=== PATIENT | female | born 1935 | race Caucasian/White ===

== ENCOUNTER → 2016-12-10 | Outpatient (CLI) | payer BC ==
[~2016-12-10] MED LIST: ACET-1256 PO; AMLO-110 PO; ATEN100T8 PO; ESOM20CA PO; LEVO200T6 PO; LEVO25TA5 PO; LOSA50TA54 PO; OXYC-57 PO; SIMV80TA2 PO; TELM80TA PO
--- NOTE | 2016-12-10 11:01 | DIAGNOSTIC IMAGING REPORT ---
DOPPLER ULTRASOUND OF THE RENAL ARTERIES CLINICAL HISTORY: Hypertension. Hyperlipidemia. COMPARISON STUDY: No previous studies for comparison. TECHNIQUE: Grayscale and color and do proximal Doppler sonography of the abdominal aorta and renal arteries was performed. FINDINGS: The peak systolic velocity within the abdominal aorta was 92 cm/s. The peak systolic velocity within the right renal artery was 86 cm/s and the peak systolic velocity within the left renal artery was 54 cm/s. Both renal veins were patent. There was mild renal cortical thinning. Slight prominence of the right collecting system was present. Systolic upstrokes within the bilateral segmental vessels was delayed, right greater than left. There are suspected calcified granulomas within the spleen. IMPRESSION: 1. No elevated velocities identified within the renal arteries. However, segmental waveforms within each kidney were abnormal, right greater than left, with a tardus parvus morphology. While indeterminate, this raises the possibility of an occult stenosis. A CTA of the abdomen could be obtained to evaluate the renal arteries. 2. Mild renal cortical thinning and slight prominence of the right renal collecting system. Electronically signed by: Bob Rodriguez M.D. 12/10/2016 10:59 AM Dictated Date/Time: 12/10/2016 10:52 AM
[2016-12-10 12:25] LABS: URINE APPEARANCE CLEAR (CLEAR); URINE BILIRUBIN NEG (NEG); URINE COLOR YELLOW; URINE EPITHELIAL CELL AUTO 20-30 /lpf (0-5); URINE NITRITE NEG (NEG); URINE SPECIFIC GRAVITY 1.006 (1.000-1.030); UROBILINOGEN NEG (NEG)
[2016-12-10 12:48] LABS: MANUAL MICROSCOPIC REQUIRED? NO; REVIEW REQ? NO
== END | disposition home or self-care (01) ==
LOC: C.ULTR 09:56
PROVIDERS: ATTEND Internal Medicine Pulmonary Disease
DX: E03.9 Hypothyroidism, unspecified (principal); E78.5 Hyperlipidemia, unspecified; H35.60 Retinal hemorrhage, unspecified eye; I10 Essential (primary) hypertension

== ENCOUNTER → 2017-01-21 | Outpatient (CLI) | payer BC | END | disposition home or self-care (01) | LOC: C.LABBFT 09:21 | PROVIDERS: ATTEND Internal Medicine Nephrology | DX: I10 Essential (primary) hypertension (principal) ==

== ENCOUNTER → 2017-02-24 | Outpatient (CLI) | payer BC | END | disposition home or self-care (01) | LOC: C.RDSM 11:38 | PROVIDERS: ATTEND Physical Medicine & Rehabilitation Sports Medicine | DX: Z09 Encounter for follow-up examination after completed treatment for conditions other than malignant neoplasm (principal) ==

== ENCOUNTER → 2018-06-28 | Outpatient (CLI) | payer BC ==
[~2018-06-28] MED LIST changes: -AMLO-110 PO; +AMLO5TAB3 PO
--- NOTE | 2018-06-28 15:37 | DIAGNOSTIC IMAGING REPORT ---
R VENOUS DOPP LOWER EXT UNILAT CLINICAL HISTORY: RT LEG PAIN pain. Edema. TECHNIQUE: Venous Doppler COMPARISON STUDY: None FINDINGS: Normal study IMPRESSION: Normal study The above report was generated using voice recognition software. It may contain grammatical, syntax or spelling errors. Electronically signed by: Edgar Thao M.D. 06/28/2018 3:35 PM Dictated Date/Time: 06/28/2018 3:35 PM
== END | disposition home or self-care (01) ==
LOC: C.ULTR 14:44
PROVIDERS: ATTEND Physician Assistant Medical
DX: R60.0 Localized edema (principal); M79.604 Pain in right leg

== ENCOUNTER 2020-05-12 20:07 | Inpatient (IN) ==
--- NOTE | 2020-05-12 20:44 | Emergency Department Note ---
Impression & Plan Aphasia, Stroke ED Provider Note Provider: Riki Arias MD DATE OF SERVICE: 05/12/2020 CHIEF COMPLAINT: Speech issues HISTORY OF PRESENT ILLNESS: Patient is a 84-year-old female with a history of hypertension, hypothyroidism, hyperlipidemia presenting today noted by family to have memory issues and speech issues throughout 4 PM today. Patient denies any headache. She has difficulty speaking here. Does not know her birthday. Again denies pain. No trauma is reported. Was otherwise well before this around 1 PM earlier. No reported fevers or sick contacts. No history of similar. No reported history of stroke. There is some difficulty obtaining specific details from the patient as she is aphasic REVIEW OF SYSTEMS: A total of 10 review of systems was obtained and negative ex cept as stated above in the HPI. PAST MEDICAL HISTORY: As noted above MEDICATIONS: Reviewed medication list include aspirin, losartan, HCTZ, levothyroxine, amlodipine SOCIAL HISTORY: Lives at home with , additional family lives next-door PHYSICAL EXAM: GENERAL: alert and oriented in no acute distress on stretcher Head: normocephalic and atraumatic EYES: No injection, discharge or icterus. PERRL NECK: Trachea midline. Supple. ENT: Mucous membranes pink and moist. Tongue midline. LUNGS: Airway patent. No retractions. Breath sounds clear HEART: Regular rate and irregular rhythm. No chest wall tenderness ABDOMEN: Soft and non-tender, without guarding or rebound. SKIN: Acyanotic, warm, dry, without rashes EXTREMITIES: Without swelling, tenderness or deformity NEUROLOGICAL: No focal deficits. Moderate aphasia. No facial droop or slurred speech. Normal strength and tone in the extremities. Sensation to gross touch normal. EKG: Sinus rhythm 99 bpm with sinus arrhythmia. No PVCs noted. No acute ST segment elevation or depression noted. QTc 505. CONTINUOUS CARDIAC MONITORING: was ordered and showed a heart rate of 78 bpm in normal sinus rhythm with sinus arrhythmia Patient's hypertension was referred to the hospitalist HOSPITAL COURSE: 2031 Patient was first seen and H&P performed. 2104 Patient reassessed and updated. Patient was still having aphasia. Updated both her and the daughter findings. Recommend admission for further stroke evaluation. They were in agreement. Patient's laboratory studies and imaging reviewed. Differential includes Infection, dehydration, metabolic abnormality, hypo/hyperglycemia, electrolyte disturbance, anemia, hypoxia, cardiac sources, intracerebral event, toxicologic, neurologic, as well as other pathologies. IMPRESSION/MEDICAL DECISION MAKING: Patient presents with sudden onset of aphasia. Do not see gross motor abnormality. Aphasia is fairly remarkable. CT head completed. Kidney function precludes angiograms at this time and is slightly worse than prior baseline. Given some slight fluid hydration. Outside of the window of TPA based on onset time. More than 4 hours. Basic labs and metabolic work-up was completed. EKG shows a sinus arrhythmia but do not see evidence of A. fib. No significant bere kocytosis. Urinalysis still pending. CT the head was completed without evidence of acute intracranial bleed. Do have a high suspicion the patient suffered a likely small stroke causing this. Doubt this is a seizure. Patient with persistent systems on reevaluation. Recommended admission they were agreement. Considered administering oral aspirin however the patient failed dysphagia screening at this time. Will defer oral aspirin at this time. DIAGNOSIS: Aphasia, stroke DISPOSITION: Hospitalist will evaluate Patient was agreeable with this plan. Past Med/Surg History Social History Preferred Language: Dominican marital status: Current Living Situation: Spouse current occupational status: retired Feels Safe at Home: Yes Smoking Status: Never smoker Hx Alcohol Use: No Allergies Allergies Allergy/AdvReac Type Severity Reaction Status Date / Time No Known Drug Allergies Allergy Unknown ` Verified 05/12/20 21:37 Home Meds Home Medications Medication Instructions Recorded Confirmed losartan 100 1 tab PO DAILY #90 tab 08/23/19 05/12/20 mg-hydrochlorothiazide 25 mg tablet aspirin 81 mg PO DAILY 05/12/20 05/12/20 diphenhydramine-acetaminophen 1 tab PO HS PRN 05/12/20 05/12/20 [Tylenol PM Extra Strength] Previous Rx's Medication Instructions Recorded amlodipine 5 mg tablet 5 mg PO DAILY #90 tab 04/20/20 levothyroxine 150 mcg tablet 150 mcg PO DAILY #90 tab 04/20/20 potassium chloride 10 mEq 10 meq PO DAILY #90 tab 04/20/20 tablet,extended release Results & Data (ED) Vital Signs Vital Signs - 24 hr 05/12/20 20:14 05/12/20 20:36 05/12/20 21:01 Temperature 36.9 C Temperature Source Oral Pulse Rate 76 107 H Pulse Rate from SpO2 Sensor 107 H Respiratory Rate 18 16 19 Respiratory Effort / Characteristics Non-Labored Respiratory Depth Normal Blood Pressure 162/86 H 174/116 H Blood Pressure [Right Arm] 172/92 H Blood Pressure Mean 111 138 Blood Pressure Mean [Right Arm] 118 Blood Pressure Position [Right Arm] Lying Pulse Oximetry 98 95 98 Oxygen Delivery Method Room Air Sepsis Recent Fever Within 48 Hours No Sepsis New/Unexplained Change in Mental Status No Sepsis Action Taken by Nursing No Action Required 05/12/20 21:31 05/12/20 22:01 05/12/20 22:31 Temperature Temperature Source Pulse Rate 93 H 94 H 93 H Pulse Rate from SpO2 Sensor 100 H 91 H 96 H Respiratory Rate 18 20 21 Respiratory Effort / Characteristics Respiratory Depth Blood Pressure 174/93 H 157/96 H 168/115 H Blood Pressure [Right Arm] Blood Pressure Mean 112 112 137 Blood Pressure Mean [Right Arm] Blood Pressure Position [Right Arm] Pulse Oximetry 98 96 96 Oxygen Delivery Method Sepsis Recent Fever Within 48 Hours Sepsis New/Unexplained Change in Mental Status Sepsis Action Taken by Nursing 05/12/20 23:01 05/12/20 23:55 Temperature Temperature Source Pulse Rate 96 H 114 H Pulse Rate from SpO2 Sensor 95 H 112 H Respiratory Rate 15 24 Respiratory Effort / Characteristics Respiratory Depth Blood Pressure 161/102 H 162/97 H Blood Pressure [Right Arm] Blood Pressure Mean 130 131 Blood Pressure Mean [Right Arm] Blood Pressure Position [Right Arm] Pulse Oximetry 96 91 Oxygen Delivery Method Sepsis Recent Fever Within 48 Hours Sepsis New/Unexplained Change in Mental Status Sepsis Action Taken by Nursing Laboratory Data Result diagrams: 05/12/20 20:50 05/12/20 20:50 Lab Results 05/12/20 05/12/20 05/12/20 Range/Units 20:50 20:50 20:50 WBC 9.73 (4.8-10.8) K/uL RBC 4.66 (4.2-5.4) M/uL Hgb 14.3 (12.0-16.0) g/dL Hct 42.2 (37-47) % MCV 90.6 (80-100) fL MCH 30.7 (25-34) pg MCHC 33.9 (32-36) g/dL RDW Std Deviation 43.8 (36.4-46.3) fL RDW Coeff of Luis 13.3 (11.5-14.5) % Plt Count 191 (130-400) K/uL MPV 11.2 H (7.4-10.4) fL Immature Gran % (Auto) 0.2 % Neut % (Auto) 66.7 % Lymph % (Auto) 21.6 % [place] % (Auto) 9.4 % Eos % (Auto) 1.3 % Baso % (Auto) 0.8 % Immature Gran # (Auto) 0.02 (0.00-0.02) K/uL Neut # (Auto) 6.49 (1.4-6.5) K/uL Lymph # (Auto) 2.10 (1.2-3.4) K/uL [place] # (Auto) 0.91 H (0.11-0.59) K/uL Eos # (Auto) 0.13 (0-0.5) K/uL Baso # (Auto) 0.08 (0-0.2) K/uL PT 10.6 (9.0-12.0) Seconds INR 1.0 (0.9-1.1) APTT 24.2 (21.0-31.0) Seconds PTT Ratio 0.9 Sodium 137 (136-145) mmol/L Potassium 3.7 (3.5-5.1) mmol/L Chloride 104 (98-107) mmol/L Carbon Dioxide 27 (21-32) mmol/L Anion Gap 6.0 (3-11) BUN 26 H (7-18) mg/dl Creatinine 1.66 H (0.6-1.2) mg/dl Est Cr Clr Drug Dosing 23.5 ml/min Est GFR ( Amer) 32.2 Est GFR (Non-Af Amer) 27.8 BUN/Creatinine Ratio 15.5 (10-20) Glucose 120 H (70-99) mg/dl POC Glucose (70-99) mg/dl Calcium 9.1 (8.5-10.1) mg/dl Magnesium 1.9 (1.8-2.4) mg/dl Total Bilirubin 0.4 (0.2-1) mg/dl AST 20 (15-37) U/L ALT 18 (12-78) U/L Alkaline Phosphatase 67 (45-117) U/L Troponin I < 0.015 (0-0.045) ng/ml Total Protein 7.2 (6.4-8.2) gm/dl Albumin 3.6 (3.4-5.0) gm/dl Globulin 3.6 (2.5-4.0) gm/dl Albumin/Globulin Ratio 1.0 (0.9-2) /20/20 Range/Units 20:57 WBC (4.8-10.8) K/uL RBC (4.2-5.4) M/uL Hgb (12.0-16.0) g/dL Hct (37-47) % MCV (80-100) fL MCH (25-34) pg MCHC (32-36) g/dL RDW Std Deviation (36.4-46.3) fL RDW Coeff of Luis (11.5-14.5) % Plt Count (130-400) K/uL MPV (7.4-10.4) fL Immature Gran % (Auto) % Neut % (Auto) % Lymph % (Auto) % [place] % (Auto) % Eos % (Auto) % Baso % (Auto) % Immature Gran # (Auto) (0.00-0.02) K/uL Neut # (Auto) (1.4-6.5) K/uL Lymph # (Auto) (1.2-3.4) K/uL [place] # (Auto) (0.11-0.59) K/uL Eos # (Auto) (0-0.5) K/uL Baso # (Auto) (0-0.2) K/uL PT (9.0-12.0) Seconds INR (0.9-1.1) APTT (21.0-31.0) Seconds PTT Ratio Sodium (136-145) mmol/L Potassium (3.5-5.1) mmol/L Chloride (98-107) mmol/L Carbon Dioxide (21-32) mmol/L Anion Gap (3-11) BUN (7-18) mg/dl Creatinine (0.6-1.2) mg/dl Est Cr Clr Drug Dosing ml/min Est GFR ( Amer) Est GFR (Non-Af Amer) BUN/Creatinine Ratio (10-20) Glucose (70-99) mg/dl POC Glucose 116 H (70-99) mg/dl Calcium (8.5-10.1) mg/dl Magnesium (1.8-2.4) mg/dl Total Bilirubin (0.2-1) mg/dl AST (15-37) U/L ALT (12-78) U/L Alkaline Phosphatase (45-117) U/L Troponin I (0-0.045) ng/ml Total Protein (6.4-8.2) gm/dl Albumin (3.4-5.0) gm/dl Globulin (2.5-4.0) gm/dl Albumin/Globulin Ratio (0.9-2) Administered Medications Discontinued Medications Sodium Chloride (Nss) 500 mls @ 999 mls/hr IV .Q31M ONE Stop: 05/12/20 21:52 Last Infusion: 05/12/20 22:33 Dose: 0 mls/hr Documented by: [id number] Admin: 05/12/20 21:55 Dose: 999 mls/hr Documented by: [id number] Discharge Plan Visit Data Chief Complaint: Confusion Stated Complaint: CONFUSION, MEMORY LOSS ED Provider: Riki Arias Discharge Problem: Aphasia, Stroke Patient Disposition: Admitted As Inpatient Forms Stand Alone Forms: [facility] Prescriptions Prescriptions: No Action amlodipine 5 mg tablet 5 mg PO DAILY Qty: 90 RF: 3 levothyroxine 150 mcg tablet 150 mcg PO DAILY Qty: 90 RF: 3 potassium chloride 10 mEq tablet extended release 10 meq PO DAILY Qty: 90 RF: 3 losartan-hydrochlorothiazide 100-25 mg tablet 1 tab PO DAILY Qty: 90 RF: 0 aspirin 81 mg Tablet,Delayed Release (Dr/Ec) 81 mg PO DAILY RF: 0 diphenhydramine-acetaminophen [Tylenol PM Extra Strength] 25-500 mg Tablet 1 tab PO HS PRN (Reason: Pain) RF: 0 Referrals Referrals: Jesse Grigsby MD [Primary Care Provider] -
[2020-05-12 20:59] LABS: Basophils # (auto) 0.08 K/uL (0-0.2); Basophils % (auto) 0.8 %; Eosinophils # (auto) 0.13 K/uL (0-0.5); Eosinophils % (auto) 1.3 %; Hematocrit (blood only) 42.2 % (37-47); Hemoglobin 14.3 g/dL (12.0-16.0); Immature Granulocytes # (auto) 0.02 K/uL (0.00-0.02); Immature Granulocytes % (auto) 0.2 %; Lymphocytes % (auto) 21.6 %; Mean Corpuscular Hemoglobin 30.7 pg (25-34); Mean Corpuscular Hgb Conc 33.9 g/dL (32-36); Mean Corpuscular Volume 90.6 fL (80-100); Mean Platelet Volume 11.2 fL (7.4-10.4); Monocytes # (auto) 0.91 K/uL (0.11-0.59); Monocytes % (auto) 9.4 %; Neutrophils # (auto) 6.49 K/uL (1.4-6.5); Neutrophils % (auto) 66.7 %; Platelet Count 191 K/uL (130-400); RDW Coefficient of Variation 13.3 % (11.5-14.5); RDW Standard Deviation 43.8 fL (36.4-46.3); Red Blood Count 4.66 M/uL (4.2-5.4); White Blood Count 9.73 K/uL (4.8-10.8)
[2020-05-12 21:10] LABS: Partial Thromboplastin Ratio 0.9; Partial Thromboplastin Time 24.2 Seconds (21.0-31.0); Prothrombin Time 10.6 Seconds (9.0-12.0)
[2020-05-12 21:16] LABS: Alanine Aminotransferase 18 U/L (12-78); Albumin Level 3.6 gm/dl (3.4-5.0); Aspartate Aminotransferase 20 U/L (15-37); BUN Creatinine Ratio 15.5 (10-20); Blood Urea Nitrogen 26 mg/dl (7-18); Calcium 9.1 mg/dl (8.5-10.1); Carbon Dioxide 27 mmol/L (21-32); Chloride 104 mmol/L (98-107); Creatinine Clr Calc Pharmacy 23.5 ml/min; Est GFR (African American) 32.2; Est GFR (Non-African American) 27.8; Glucose 120 mg/dl (70-99); Magnesium 1.9 mg/dl (1.8-2.4); Potassium 3.7 mmol/L (3.5-5.1); Sodium 137 mmol/L (136-145)
[2020-05-12 21:21] LABS: Alkaline Phosphatase 67 U/L (45-117); Bilirubin,Total 0.4 mg/dl (0.2-1); Globulin 3.6 gm/dl (2.5-4.0); Total Protein 7.2 gm/dl (6.4-8.2); Troponin I < 0.015 ng/ml (0-0.045)
[2020-05-12] MEDS ORDERED: SODIUM CHLORIDE 0.9% 500 ML IV ONE (21:22)
--- NOTE | 2020-05-12 23:45 | History & Physical Report ---
Date of Service May 12, 2020 Assessment & Plan (1) Stroke: Stroke with main symptom of aphasia/hypertension- Patient with unintelligible speech. Admit to monitored bed N.p.o. Stroke without TPA order set, with time of arrival to ED will beyond time of intervention. Zofran 4 mg IV every 6 hours as needed Famotidine 20 mg IV every [address] of head without acute event. CTA of head and neck unable to be ordered due to acute kidney injury. We will hydrate patient overnight with IV fluids, and repeat creatinine in a.m., and attempt to perform CTA head neck at that time. MRI brain without contrast. Carotid Dopplers Permissive hypertension Present on Admission?: Yes (2) Aphasia: See above Present on Admission?: Yes (3) Hypertension: See above Present on Admission?: Yes (4) Esophageal dysmotility: Noted history of dysphagia secondary to esophageal dysmotility, but never had speech issues. Present on Admission?: Yes (5) Acute kidney injury superimposed on chronic kidney disease: Creatinine 1.66 upon admission, with 1.30-1.56. Placed on NSS at 80 mils per hour and repeat laboratories in a.m. Present on Admission?: Yes (6) Hypothyroidism: When passes swallow study, may take her levothyroxine 50 mcg daily Present on Admission?: Yes History of Present Illness Chief Complaint: The patient presents to the emergency department after family noticed her having memory issues and speech difficulty that began around 4 PM today. Primary Care Provider: Jesse Grigsby MD The patient is AN 84-year-old female with a past medical history including GERD, APCs, degenerative joint disease, esophageal dysmotility, hyperlipidemia, hypertension, hypothyroidism, primary osteoarthritis of right knee and retinal hemorrhage. Family reports that they noted her having difficulties with memory and speech at about 4 PM today. She has not had any recent travels or sick exposures. In the emergency department, her speech did not not make sense, and she did not have an awareness of that. She denies any weakness in arms or legs. She has not had these type of symptoms in the past. Allergies Allergy/AdvReac Type Severity Reaction Status Date / Time No Known Drug Allergies Allergy Unknown ` Verified 05/12/20 21:37 Home Medications Home Medications Medication Instructions Recorded Confirmed Type losartan 100 1 tab PO DAILY #90 tab 08/23/19 05/12/20 History mg-hydrochlorothiazide 25 mg tablet amlodipine 5 mg tablet 5 mg PO DAILY #90 tab 04/20/20 05/12/20 Rx levothyroxine 150 mcg tablet 150 mcg PO DAILY #90 tab 04/20/20 05/12/20 Rx potassium chloride 10 mEq 10 meq PO DAILY #90 tab 04/20/20 05/12/20 Rx tablet,extended release aspirin 81 mg PO DAILY 05/12/20 05/12/20 History diphenhydramine-acetaminophen 1 tab PO HS PRN 05/12/20 05/12/20 History [Tylenol PM Extra Strength] Past Med/Surg History Social History Preferred Language: Omani 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 Physical Exam Physical Exam: The patient is awake, with expressive aphasia, well developed and well nourished, normocephalic and atraumatic, lying in bed and in no acute distress. HEENT--PERRL, EOMI, mucous membranes and oropharynx normal. Neck--supple. No JVD. No bruits. Thyroid normal, trachea midline, no adenopathy. Heart--normal S1 and S2. No murmurs, rubs or gallops. Lungs--clear bilaterally, no respiratory distress, no accessory muscle use. Abdomen--normal bowel sounds and soft. Nontender. Nondistended. Extremities--no cyanosis or clubbing. No edema. Dermatologic--normal skin turgor, normal color, no abnormal lymph nodes, no rash. Neurologic--cranial nerves II through XII grossly intact. Rheumatologic--normal range of motion. Psychiatric--intermittently confused. Results & Data Results & Data ([facility]) Vital Signs (Past 12 Hours) Vital Signs Temp Pulse Resp BP BP Pulse Ox 05/12/20 20:36 16 172/92 H 95 05/12/20 20:14 98.4 F 76 18 162/86 H 98 Laboratory Results Laboratory Results WBC 9.73 K/uL (4.8-10.8) 05/12/20 20:50 RBC 4.66 M/uL (4.2-5.4) 05/12/20 20:50 Hgb 14.3 g/dL (12.0-16.0) 05/12/20 20:50 Hct 42.2 % (37-47) 05/12/20 20:50 MCV 90.6 fL (80-100) 05/12/20 20:50 MCH 30.7 pg (25-34) 05/12/20 20:50 MCHC 33.9 g/dL (32-36) 05/12/20 20:50 RDW Std Deviation 43.8 fL (36.4-46.3) 05/12/20 20:50 RDW Coeff of Luis 13.3 % (11.5-14.5) 05/12/20 20:50 Plt Count 191 K/uL (130-400) 05/12/20 20:50 MPV 11.2 fL (7.4-10.4) H 05/12/20 20:50 Immature Gran % (Auto) 0.2 % 05/12/20 20:50 Neut % (Auto) 66.7 % 05/12/20 20:50 Lymph % (Auto) 21.6 % 05/12/20 20:50 [place] % (Auto) 9.4 % 05/12/20 20:50 Eos % (Auto) 1.3 % 05/12/20 20:50 Baso % (Auto) 0.8 % 05/12/20 20:50 Immature Gran # (Auto) 0.02 K/uL (0.00-0.02) 05/12/20 20:50 Neut # (Auto) 6.49 K/uL (1.4-6.5) 05/12/20 20:50 Lymph # (Auto) 2.10 K/uL (1.2-3.4) 05/12/20 20:50 [place] # (Auto) 0.91 K/uL (0.11-0.59) H 05/12/20 20:50 Eos # (Auto) 0.13 K/uL (0-0.5) 05/12/20 20:50 Baso # (Auto) 0.08 K/uL (0-0.2) 05/12/20 20:50 PT 10.6 Seconds (9.0-12.0) 05/12/20 20:50 INR 1.0 (0.9-1.1) 05/12/20 20:50 APTT 24.2 Seconds (21.0-31.0) 05/12/20 20:50 PTT Ratio 0.9 05/12/20 20:50 Sodium 137 mmol/L (136-145) 05/12/20 20:50 Potassium 3.7 mmol/L (3.5-5.1) 05/12/20 20:50 Chloride 104 mmol/L (98-107) 05/12/20 20:50 Carbon Dioxide 27 mmol/L (21-32) 05/12/20 20:50 Anion Gap 6.0 (3-11) 05/12/20 20:50 BUN 26 mg/dl (7-18) H 05/12/20 20:50 Creatinine 1.66 mg/dl (0.6-1.2) H 05/12/20 20:50 Est Cr Clr Drug Dosing 23.5 ml/min 05/12/20 20:50 Est GFR ( Amer) 32.2 05/12/20 20:50 Est GFR (Non-Af Amer) 27.8 05/12/20 20:50 BUN/Creatinine Ratio 15.5 (10-20) 05/12/20 20:50 Glucose 120 mg/dl (70-99) H 05/12/20 20:50 POC Glucose 116 mg/dl (70-99) H 05/12/20 20:57 Calcium 9.1 mg/dl (8.5-10.1) 05/12/20 20:50 Magnesium 1.9 mg/dl (1.8-2.4) 05/12/20 20:50 Total Bilirubin 0.4 mg/dl (0.2-1) 05/12/20 20:50 AST 20 U/L (15-37) 05/12/20 20:50 ALT 18 U/L (12-78) 05/12/20 20:50 Alkaline Phosphatase 67 U/L (45-117) 05/12/20 20:50 Troponin I < 0.015 ng/ml (0-0.045) 05/12/20 20:50 Total Protein 7.2 gm/dl (6.4-8.2) 05/12/20 20:50 Albumin 3.6 gm/dl (3.4-5.0) 05/12/20 20:50 Globulin 3.6 gm/dl (2.5-4.0) 05/12/20 20:50 Albumin/Globulin Ratio 1.0 (0.9-2) 05/12/20 20:50 Diagnostic Findings [facility] Patient: CYNTHIA HART (Female) : 33 Status: ER Date: 05/12/20 21:41 Room #: History: CONFUSION Slices: 66 Priors: Tech: Skylar Burroughs @ [phone] Exams: CT HEAD Accession Numbers: [id number] Preliminary Findings Only See Final Report For Complete Findings CT HEAD: No intracranial hemorrhage, mass effect or CT evidence of acute infarct Ventricles are within limits and midline Chronic and involutional changes Paranasal sinuses, mastoids and orbits appear within limits Radiologist: Aren Keene M.D. Study ready at 21:44 and initial results transmitted at 21:56 *This report constitutes a preliminary interpretation only. Non-acute findings felt to be unrelated to the clinical presentation may not be discussed in this report. The study will be interpreted and a final report will be generated by the local Radiologist the following shift. To reach the hospital radiology department call [phone]. If a discrepancy is found between the preliminary and final interpretations of this study, please notify us via our Client Portal at [email or web address] [email or web address].You can also fax this report with a description of the discrepancy, or include the final report, to our daytime fax number [phone].If faxing, please indicate the severity of discrepancy using one of the following categories: [ ] 1 - Agree/Informational [ ] 2 - Unlikely to Affect Management [ ] 3 - Possible Eventual Change of Management [ ] 4 - Probable Immediate Change of Management For all other patient related information, please fax us at [phone]. [id number] Code Status & VTE Plan Code Status Full code VTE Prophylaxis Plan VTE Prophylaxis will be ordered: Yes PG Care Time/CCT Total # of Minutes Spent Total Time Spent with Patient: Total time spent is greater than 50% in coordination of care (as documented) at patient's floor/unit and/or counseling patient: Coding Level of Care Code 63418 Initial Inpt Care Lvl 3 Diagnoses Stroke I63.9 CVA mechanism: unspecified Aphasia R47.01 Hypertension I10 Esophageal dysmotility K22.4 Acute kidney injury superimposed on chronic kidney disease N17.9; N18.9 Hypothyroidism E03.9 (1) Stroke CVA mechanism: unspecified Qualified Code(s): I63.9 - Cerebral infarction, unspecified
[2020-05-13] MEDS ORDERED: PHARMACIST DISCHARGE MED REC CONSULT PRN (01:11)
[2020-05-13] MEDS ORDERED: SODIUM CHLORIDE 0.9% 1000ML 1,000 ML IV SCH (05:15)
[2020-05-13 06:39] LABS: Basophils # (auto) 0.07 K/uL (0-0.2); Basophils % (auto) 0.9 %; Eosinophils # (auto) 0.07 K/uL (0-0.5); Eosinophils % (auto) 0.9 %; Hematocrit (blood only) 42.8 % (37-47); Hemoglobin 14.2 g/dL (12.0-16.0); Immature Granulocytes # (auto) 0.01 K/uL (0.00-0.02); Immature Granulocytes % (auto) 0.1 %; Lymphocytes # (auto) 1.51 K/uL (1.2-3.4); Mean Corpuscular Hemoglobin 29.6 pg (25-34); Mean Corpuscular Hgb Conc 33.2 g/dL (32-36); Mean Corpuscular Volume 89.4 fL (80-100); Mean Platelet Volume 11.2 fL (7.4-10.4); Monocytes # (auto) 0.69 K/uL (0.11-0.59); Monocytes % (auto) 9.1 %; Neutrophils # (auto) 5.21 K/uL (1.4-6.5); Platelet Count 184 K/uL (130-400); RDW Coefficient of Variation 13.1 % (11.5-14.5); RDW Standard Deviation 43.2 fL (36.4-46.3); Red Blood Count 4.79 M/uL (4.2-5.4); White Blood Count 7.56 K/uL (4.8-10.8)
--- NOTE | 2020-05-13 06:57 | CT Scan Report ---
CT head/brain wo con CT DOSE: 614.27 mGy.cm HISTORY: Mental status change Stroke evaluation TECHNIQUE: Multiaxial CT images of the head were performed without the use of intravenous contrast. A dose lowering technique was utilized adhering to the principles of ALARA. Comparison: None. Findings: The paranasal sinuses and mastoid air cells are clear. The calvarium and skull base are int act. The ventricles and sulci are within normal limits. There is no mass, hematoma, midline shift, or acute infarct. Impression: No acute intracranial abnormality. Age-related atrophy and chronic small vessel change ACT 112: Negative or not required by law. The above report was generated using voice recognition software. It may contain grammatical, syntax or spelling errors. Electronically signed by: Edgar Thao M.D. 05/13/2020 6:56 AM
[2020-05-13 07:10] LABS: BUN Creatinine Ratio 15.8 (10-20); Calcium 9.2 mg/dl (8.5-10.1); Creatinine Clr Calc Pharmacy 32.2 ml/min; Est GFR (African American) 47.7; Est GFR (Non-African American) 41.2; Potassium 3.4 mmol/L (3.5-5.1)
[2020-05-13 07:13] LABS: Appearance Urine Clear (Clear); Bilirubin Urine Negative (Negative); Blood Urine Negative (Negative); Color Urine Yellow; Glucose Urine UA Negative (Negative); Ketones Urine Negative (Negative); Leukocyte Esterase Urine Negative (Negative); Nitrite Urine Negative (Negative); Protein Urine Negative (Negative); Specific Gravity Urine 1.015 (1.000-1.030); Urobilinogen Urine Negative (Negative)
--- NOTE | 2020-05-13 07:26 | Ultrasound Report ---
ULTRASOUND OF THE CAROTID ARTERIES CLINICAL HISTORY: Strokelike symptoms. COMPARISON STUDY: No priors. TECHNIQUE: Real-time, grayscale, and color Doppler sonography of the carotid arteries is performed. I mages are reviewed in the transverse and longitudinal planes. FINDINGS: Blood pressure in the right arm measures 164/96 and blood pressure in the left arm measures 162/97. The carotid arteries are patent bilaterally and demonstrate antegrade flow. There is mild atheroscler otic plaque seen bilaterally. Normal doppler arterial waveforms are seen throughout. Velocity measure ments are listed below. Common carotid peak systolic velocity (cm/sec): RIGHT: 74 LEFT: 81 ICA proximal peak systolic velocity (cm/sec): RIGHT: 66 LEFT: 79 ICA mid peak systolic velocity (cm/sec): RIGHT: 93 LEFT: 63 ICA distal peak systolic velocity (cm/sec): RIGHT: 67 LEFT: 73 ICA/CC peak systolic ratio: RIGHT: 1.3 LEFT: 1.0 Antegrade flow was shown in the vertebral arteries. The external carotid arteries are patent. IMPRESSION: 1. There is no sonographic evidence of hemodynamically significant stenosis in the right or left argueta tid arterial system. 2. Antegrade flow is shown in the vertebral arteries. ACT 112: Negative or not required by law. Electronically signed by: Augusto Bernal M.D. 05/13/2020 7:24 AM
[2020-05-13] MEDS ORDERED: ASPIRIN 300 MG SUPP PR SCH (09:20)
--- NOTE | 2020-05-13 09:22 | Neurology Consultation ---
Date of Consultation May 13, 2020 Assessment & Plan (1) Aphasia: (2) Memory loss: (3) Hypertension: (4) Hyperlipidemia: Patient had the acute onset of motor aphasia May 12. She does not seem to have a receptive aphasia but this is a little difficult with the memory problem she displays. She does have a history of mild memory loss over the last year and a half. However, she does not appear significantly demented to me on exam today. She follows commands well and seems to understand what I am asking her to do. This event occurred while she was on aspirin. Examination reveals no further focal neurologic affects, meningeal signs, or encephalopathy. I believe she has had an ischemic stroke in her leg [facility]. An MRI of the brain is pending. Risk factors for stroke include hypertension and dyslipidemia. She has no cardiac problems but an echocardiogram is pending. Recommendations: 1. MRI of the brain without contrast to evaluate extent and severity of stroke. 2. Add clopidogrel 75 milligrams to aspirin for now. 3. Initiate a statin, but in lieu of her advanced age I would not consider a high dose statin candidate. 4. Control blood pressure as you are doing, aiming for a mean arterial blood pressure of 95 to 100. 5. Hemoglobin A1c is pending and control glucose 6. Obtain TSH, B12, and folate. Overall, I spent a total of 60 minutes with this case including review of records, review of CT films, direct evaluation patient bedside, and discussion of the case with patient's RN at bedside, as well as Dr. Scanlon including differential diagnosis and treatment options. History of Present Illness Reason for Consultation: Patient is a an 84-year-old, who I was asked to see at the request of Dr. Burnette, for neurologic consultation regarding probable stroke Requesting Physician: Dr. Burnette Attending Physician: Pili Scanlon MD History of Present Illness The patient has a history of hypertension, hypothyroidism, dyslipidemia, and osteoarthritis. There is also a history of memory impairment/dementia with see ms to have come on gradually and has been a little bit progressive over the last year and half. She has been on a baby aspirin as well as losartan, amlodipine, and levothyroxine. Patient had the onset May 12 at approximately 1600 of speech problems and or worsening memory problems. She arrived to the emergency room May 12 at 2014 with a temperature 36.9, pulse 70s and regular, respiratory rate 18, and blood pressure 162/86 with an O2 saturation 98 percent. On examination she was not speaking well and was felt to have an a aphasia. There was concern about memory problems also. CBC and Chem profile were unremarkable except for a BUN of 26 and creatinine of 1.6. Glucose was 120. No CT angiography was done because of concerns regarding elevated BUN and creatinine. Carotid ultrasound revealed no significant stenoses bilaterally. CT scan of the head without contrast showed no acute change. She has had no new events overnight and has been stable according to nursing staff. Patient has no complaint of pain or headache, weakness or numbness, dizziness or other issues. She feels fine. Blood pressure this morning is 171/85. Repeat CBC and Chem profile was unremarkable except for a BUN of 19 and creatinine 1.2. Glucose was 116. Total cholesterol was 240 and triglycerides were 64. Hemoglobin A1c and echocardiogram are pending. Allergies Allergy/AdvReac Type Severity Reaction Status Date / Time No Known Drug Allergies Allergy Unknown ` Verified 05/12/20 21:37 Home Medications Home Medications Medication Instructions Recorded Confirmed Type losartan 100 1 tab PO DAILY #90 tab 08/23/19 05/12/20 History mg-hydrochlorothiazide 25 mg tablet amlodipine 5 mg tablet 5 mg PO DAILY #90 tab 04/20/20 05/12/20 Rx levothyroxine 150 mcg tablet 150 mcg PO DAILY #90 tab 04/20/20 05/12/20 Rx potassium chloride 10 mEq 10 meq PO DAILY #90 tab 04/20/20 05/12/20 Rx tablet,extended release aspirin 81 mg PO DAILY 05/12/20 05/12/20 History diphenhydramine-acetaminophen 1 tab PO HS PRN 05/12/20 05/12/20 History [Tylenol PM Extra Strength] Patient History Medical History Acid reflux (Acute) Hyperlipidemia Hypertension Hypothyroidism Memory loss Surgical History History of tonsillectomy and adenoidectomy Family History Other Coronary heart disease Hypertension Social History Preferred Language: Norwegian Communication Ability: Impaired Vascular Radiologist Required: No Beliefs That Will Affect Care: None marital status: Current Living Situation: Spouse current occupational status: retired Other Information That Helps Us Care for You: No Feels Safe at Home: Yes Safety Concerns: Feels Safe At This Time Smoking Status: Never smoker Hx Alcohol Use: No Hx Substance Use: No Review of Systems Review of Systems: Language difficulties impair a review of systems put she basically denies anything I ask her. Constitutional: no fever, no fatigue and no weakness Eyes: no diplopia, no eye pain and no worsening vision Ear, Nose, Mouth, Throat: + hearing loss; no ear pain, no tinnitus, no dizziness, no hoarseness and no dysphagia Respiratory: no cough and no dyspnea Cardiovascular: no chest pain, no palpitations and no lightheadedness Gastrointestinal: no abdominal pain, no nausea and no vomiting Genitourinary: + urinary incontinence; no dysuria and no urinary frequency Musculoskeletal: no back pain, no neck pain, no radicular pain, no joint pain and no myalgia Integumentary: no rash and no lesions Neurologic: + abnormal speech and + memory loss; no gait abnormality, no localized weakness, no generalized weakness, no tingling, no numbness, no tremor(s), no abnormal movements, no headache(s) and no confusion Psychiatric: no depression, no irritability, no anxiety, no difficulty concentrating, no confusion and no hallucinations Endocrine: no fatigue and no flushing Hematologic / Lymphatic: no easy bleeding and no easy bruising Allergy / Immunological: no urticaria and no problem reported Exam (Neuro) Physical Exam: The patient is right-handed. The patient is awake, alert, and attentive. Speech is remarkable for a motor aphasia. She cannot name objects but can converse some saying conversational and little words easily. She follows one-step commands well and does not appear confused when I asked her to do things. When I give her choices to pick from she seems to agree to the correct choice. For example, she states her 1st name but cannot state her last name. When I give her 3 choices she picks out her last name easily. She does get a little frustrated not being able to say the words she wants to say. Mood seems normal and affect seems appropriate. Appearance and grooming are unremarkable. It is difficult to assess long and short-term memory but does seem to be some impairment. The discs are sharp with positive venous pulsations bilaterally. There are no exudates, hemorrhages, or blood vessel changes seen. Pupils are 3 mm bilaterally and reactive to light. Extraocular eye muscles are intact without nystagmus. Visual acuity and visual pike seem normal grossly to confrontation. There are no deficits to sensation in the face in all 3 distributions of the fif th cranial nerve bilaterally. Corneal reflexes are positive bilaterally. Facial strength and symmetry was normal bilaterally. Hearing seems normal to whisper and finger rub bilaterally. Palate moves well without asymmetry. There is normal sternocleidomastoid and trapezius (shoulder shrug) strength bilaterally. Tongue is midline with good strength bilaterally. Neck has a full range of motion without discomfort. There are no cervical bruits bilaterally. There are no cranial or ocular bruits. Heart is without murmur. There is a regular rhythm and rate. Cervical, thoracic, and lumbar spine are nontender to palpation. Gait was not tested but stance sitting up in bed is quite normal. With outstretched arms there is no drift. There are no resting, postural, or action tremors. There is no ataxia with finger to nose testing. There is good facility in the hands. No other abnormal involuntary movements are noted. Motor strength is 5/5 diffusely in the arms bilaterally including deltoids, bi ceps, triceps, brachioradialis, wrist flexors and extensors, cyber systems administrator, and intrinsic hand muscles. Motor strength is 5/5 diffusely in the legs bilaterally including hip flexors, quadriceps, hamstrings, gastrocnemius, tibialis anterior, tibialis posterior, and Peroneii muscles. Toe extensors are normal and there is good bulk in the extensor digitorum brevis muscles bilaterally. The limbs have good tone without rigidity or spasticity. There is no atrophy noted in the muscles. Muscle bulk is normal, there is no tenderness to palpation, no myotonia to percussion, and no fasciculations seen. Sensory examination is intact to touch and pin throughout all 4 limbs diffusely. Reflexes are 1/4 in the biceps, triceps, brachioradialis, quadriceps, and Achilles tendons bilaterally. There is no clonus bilaterally. Toes are downgoing with plantar stimulation bilaterally. Peripheral pulses are present and of normal quality distally in all 4 limbs. There is no peripheral edema noted in the limbs. Results & Data ([facility]) Vital Signs (Past 12 Hours) Vital Signs Temp Pulse Pulse Pulse Resp BP BP 05/13/20 08:00 90 05/13/20 07:15 36.6 C 98 H 18 171/85 H 05/13/20 05:05 36.6 C 89 20 174/92 H 05/13/20 02:34 96 H 05/13/20 01:11 36.8 C 68 18 05/13/20 00:31 94 H 21 164/96 H 05/13/20 00:01 95 H 19 160/96 H 05/12/20 23:55 114 H 24 162/97 H 05/12/20 23:01 96 H 15 161/102 H 05/12/20 22:31 93 H 21 168/115 H 05/12/20 22:01 94 H 20 157/96 H 05/12/20 21:31 93 H 18 174/93 H BP Pulse Ox 05/13/20 08:00 05/13/20 07:15 96 05/13/20 05:05 94 05/13/20 02:34 05/13/20 01:11 185/84 H 95 05/13/20 00:31 92 05/13/20 00:01 92 05/12/20 23:55 91 05/12/20 23:01 96 05/12/20 22:31 96 05/12/20 22:01 96 05/12/20 21:31 98 PG Care Time/CCT Total # of Minutes Spent Total Time Spent with Patient: Total time spent is greater than 50% in coordination of care (as documented) at patient's floor/unit and/or counseling patient: Coding Level of Care Code 06042 Initial Inpt Care Lvl 3 Diagnoses Aphasia R47.01 Memory loss R41.3 Hypertension I10 Hyperlipidemia E78.5 Time Spent (min) 60
[2020-05-13] MEDS ORDERED: POTASSIUM CHLORIDE / WTR 10 MEQ/100 ML PLCT IV ONE (09:30)
[2020-05-13] MEDS ORDERED: CLOPIDOGREL BISULFATE 75 MG TAB PO SCH (09:45)
[2020-05-13] MEDS ORDERED: ATORVASTATIN 40 MG TAB PO SCH (10:00)
--- NOTE | 2020-05-13 10:39 | Hospitalist Progress Note ---
Date of Service May 13, 2020 Assessment & Plan (1) Stroke: Stroke with main symptom of motor aphasia and with right sided debbie- neglect Patient with unintelligible speech at times-persists CT head negative MRI brain today with acute-subacute CVA in left temporoparietal cortex With new onset atrial flutter here on tele--> could be embolic CVA, but with HTN, could be thrombotic CVA also CTA of head and neck unable to be ordered due to acute kidney injury. Carotid DOppler negative Passed Speech eval. Permissive hypertension but give IV hydralazine prn to keep MAP<100 -She was NOT taking ASA anymore at home prior to admission--started ASA 81mg daily for now, but question if she needs this in addition to anticoagulation?- Will discuss with neurology -started on heparin gtt for now and then will need to convert to po anticoagulant prior to discharge--> would be a good candidate for Eliquis or Xarelto -Lipid panel checked with total cholesterol elevated at 210, LDL not at goal at 130-start atorvastatin 40 mg once daily -Needs improved blood pressure control after period of permissive hypertension -PT/OT/speech therapy evaluations ordered -Appreciate neurology consultation -For cognitive impairment work-up, neurology suggested checking TSH, folate, and B12 -Continue telemetry monitoring -Continue neurochecks (2) Atrial flutter with rapid ventricular response: As noted above, went into rapid atrial flutter shortly after admission -Continue telemetry monitoring -Started on metoprolol 25 mg p.o. twice daily for rate control -Started on heparin drip as noted above -No history of bleeding as per the patient's daughter although retinal hemorrhages mentioned in the notes -Will need to werner out and decide on oral anticoagulant on Thursday (3) Aphasia: See above (4) Hypertension: Blood pressures elevated in response to acute CVA We will try to keep map around 100 -Starting metoprolol as above for rapid atrial flutter -IV hydralazine for SBP greater than 190 -Holding home losartan/HCTZ for WILMER as below -Holding home amlodipine for permissive hypertension (5) Esophageal dysmotility: Noted history of dysphagia secondary to esophageal dysmotility, but never had speech issues. (6) Acute kidney injury superimposed on chronic kidney disease: Creatinine 1.66 upon admission, with 1.30-1.56 as baseline. Placed on NSS at 80 mils per hour and creatinine improved down to 1.20 -Follow BMP -Continue holding home losartan/HCTZ (7) Hypothyroidism: TSH here is quite low at 0.007 -Will lower levothyroxine to 125 mcg daily -Needs follow-up TFTs in 4 to 6 weeks (8) Vitamin B12 deficiency: Vitamin B12 level low at 25 -Start vitamin B-12 1000 mcg IM once daily x3 doses (9) DVT prophylaxis: Heparin drip Disposition-remain on telemetry PT/OT consultations May need rehab Discussed her care with her daughter on the phone on 2 occasions today Admission and Anticipated Discharge Date Admission Date: May 12, 2020 Subjective Patient continues to have difficulty with her speech. She does recognize that she is having this problem and seems frustrated by it. She denies any headache or chest pain, no shortness of breath. No weakness anywhere. I discussed her case at length with neurology and cardiology. Telemetry with atrial flutter with rates into the 1 teens Review of Systems Review of Systems: All systems reviewed & are unremarkable except as noted in HPI & below Physical Exam Constitutional: WD/WN, vitals as above Eyes: PERRL, conjunctivae normal, anicteric sclerae ENMT: external ear and nose normal, oropharynx normal Neck: trachea midline, no thyromegaly Respiratory: normal respiratory effort, lungs clear to auscultation Cardiovascular: Rate/Rhythm: + tachycardic and + irregularly irregular Heart Sounds: no murmur Vessels: brachial pulses present; no JVD Extremities: no calf tenderness and no edema Chest (Breasts): Chest: normal inspection of chest Gastrointestinal (Abdomen): normal bowel sounds, soft, nontender, no hepatosplenomegaly Musculoskeletal: Extremities: extremities normal to inspection; no cyanosis and no clubbing Skin: no rashes, warm and dry Neurologic: CN's II-XI intact bilaterally, moves all extremities and awake; + abnormal deep tendon reflexes (1+ throughout), no focal motor deficits (Full strength throughout upper and lower extremities bilaterally) and not confused Speech / Cognition: + expressive aphasia (Speaks but replaces words with the wrong ones, is conversational); no receptive aphasia Motor/Sensory: no tremor, no pronator drift and no sensory deficit She has a significant right sided hemineglect Psychiatric: Orientation: alert, oriented to person and cooperative Eye Contact: good eye contact (If I am standing on her left side) Lymphatic: no lymphedema Results & Data Results & Data ([facility]) Vital Signs (Past 12 Hours) Vital Signs Temp Pulse Pulse Pulse Resp BP BP 05/13/20 08:00 90 05/13/20 07:15 36.6 C 98 H 18 171/85 H 05/13/20 05:05 36.6 C 89 20 174/92 H 05/13/20 02:34 96 H 05/13/20 01:11 36.8 C 68 18 05/13/20 00:31 94 H 21 164/96 H 05/13/20 00:01 95 H 19 160/96 H 05/12/20 23:55 114 H 24 162/97 H 05/12/20 23:01 96 H 15 161/102 H BP Pulse Ox 05/13/20 08:00 05/13/20 07:15 96 05/13/20 05:05 94 05/13/20 02:34 05/13/20 01:11 185/84 H 95 05/13/20 00:31 92 05/13/20 00:01 92 05/12/20 23:55 91 05/12/20 23:01 96 Laboratory Results 05/13/20 05/13/20 05/13/20 Range/Units 18:31 12:38 09:46 WBC (4.8-10.8) K/uL RBC (4.2-5.4) M/uL Hgb (12.0-16.0) g/dL Hct (37-47) % MCV (80-100) fL MCH (25-34) pg MCHC (32-36) g/dL RDW Std Deviation (36.4-46.3) fL RDW Coeff of Luis (11.5-14.5) % Plt Count (130-400) K/uL MPV (7.4-10.4) fL Immature Gran % (Auto) % Neut % (Auto) % Lymph % (Auto) % Denali % (Auto) % Eos % (Auto) % Baso % (Auto) % Immature Gran # (Auto) (0.00-0.02) K/uL Neut # (Auto) (1.4-6.5) K/uL Lymph # (Auto) (1.2-3.4) K/uL Denali # (Auto) (0.11-0.59) K/uL Eos # (Auto) (0-0.5) K/uL Baso # (Auto) (0-0.2) K/uL PT 10.9 (9.0-12.0) Seconds INR 1.0 (0.9-1.1) APTT 67.8 H* (21.0-31.0) Seconds PTT Ratio 2.4 Sodium (136-145) mmol/L Potassium (3.5-5.1) mmol/L Chloride (98-107) mmol/L Carbon Dioxide (21-32) mmol/L Anion Gap (3-11) BUN (7-18) mg/dl Creatinine (0.6-1.2) mg/dl Est Cr Clr Drug Dosing ml/min Est GFR ( Amer) Est GFR (Non-Af Amer) BUN/Creatinine Ratio (10-20) Glucose (70-99) mg/dl Estimat Average Glucose Hemoglobin A1c Calcium (8.5-10.1) mg/dl Magnesium (1.8-2.4) mg/dl Total Bilirubin (0.2-1) mg/dl AST (15-37) U/L ALT (12-78) U/L Alkaline Phosphatase (45-117) U/L Troponin I (0-0.045) ng/ml Total Protein (6.4-8.2) gm/dl Albumin (3.4-5.0) gm/dl Globulin (2.5-4.0) gm/dl Albumin/Globulin Ratio (0.9-2) Triglycerides (0-150) mg/dl Cholesterol (0-200) mg/dl LDL Cholesterol, Calc mg/dl VLDL Cholesterol, Calc mg/dl HDL Cholesterol mg/dl Cholesterol/HDL Ratio Vitamin B12 (211-911) pg/ml Folate (>5.38) ng/ml TSH 0.007 L (0.300-4.500) uIu/ml Urine Color Urine Appearance (Clear) Urine pH (4.5-7.5) Ur Specific Proctor (1.000-1.030) Urine Protein (Negative) Urine Glucose (UA) (Negative) Urine Ketones (Negative) Urine Blood (Negative) Urine Nitrite (Negative) Urine Bilirubin (Negative) Urine Urobilinogen (Negative) Ur Leukocyte Esterase (Negative) 05/13/20 05/13/20 05/13/20 Range/Units 09:46 06:22 06:22 WBC 7.56 (4.8-10.8) K/uL RBC 4.79 (4.2-5.4) M/uL Hgb 14.2 (12.0-16.0) g/dL Hct 42.8 (37-47) % MCV 89.4 (80-100) fL MCH 29.6 (25-34) pg MCHC 33.2 (32-36) g/dL RDW Std Deviation 43.2 (36.4-46.3) fL RDW Coeff of Luis 13.1 (11.5-14.5) % Plt Count 184 (130-400) K/uL MPV 11.2 H (7.4-10.4) fL Immature Gran % (Auto) 0.1 % Neut % (Auto) 69.0 % Lymph % (Auto) 20.0 % Denali % (Auto) 9.1 % Eos % (Auto) 0.9 % Baso % (Auto) 0.9 % Immature Gran # (Auto) 0.01 (0.00-0.02) K/uL Neut # (Auto) 5.21 (1.4-6.5) K/uL Lymph # (Auto) 1.51 (1.2-3.4) K/uL Denali # (Auto) 0.69 H (0.11-0.59) K/uL Eos # (Auto) 0.07 (0-0.5) K/uL Baso # (Auto) 0.07 (0-0.2) K/uL PT (9.0-12.0) Seconds INR (0.9-1.1) APTT (21.0-31.0) Seconds PTT Ratio Sodium 141 (136-145) mmol/L Potassium 3.4 L (3.5-5.1) mmol/L Chloride 106 (98-107) mmol/L Carbon Dioxide 28 (21-32) mmol/L Anion Gap 6.0 (3-11) BUN 19 H (7-18) mg/dl Creatinine 1.20 D (0.6-1.2) mg/dl Est Cr Clr Drug Dosing 32.2 ml/min Est GFR ( Amer) 47.7 Est GFR (Non-Af Amer) 41.2 BUN/Creatinine Ratio 15.8 (10-20) Glucose 116 H (70-99) mg/dl Estimat Average Glucose Hemoglobin A1c Calcium 9.2 (8.5-10.1) mg/dl Magnesium (1.8-2.4) mg/dl Total Bilirubin (0.2-1) mg/dl AST (15-37) U/L ALT (12-78) U/L Alkaline Phosphatase (45-117) U/L Troponin I (0-0.045) ng/ml Total Protein (6.4-8.2) gm/dl Albumin (3.4-5.0) gm/dl Globulin (2.5-4.0) gm/dl Albumin/Globulin Ratio (0.9-2) Triglycerides 64 (0-150) mg/dl Cholesterol 210 H (0-200) mg/dl LDL Cholesterol, Calc 130 mg/dl VLDL Cholesterol, Calc 13 mg/dl HDL Cholesterol 67 mg/dl Cholesterol/HDL Ratio 3 Vitamin B12 285 (211-911) pg/ml Folate 9.36 (>5.38) ng/ml TSH (0.300-4.500) uIu/ml Urine Color Urine Appearance (Clear) Urine pH (4.5-7.5) Ur Specific Proctor (1.000-1.030) Urine Protein (Negative) Urine Glucose (UA) (Negative) Urine Ketones (Negative) Urine Blood (Negative) Urine Nitrite (Negative) Urine Bilirubin (Negative) Urine Urobilinogen (Negative) Ur Leukocyte Esterase (Negative) 05/13/20 05/13/20 05/12/20 Range/Units 06:22 05:00 20:50 WBC (4.8-10.8) K/uL RBC (4.2-5.4) M/uL Hgb (12.0-16.0) g/dL Hct (37-47) % MCV (80-100) fL MCH (25-34) pg MCHC (32-36) g/dL RDW Std Deviation (36.4-46.3) fL RDW Coeff of Luis (11.5-14.5) % Plt Count (130-400) K/uL MPV (7.4-10.4) fL Immature Gran % (Auto) % Neut % (Auto) % Lymph % (Auto) % Denali % (Auto) % Eos % (Auto) % Baso % (Auto) % Immature Gran # (Auto) (0.00-0.02) K/uL Neut # (Auto) (1.4-6.5) K/uL Lymph # (Auto) (1.2-3.4) K/uL Denali # (Auto) (0.11-0.59) K/uL Eos # (Auto) (0-0.5) K/uL Baso # (Auto) (0-0.2) K/uL PT (9.0-12.0) Seconds INR (0.9-1.1) APTT (21.0-31.0) Seconds PTT Ratio Sodium 137 (136-145) mmol/L Potassium 3.7 (3.5-5.1) mmol/L Chloride 104 (98-107) mmol/L Carbon Dioxide 27 (21-32) mmol/L Anion Gap 6.0 (3-11) BUN 26 H (7-18) mg/dl Creatinine 1.66 H (0.6-1.2) mg/dl Est Cr Clr Drug Dosing 23.5 ml/min Est GFR ( Amer) 32.2 Est GFR (Non-Af Amer) 27.8 BUN/Creatinine Ratio 15.5 (10-20) Glucose 120 H (70-99) mg/dl Estimat Average Glucose Pending Hemoglobin A1c Pending Calcium 9.1 (8.5-10.1) mg/dl Magnesium 1.9 (1.8-2.4) mg/dl Total Bilirubin 0.4 (0.2-1) mg/dl AST 20 (15-37) U/L ALT 18 (12-78) U/L Alkaline Phosphatase 67 (45-117) U/L Troponin I < 0.015 (0-0.045) ng/ml Total Protein 7.2 (6.4-8.2) gm/dl Albumin 3.6 (3.4-5.0) gm/dl Globulin 3.6 (2.5-4.0) gm/dl Albumin/Globulin Ratio 1.0 (0.9-2) Triglycerides (0-150) mg/dl Cholesterol (0-200) mg/dl LDL Cholesterol, Calc mg/dl VLDL Cholesterol, Calc mg/dl HDL Cholesterol mg/dl Cholesterol/HDL Ratio Vitamin B12 (211-911) pg/ml Folate (>5.38) ng/ml TSH (0.300-4.500) uIu/ml Urine Color Yellow Urine Appearance Clear (Clear) Urine pH 7.0 (4.5-7.5) Ur Specific Proctor 1.015 (1.000-1.030) Urine Protein Negative (Negative) Urine Glucose (UA) Negative (Negative) Urine Ketones Negative (Negative) Urine Blood Negative (Negative) Urine Nitrite Negative (Negative) Urine Bilirubin Negative (Negative) Urine Urobilinogen Negative (Negative) Ur Leukocyte Esterase Negative (Negative) Diagnostic Findings MRI of the brain images personally reviewed by me and agree with the following report: IMPRESSION: 1. Restricted diffusion in the left temporoparietal cortex is consistent with acute to subacute ischemia. 2. No additional foci of acute ischemia are identified. 3. There is no hemorrhage or mass effect. Carotid Doppler: Normal Echocardiogram: LVEF 60-65%, no regional wall motion abnormalities noted, no valvular pathology ECG Additional Comments: ECG on 05/13/2020 at 10:19 AM with atrial flutter with variable AV block, rightward axis, rate 107, no ischemic changes PG Care Time/CCT Total # of Minutes Spent Total Time Spent with Patient: Total time spent is greater than 50% in coordination of care (as documented) at patient's floor/unit and/or counseling patient: Coding Level of Care Code 50549 Subseq Hosp Care Lvl 3 Diagnoses Stroke I63.9 CVA mechanism: unspecified Atrial flutter with rapid ventricular response I48.92 Aphasia R47.01 Hypertension I10 Esophageal dysmotility K22.4 Acute kidney injury superimposed on chronic kidney disease N17.9; N18.9 Hypothyroidism E03.9 Vitamin B12 deficiency E53.8 DVT prophylaxis Z29.9 (1) Stroke CVA mechanism: unspecified Qualified Code(s): I63.9 - Cerebral infarction, unspecified
[2020-05-13] MEDS ORDERED: METOPROLOL TARTRATE 25 MG TAB PO SCH (10:40)
[2020-05-13] MEDS ORDERED: Heparin IV Standard *NO* Bolus IV SCH (11:00)
[2020-05-13 11:17] LABS: Folate (Folic Acid) 9.36 ng/ml (>5.38)
--- NOTE | 2020-05-13 11:47 | XCELERA ---
[id number]
--- NOTE | 2020-05-13 12:14 | Magnetic Resonance Report ---
MRI OF THE BRAIN WITHOUT IV CONTRAST CLINICAL HISTORY: Strokelike symptoms. COMPARISON STUDY: CT of the brain dated 05/12/2020. TECHNIQUE: MRI of the brain was performed utilizing various T1 and T2-weighted sequences in the axial , sagittal, and coronal planes. IV contrast was not administered for this examination. FINDINGS: Brain parenchyma: There is age-related involutional change noting moderate to advanced confluent subc ortical and periventricular microangiopathic disease. There is restricted diffusion identified within the left temporoparietal cortex consistent with acute to subacute ischemia. No additional foci of re stricted diffusion are identified. There is no hemorrhage or mass effect. No extra-axial fluid colle ction is seen. The cerebellar tonsils are normal in configuration. Ventricles, sulci, and cisterns: Prominent secondary to involutional change. Pituitary and sella: Unremarkable. Intracranial vasculature: Normal flow voids are maintained at the skull base. Orbits: The bony orbits are grossly intact. Orbital contents are normal in appearance noting bilatera l ocular lens implants. Sinuses and mastoids: There is a small right mastoid effusion. The left mastoid air cells and the par anasal sinuses are clear. Calvarium: Unremarkable. Cervical cord: Partially visualized cervical spinal cord is normal in morphology and signal intensity . IMPRESSION: 1. Restricted diffusion in the left temporoparietal cortex is consistent with acute to subacute ische ilene. 2. No additional foci of acute ischemia are identified. 3. There is no hemorrhage or mass effect. ACT 112: Negative or not required by law. Electronically signed by: Augusto Bernal M.D. 05/13/2020 12:12 PM
[2020-05-13] MEDS: ATORVASTATIN 40 MG TAB PO SCH (12:35)
[2020-05-13] MEDS: HEPARIN SODIUM/DEXTROSE 25,000 UNITS/500 ML BAG IV SCH ×2 (12:35→19:42)
[2020-05-13] MEDS: POTASSIUM CHLORIDE / WTR 10 MEQ/100 ML PLCT IV SCH ×3 (12:38→14:18)
[2020-05-13 13:07] LABS: Prothrombin Time 10.9 Seconds (9.0-12.0)
--- NOTE | 2020-05-13 13:11 | Cardiology Consultation ---
Date of Consultation May 13, 2020 Assessment & Plan (1) Stroke: -suspect an embolic event from her atrial dysrhythmia. -management per primary care team and Dr. Nelson. (2) Atrial flutter with rapid ventricular response: -this is a new diagnosis for the patient. -agree with addition of metoprolol tartrate 12.5 mg b.i.d. -will likely need long-term anticoagulation. (3) Hypertension: -allowing permissive hypertension. History of Present Illness Attending Physician: Pili Scanlon MD History of Present Illness Mr. Hunter is an 84-year-old female admitted yesterday with an acute CVA and atrial flutter. This consultation was ordered to sister cardiac management. The history is obtained from the chart and discussion with Dr. Scanlon as the patient has an expressive aphasia. She was in her usual state of health until approximately 4 p.m. when her family noticed that her speech was very difficult to understand, and her memory issues seem to deteriorate. She was brought to the emergency room for further evaluation. It was felt that her acute CVA could not be treated with thrombolytics as she was outside of the time window. Currently, patient is resting comfortably in bed. She does seem to understand questions but is unable to answer. Past medical and surgical history 1. Hypertension 2. Hypercholesterolemia 3. Chronic renal failure 4. Hypothyroidism 5. Esophageal dysmotility 6. DJD 7. Dementia 8. Osteoporosis 9. History of retinal hemorrhage 10. Tonsillectomy Social history and lives with her No tobacco alcohol Family history Noncontributory Review of systems Unobtainable Allergies Allergy/AdvReac Type Severity Reaction Status Date / Time No Known Drug Allergies Allergy Unknown ` Verified 05/12/20 21:37 Home Medications Home Medications Medication Instructions Recorded Confirmed Type losartan 100 1 tab PO DAILY #90 tab 08/23/19 05/12/20 History mg-hydrochlorothiazide 25 mg tablet amlodipine 5 mg tablet 5 mg PO DAILY #90 tab 04/20/20 05/12/20 Rx levothyroxine 150 mcg tablet 150 mcg PO DAILY #90 tab 04/20/20 05/12/20 Rx potassium chloride 10 mEq 10 meq PO DAILY #90 tab 04/20/20 05/12/20 Rx tablet,extended release diphenhydramine-acetaminophen 1 tab PO HS PRN 05/12/20 05/12/20 History [Tylenol PM Extra Strength] Patient History Medical History (Updated 05/13/20 @ 10:39 by Pili Scanlon MD) Acid reflux (Acute) Atrial flutter with rapid ventricular response Hyperlipidemia Hypertension Hypothyroidism Memory loss Surgical History History of tonsillectomy and adenoidectomy Family History Other Coronary heart disease Hypertension Social History Preferred Language: Sammarinese Communication Ability: Impaired 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 HEENT exam is negative. Neck is supple with full carotid upstrokes. There are no carotid bruits. Jugular venous pressure is flat at 90. There is no thyromegaly. Cardiovascular exam reveals an irregular rhythm with distant heart sounds. No obvious murmurs. Lungs are clear without rales, rhonchi, or wheezes. Abdomen is soft and nontender without bruits. Extremities reveal intact radial artery and posterior tibial pulses bilaterally. There is no peripheral edema. Results & Data ([facility]) Vital Signs (Past 12 Hours) Vital Signs Temp Pulse Pulse Pulse Resp BP BP 05/13/20 08:00 90 05/13/20 07:15 36.6 C 98 H 18 171/85 H 05/13/20 05:05 36.6 C 89 20 174/92 H 05/13/20 02:34 96 H 05/13/20 01:11 36.8 C 68 18 185/84 H Pulse Ox 05/13/20 08:00 05/13/20 07:15 96 05/13/20 05:05 94 05/13/20 02:34 05/13/20 01:11 95 Laboratory Results CBC notes hemoglobin of 14.2, crit 42.8, white count 7.56, platelet count of 049669. Electrolytes note a sodium of 141, potassium 3.4, chloride 106, bicarb 20, BUN 19, creatinine 1.2, glucose of 116. Troponin I level on presentation was undetectable less than 0.015. Diagnostic Findings EKG and nuclear monitoring technician both note atrial flutter with a variable ventricular response. Echocardiogram notes normal left ventricular systolic function with an ejection fraction of 60-65% without wall motion abnormalities. There is mild LVH and no evidence of valvular heart disease. CT scan of the head was negative. Brain MRI is pending. PG Care Time/CCT Total # of Minutes Spent Total Time Spent with Patient: Total time spent is greater than 50% in coordination of care (as documented) at patient's floor/unit and/or counseling patient: Coding Level of Care Code 01066 Initial Inpt Care Lvl 3 Diagnoses Stroke I63.9 CVA mechanism: unspecified Atrial flutter with rapid ventricular response I48.92 Hypertension I10 (1) Stroke CVA mechanism: unspecified Qualified Code(s): I63.9 - Cerebral infarction, unspecified
--- NOTE | 2020-05-13 14:27 | Electrocardiogram Report ---
Test Reason : Blood Pressure : / mmHG Vent. Rate : 099 BPM Atrial Rate : 099 BPM P-R Int : 168 ms QRS Dur : 090 ms QT Int : 394 ms P-R-T Axes : 071 097 071 degrees QTc Int : 505 ms Sinus rhythm with frequent , and consecutive Premature atrial complexes Rightward axis Poor R wave progression, consider anterior GA vs. lead placement vs. LVH Abnormal ECG When compared with ECG of 10-MAR-2013 09:23, No significant change Confirmed by Baldemar Reyes ([id number]) on 05/13/2020 2:27:23 PM Referred By: REFERRED SELF Confirmed By:Baldemar Reyes
--- NOTE | 2020-05-13 14:39 | Electrocardiogram Report ---
Test Reason : Blood Pressure : / mmHG Vent. Rate : 107 BPM Atrial Rate : 321 BPM P-R Int : 000 ms QRS Dur : 090 ms QT Int : 366 ms P-R-T Axes : 000 107 076 degrees QTc Int : 488 ms Atrial flutter with variable A-V block Rightward axis Abnormal ECG When compared with ECG of 12-MAY-2020 20:26, (unconfirmed) Atrial flutter has replaced Sinus rhythm Confirmed by Baldemar Reyes ([id number]) on 05/13/2020 2:39:19 PM Referred By: REFERRED SELF Confirmed By:Baldemar Reyes
[2020-05-13] MEDS ORDERED: METOPROLOL TARTRATE 25 MG TAB PO ONE (14:59)
[2020-05-13 19:10] LABS: Partial Thromboplastin Ratio 2.4
[2020-05-13 19:15] LABS: Partial Thromboplastin Time 67.8 Seconds (21.0-31.0)
[2020-05-13] MEDS: METOPROLOL TARTRATE 25 MG TAB PO SCH (19:44)
[2020-05-13] MEDS ORDERED: HydrALAZINE HCL 20 MG/ML VIAL IV PRN (21:07)
[2020-05-14 02:48] LABS: Basophils # (auto) 0.07 K/uL (0-0.2); Basophils % (auto) 0.7 %; Eosinophils # (auto) 0.15 K/uL (0-0.5); Eosinophils % (auto) 1.6 %; Hematocrit (blood only) 41.1 % (37-47); Hemoglobin 13.6 g/dL (12.0-16.0); Immature Granulocytes # (auto) 0.02 K/uL (0.00-0.02); Immature Granulocytes % (auto) 0.2 %; Lymphocytes # (auto) 3.02 K/uL (1.2-3.4); Lymphocytes % (auto) 32.1 %; Mean Corpuscular Hgb Conc 33.1 g/dL (32-36); Mean Corpuscular Volume 90.7 fL (80-100); Mean Platelet Volume 10.7 fL (7.4-10.4); Monocytes # (auto) 0.87 K/uL (0.11-0.59); Monocytes % (auto) 9.2 %; Neutrophils # (auto) 5.28 K/uL (1.4-6.5); Neutrophils % (auto) 56.2 %; Platelet Count 188 K/uL (130-400); RDW Coefficient of Variation 13.1 % (11.5-14.5); RDW Standard Deviation 43.8 fL (36.4-46.3); Red Blood Count 4.53 M/uL (4.2-5.4); White Blood Count 9.41 K/uL (4.8-10.8)
[2020-05-14 03:08] LABS: Partial Thromboplastin Ratio 4.1
[2020-05-14 03:09] LABS: Partial Thromboplastin Time 114.7 Seconds (21.0-31.0)
[2020-05-14 03:11] LABS: BUN Creatinine Ratio 14.6 (10-20); Calcium 9.3 mg/dl (8.5-10.1); Creatinine Clr Calc Pharmacy 31.4 ml/min; Est GFR (African American) 46.3; Magnesium 1.9 mg/dl (1.8-2.4); Potassium 4.4 mmol/L (3.5-5.1)
[2020-05-14 06:04] LABS: Estimated Average Glucose 117 mg/dl; Hemoglobin A1C 5.7 % (4.5-5.6)
[2020-05-14] MEDS: LEVOTHYROXINE SODIUM 125 MCG TABLET PO SCH (06:19)
[2020-05-14 07:05] LABS: Partial Thromboplastin Ratio 2.1
[2020-05-14 07:08] LABS: Partial Thromboplastin Time 59.5 Seconds (21.0-31.0)
[2020-05-14] MEDS: ASPIRIN 81 MG ECTAB PO SCH (09:31)
[2020-05-14] MEDS: CYANOCOBALAMIN 1000 MCG/ML VIAL IM SCH (09:32)
[2020-05-14] MEDS: METOPROLOL TARTRATE 25 MG TAB PO SCH ×2 (09:32→20:14)
[2020-05-14] MEDS: ATORVASTATIN 40 MG TAB PO SCH (09:32)
--- NOTE | 2020-05-14 10:11 | Cardiology Progress Note ---
Date of Service May 14, 2020 Assessment & Plan (1) Stroke: -suspect an embolic event from her atrial flutter. -management per primary care team and Dr. Nelson. (2) Atrial flutter with rapid ventricular response: -new diagnosis for the patient. -tolerating metoprolol tartrate 12.5 mg b.i.d. -will likely need long-term anticoagulation with Eliquis or Xarelto. -she may benefit from antiarrhythmic therapy (amiodarone). (3) Hypertension: -consider increasing metoprolol tartrate. Admission and Anticipated Discharge Date Admission Date: May 12, 2020 Subjective The patient is resting comfortably in bed without complaints of chest pain or dyspnea. Physical Exam Physical Exam: In general this is a well-developed well-nourished elderly white female in no acute distress. HEENT exam is negative. Neck is supple with full carotid upstrokes. There are no carotid bruits. Jugular venous pressure is flat at 90. There is no thyromegaly. Cardiovascular exam reveals a regular rhythm with distant heart sounds. No obvious murmurs. Lungs are clear without rales, rhonchi, or wheezes. Abdomen is soft and nontender without bruits. Extremities reveal intact radial artery pulses bilaterally. There is no peripheral edema. Results & Data ([facility]) Vital Signs (Past 12 Hours) Vital Signs Temp Pulse Pulse Resp BP BP Pulse Ox 05/14/20 08:00 64 05/14/20 07:05 36.7 C 68 18 176/83 H 97 05/13/20 23:07 36.5 C 67 20 174/79 H [address] monitor notes sinus rhythm with occasional PACs. The patient converted from atrial flutter yesterday afternoon. PG Care Time/CCT Total # of Minutes Spent Total Time Spent with Patient: Total time spent is greater than 50% in coordination of care (as documented) at patient's floor/unit and/or counseling patient: Coding Level of Care Code 62808 Subseq Hosp Care Lvl 3 Diagnoses Stroke I63.9 CVA mechanism: unspecified Atrial flutter with rapid ventricular response I48.92 Hypertension I10 (1) Stroke CVA mechanism: unspecified Qualified Code(s): I63.9 - Cerebral infarction, unspecified
[2020-05-14 11:09] LABS: Partial Thromboplastin Ratio 2.3
[2020-05-14 11:13] LABS: Partial Thromboplastin Time 65.1 Seconds (21.0-31.0)
[2020-05-14] MEDS: HEPARIN SODIUM/DEXTROSE 25,000 UNITS/500 ML BAG IV SCH (13:46)
--- NOTE | 2020-05-14 14:08 | Hospitalist Progress Note ---
Date of Service May 14, 2020 Assessment & Plan (1) Stroke: Raquel Hunter is an 84 yo woman w/ PMH of hypertension, hyperlipidemia, hypothyroidism, B12 deficiency, GERD, arthritis, esophageal dysmotility, baseline dysphasia, and history of memory loss who presented to [facility] with worsening language and memory problems. Stroke: - Patient with unintelligible speech - CT head: No hemorrhage or hypodensity, severe generalized atrophy with ex vacuo dilation, moderate to severe SVID -Carotid Dopplers: No significant stenosis - MRI brain: Acute/subacute left temporoparietal infarct, severe generalized atrophy, moderate to severe SVID - TTE: EF 60 to 65%, mild LVH, no valvular pathology - Passed Speech eval; referral placed to [facility] - Neurology consulted: permissive hypertension with IV hydralazine prn; maintaining SBP<180; BP should continue to improve over 3-4 days - continue to monitor BP, will restart home anti-hypertensive medications following permissive hypertensive period A. flutter w/ RVR: - telemetry demonstrated she had rapid atrial flutter shortly after admission - continue telemetry monitoring - continue on metoprolol 12.5 mg p.o. BID - start Eliquis 5mg BID WILMER: - Creatinine 1.66 upon admission, with 1.30-1.56 as baseline. - creatinine improved down to 1.23 - Follow BMP - Continue holding home losartan/HCTZ Hypothyroidism: - TSH here is quite low at 0.007 - Will lower levothyroxine to 125 mcg daily - repeat TSH in AM Vitamin B12 deficiency: - Vitamin B12 level low at 25 - continue vitamin B-12 1000 mcg IM once daily x3 doses Diet: heart healthy DVT ppx: started on Eliquis BID Code status: DNR/DNI (2) Atrial flutter with rapid ventricular response: (3) Hypertension: (4) Esophageal dysmotility: (5) Acute kidney injury superimposed on chronic kidney disease: (6) Hypothyroidism: (7) Vitamin B12 deficiency: Admission and Anticipated Discharge Date Admission Date: May 12, 2020 Supervising Physician Co-Signing Physician Notes I personally examined the patient and verified all price points of history and exam, discussed case, and agree with decision making with Dr Johnson. no real meaningful HPI or ROS obtainable. neurology input appreciated. vitals noted nad heent nc at mmm breathing unlabored no accessory muscles good effort skin no rashes no pallor or icterus neuro shows unintelligable and times, nonsense at others as far as speech. CVA - cardioembolic - starting apixaban. PT/OT eval and treat - for rehab/SNF. otherwise as above. Subjective Patient overnight seemed impulsive to nursing and was monitored with a one-to-one sitter; she remains incoherent in her responses throughout the morning, and is able to minimally follow commands, frequently turning her head and seeming to attempt to talk with the wall. Review of Systems Review of Systems: Unobtainable due to cognitive status (patients responses are non-sensical) Physical Exam Constitutional: WD/WN, vitals as above ENMT: external ear and nose normal, oropharynx normal Neck: normal visual inspection Respiratory: normal respiratory effort, lungs clear to auscultation Cardiovascular: Rate/Rhythm: regular rate and regular rhythm Heart Sounds: normal S1 and normal S2; no gallop, no murmur and no cardiac rub Vessels: normal peripheral pulses; no JVD Gastrointestinal (Abdomen): normal bowel sounds, soft, nontender, no hepatosplenomegaly Musculoskeletal: no cyanosis or clubbing, extremities motor strength 5/5 Neurologic: deep tendon reflexes 2+ bilaterally (biceps, and patellar); no focal motor deficits Psychiatric: Orientation: alert; + not oriented x 3 Eye Contact: + fair eye contact Motor Behavior: no abnormal motor movements Thought Process: + incoherent thought process Results & Data Results & Data ([facility]) Vital Signs (Past 12 Hours) Vital Signs Temp Pulse Pulse Resp BP Pulse Ox 05/14/20 11:28 36.9 C 60 18 172/66 H 96 05/14/20 08:00 64 05/14/20 07:05 36.7 C 68 18 176/83 H 97 Laboratory Results 05/14/20 05/14/20 05/14/20 Range/Units 10:21 06:00 02:34 WBC (4.8-10.8) K/uL RBC (4.2-5.4) M/uL Hgb (12.0-16.0) g/dL Hct (37-47) % MCV (80-100) fL MCH (25-34) pg MCHC (32-36) g/dL RDW Std Deviation (36.4-46.3) fL RDW Coeff of Luis (11.5-14.5) % Plt Count (130-400) K/uL MPV (7.4-10.4) fL Immature Gran % (Auto) % Neut % (Auto) % Lymph % (Auto) % [place] % (Auto) % Eos % (Auto) % Baso % (Auto) % Immature Gran # (Auto) (0.00-0.02) K/uL Neut # (Auto) (1.4-6.5) K/uL Lymph # (Auto) (1.2-3.4) K/uL [place] # (Auto) (0.11-0.59) K/uL Eos # (Auto) (0-0.5) K/uL Baso # (Auto) (0-0.2) K/uL APTT 65.1 H* 59.5 H* 114.7 H* (21.0-31.0) Seconds PTT Ratio 2.3 2.1 4.1 Sodium (136-145) mmol/L Potassium (3.5-5.1) mmol/L Chloride (98-107) mmol/L Carbon Dioxide (21-32) mmol/L Anion Gap (3-11) BUN (7-18) mg/dl Creatinine (0.6-1.2) mg/dl Est Cr Clr Drug Dosing ml/min Est GFR ( Amer) Est GFR (Non-Af Amer) BUN/Creatinine Ratio (10-20) Glucose (70-99) mg/dl Estimat Average Glucose mg/dl Hemoglobin A1c (4.5-5.6) % Calcium (8.5-10.1) mg/dl Magnesium (1.8-2.4) mg/dl 05/14/20 05/14/20 05/13/20 Range/Units 02:34 02:34 18:31 WBC 9.41 (4.8-10.8) K/uL RBC 4.53 (4.2-5.4) M/uL Hgb 13.6 (12.0-16.0) g/dL Hct 41.1 (37-47) % MCV 90.7 (80-100) fL MCH 30.0 (25-34) pg MCHC 33.1 (32-36) g/dL RDW Std Deviation 43.8 (36.4-46.3) fL RDW Coeff of Luis 13.1 (11.5-14.5) % Plt Count 188 (130-400) K/uL MPV 10.7 H (7.4-10.4) fL Immature Gran % (Auto) 0.2 % Neut % (Auto) 56.2 % Lymph % (Auto) 32.1 % [place] % (Auto) 9.2 % Eos % (Auto) 1.6 % Baso % (Auto) 0.7 % Immature Gran # (Auto) 0.02 (0.00-0.02) K/uL Neut # (Auto) 5.28 (1.4-6.5) K/uL Lymph # (Auto) 3.02 (1.2-3.4) K/uL [place] # (Auto) 0.87 H (0.11-0.59) K/uL Eos # (Auto) 0.15 (0-0.5) K/uL Baso # (Auto) 0.07 (0-0.2) K/uL APTT 67.8 H* (21.0-31.0) Seconds PTT Ratio 2.4 Sodium 143 (136-145) mmol/L Potassium 4.4 D (3.5-5.1) mmol/L Chloride 108 H (98-107) mmol/L Carbon Dioxide 31 (21-32) mmol/L Anion Gap 4.0 (3-11) BUN 18 (7-18) mg/dl Creatinine 1.23 H (0.6-1.2) mg/dl Est Cr Clr Drug Dosing 31.4 ml/min Est GFR ( Amer) 46.3 Est GFR (Non-Af Amer) 40.0 BUN/Creatinine Ratio 14.6 (10-20) Glucose 111 H (70-99) mg/dl Estimat Average Glucose mg/dl Hemoglobin A1c (4.5-5.6) % Calcium 9.3 (8.5-10.1) mg/dl Magnesium 1.9 (1.8-2.4) mg/dl 05/13/20 Range/Units 06:22 WBC (4.8-10.8) K/uL RBC (4.2-5.4) M/uL Hgb (12.0-16.0) g/dL Hct (37-47) % MCV (80-100) fL MCH (25-34) pg MCHC (32-36) g/dL RDW Std Deviation (36.4-46.3) fL RDW Coeff of Luis (11.5-14.5) % Plt Count (130-400) K/uL MPV (7.4-10.4) fL Immature Gran % (Auto) % Neut % (Auto) % Lymph % (Auto) % [place] % (Auto) % Eos % (Auto) % Baso % (Auto) % Immature Gran # (Auto) (0.00-0.02) K/uL Neut # (Auto) (1.4-6.5) K/uL Lymph # (Auto) (1.2-3.4) K/uL [place] # (Auto) (0.11-0.59) K/uL Eos # (Auto) (0-0.5) K/uL Baso # (Auto) (0-0.2) K/uL APTT (21.0-31.0) Seconds PTT Ratio Sodium (136-145) mmol/L Potassium (3.5-5.1) mmol/L Chloride (98-107) mmol/L Carbon Dioxide (21-32) mmol/L Anion Gap (3-11) BUN (7-18) mg/dl Creatinine (0.6-1.2) mg/dl Est Cr Clr Drug Dosing ml/min Est GFR ( Amer) Est GFR (Non-Af Amer) BUN/Creatinine Ratio (10-20) Glucose (70-99) mg/dl Estimat Average Glucose 117 mg/dl Hemoglobin A1c 5.7 H (4.5-5.6) % Calcium (8.5-10.1) mg/dl Magnesium (1.8-2.4) mg/dl Medications Administered Current Inpatient Medications Apixaban (Eliquis) 5 mg PO BID [facility] Stop: 06/13/20 20:59 Aspirin ([facility]rin Ectab) [facility] [place] Stop: 06/13/20 08:59 Last Admin: 05/14/20 09:31 Dose: 81 mg Documented by: Atorvastatin Calcium (Lipitor) [facility] [place] Stop: 06/13/20 08:59 Last Admin: 05/14/20 09:32 Dose: 40 mg Documented by: Cyanocobalamin (Vitamin B-12) 1,000 mcg IM DAILY [facility] Stop: 05/16/20 09:01 Last Admin: 05/14/20 09:32 Dose: 1,000 mcg Documented by: Hydralazine HCl (Hydralazine Hcl) 5 mg IV Q4 PRN PRN Reason: SBP>190 Stop: 06/12/20 21:06 Levothyroxine Sodium (Synthroid) 125 mcg PO DAILYBB [facility] Stop: 06/13/20 06:29 Last Admin: 05/14/20 06:19 Dose: 125 mcg Documented by: Metoprolol Tartrate (Lopressor) 25 mg PO BID [facility] Stop: 06/12/20 20:59 Last Admin: 05/14/20 09:32 Dose: 25 mg Documented by: Miscellaneous Information (Pharmacist Discharge Med Rec Consult) 1 ea N/A UD PRN PRN Reason: Consult Stop: 06/12/20 01:10 Resident Activity Tracking Resident Involvement: Resident Care Provided Care Provided: Adult Hospital Medicine (1) Stroke CVA mechanism: unspecified Qualified Code(s): I63.9 - Cerebral infarction, unspecified
--- NOTE | 2020-05-14 15:56 | Neurology Progress Note ---
Date of Service May 14, 2020 Assessment & Plan (1) Aphasia: (2) Memory loss: (3) Hypertension: (4) Hyperlipidemia: Raquel Hunter is an 84 yo woman w/ PMH of hypertension, hyperlipidemia, hypothyroidism, B12 deficiency, GERD, arthritis, esophageal dysmotility, baseline dysphasia, and history of memory loss who presented to [facility] with worsening language and memory problems. Symptom localization: left MCA territory Stroke mechanism: cardioembolic Stroke WorkUp: - CT head: No hemorrhage or hypodensity, severe generalized atrophy with ex vacuo dilation, moderate to severe SVID -Carotid Dopplers: No significant stenosis - MRI brain: Acute left temporoparietal infarct, severe generalized atrophy, moderate to severe SVID - TTE: EF 60 to 65%, mild LVH, no valvular pathology - Telemetry: Atrial flutter with RVR - A1c: 5.7 - FLP: 130 - Troponin, TSH: Negative, 0.007 for TSH -B12 low at 285 Stroke Management: - Acute treatment: ASA - Vitals, Neurochecks, NIHSS per unit routine - BP parameters: SBP CAP 180, restart home anti-hypertensives - Consult speech, PT, OT for supportive management - Will supervisor counseling and guidance concerning stroke education, smoking cessation, healthy diet, physical activity, weight loss - Follow up with PCP for assistance with outpatient goals (BP <135/85, LDL <70, A1c <7) - Follow up in neurology clinic in 6-8 weeks for stroke and memory issues Secondary Stroke Prevention: - Antiplatelet: n/a - Anticoagulation: Agree with apixaban - Statin: Start atorvastatin 40mg daily HTN: - BP parameters, as above - Restart home medications with goal of lowering BP to normotension over next 3- 4 days FEN/GI: - Diet: Cardiac HH diet and PO meds given absence of bulbar signs or symptoms - Monitor lytes and replete PRN Glucose Control: - Sliding scale insulin and accuchecks per primary team to avoid hyperglycemia Thank you for this interesting consult. Plan of care was discussed with primary team. Please call with any questions. Admission and Anticipated Discharge Date Admission Date: May 12, 2020 Subjective Raquel denied any complaints when examined. She would turn her head frequently to the left and appear that she was talking to someone who is not there and nursing staff had noted that she did become anxious for a few minutes prior to examination. Review of Systems Review of Systems: Unobtainable due to cognitive status Results & Data ([facility]) Vital Signs (Past 12 Hours) Vital Signs Temp Pulse Pulse Resp BP Pulse Ox 05/14/20 14:55 37 C 66 19 141/79 H 95 05/14/20 11:28 36.9 C 60 18 172/66 H 96 05/14/20 08:00 64 05/14/20 07:05 36.7 C 68 18 176/83 H 97 Exam (Neuro) Physical Exam: General Exam: GEN: NAD, lying down in examination bed. HEENT: No conjunctival injection, no rhinorrhea CV: RRR on monitor, no significant edema. PULM: Nonlabored respirations on room air. Neuro Exam: MS: Awake and Alert. Oriented to person, unable to answer orientation questions further. Speech fluent and inappropriate without dysarthria, frequently repeating the same phrase or had word salad. Unable to name, comprehension or repeat. Due to language difficulty, unable to assess cognition and memory fully. Appeared attentive. No clear neglect. CN: Visual pike full, + blink to threat bilaterally. Unable to visualize fundi on fundoscopic exam as patient could not follow commands. PERRLA OU. EOMI without clear nystagmus. Facial sensation intact to LT. Facial muscles full and symmetric. Hearing intact to conversation. Shoulder shrug normal. Tongue midline. MOTOR: Normal bulk and tone. No pronator drift. BUE strength 5/5 at deltoids, biceps, triceps, wrist flexors and extensors, and finger flexors bilaterally. BLE strength 5/5 at iliopsoas, hamstrings, quadriceps, tibialis anterior, and gastrocnemius bilaterally. REFLEXES: 1+ at biceps, triceps, brachioradialis, patella, and Achilles bilaterally. Flexor plantar responses bilaterally. SENSORY: Intact to LT throughout, no extinction to double simultaneous stimuli. COORDINATION: No dysmetria or ataxia on observed movements. Unable to follow commands and to test Savage. GAIT: Deferred due to physical status. NIH STROKE SCALE 1A. Level of Consciousness (0-3) = 0 1B. LOC Questions (0-2) = 1 1C. LOC Commands (0-2) = 2 2. Best Horizontal Gaze (0-2) = 0 3. Visual Pike (0-3) = 0 4. Facial Palsy (0-3) = 0 5. Motor Arm Right (0-4) = 0 Left (0-4) = 0 6. Motor Leg Right (0-4) = 0 Left (0-4) = 0 7. Limb Ataxia (0-2) = 0 8. Sensory (0-2) = 0 9. Best Language (0-3) = 2 10. Dysarthria (0-2) = 0 11. Extinction and Inattention (0-2) = 0 NIHSS TOTAL = 5 PG Care Time/CCT Total # of Minutes Spent Total Time Spent with Patient: Total time spent is greater than 50% in coordination of care (as documented) at patient's floor/unit and/or counseling patient: Coding Level of Care Code 16710 Subseq Hosp Care Lvl 3 Diagnoses Aphasia R47.01 Memory loss R41.3 Hypertension I10 Hyperlipidemia E78.5
[2020-05-14] MEDS ORDERED: HydrALAZINE HCL 20 MG/ML VIAL IV PRN (17:15)
--- NOTE | 2020-05-14 18:08 | Billing Data ---
Date of Service May 14, 2020 Coding Level of Care Code 69675 Subseq Hosp Care Lvl 2
[2020-05-14] MEDS: APIXABAN 5 MG TABLET PO SCH (20:14)
[2020-05-15] MEDS: LEVOTHYROXINE SODIUM 125 MCG TABLET PO SCH (05:57)
[2020-05-15 06:17] LABS: Basophils # (auto) 0.06 K/uL (0-0.2); Basophils % (auto) 0.8 %; Eosinophils # (auto) 0.14 K/uL (0-0.5); Eosinophils % (auto) 1.9 %; Hematocrit (blood only) 37.5 % (37-47); Hemoglobin 12.8 g/dL (12.0-16.0); Immature Granulocytes # (auto) 0.01 K/uL (0.00-0.02); Immature Granulocytes % (auto) 0.1 %; Lymphocytes # (auto) 1.51 K/uL (1.2-3.4); Mean Corpuscular Hgb Conc 34.1 g/dL (32-36); Mean Corpuscular Volume 87.8 fL (80-100); Mean Platelet Volume 10.9 fL (7.4-10.4); Monocytes # (auto) 1.08 K/uL (0.11-0.59); Monocytes % (auto) 14.3 %; Neutrophils # (auto) 4.75 K/uL (1.4-6.5); Neutrophils % (auto) 62.9 %; Platelet Count 170 K/uL (130-400); RDW Coefficient of Variation 13.2 % (11.5-14.5); RDW Standard Deviation 42.1 fL (36.4-46.3); Red Blood Count 4.27 M/uL (4.2-5.4); White Blood Count 7.55 K/uL (4.8-10.8)
[2020-05-15 06:27] LABS: Partial Thromboplastin Time 28.1 Seconds (21.0-31.0)
[2020-05-15 07:00] LABS: BUN Creatinine Ratio 17.7 (10-20); Calcium 8.9 mg/dl (8.5-10.1); Est GFR (African American) 45.9; Est GFR (Non-African American) 39.6
[2020-05-15 07:06] LABS: Thyroid Stimulating Hormone 0.007 uIu/ml (0.300-4.500)
[2020-05-15] MEDS: ASPIRIN 81 MG ECTAB PO SCH (08:34)
[2020-05-15] MEDS: APIXABAN 5 MG TABLET PO SCH ×2 (08:35→20:55)
[2020-05-15] MEDS: ATORVASTATIN 40 MG TAB PO SCH (08:35)
[2020-05-15] MEDS: CYANOCOBALAMIN 1000 MCG/ML VIAL IM SCH (08:35)
[2020-05-15] MEDS: METOPROLOL TARTRATE 25 MG TAB PO SCH ×2 (08:35→20:55)
[2020-05-15] MEDS ORDERED: POTASSIUM CHLORIDE 20 MEQ TABCR PO STA (08:48)
--- NOTE | 2020-05-15 12:56 | Cardiology Progress Note ---
Date of Service May 15, 2020 Assessment & Plan (1) Stroke: -suspect an embolic event from her atrial flutter. -management per primary care team and Dr. Arias. (2) Atrial flutter with rapid ventricular response: -new diagnosis. -tolerating metoprolol tartrate 12.5 mg b.i.d. -started on Eliquis 5 mg b.i.d. (? lower dose parameters almost met). -she may benefit from antiarrhythmic therapy (? amiodarone, but she is on thyroid replacement). (3) Hypertension: -starting Norvasc and Hyzaar tomorrow. Admission and Anticipated Discharge Date Admission Date: May 12, 2020 Subjective The patient denies chest pain, dyspnea, and palpitations. Physical Exam Physical Exam: In general this is a well-developed well-nourished elderly white female in no acute distress. HEENT exam is negative. Neck is supple with full carotid upstrokes. There are no carotid bruits. Jugular venous pressure is flat at 90. There is no thyromegaly. Cardiovascular exam reveals a regular rhythm with distant heart sounds. No obvious murmurs. Lungs are clear without rales, rhonchi, or wheezes. Abdomen is soft and nontender without bruits. Extremities reveal intact radial artery pulses bilaterally. There is no peripheral edema. Results & Data ([facility]) Vital Signs (Past 12 Hours) Vital Signs Temp Pulse Pulse Resp BP Pulse Ox 05/15/20 11:27 36.8 C 63 20 173/80 H 97 05/15/20 08:50 67 05/15/20 06:56 36.4 C L 64 18 167/78 H 94 05/15/20 02:15 65 Diagnostic Findings Normal sinus rhythm with PACs. No atrial flutter. PG Care Time/CCT Total # of Minutes Spent Total Time Spent with Patient: Total time spent is greater than 50% in coordination of care (as documented) at patient's floor/unit and/or counseling patient: Coding Level of Care Code 42171 Subseq Hosp Care Lvl 3 Diagnoses Stroke I63.9 CVA mechanism: unspecified Atrial flutter with rapid ventricular response I48.92 Hypertension I10 (1) Stroke CVA mechanism: unspecified Qualified Code(s): I63.9 - Cerebral infarction, unspecified
--- NOTE | 2020-05-15 13:27 | Hospitalist Progress Note ---
Date of Service May 15, 2020 Assessment & Plan (1) Stroke: Raquel Hunter is an 84 yo woman w/ PMH of hypertension, hyperlipidemia, hypothyroidism, B12 deficiency, GERD, arthritis, esophageal dysmotility, baseline dysphasia, and history of memory loss who presented to [facility] with worsening language and memory problems. Stroke: - Patient with maintained unintelligible speech - CT head: No hemorrhage or hypodensity, severe generalized atrophy with ex vacuo dilation, moderate to severe SVID -Carotid Dopplers: No significant stenosis - MRI brain: Acute/subacute left temporoparietal infarct, severe generalized atrophy, moderate to severe SVID - TTE: EF 60 to 65%, mild LVH, no valvular pathology - Passed Speech eval; referral placed to [facility] - Neurology consulted: permissive hypertension with IV hydralazine prn; maintaining SBP<180; BP should continue to improve over 3-4 days - restart home Amlodipine 5mg daily, and Losartan/HCTZ 100mg/25mg - continue to monitor BP - patient needs prior authorization before being able to be discharged to [facility] A. flutter w/ RVR: - telemetry demonstrated she had rapid atrial flutter shortly after admission - continue telemetry monitoring - continue on metoprolol 12.5 mg p.o. BID - start Eliquis 5mg BID WILMER: - Creatinine 1.66 upon admission, with 1.30-1.56 as baseline. - creatinine improved down to 1.23 - Follow BMP - Continue holding home losartan/HCTZ Hypothyroidism: - TSH 0.007; T4 1.70 - continue levothyroxine 125 mcg daily - recheck TSH in 4-6 weeks Vitamin B12 deficiency: - Vitamin B12 level low at 25 - continue vitamin B-12 1000 mcg IM once daily x3 doses Diet: heart healthy DVT ppx: continue Eliquis BID Code status: DNR/DNI Admission and Anticipated Discharge Date Admission Date: May 12, 2020 Supervising Physician Co-Signing Physician Notes I personally examined the patient and verified all price points of history and exam, discussed case, and agree with decision making with Dr Johnson. resting comfortably. waiting on SNF vs rehab. vitals noted nad heent nc at mmm breathing unlabored no accessory muscles good effort skin no rashes no pallor or icterus CVA - cardioembolic - continue apixaban. PT/OT eval and treat - for rehab/SNF once bed available. otherwise as above. Subjective Patient overnight seemed impulsive to nursing and was monitored with a one-to-one sitter; had a better night, and was less impulsive throughout the morning. Review of Systems Review of Systems: Unobtainable due to cognitive status Physical Exam Constitutional: WD/WN, vitals as above ENMT: external ear and nose normal, oropharynx normal Neck: normal visual inspection Respiratory: normal respiratory effort, lungs clear to auscultation Cardiovascular: Rate/Rhythm: regular rate and regular rhythm Heart Sounds: normal S1 and normal S2; no gallop, no murmur and no cardiac rub Vessels: normal peripheral pulses; no JVD Gastrointestinal (Abdomen): normal bowel sounds, soft, nontender, no hepatosplenomegaly Musculoskeletal: no cyanosis or clubbing, extremities motor strength 5/5 Neurologic: deep tendon reflexes 2+ bilaterally (biceps, and patellar); no focal motor deficits Psychiatric: Orientation: alert; + not oriented x 3 Eye Contact: + fair eye contact Motor Behavior: no abnormal motor movements Thought Process: + incoherent thought process Results & Data Results & Data ([facility]) Vital Signs (Past 12 Hours) Vital Signs Temp Pulse Pulse Resp BP Pulse Ox 05/15/20 11:27 36.8 C 63 20 173/80 H 97 05/15/20 08:50 67 05/15/20 06:56 36.4 C L 64 18 167/78 H 94 05/15/20 02:15 65 Laboratory Results 05/15/20 05/15/20 05/15/20 Range/Units 05:42 05:42 05:42 WBC (4.8-10.8) K/uL RBC (4.2-5.4) M/uL Hgb (12.0-16.0) g/dL Hct (37-47) % MCV (80-100) fL MCH (25-34) pg MCHC (32-36) g/dL RDW Std Deviation (36.4-46.3) fL RDW Coeff of Luis (11.5-14.5) % Plt Count (130-400) K/uL MPV (7.4-10.4) fL Immature Gran % (Auto) % Neut % (Auto) % Lymph % (Auto) % [place] % (Auto) % Eos % (Auto) % Baso % (Auto) % Neut # (Auto) (1.4-6.5) K/uL Lymph # (Auto) (1.2-3.4) K/uL [place] # (Auto) (0.11-0.59) K/uL Eos # (Auto) (0-0.5) K/uL Baso # (Auto) (0-0.2) K/uL Immature Gran # (Auto) (0.00-0.02) K/uL APTT 28.1 (21.0-31.0) Seconds PTT Ratio 1.0 Sodium (136-145) mmol/L Potassium (3.5-5.1) mmol/L Chloride (98-107) mmol/L Carbon Dioxide (21-32) mmol/L Anion Gap (3-11) BUN (7-18) mg/dl Creatinine (0.6-1.2) mg/dl Est Cr Clr Drug Dosing ml/min Est GFR ( Amer) Est GFR (Non-Af Amer) BUN/Creatinine Ratio (10-20) Glucose (70-99) mg/dl Calcium (8.5-10.1) mg/dl Magnesium 1.8 (1.8-2.4) mg/dl TSH (0.300-4.500) uIu/ml Free T4 1.70 H (0.8-1.6) ng/dl 05/15/20 05/15/20 Range/Units 05:42 05:42 WBC 7.55 (4.8-10.8) K/uL RBC 4.27 (4.2-5.4) M/uL Hgb 12.8 (12.0-16.0) g/dL Hct 37.5 (37-47) % MCV 87.8 (80-100) fL MCH 30.0 (25-34) pg MCHC 34.1 (32-36) g/dL RDW Std Deviation 42.1 (36.4-46.3) fL RDW Coeff of Luis 13.2 (11.5-14.5) % Plt Count 170 (130-400) K/uL MPV 10.9 H (7.4-10.4) fL Immature Gran % (Auto) 0.1 % Neut % (Auto) 62.9 % Lymph % (Auto) 20.0 % [place] % (Auto) 14.3 % Eos % (Auto) 1.9 % Baso % (Auto) 0.8 % Neut # (Auto) 4.75 (1.4-6.5) K/uL Lymph # (Auto) 1.51 (1.2-3.4) K/uL [place] # (Auto) 1.08 H (0.11-0.59) K/uL Eos # (Auto) 0.14 (0-0.5) K/uL Baso # (Auto) 0.06 (0-0.2) K/uL Immature Gran # (Auto) 0.01 (0.00-0.02) K/uL APTT (21.0-31.0) Seconds PTT Ratio Sodium 139 (136-145) mmol/L Potassium 3.0 L D (3.5-5.1) mmol/L Chloride 106 (98-107) mmol/L Carbon Dioxide 26 (21-32) mmol/L Anion Gap 7.0 (3-11) BUN 22 H (7-18) mg/dl Creatinine 1.24 H (0.6-1.2) mg/dl Est Cr Clr Drug Dosing 31.0 ml/min Est GFR ( Amer) 45.9 Est GFR (Non-Af Amer) 39.6 BUN/Creatinine Ratio 17.7 (10-20) Glucose 83 (70-99) mg/dl Calcium 8.9 (8.5-10.1) mg/dl Magnesium (1.8-2.4) mg/dl TSH 0.007 L (0.300-4.500) uIu/ml Free T4 (0.8-1.6) ng/dl Medications Administered Current Inpatient Medications A[facility] Stop: 06/15/20 08:59 Apixaban (Eliquis) 5 mg PO BID [facility] Stop: 06/13/20 20:59 Last Admin: 05/15/20 08:35 Dose: 5 mg Documented by: Aspirin (Ecotrin Ectab) [facility] Stop: 06/13/20 08:59 Last Admin: 05/15/20 08:34 Dose: 81 mg Documented by: Atorvastatin Calcium (Lipitor) 40 [facility] Stop: 06/13/20 08:59 Last Admin: 05/15/20 08:35 Dose: 40 mg Documented by: Cyanocobalamin (Vitamin B-12) 1,000 mcg IM DAILY [facility] Stop: 05/16/20 09:01 Last Admin: 05/15/20 08:35 Dose: 1,000 mcg Documented by: HCTZ/Losartan Potassium (Hyzaar 50/12.5mg) 2 tab PO QAM [facility] Stop: 06/15/20 08:59 Hydralazine HCl (Hydralazine Hcl) 5 mg IV Q4 PRN PRN Reason: SBP>180 Stop: 06/12/20 21:06 Levothyroxine Sodium (Synthroid) 125 mcg PO DAILYBB [facility] Stop: 06/13/20 06:29 Last Admin: 05/15/20 05:57 Dose: 125 mcg Documented by: Metoprolol Tartrate (Lopressor) 25 mg PO BID [facility] Stop: 06/12/20 20:59 Last Admin: 05/15/20 08:35 Dose: 25 mg Documented by: Miscellaneous Information (Pharmacist Discharge Med Rec Consult) 1 ea N/A UD PRN PRN Reason: Consult Stop: 06/12/20 01:10 Resident Activity Tracking Resident Involvement: Resident Care Provided Care Provided: Adult Hospital Medicine (1) Stroke CVA mechanism: unspecified Qualified Code(s): I63.9 - Cerebral infarction, unspecified
--- NOTE | 2020-05-15 17:11 | Billing Data ---
Date of Service May 15, 2020 Coding Level of Care Code 46016 Subseq Hosp Care Lvl 2
[2020-05-16] MEDS: LEVOTHYROXINE SODIUM 125 MCG TABLET PO SCH (06:21)
[2020-05-16] MEDS: LOSARTAN/HCTZ 50/12.5MG TAB PO SCH (09:01)
[2020-05-16] MEDS: ASPIRIN 81 MG ECTAB PO SCH (09:01)
[2020-05-16] MEDS: METOPROLOL TARTRATE 25 MG TAB PO SCH ×2 (09:01→20:08)
[2020-05-16] MEDS: APIXABAN 5 MG TABLET PO SCH ×2 (09:01→20:08)
[2020-05-16] MEDS: ATORVASTATIN 40 MG TAB PO SCH (09:01)
[2020-05-16] MEDS: AMLODIPINE BESYLATE 5 MG TAB PO SCH (09:01)
[2020-05-16] MEDS: CYANOCOBALAMIN 1000 MCG/ML VIAL IM SCH (09:02)
[2020-05-16 10:10] LABS: Basophils # (auto) 0.05 K/uL (0-0.2); Basophils % (auto) 0.6 %; Eosinophils # (auto) 0.07 K/uL (0-0.5); Eosinophils % (auto) 0.8 %; Hematocrit (blood only) 40.4 % (37-47); Immature Granulocytes # (auto) 0.02 K/uL (0.00-0.02); Immature Granulocytes % (auto) 0.2 %; Lymphocytes # (auto) 1.08 K/uL (1.2-3.4); Lymphocytes % (auto) 12.5 %; Mean Corpuscular Hemoglobin 30.3 pg (25-34); Mean Corpuscular Hgb Conc 34.7 g/dL (32-36); Mean Corpuscular Volume 87.4 fL (80-100); Mean Platelet Volume 10.3 fL (7.4-10.4); Monocytes # (auto) 0.65 K/uL (0.11-0.59); Monocytes % (auto) 7.5 %; Neutrophils # (auto) 6.79 K/uL (1.4-6.5); Neutrophils % (auto) 78.4 %; Platelet Count 167 K/uL (130-400); RDW Coefficient of Variation 13.1 % (11.5-14.5); Red Blood Count 4.62 M/uL (4.2-5.4); White Blood Count 8.66 K/uL (4.8-10.8)
[2020-05-16 10:33] LABS: Partial Thromboplastin Ratio 1.1; Partial Thromboplastin Time 30.1 Seconds (21.0-31.0)
--- NOTE | 2020-05-16 14:56 | Hospitalist Progress Note ---
Date of Service May 16, 2020 Assessment & Plan (1) Stroke: Raquel Hunter is an 84 yo woman w/ PMH of hypertension, hyperlipidemia, hypothyroidism, B12 deficiency, GERD, arthritis, esophageal dysmotility, baseline dysphasia, and history of memory loss who presented to [facility] with worsening language and memory problems. 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 - restart home Amlodipine 5mg daily, and Losartan/HCTZ 100mg/25mg; hydralazine PRN for SBP>170 - continue to monitor BP - Peer to Peer completed with Dr. Blackman from [facility], who expressed concern over continued elevation of her blood pressure, and additionally questioned the need for her to have inpatient physical rehabilitation; willing to revisit her case following consistent control of her BP A. flutter w/ RVR: - telemetry demonstrated she had rapid atrial flutter shortly after admission - continue telemetry monitoring - continue on metoprolol 12.5 mg p.o. BID - continue Eliquis 5mg BID WILMER: - Creatinine 1.66 upon admission, with 1.30-1.56 as baseline. - creatinine improved down to 1.23 - Follow BMP - Continue holding home losartan/HCTZ Hypothyroidism: - TSH 0.007; T4 1.70 - continue levothyroxine 125 mcg daily - recheck TSH in 4-6 weeks Vitamin B12 deficiency: - Vitamin B12 level low at 25 - continue vitamin B-12 1000 mcg IM once daily x3 doses Diet: heart healthy DVT ppx: continue Eliquis BID Code status: DNR/DNI Admission and Anticipated Discharge Date Admission Date: May 12, 2020 Supervising Physician Co-Signing Physician Notes I personally examined the patient and verified all price points of history and exam, discussed case, and agree with decision making with Dr Johnson. working with speech when i saw her - doing better and speaking more intelligibly than before. pre peer to peer denied as insurance doc decided that our concern on active management of BP constituted ongoing need for acute care rather than the intended meaning of need for ongoing physician oversight at rehab. vitals noted nad heent nc at mmm breathing unlabored no accessory muscles good effort skin no rashes no pallor or icterus CVA - cardioembolic - continue apixaban. PT/OT eval and treat - titrate BP control. is stable for rehab - Dr Johnson's discussions of BP w insurance doc were then miscontrued into medical instability when the intention was to impart that ongoing management of post stroke BP and autoregulation were a point of need for frequent physician oversight.otherwise as above. otherwise as above Subjective Considerably more interactive this morning, with more understandable speech initially but this will devolve the longer the conversation goes one. No longer requiring a sitter for supervision. Review of Systems Review of Systems: Unobtainable due to cognitive status Physical Exam Constitutional: WD/WN, vitals as above ENMT: external ear and nose normal, oropharynx normal Neck: normal visual inspection Respiratory: normal respiratory effort, lungs clear to auscultation Cardiovascular: Rate/Rhythm: regular rate and regular rhythm Heart Sounds: normal S1 and normal S2; no gallop, no murmur and no cardiac rub Vessels: normal peripheral pulses; no JVD Gastrointestinal (Abdomen): normal bowel sounds, soft, nontender, no hepatosplenomegaly Musculoskeletal: no cyanosis or clubbing, extremities motor strength 5/5 Neurologic: deep tendon reflexes 2+ bilaterally (biceps, and patellar); no focal motor deficits Psychiatric: Orientation: alert; + not oriented x 3 Eye Contact: + fair eye contact Motor Behavior: no abnormal motor movements Speech: normal rate/rhythm/volume of speech (disorganized and incoherent sentences after maintained speech) Thought Process: + incoherent thought process Results & Data Results & Data ([facility]) Vital Signs (Past 12 Hours) Vital Signs Temp Pulse Pulse Resp BP Pulse Ox 05/16/20 11:09 36.6 C 58 L 18 171/81 H 96 05/16/20 10:27 59 L 05/16/20 09:16 85 175/70 H 05/16/20 08:00 59 L 05/16/20 07:42 36.8 C 70 18 193/92 H 96 05/16/20 03:50 36.6 C 62 18 191/82 H 98 Laboratory Results 05/16/20 05/16/20 Range/Units 09:56 09:56 WBC 8.66 (4.8-10.8) K/uL RBC 4.62 (4.2-5.4) M/uL Hgb 14.0 (12.0-16.0) g/dL Hct 40.4 (37-47) % MCV 87.4 (80-100) fL MCH 30.3 (25-34) pg MCHC 34.7 (32-36) g/dL RDW Std Deviation 42.0 (36.4-46.3) fL RDW Coeff of Luis 13.1 (11.5-14.5) % Plt Count 167 (130-400) K/uL MPV 10.3 (7.4-10.4) fL Immature Gran % (Auto) 0.2 % Neut % (Auto) 78.4 % Lymph % (Auto) 12.5 % [place] % (Auto) 7.5 % Eos % (Auto) 0.8 % Baso % (Auto) 0.6 % Neut # (Auto) 6.79 H (1.4-6.5) K/uL Lymph # (Auto) 1.08 L (1.2-3.4) K/uL [place] # (Auto) 0.65 H (0.11-0.59) K/uL Eos # (Auto) 0.07 (0-0.5) K/uL Baso # (Auto) 0.05 (0-0.2) K/uL Immature Gran # (Auto) 0.02 (0.00-0.02) K/uL APTT 30.1 (21.0-31.0) Seconds PTT Ratio 1.1 Medications Administered Current Inpatient Medications Amlodipine Besylate (Norvasc) 5 mg PO QAM [facility] Stop: 06/15/20 08:59 Last Admin: 05/16/20 09:01 Dose: 5 mg Documented by: Apixaban (Eliquis) 5 mg PO BID [facility] Stop: 06/13/20 20:59 Last Admin: 05/16/20 09:01 Dose: 5 mg Documented by: Aspirin (Ecotrin Ectab) 81 mg PO QAM [facility] Stop: 06/13/20 08:59 Last Admin: 05/16/20 09:01 Dose: 81 mg Documented by: Atorvastatin Calcium (Lipitor) 40 mg PO QAM [facility] Stop: 06/13/20 08:59 Last Admin: 05/16/20 09:01 Dose: 40 mg Documented by: HCTZ/Losartan Potassium (Hyzaar 50/12.5mg) 2 [facility] [place] Stop: 06/15/20 08:59 Last Admin: 05/16/20 09:01 Dose: 2 tab Documented by: Hydralazine HCl (Hydralazine Hcl) 5 mg IV Q4 PRN PRN Reason: SBP>180 Stop: 06/12/20 21:06 Last Admin: 05/15/20 23:13 Dose: 5 mg Documented by: Levothyroxine Sodium (Synthroid) 125 mcg PO DAILYBB [facility] Stop: 06/13/20 06:29 Last Admin: 05/16/20 06:21 Dose: 125 mcg Documented by: Metoprolol Tartrate (Lopressor) 25 mg PO BID [facility] Stop: 06/12/20 20:59 Last Admin: 05/16/20 09:01 Dose: 25 mg Documented by: Miscellaneous Information (Pharmacist Discharge Med Rec Consult) 1 ea N/A UD PRN PRN Reason: Consult Stop: 06/12/20 01:10 Resident Activity Tracking Resident Involvement: Resident Care Provided Care Provided: Adult Hospital Medicine (1) Stroke CVA mechanism: unspecified Qualified Code(s): I63.9 - Cerebral infarction, unspecified
--- NOTE | 2020-05-16 16:39 | Billing Data ---
Date of Service May 16, 2020 Coding Level of Care Code 49649 Subseq Hosp Care Lvl 3
[2020-05-16] MEDS: HydrALAZINE HCL 20 MG/ML VIAL IV PRN (17:28)
[2020-05-17] MEDS: HydrALAZINE HCL 20 MG/ML VIAL IV PRN (04:40)
[2020-05-17] MEDS: LEVOTHYROXINE SODIUM 125 MCG TABLET PO SCH (04:46)
[2020-05-17 05:55] LABS: Partial Thromboplastin Time 29.1 Seconds (21.0-31.0)
[2020-05-17] MEDS: APIXABAN 5 MG TABLET PO SCH ×2 (08:06→20:27)
[2020-05-17] MEDS: AMLODIPINE BESYLATE 5 MG TAB PO SCH (08:07)
[2020-05-17] MEDS: ASPIRIN 81 MG ECTAB PO SCH (08:07)
[2020-05-17] MEDS: LOSARTAN/HCTZ 50/12.5MG TAB PO SCH (08:07)
[2020-05-17] MEDS: ATORVASTATIN 40 MG TAB PO SCH (08:07)
[2020-05-17] MEDS: METOPROLOL TARTRATE 25 MG TAB PO SCH ×2 (08:07→20:27)
--- NOTE | 2020-05-17 12:15 | Hospitalist Progress Note ---
Date of Service May 17, 2020 Assessment & Plan (1) Stroke: Raquel Hunter is an 84 yo woman w/ PMH of hypertension, hyperlipidemia, hypothyroidism, B12 deficiency, GERD, arthritis, esophageal dysmotility, baseline dysphasia, and history of memory loss who presented to [facility] with worsening language and memory problems. 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 - continue home Amlodipine 5mg daily, and Losartan/HCTZ 100mg/25mg; hydralazine PRN for SBP>170 - continue to monitor BP - Peer to Peer completed with Dr. Blackman from [facility], who expressed concern over continued elevation of her blood pressure, and additionally questioned the need for her to have inpatient physical rehabilitation; willing to revisit her case following consistent control of her BP A. flutter w/ RVR: - telemetry demonstrated she had rapid atrial flutter shortly after admission - continue telemetry monitoring - continue on metoprolol 12.5 mg p.o. BID - continue Eliquis 5mg BID WILMER: - Creatinine 1.66 upon admission, with 1.30-1.56 as baseline. - creatinine improved down to 1.23 Hypothyroidism: - TSH 0.007; T4 1.70 - continue levothyroxine 125 mcg daily - recheck TSH in 4-6 weeks Vitamin B12 deficiency: - Vitamin B12 level low at 25 - continue vitamin B-12 1000 mcg IM once daily x3 doses Diet: heart healthy DVT ppx: continue Eliquis BID Code status: DNR/DNI Admission and Anticipated Discharge Date Admission Date: May 12, 2020 Supervising Physician Co-Signing Physician Notes I personally examined the patient and verified all price points of history and exam, discussed case, and agree with decision making with Dr Johnson. very tired after PT. d/w [employer]PPL[employer]ANNER and case management extensively. vitals noted nad heent nc at mmm breathing unlabored no accessory muscles good effort skin no rashes no pallor or icterus CVA - cardioembolic - continue apixaban. PT/OT eval and treat ongoing- titrating BP control. is stable for rehab ideally; not safe for home in current condition so if rehab denied, would be less ideal but SNF for subacute rehab would be reasonable alternative. otherwise as above Subjective Doing well overnight, received two doses of Hydralazine overnight in order to bring BP down. Worked with PT with becoming quickly fatigued. Review of Systems Review of Systems: All systems reviewed & are unremarkable except as noted in Subjective Physical Exam Constitutional: WD/WN, vitals as above ENMT: external ear and nose normal, oropharynx normal Neck: normal visual inspection Respiratory: normal respiratory effort, lungs clear to auscultation Cardiovascular: Rate/Rhythm: regular rate and regular rhythm Heart Sounds: normal S1 and normal S2; no gallop, no murmur and no cardiac rub Vessels: normal peripheral pulses; no JVD Gastrointestinal (Abdomen): normal bowel sounds, soft, nontender, no hepatosplenomegaly Musculoskeletal: no cyanosis or clubbing, extremities motor strength 5/5 Neurologic: deep tendon reflexes 2+ bilaterally (biceps, and patellar); no fo cooper motor deficits Psychiatric: Orientation: alert; + not oriented x 3 Eye Contact: + fair eye contact Motor Behavior: no abnormal motor movements Speech: normal rate/rhythm/volume of speech (disorganized and incoherent sentences after maintained speech) Results & Data Results & Data ([facility]) Vital Signs (Past 12 Hours) Vital Signs Temp Pulse Pulse Resp BP BP Pulse Ox 05/17/20 10:53 36.7 C 59 L 20 156/79 H 94 05/17/20 09:52 58 L 05/17/20 07:10 36.7 C 64 20 138/76 95 05/17/20 05:10 149/75 H 05/17/20 04:10 36.5 C 61 18 174/86 H 97 Laboratory Results 05/17/20 Range/Units 05:34 APTT 29.1 (21.0-31.0) Seconds PTT Ratio 1.0 Medications Administered Current Inpatient Medications Amlodipine Besylate (Norvasc) 5 mg PO QAM [facility] Stop: 06/15/20 08:59 Last Admin: 05/17/20 08:07 Dose: 5 mg Documented by: Apixaban (Eliquis) 5 mg PO BID [facility] Stop: 06/13/20 20:59 Last Admin: 05/17/20 08:06 Dose: 5 mg Documented by: Aspirin (Ecotrin Ectab) 81 mg PO [facility] Stop: 06/13/20 08:59 Last Admin: 05/17/20 08:07 Dose: 81 mg Documented by: Atorvastatin Calcium (Lipitor) 40 mg PO [facility] Stop: 06/13/20 08:59 Last Admin: 05/17/20 08:07 Dose: 40 mg Documented by: HCTZ/Losartan Potassium (Hyzaar 50/12.5mg) 2 tab PO [facility] Stop: 06/15/20 08:59 Last Admin: 05/17/20 08:07 Dose: 2 tab Documented by: Hydralazine HCl (Hydralazine Hcl) 5 mg IV Q4 PRN PRN Reason: SBP>170 Stop: 06/12/20 21:06 Last Admin: 05/17/20 04:40 Dose: 5 mg Documented by: Levothyroxine [facility] ([facility]roid) [facility] Stop: 06/13/20 06:29 Last Admin: 05/17/20 04:46 Dose: 125 mcg Documented by: Metoprolol Tartrate (Lopressor) 25 mg PO BID [facility] Stop: 06/12/20 20:59 Last Admin: 05/17/20 08:07 Dose: 25 mg Documented by: Miscellaneous Information (Pharmacist Discharge Med Rec Consult) 1 ea N/A UD PRN PRN Reason: Consult Stop: 06/12/20 01:10 Resident Activity Tracking Resident Involvement: Resident Care Provided Care Provided: Adult Hospital Medicine (1) Stroke CVA mechanism: unspecified Qualified Code(s): I63.9 - Cerebral infarction, unspecified
--- NOTE | 2020-05-17 17:43 | Billing Data ---
Date of Service May 17, 2020 Coding Level of Care Code 03524 Subseq Hosp Care Lvl 2
[2020-05-18] MEDS: LEVOTHYROXINE SODIUM 125 MCG TABLET PO SCH (06:35)
[2020-05-18] MEDS: METOPROLOL TARTRATE 25 MG TAB PO SCH ×2 (08:35→21:51)
[2020-05-18] MEDS: LOSARTAN/HCTZ 50/12.5MG TAB PO SCH (08:35)
[2020-05-18] MEDS: APIXABAN 5 MG TABLET PO SCH ×2 (08:35→21:51)
[2020-05-18] MEDS: AMLODIPINE BESYLATE 5 MG TAB PO SCH (08:35)
[2020-05-18] MEDS: ASPIRIN 81 MG ECTAB PO SCH (08:35)
[2020-05-18] MEDS: ATORVASTATIN 40 MG TAB PO SCH (08:35)
[2020-05-18 09:32] LABS: Basophils # (auto) 0.04 K/uL (0-0.2); Basophils % (auto) 0.5 %; Eosinophils # (auto) 0.15 K/uL (0-0.5); Hematocrit (blood only) 40.6 % (37-47); Hemoglobin 14.2 g/dL (12.0-16.0); Immature Granulocytes # (auto) 0.02 K/uL (0.00-0.02); Immature Granulocytes % (auto) 0.3 %; Lymphocytes # (auto) 1.25 K/uL (1.2-3.4); Lymphocytes % (auto) 16.6 %; Mean Corpuscular Hemoglobin 30.6 pg (25-34); Mean Corpuscular Volume 87.5 fL (80-100); Mean Platelet Volume 10.6 fL (7.4-10.4); Monocytes # (auto) 0.84 K/uL (0.11-0.59); Monocytes % (auto) 11.2 %; Neutrophils # (auto) 5.22 K/uL (1.4-6.5); Neutrophils % (auto) 69.4 %; Platelet Count 183 K/uL (130-400); RDW Coefficient of Variation 13.3 % (11.5-14.5); RDW Standard Deviation 42.3 fL (36.4-46.3); Red Blood Count 4.64 M/uL (4.2-5.4); White Blood Count 7.52 K/uL (4.8-10.8)
[2020-05-18 10:02] LABS: Partial Thromboplastin Time 28.2 Seconds (21.0-31.0)
[2020-05-18] MEDS ORDERED: SODIUM CHLORIDE 0.9% 500 ML IV ONE (12:15)
--- NOTE | 2020-05-18 12:17 | Hospitalist Progress Note ---
Date of Service May 18, 2020 Assessment & Plan (1) Stroke: Raquel Hunter is an 84 yo woman w/ PMH of hypertension, hyperlipidemia, hypothyroidism, B12 deficiency, GERD, arthritis, esophageal dysmotility, baseline dysphasia, and history of memory loss who presented to [facility] with worsening language and memory problems. 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 - continue home Amlodipine 5mg daily, changed Losartan/HCTZ 50mg/12.5mg in the setting of relative hypotension during the day - Peer to Peer completed with Dr. Perry from [facility], denied from inpatient rehabilitation see HPI for details. A. flutter w/ RVR: - telemetry demonstrated she had rapid atrial flutter shortly after admission - continue telemetry monitoring - continue on metoprolol 12.5 mg p.o. BID - continue Eliquis 5mg BID WILMER: - Creatinine 1.66 upon admission, with 1.30-1.56 as baseline. - creatinine improved down to 1.23 Hypothyroidism: - TSH 0.007; T4 1.70 - continue levothyroxine 125 mcg daily - recheck TSH in 4-6 weeks Vitamin B12 deficiency: - Vitamin B12 level low at 25 - continue vitamin B-12 1000 mcg IM once daily x3 doses Diet: heart healthy DVT ppx: continue Eliquis BID Code status: DNR/DNI Admission and Anticipated Discharge Date Admission Date: May 12, 2020 Supervising Physician Co-Signing Physician Notes I personally examined the patient and verified all price points of history and exam, discussed case, and agree with decision making with Dr Johnson. still no meaningful HPI or ROS. a little more weak today. improved after fluids. vitals noted nad heent nc at mmm breathing unlabored no accessory muscles good effort skin no rashes no pallor or icterus CVA - cardioembolic - continue apixaban. PT/OT eval and treat ongoing- titrating BP control (suspect today's appearing a little more weak was from running a little lower than desired for this phase of stroke recovery - fluids remedied current situation, will reduce BP meds, continue to follow). is stable for rehab ideally; not safe for home in current condition so if rehab denied, would be less ideal but SNF for subacute rehab would be reasonable alternative. (late addendum is that unfortunately rehab was denied) otherwise as above Subjective Patient continues to have difficulty with expressive aphasia, is able to follow simple commands but only verbalizes OK in response to most questions. Was called back to re-examine patient following evaluation by Speech Language Pathology with concerns of global aphasia. On repeat exam she did not have acute changes, but it was noted that her BP has continued to creep to low 100s systolic. Given 500cc bolus. Spoke at length with [facility] medical claims representative Dr. Nilda Perry, they do not feel that the patient would benefit from inpatient physical therapy based off concerns about her expressive aphasia and do not believe that the amount of therapy that she would receive at an inpatient rehab facility would be appropriate despite her quick fatiguing from a previous baseline that was highly functional and her being the primary caregiver for her previously. Review of Systems Review of Systems: Unobtainable due to cognitive status Physical Exam Constitutional: WD/WN, vitals as above ENMT: external ear and nose normal, oropharynx normal Neck: normal visual inspection Respiratory: normal respiratory effort, lungs clear to auscultation Cardiovascular: Rate/Rhythm: regular rate and regular rhythm Heart Sounds: normal S1 and normal S2; no gallop, no murmur and no cardiac rub Vessels: normal peripheral pulses; no JVD Gastrointestinal (Abdomen): normal bowel sounds, soft, nontender, no hepatos plenomegaly Musculoskeletal: no cyanosis or clubbing, extremities motor strength 5/5 Neurologic: deep tendon reflexes 2+ bilaterally (biceps, and patellar); no focal motor deficits Psychiatric: Orientation: alert; + not oriented x 3 Eye Contact: + fair eye contact Motor Behavior: no abnormal motor movements Speech: normal rate/rhythm/volume of speech (disorganized and incoherent sentences after maintained speech) Thought Process: + incoherent thought process Results & Data Results & Data ([facility]) Vital Signs (Past 12 Hours) Vital Signs Temp Pulse Pulse Resp BP BP Pulse Ox 05/18/20 11:23 36.8 C 59 L 17 119/64 93 05/18/20 09:00 56 L 05/18/20 07:00 36.5 C 56 L 19 163/68 H 95 05/18/20 04:00 36.4 C L 51 L 18 122/67 95 Laboratory Results 05/18/20 05/18/20 Range/Units 09:18 09:18 WBC 7.52 (4.8-10.8) K/uL RBC 4.64 (4.2-5.4) M/uL Hgb 14.2 (12.0-16.0) g/dL Hct 40.6 (37-47) % MCV 87.5 (80-100) fL MCH 30.6 (25-34) pg MCHC 35.0 (32-36) g/dL RDW Std Deviation 42.3 (36.4-46.3) fL RDW Coeff of Luis 13.3 (11.5-14.5) % Plt Count 183 (130-400) K/uL MPV 10.6 H (7.4-10.4) fL Immature Gran % (Auto) 0.3 % Neut % (Auto) 69.4 % Lymph % (Auto) 16.6 % [place] % (Auto) 11.2 % Eos % (Auto) 2.0 % Baso % (Auto) 0.5 % Neut # (Auto) 5.22 (1.4-6.5) K/uL Lymph # (Auto) 1.25 (1.2-3.4) K/uL Oxford # (Auto) 0.84 H (0.11-0.59) K/uL Eos # (Auto) 0.15 (0-0.5) K/uL Baso # (Auto) 0.04 (0-0.2) K/uL Immature Gran # (Auto) 0.02 (0.00-0.02) K/uL APTT 28.2 (21.0-31.0) Seconds PTT Ratio 1.0 Medications Administered Current Inpatient Medications [facility] Stop: 06/15/20 08:59 Last Admin: 05/18/20 08:35 Dose: 5 mg Documented by: Apixaban (Eliquis) 5 mg PO BID [facility] Stop: 06/13/20 20:59 Last Admin: 05/18/20 08:35 Dose: 5 mg Documented by: Aspirin (Ecotrin Ectab) 81 mg PO QAM [facility] Stop: 06/13/20 08:59 Last Admin: 05/18/20 08:35 Dose: 81 mg Documented by: Atorvastatin Calcium (Lipitor) 40 mg PO QAM [facility] Stop: 06/13/20 08:59 Last Admin: 05/18/20 08:35 Dose: 40 mg Documented by: HCTZ/Losartan Potassium (Hyzaar 50/12.5mg) 1 tab PO [facility] Stop: 06/18/20 08:59 Hydralazine HCl (Hydralazine Hcl) 5 mg IV Q4 PRN PRN Reason: SBP>170 Stop: 06/12/20 21:06 Last Admin: 05/17/20 04:40 Dose: 5 mg Documented by: Sodium Chloride (Nss) 500 mls @ 999 mls/hr IV .Q31M ONE Stop: 05/18/20 12:45 Levothyroxine S[facility] ([facility]throid) [facility] Stop: 06/13/20 06:29 Last Admin: 05/18/20 06:35 Dose: 125 mcg Documented by: Metoprolol Tartrate (Lopressor) 25 mg PO BID [facility] Stop: 06/12/20 20:59 Last Admin: 05/18/20 08:35 Dose: 25 mg Documented by: Miscellaneous Information (Pharmacist Discharge Med Rec Consult) 1 ea N/A UD PRN PRN Reason: Consult Stop: 06/12/20 01:10 Resident Activity Tracking Resident Involvement: Resident Care Provided Care Provided: Adult Hospital Medicine (1) Stroke CVA mechanism: unspecified Qualified Code(s): I63.9 - Cerebral infarction, unspecified
--- NOTE | 2020-05-18 19:07 | Billing Data ---
Date of Service May 18, 2020 Coding Level of Care Code 16958 Subseq Hosp Care Lvl 3
[2020-05-19] MEDS: LEVOTHYROXINE SODIUM 125 MCG TABLET PO SCH (06:34)
[2020-05-19 08:33] LABS: Partial Thromboplastin Time 28.4 Seconds (21.0-31.0)
[2020-05-19 08:42] LABS: BUN Creatinine Ratio 18.1 (10-20); Calcium 9.1 mg/dl (8.5-10.1); Creatinine Clr Calc Pharmacy 23.8 ml/min; Est GFR (African American) 36.7; Est GFR (Non-African American) 31.7; Potassium 3.1 mmol/L (3.5-5.1)
[2020-05-19] MEDS: APIXABAN 5 MG TABLET PO SCH ×2 (09:00→20:08)
[2020-05-19] MEDS: AMLODIPINE BESYLATE 5 MG TAB PO SCH (09:00)
[2020-05-19] MEDS: LOSARTAN/HCTZ 50/12.5MG TAB PO SCH (09:00)
[2020-05-19] MEDS: ASPIRIN 81 MG ECTAB PO SCH (09:00)
[2020-05-19] MEDS: ATORVASTATIN 40 MG TAB PO SCH (09:00)
[2020-05-19] MEDS: METOPROLOL TARTRATE 25 MG TAB PO SCH ×2 (09:18→20:08)
--- NOTE | 2020-05-19 13:13 | Hospitalist Progress Note ---
Date of Service May 19, 2020 Assessment & Plan (1) Stroke: 84-year-old female with a past medical history of atrial flutter, hypertension, hyperlipidemia, CKD is admitted for CVA. CVA: - CT head: No hemorrhage or hypodensity, severe generalized atrophy with ex vacuo dilation, moderate to severe SVID. - Carotid Dopplers: No significant stenosis. - MRI brain: Acute/subacute left temporoparietal infarct, severe generalized atrophy, moderate to severe SVID. - TTE: EF 60 to 65%, mild LVH, no valvular pathology. - Lipids this admission: total cholesterol 210 LDL 130 HDL 67. - Hgb A1c: 5.7%. - Yesterday losartan/HCTZ dosing decreased due to brittle hypotension. BP today 170/70-80s. Due to hypotension yesterday will hold off on increasing dosage at this time. 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 - Continue home Amlodipine 5mg daily, changed Losartan/HCTZ 50mg/12.5mg in the setting of relative hypotension yesterday. - Peer to Peer completed with Dr. Perry from [facility] by Dr. Johnson, denied from inpatient rehabilitation at that time however approved at this time for [facility]. COVID 19 testing pending given acute care placement guidelines (NON PUI). Atrial flutter w/ RVR: - Telemetry demonstrated rapid A. flutter shortly after admission, resolved at this time. - Continue telemetry monitoring. - Continue metoprolol 12.5 mg PO BID, Eliquis 5mg BID. WILMER: - Creatinine 1.66 upon admission, with 1.30-1.56 as baseline. - Creatinine today 1.49, still approximate to baseline. Hypothyroidism: - TSH 0.007; T4 1.70 on admission. - Continue levothyroxine 125 mcg daily. - Recheck TSH in 4-6 weeks. Vitamin B12 deficiency: - Vitamin B12 level low at 25. - Received vitamin B-12 1000 mcg IM once daily x3 doses. Hypokalemia: - K 3.1 today; repleted with 40mg KCl PO x1. Diet: heart healthy DVT ppx: continue Eliquis BID Code status: DNR/DNI Dispo: for SNF following negative COVID 19 testing (2) Aphasia: (3) Hyperlipidemia: (4) Hypertension: (5) Hypothyroidism: (6) Atrial flutter with rapid ventricular response: (7) Low serum potassium: (8) Vitamin B12 deficiency: Admission and Anticipated Discharge Date Admission Date: May 12, 2020 Supervising Physician Co-Signing Physician Notes I personally examined the patient and verified all price points of history and exam, discussed case, and agree with decision making with Baldemar. very talkative at at times tearful today. due to expressive aphasia, can't entirely make out what her concerns are, but some seems to center on rehab and recovery? tried to offer explanation of her current situation and plans as best as possible. vitals noted nad heent nc at mmm breathing unlabored no accessory muscles good effort skin no rashes no pallor or icterus, talkative and tearful but still w significant difficulty in getting intelligible sentences out. CVA - cardioembolic - continue apixaban. PT/OT eval and treat ongoing- titrating BP control. is stable for rehab ideally; not safe for home in current condition, rehab denied. for SNF/rehab emphasis once possible. elevated creatinine - sl higher than baseline (which is probably stage 3 CKD) - ?baseline "wobble" vs related to yesterday's lower-end BPs. either way - reduced BP med, follow BMP. otherwise as above Subjective S Patient without acute events overnight. This morning upon my entry into the room I asked the patient how she was feeling, and she said "I am doing well, how are you?". Patient with intermittent appropriate conversation, however also with intermittent aphasia, so history this morning was difficult to gather. Able to answer yes/no questions, denies pain, nausea or vomiting, chest pain or trouble breathing, constipation or diarrhea. No difficulty swallowing. When asking the patient to name objects for me, some objects she is able to name, and others she will just respond with "yes". Intermittently will bring up caring for her , and "if she can get out of here today". Review of Systems Review of Systems: All systems reviewed & are unremarkable except as noted in HPI & below Constitutional: no fever, no chills and no malaise Respiratory: no cough and no dyspnea Cardiovascular: no chest pain, no palpitations and no edema Gastrointestinal: no abdominal pain, no constipation and no diarrhea/loose stools Genitourinary: no dysuria and no hematuria Physical Exam Constitutional: WD/WN, vitals as above Eyes: PERRL, conjunctivae normal, anicteric sclerae ENMT: external ear and nose normal, oropharynx normal Neck: normal visual inspection Respiratory: normal respiratory effort, lungs clear to auscultation Cardiovascular: RRR, no murmur, no edema Gastrointestinal (Abdomen): normal bowel sounds, soft, nontender, no hepatosplenomegaly Musculoskeletal: Extremities: no cyanosis and no clubbing Moves all limbs appropriately and symmetrically Skin: no rashes, warm and dry Neurologic: Alert, unable to determine orientation secondary to aphasia. Intermittent word salad and loose word associations (for example confuses the words daughter and dog). Sensation intact bilaterally, no focal motor deficits. Follows commands, however often responses do not make sense in the context of the question. Psychiatric: A+Ox3, euthymic affect Results & Data Results & Data ([facility]) Vital Signs (Past 12 Hours) Vital Signs Temp Pulse Pulse Resp BP BP Pulse Ox 05/19/20 11:54 36.5 C 58 L 18 170/79 H 95 05/19/20 09:20 65 168/82 H 05/19/20 08:45 48 L 05/19/20 07:53 36.5 C 51 L 18 179/76 H 95 05/19/20 04:35 36.3 C L 53 L 18 95 Resident Activity Tracking Resident Involvement: Resident Care Provided Care Provided: Adult Hospital Medicine (1) Stroke CVA mechanism: unspecified Qualified Code(s): I63.9 - Cerebral infarction, unspecified
[2020-05-19] MEDS ORDERED: POTASSIUM CHLORIDE 20 MEQ TABCR PO ONE (14:30)
--- NOTE | 2020-05-19 17:28 | Billing Data ---
Date of Service May 19, 2020 Coding Level of Care Code 87789 Subseq Hosp Care Lvl 3
[2020-05-20] MEDS: HydrALAZINE HCL 20 MG/ML VIAL IV PRN (00:12)
[2020-05-20] MEDS: LEVOTHYROXINE SODIUM 125 MCG TABLET PO SCH (06:14)
--- NOTE | 2020-05-20 07:09 | Hospitalist Progress Note ---
Date of Service May 20, 2020 Assessment & Plan (1) Stroke: 84-year-old female with a past medical history of atrial flutter, hypertension, hyperlipidemia, CKD is admitted for CVA. CVA: - CT head: No hemorrhage or hypodensity, severe generalized atrophy with ex vacuo dilation, moderate to severe SVID. - Carotid Dopplers: No significant stenosis. - MRI brain: Acute/subacute left temporoparietal infarct, severe generalized atrophy, moderate to severe SVID. - TTE: EF 60 to 65%, mild LVH, no valvular pathology. - Lipids this admission: total cholesterol 210 LDL 130 HDL 67. - Hgb A1c: 5.7%. 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 - This admission changed Losartan/HCTZ to 50mg/12.5mg in the setting of relative hypotension 05/18. Was hypertensive into the evening yesterday, have increased Norvasc to 5mg BID. - Peer to Peer completed with Dr. Perry from [facility] by Dr. Johnson, denied from inpatient rehabilitation at that time however approved at this time for [facility]. COVID 19 testing pending given acute care placement guidelines (NON PUI). HTN: - Medications as above. Atrial flutter w/ RVR: - Telemetry demonstrated rapid A. flutter shortly after admission, resolved at this time. - Continue telemetry monitoring. - Continue metoprolol 12.5 mg PO BID, Eliquis 5mg BID. WILMER: - Creatinine 1.66 upon admission, with 1.30-1.56 as baseline. - Creatinine today 1.22, better than baseline. Hypothyroidism: - TSH 0.007; T4 1.70 on admission. - Continue levothyroxine 125 mcg daily. - Recheck TSH in 4-6 weeks. Vitamin B12 deficiency: - Vitamin B12 level low at 25. - Received vitamin B-12 1000 mcg IM once daily x3 doses. Hypokalemia: - K 3.1-> 3.6 following repletion with 40mg KCl PO x1. Diet: heart healthy DVT ppx: continue Eliquis BID Code status: DNR/DNI Dispo: med/surg with telemetry, for SNF following negative COVID 19 testing (2) Aphasia: (3) Hyperlipidemia: (4) Hypertension: (5) Hypothyroidism: (6) Atrial flutter with rapid ventricular response: (7) Low serum potassium: (8) Vitamin B12 deficiency: Admission and Anticipated Discharge Date Admission Date: May 12, 2020 Supervising Physician Co-Signing Physician Notes I personally examined the patient and verified all price points of history and exam, discussed case, and agree with decision making with Baldemar. sitting up eating lunch feeding herself well. still very difficult to glean much of any meaningful HPI or ROS - but seems in better spirits today. vitals noted nad heent nc at mmm breathing unlabored no accessory muscles good effort skin no rashes no pallor or icterus, talkative. eating without difficulty. no new focal neuro deficits. CVA - cardioembolic - continue apixaban. PT/OT eval and treat ongoing- titrating BP control (see below). is stable for rehab ideally; not safe for home in current condition, rehab denied. for SNF/rehab emphasis once possible. elevated creatinine - sl higher than baseline (which is probably stage 3 CKD) - now ipmroved again hypertension - continue to gently titrate management. higher dosing of thiazide appears to have dropped pressure lower than desired and also caused transient increase in creatinine (now better), but is now running too high late in the day again -- will add 5mg norvasc HS to the 5mg daily and follow. continue to titrate as possible otherwise as above, dispo to SNF / rehab emphasis once able. Subjective Patient without acute events overnight. This morning is less responsive, though will intermittently respond to commands and answer yes/no questions. Had just woken up from sleep when I arrived to the room. I observed her use her arms and legs without issue, and she did not have any active complaints or signs of discomfort. Review of Systems Review of Systems: Unobtainable due to cognitive status Physical Exam Constitutional: WD/WN, vitals as above Eyes: PERRL, conjunctivae normal, anicteric sclerae ENMT: external ear and nose normal, oropharynx normal Neck: normal visual inspection Respiratory: normal respiratory effort, lungs clear to auscultation Cardiovascular: RRR, no murmur, no edema Gastrointestinal (Abdomen): normal bowel sounds, soft, nontender, no hepat osplenomegaly Musculoskeletal: Extremities: no cyanosis and no clubbing Moves all limbs appropriately and symmetrically Skin: no rashes, warm and dry Neurologic: Alert. Intermittent word salad and loose word associations (for example confuses the wo rds daughter and dog). Sensation intact bilaterally, no focal motor deficits. Follows most commands, and answers some yes/no questions. Psychiatric: Orientation: alert Results & Data Results & Data ([facility]) Vital Signs (Past 12 Hours) Vital Signs Temp Pulse Resp BP Pulse Ox 05/20/20 01:19 118/65 05/19/20 23:09 36.4 C L 61 18 194/82 H 93 05/19/20 23:06 36.7 C 65 20 193/92 H 93 05/19/20 20:11 36.7 C 82 18 162/84 H 97 Resident Activity Tracking Resident Involvement: Resident Care Provided Care Provided: Adult Hospital Medicine (1) Stroke CVA mechanism: unspecified Qualified Code(s): I63.9 - Cerebral infarction, unspecified
[2020-05-20] MEDS: AMLODIPINE BESYLATE 5 MG TAB PO SCH ×2 (08:18→20:20)
[2020-05-20] MEDS: ATORVASTATIN 40 MG TAB PO SCH (08:18)
[2020-05-20] MEDS: ASPIRIN 81 MG ECTAB PO SCH (08:18)
[2020-05-20] MEDS: METOPROLOL TARTRATE 25 MG TAB PO SCH ×2 (08:19→20:20)
[2020-05-20] MEDS: APIXABAN 5 MG TABLET PO SCH ×2 (08:19→20:20)
[2020-05-20] MEDS: LOSARTAN/HCTZ 50/12.5MG TAB PO SCH (08:19)
[2020-05-20 11:14] LABS: BUN Creatinine Ratio 19.7 (10-20); Calcium 9.2 mg/dl (8.5-10.1); Creatinine Clr Calc Pharmacy 29.1 ml/min; Est GFR (African American) 46.8; Est GFR (Non-African American) 40.4; Potassium 3.6 mmol/L (3.5-5.1)
--- NOTE | 2020-05-20 16:34 | Billing Data ---
Date of Service May 20, 2020 Coding Level of Care Code 24411 Subseq Hosp Care Lvl 3
[2020-05-21] MEDS: LEVOTHYROXINE SODIUM 125 MCG TABLET PO SCH (05:42)
[2020-05-21] MEDS: ASPIRIN 81 MG ECTAB PO SCH (08:57)
[2020-05-21] MEDS: LOSARTAN/HCTZ 50/12.5MG TAB PO SCH (08:57)
[2020-05-21] MEDS: ATORVASTATIN 40 MG TAB PO SCH (08:57)
[2020-05-21] MEDS: AMLODIPINE BESYLATE 5 MG TAB PO SCH (08:57)
[2020-05-21] MEDS: METOPROLOL TARTRATE 25 MG TAB PO SCH (08:58)
[2020-05-21] MEDS: APIXABAN 5 MG TABLET PO SCH (08:58)
[2020-05-21] MEDS ORDERED: STROKE PATIENT DISCHARGE STA (10:37)
--- NOTE | 2020-05-21 10:45 | Discharge Summary ---
Date of Service May 21, 2020 Admission HPI Per Admitting Provider The patient is AN 84-year-old female with a past medical history including GERD, APCs, degenerative joint disease, esophageal dysmotility, hyperlipidemia, hypertension, hypothyroidism, primary osteoarthritis of right knee and retinal hemorrhage. Family reports that they noted her having difficulties with memory and speech at about 4 PM today. She has not had any recent travels or sick exposures. In the emergency department, her speech did not not make sense, and she did not have an awareness of that. She denies any weakness in arms or legs. She has not had these type of symptoms in the past. Principal Diagnosis CVA Discharge Exam Constitutional WD/WN, vitals as above ENMT external ear and nose normal, oropharynx normal Neck normal visual inspection Respiratory normal respiratory effort, lungs clear to auscultation Cardiovascular Rate/Rhythm: regular rate and regular rhythm Heart Sounds: normal S1 and normal S2; no gallop, no murmur and no cardiac rub Vessels: normal peripheral pulses; no JVD Gastrointestinal (Abdomen) normal bowel sounds, soft, nontender, no hepatosplenomegaly Musculoskeletal no cyanosis or clubbing, extremities motor strength 5/5 Neurologic deep tendon reflexes 2+ bilaterally (biceps, and patellar); no focal motor deficits Psychiatric Orientation: alert, oriented to person and cooperative; + not oriented to place and + not oriented to time Eye Contact: + fair eye contact Motor Behavior: no abnormal motor movements Speech: normal rate/rhythm/volume of speech (disorganized and incoherent sentences after maintained speech) Thought Process: + incoherent thought process Discharge Data Allergies Allergy/AdvReac Type Severity Reaction Status Date / Time No Known Drug Allergies Allergy Unknown ` Verified 05/12/20 21:37 Consultations 05/12/20 22:11 ED Decision to Admit Stat 05/13/20 01:11 Consult Case Management - Discharge Planning Routine Consult Neurology Routine 05/13/20 10:28 Consult Cardiology Routine Ordered Studies 05/12/20 20:31 CT head/brain wo con Urgent 05/13/20 01:11 MR brain wo con Routine US carotid doppler BI Routine Hospital Course (1) Stroke: 84-year-old female with a past medical history of atrial flutter, hypertension, hyperlipidemia, CKD is admitted for CVA. CVA: - Patient with aphasia that waxes and wanes in severity, most notably when tired can become less responsive to commands and less conversational. Can follow and answer some commands, especially yes/no questions, but not always. No notable focal motor deficits. Performs lying to sitting with supervision, sitting to standing and ambulating with minimal assistance. - CT head: No hemorrhage or hypodensity, severe generalized atrophy with ex vacuo dilation, moderate to severe SVID. - Carotid Dopplers: No significant stenosis. - MRI brain: Acute/subacute left temporoparietal infarct, severe generalized atrophy, moderate to severe SVID. - TTE: EF 60 to 65%, mild LVH, no valvular pathology. - Lipids this admission: total cholesterol 210 LDL 130 HDL 67. - Hgb A1c: 5.7%. - continue Losartan/HCTZ to 50mg/12.5mg - continue Norvasc to 2.5mg BID. - Passed Speech eval; PT recommending assisted or inpatient rehab given maintained instability when walking and requirements of assistance that is not currently available at home with her being the primary care-manager wind for her . HTN: - continue Losartan/HCTZ 50mg/12.5mg - continue Norvasc to 2.5mg BID Atrial flutter w/ RVR: - AFlutter without RVR for rest of admission following initial episode of RVR. - Continue metoprolol 25mg PO BID, Eliquis 5mg BID. Hypothyroidism: - TSH 0.007; T4 1.70 on admission. - Continue levothyroxine 125 mcg daily. - Recheck TSH in 4-6 weeks. Dispo - [facility] for rehab placement Total Time Total Time Spent Total Time Spent (In Minutes): 30 Discharge Plan Discharge Items Patient Disposition: Transfer [facility] Fac Reason For Visit: CVA Discharge Diagnosis: CVA Activity: Per Instructions section Non-emergency contact: Primary Care Provider Call non-emergency contact if: your symptoms worsen Follow-up/Referrals: Jesse Grigsby MD [Primary Care Provider] - Diet: Heart Healthy Addtl Attending Provider Instructions: 84-year-old female with a past medical history of atrial flutter, hypertension, hyperlipidemia, CKD is admitted for CVA. CVA: - CT head: No hemorrhage or hypodensity, severe generalized atrophy with ex vacuo dilation, moderate to severe SVID. - Carotid Dopplers: No significant stenosis. - MRI brain: Acute/subacute left temporoparietal infarct, severe generalized atrophy, moderate to severe SVID. - TTE: EF 60 to 65%, mild LVH, no valvular pathology. - Lipids this admission: total cholesterol 210 LDL 130 HDL 67. - Hgb A1c: 5.7%. - Passed Speech eval; PT recommending assisted or inpatient rehab given maintained instability when walking and requirements of assistance that is not currently available at home with her being the primary care-manager wind for her . - continue Losartan/HCTZ to 50mg/12.5mg in the setting of relative hypotension 05/18. - continue Norvasc to 2.55mg BID. - COVID 19 pending - Patient with aphasia that waxes and wanes in severity, most notably when tired can become less responsive to commands and less conversational. Can follow and answer some commands, especially yes/no questions, but not always. No notable focal motor deficits. Performs lying to sitting with supervision, sitting to standing and ambulating with minimal assistance. HTN: - Medications as above. Atrial flutter w/ RVR: - Telemetry demonstrated rapid A. flutter shortly after admission, resolved at this time. - AFlutter without RVR for rest of admission following initial episode of RVR. - Continue metoprolol 25mg PO BID, Eliquis 5mg BID. ? WILMER: - Creatinine 1.66 upon admission, with 1.30-1.56 as baseline. - Creatinine on discharge 1.22, better than baseline. Hypothyroidism: - TSH 0.007; T4 1.70 on admission. - Continue levothyroxine 125 mcg daily. - Recheck TSH in 4-6 weeks. Pending Studies at Discharge: Yes (COVID-19) Stand-Alone Forms: My [facility] Skilled Items Patient informed of condition?: Yes DNR: Yes Discharge Level of Care: Skilled Communicable Disease: No Discharge Prognosis: Stable Lines: None Urinary Catheter: No Medications and DC Order Prescriptions: New atorvastatin 40 mg Tablet 40 mg PO QAM 30 Days Qty: 30 RF: 0 amlodipine [Norvasc] 5 mg Tablet 2.5 mg PO BID 30 Days Qty: 30 RF: 0 aspirin 81 mg Tablet,Delayed Release (Dr/Ec) 81 mg PO QAM 30 Days Qty: 30 RF: 0 levothyroxine [Synthroid] 125 mcg Tablet 125 mcg PO DAILYBB 30 Days Qty: 30 RF: 0 losartan-hydrochlorothiazide 50-12.5 mg Tablet 1 tab PO QAM 30 Days Qty: 30 RF: 0 metoprolol tartrate 25 mg Tablet 25 mg PO BID 30 Days Qty: 60 RF: 0 Eliquis 5 mg Tablet 5 mg PO BID 30 Days Qty: 60 RF: 0 Discontinued amlodipine 5 mg tablet 5 mg PO DAILY Qty: 90 RF: 3 levothyroxine 150 mcg tablet 150 mcg PO DAILY Qty: 90 RF: 3 potassium chloride 10 mEq tablet extended release 10 meq PO DAILY Qty: 90 RF: 3 losartan-hydrochlorothiazide 100-25 mg tablet 1 tab PO DAILY Qty: 90 RF: 0 diphenhydramine-acetaminophen [Tylenol PM Extra Strength] 25-500 mg Tablet 1 tab PO HS PRN (Reason: Pain) RF: 0 Discharge Orders: Discharge Order (Routine); Ordered 05/21/20 Ordered By: Job Johnson Admission Data Admit Date/Time: 05/12/20 23:45 Attending Provider: Gina York Admit Provider: Major Burnette Primary Care Provider: Jesse Grigsby Other Providers: Major Burnette ; Arnaldo Nelson ; Baldemar Reyes ; Pili Scanlon ; [facility] ; Cobb,Barney ; Troy Del Cid Other Interventions: Discharge Summary Assessment (RN) Last Done: 05/21/20 14:30 DC Date/Time DO NOT enter until pt leaves facility: 05/21/20 14:51 Supervising Physician Co-Signing Physician Notes Resident Physician Supervision Note: I independently interviewed and examined the patient and verified the price history and physical, reviewed labs and image studies, discussed the case with the resident Dr. Johnson and agree with the findings and care plan. Resident Activity Tracking Resident Involvement: Resident Care Provided Care Provided: Adult Hospital Medicine
[2020-05-21] MEDS ORDERED: AMLODIPINE BESYLATE 5 MG TAB PO SCH (21:00)
== END 2020-05-21 14:51 | DRG 65 ==
LOC: ED 20:07 → SUATTDRO 23:45 → 2W 23:45

== ENCOUNTER 2021-10-07 10:09 | Inpatient (IN) ==
[2021-10-07] MEDS ORDERED: ACETAMINOPHEN 500 MG TAB PO STA (11:07)
--- NOTE | 2021-10-07 11:08 | Emergency Department Note ---
Impression & Plan Fall from standing, Generalized weakness, Hematoma of left lower leg, Acute UTI (urinary tract infection) ED Provider Note Name: CYNTHIA HART Age: 86 Sex: F Arrives Via: Ambulance Informant: Patient, Daughter ED Provider: Madi Garcia MD Chief Complaint: fall Impression: As Per Impressions Above Medical Decision Makin yr old female on Eliquis with history of stroke amongst others arrives for evaluation following being found on the ground in her house. No prolonged laying on floor per daughter. Unknown if trip/fall or syncope. Large hematoma left calf without evidence compartment syndrome though will be kept elevated and monitored. Labs without acute findings other than her UA concerning for UTI. CT head, cxr, pelvis xray, tib fib without acute findings. She is note febrile, tachy nor is wbc elevated, no clear evidence sepsis at this time. Given unknown etiology of fall, plus inability to ambulate with left calf hematoma, hospit alist consulted for further management. Prior Medical Record and Triage/Nursing Notes reviewed by Me Additional history obtained from chart Differentials:Infection, dehydration, metabolic abnormality, hypo/hyperglycemia, electrolyte disturbance, anemia, hypoxia, cardiac sources, intracerebral event, toxicologic, neurologic, as well as other pathologies. Vital Signs: reviewed and remarkable for no significant abnormalities Labs:Reviewed and remarkable for no significant abnormalities Imaging:See Below EKG:Per My Interpretation: Indication Weakness: NSR 65 bpm, qtc 465. No Ectopy. No Ischemia. Compared to EKG 05/13/20, no significant changes. Consults:Dr Kobe GALO Hospitalist Plan: Disposition: Hospitalization Condition: Good History of Present Illness:86 yr old female arrives for evaluation of weakness. Patient found laying on the ground this morning in her apartment next to son's house. [place] that she was not laying on the ground for very long. Unknown if LOC or syncope, or whether this was a mechanical fall. Daughter notes patient unable to bear weight on left leg due to bruising. She does not fall regularly. no fevers, chills, vomiting, appetite changes, reports of chest pain, sob, headache, abdominal pain nor other symptoms. No medications prior to arrival. Walking makes worse, rest makes better. ROS: See above HPI for pertinent positives & negatives. A total of 10 systems reviewed and were otherwise negative. Past Medical History:See Below Past Surgical History:See Below Family History:See Below Social History:See Below Home Medications:See Below Allergies:See Below Vitals:Blood Pressure: 130/79, Pulse 65, RR 16, T 36.7C, O2 100% on RA Physical Exam: GENERAL: Patient is elderly/frail appearing and in minimal distress. EYES: No scleral icterus, unremarkable pupils. ENT: Mucous membranes moist, no nasal congestion. NECK: No masses appreciated, nomeningismus, trachea is midline. RESPIRATORY: No dyspnea. Clear to auscultation and equal bilaterally. No wheeze, no rhonchi. CARDIOVASCULAR: Regular rate and rhythm.No murmurs, rubs, gallops appreciated. GASTROINTESTINAL: Abdomen soft, non-tender, no peritonitis.Bowel sounds positive.No masses appreciated. BACK: No midline tenderness, no CVA tenderness EXTREMITIES: Large tender hematoma left calf without evidence compartment syndrome, distal pulses and movement intact. Otherwise normal motion all extre mities, no cyanosis, no edema. NEUROLOGIC: Awake, looking around room, aphasic due to previous stroke, no acute motor or sensory deficits, no focal weakness, cranial nerves grossly intact. SKIN: No rash, no jaundice, no diaphoresis. GCS: 15 ED Course: Times/Reassessments: stable, laying in bed in no distress Madi Garcia MD Past Med/Surg History Medical History (Updated 10/07/21 @ 15:17 by Madi Garcia MD) Atrial flutter with rapid ventricular response Hyperlipidemia Hypertension Hypothyroidism Memory loss Vitamin B12 deficiency Surgical History History of tonsillectomy and adenoidectomy Family History Other Coronary heart disease Hypertension Social History Smoking Status: Unknown if ever smoked Hx Alcohol Use: No Hx Substance Use: No Preferred Language: Prydein[place] Communication Ability: Impaired Business Support Liaison Required: No Beliefs That Will Affect Care: None marital status: Current Living Situation: Spouse current occupational status: retired Feels Safe at Home: Yes Assistive Devices: Glasses Allergies Allergies Allergy/AdvReac Type Severity Reaction Status Date / Time No Known Drug Allergies Allergy Unknown ` Verified 10/07/21 11:38 Home Meds Home Medications Medication Instructions Recorded Confirmed aspirin 81 mg tablet,delayed 81 mg PO QAM 10/07/21 10/07/21 release atorvastatin 40 mg tablet 40 mg PO QPM 10/07/21 10/07/21 potassium chloride 10 mEq 10 meq PO QPM 10/07/21 10/07/21 tablet,extended release (Klor-Con) Previous Rx's Medication Instructions Recorded levothyroxine 75 mcg tablet 75 mcg PO DAILY #90 tab 12/18/20 menthol 0.44 %-zinc oxide 20.6 % 1 applic TOPICAL BID PRN #113 g 12/31/20 topical ointment (Calmoseptine) nystatin 100,000 unit/gram topical 1 applic TOPICAL BID #60 g 12/31/20 powder apixaban 5 mg tablet (Eliquis) 5 mg PO BID 30 Days #180 tab 06/18/21 losartan 50 mg-hydrochlorothiazide 1 tab PO QAM 30 Days #90 tab 06/18/21 12.5 mg tablet metoprolol tartrate 25 mg tablet 25 mg PO BID 30 Days #180 tab 06/18/21 amlodipine 2.5 mg tablet 2.5 mg PO BID #180 tab 08/12/21 Results & Data (ED) Vital Signs Vital Signs - 24 hr 10/07/21 10:29 10/07/21 12:15 10/07/21 13:33 Temperature 36.7 C Temperature Source Oral Pulse Rate 71 Pulse Rate [Finger] 70 71 Respiratory Rate 16 18 18 Respiratory Effort / Characteristics Non-Labored Respiratory Depth Normal Blood Pressure 151/78 H Blood Pressure [Left Arm] 123/75 155/79 H Blood Pressure Mean 102 Blood Pressure Mean [Left Arm] 91 104 Pulse Oximetry 97 99 98 Oxygen Delivery Method Room Air Room Air Room Air Sepsis Recent Fever Within 48 Hours No Sepsis New/Unexplained Change in Mental Status No Sepsis Action Taken by Nursing No Action Required 10/07/21 14:15 Temperature Temperature Source Pulse Rate Pulse Rate [Finger] 65 Respiratory Rate 16 Respiratory Effort / Characteristics Respiratory Depth Blood Pressure Blood Pressure [Left Arm] 130/79 Blood Pressure Mean Blood Pressure Mean [Left Arm] 96 Pulse Oximetry 100 Oxygen Delivery Method Room Air Sepsis Recent Fever Within 48 Hours Sepsis New/Unexplained Change in Mental Status Sepsis Action Taken by Nursing Laboratory Data Result diagrams: 10/07/21 10:55 10/07/21 10:55 Lab Results 10/07/21 10/07/21 10/07/21 Range/Units 10:55 10:55 13:30 WBC 13.67 H (4.8-10.8) K/uL RBC 3.91 L (4.2-5.4) M/uL Hgb 11.9 L (12.0-16.0) g/dL Hct 36.3 L (37-47) % MCV 92.8 (80-100) fL MCH 30.4 (25-34) pg MCHC 32.8 (32-36) g/dL RDW Std Deviation 48.1 H (36.4-46.3) fL RDW Coeff of Luis 14.2 (11.5-14.5) % Plt Count 190 (130-400) K/uL MPV 10.8 H (7.4-10.4) fL Immature Gran % (Auto) 0.1 % Neut % (Auto) 84.1 % Lymph % (Auto) 6.8 % Porter % (Auto) 8.9 % Eos % (Auto) 0.0 % Baso % (Auto) 0.1 % Neut # (Auto) 11.49 H (1.4-6.5) K/uL Lymph # (Auto) 0.93 L (1.2-3.4) K/uL Porter # (Auto) 1.21 H (0.11-0.59) K/uL Eos # (Auto) 0.00 (0-0.5) K/uL Baso # (Auto) 0.02 (0-0.2) K/uL Immature Gran # (Auto) 0.02 (0.00-0.02) K/uL Sodium 136 (136-145) mmol/L Potassium 3.9 (3.5-5.1) mmol/L Chloride 101 (98-107) mmol/L Carbon Dioxide 27 (21-32) mmol/L Anion Gap 8.0 (3-11) BUN 19 H (7-18) mg/dl Creatinine 1.68 H (0.6-1.2) mg/dl Est Cr Clr Drug Dosing 21.2 ml/min Est GFR ( Amer) 31.3 ml/min Est GFR (Non-Af Amer) 27.0 ml/min BUN/Creatinine Ratio 11.4 (10-20) Glucose 142 H (70-99) mg/dl Calcium 9.0 (8.5-10.1) mg/dl Magnesium 2.3 (1.8-2.4) mg/dl Total Bilirubin 0.9 (0.2-1) mg/dl Direct Bilirubin 0.3 H (0-0.2) mg/dl AST 38 H (15-37) U/L ALT 26 (12-78) U/L Alkaline Phosphatase 70 (45-117) U/L Troponin I < 0.015 (0-0.045) ng/ml Total Protein 6.4 (6.4-8.2) gm/dl Albumin 3.1 L (3.4-5.0) gm/dl Urine Color Dark Yellow Urine Appearance Cloudy A (Clear) Urine pH 6.0 (4.5-7.5) Ur Specific [place] 1.019 (1.000-1.030) Urine Protein Trace H (Negative) Urine Glucose (UA) Negative (Negative) Urine Ketones Trace H (Negative) Urine Blood 3+ H (Negative) Urine Nitrite Positive A (Negative) Urine Bilirubin 1+ H (Negative) Urine Urobilinogen Negative (Negative) Ur Leukocyte Esterase 2+ H (Negative) Urine WBC (Auto) >30 H (0-5) /hpf Urine RBC (Auto) 10-30 H (0-4) /hpf U Hyaline Cast (Auto) 10-30 H (0-5) /lpf U Epithel Cells (Auto) 20-30 H (0-5) /lpf Urine Bacteria (Auto) 4+ H (Negative) COVID-19 Eval Order 10/07/ Range/Units 14:30 WBC (4.8-10.8) K/uL RBC (4.2-5.4) M/uL Hgb (12.0-16.0) g/dL Hct (37-47) % MCV (80-100) fL MCH (25-34) pg MCHC (32-36) g/dL RDW Std Deviation (36.4-46.3) fL RDW Coeff of Luis (11.5-14.5) % Plt Count (130-400) K/uL MPV (7.4-10.4) fL Immature Gran % (Auto) % Neut % (Auto) % Lymph % (Auto) % Porter % (Auto) % Eos % (Auto) % Baso % (Auto) % Neut # (Auto) (1.4-6.5) K/uL Lymph # (Auto) (1.2-3.4) K/uL Porter # (Auto) (0.11-0.59) K/uL Eos # (Auto) (0-0.5) K/uL Baso # (Auto) (0-0.2) K/uL Immature Gran # (Auto) (0.00-0.02) K/uL Sodium (136-145) mmol/L Potassium (3.5-5.1) mmol/L Chloride (98-107) mmol/L Carbon Dioxide (21-32) mmol/L Anion Gap (3-11) BUN (7-18) mg/dl Creatinine (0.6-1.2) mg/dl Est Cr Clr Drug Dosing ml/min Est GFR ( Amer) ml/min Est GFR (Non-Af Amer) ml/min BUN/Creatinine Ratio (10-20) Glucose (70-99) mg/dl Calcium (8.5-10.1) mg/dl Magnesium (1.8-2.4) mg/dl Total Bilirubin (0.2-1) mg/dl Direct Bilirubin (0-0.2) mg/dl AST (15-37) U/L ALT (12-78) U/L Alkaline Phosphatase (45-117) U/L Troponin I (0-0.045) ng/ml Total Protein (6.4-8.2) gm/dl Albumin (3.4-5.0) gm/dl Urine Color Urine Appearance (Clear) Urine pH (4.5-7.5) Ur Specific [place] (1.000-1.030) Urine Protein (Negative) Urine Glucose (UA) (Negative) Urine Ketones (Negative) Urine Blood (Negative) Urine Nitrite (Negative) Urine Bilirubin (Negative) Urine Urobilinogen (Negative) Ur Leukocyte Esterase (Negative) Urine WBC (Auto) (0-5) /hpf Urine RBC (Auto) (0-4) /hpf U Hyaline Cast (Auto) (0-5) /lpf U Epithel Cells (Auto) (0-5) /lpf Urine Bacteria (Auto) (Negative) COVID-19 Eval Order Covid19 at [facility] Administered Medications Ceftriaxone Sodium 1,000 mg/ (Dextrose) 50 mls @ 100 mls/hr IV Q24H [facility]; Protocol Stop: 10/12/21 13:44 Last Admin: 10/07/21 14:13 Dose: Not Given Documented by: [id number] Discontinued Medications Acetaminophen (Acetaminophen 500 Mg Tab) 1,000 mg PO NOW STA Stop: 10/07/21 11:08 Last Admin: 10/07/21 12:13 Dose: 1,000 mg Documented by: [id number] Ceftriaxone Sodium (Ceftriaxone Sodium 1000mg/50ml D5w) Confirm Administered Dose 1,000 mg IV .Proximiant-Orthocon ONE Stop: 10/07/21 14:12 Last Admin: 10/07/21 14:13 Dose: 1,000 mg Documented by: [id number] Imaging Data Radiologist's Impression: Chest X-Ray 10/07/21 11:07 XR chest 1V portable HISTORY: fall, possible syncope COMPARISON: Chest 12/19/2015. FINDINGS: Mild chronic interstitial thickening remains unchanged. No new focal lung consolidations. No evidence for pulmonary edema. The heart remains mildly enlarged. No focal effusions. No pneumothorax. The bones are osteopenic. IMPRESSION: No significant change compared to the prior study. No acute process. ACT 112: Negative or not required by law. Electronically signed by: Miko Isaac M.D. 10/07/2021 12:[address] 10/07/21 11:[address] DOSE: 638.56 mGycm HISTORY: fall, on blood thinner TECHNIQUE: Multiaxial CT images of the head were performed without the use of intravenous contrast. Automated exposure control was utilized for this study. A dose lowering technique was utilized adhering to the principles of ALARA. Comparison: Head CT 05/12/2020. Brain MRI 05/13/2020. Findings: The paranasal sinuses and mastoid air cells are clear. The calvarium and skull base are intact. There is no mass, hematoma, midline shift, acute infarct. White matter hypodensity is nonspecific but suggestive of microvascular ischemic change. The ventricles and sulci demonstrate mild age-related involutional changes. Focal hypodensity within the left posterior temporoparietal lobe corresponds to the site of the prior infarct. Therefore, this is likely chronic. Impression: 1. No acute intracranial abnormality. 2. Hypodensity within the left posterior temporoparietal lobe corresponds to the site of the prior infarct. ACT 112: Negative or not required by law. Electronically signed by: Miko Isaac M.D. 10/07/2021 11:56 AM Pelvis X-Ray 10/07/21 11:07 XR pelvis 1-2V routine CLINICAL HISTORY: fall TECHNIQUE: A single frontal view of the pelvis was obtained. Comparison: None available at the time of this dictation. FINDINGS: There is no evidence of acute fracture or dislocation. The bones are anato mically aligned. The joint spaces are well-maintained. No significant soft tissue abnormality is seen. IMPRESSION: No evidence of acute bony injury. ACT 112: Negative or not required by law. Electronically signed by: Aries Davis M.D. 10/07/2021 12:24 PM Tibia/Fibula X-Ray 10/07/21 11:07 XR tibia fibula LT 2V CLINICAL HISTORY: fall, left calf bruising Comparison: None available at the time of this dictation. TECHNIQUE: 2 radiographic views of the left leg were obtained. FINDINGS: There is no evidence of an acute fracture. The alignment is anatomic. Dege nerative changes are seen in the ankle and knee joints. No soft tissue abnormality is seen. IMPRESSION: Degenerative changes without evidence of acute fracture. ACT 112: Negative or not required by law. Electronically signed by: Aries Davis M.D. 10/07/2021 12:18 PM Discharge Plan Visit Data Chief Complaint: Fall ED Provider: Madi Garcia Discharge Problem: Fall from standing, Generalized weakness, Hematoma of left lower leg, Acute UTI (urinary tract infection) Forms Stand Alone Forms: [facility] Prescriptions Prescriptions: No Action levothyroxine 75 mcg tablet 75 mcg PO DAILY Qty: 90 RF: 3 nystatin 100,000 unit/gram powder 1 applic topical BID Qty: 60 RF: 11 Calmoseptine 0.44-20.6 % ointment 1 applic topical BID PRN (Reason: skin irritation) Qty: 113 RF: 11 metoprolol tartrate 25 mg tablet 25 mg PO BID 30 Days Qty: 180 RF: 3 losartan-hydrochlorothiazide 50-12.5 mg tablet 1 tab PO QAM 30 Days Qty: 90 RF: 3 Eliquis 5 mg tablet 5 mg PO BID 30 Days Qty: 180 RF: 3 amlodipine 2.5 mg tablet 2.5 mg PO BID Qty: 180 RF: 3 aspirin 81 mg Tablet,Delayed Release (Dr/Ec) 81 mg PO QAM RF: 0 atorvastatin 40 mg tablet 40 mg PO QPM RF: 0 potassium chloride [Klor-Con 10] 10 mEq tablet extended release 10 meq PO QPM RF: 0 Referrals Referrals: Jesse Grigsby MD [Primary Care Provider] - Discharge Problem: Fall from standing Qualifiers: Encounter type: initial encounter Qualified Code(s): W19.XXXA - Unspecified fa ll, initial encounter
[2021-10-07 11:13] LABS: Basophils # (auto) 0.02 K/uL (0-0.2); Basophils % (auto) 0.1 %; Hematocrit (blood only) 36.3 % (37-47); Hemoglobin 11.9 g/dL (12.0-16.0); Immature Granulocytes # (auto) 0.02 K/uL (0.00-0.02); Immature Granulocytes % (auto) 0.1 %; Lymphocytes # (auto) 0.93 K/uL (1.2-3.4); Lymphocytes % (auto) 6.8 %; Mean Corpuscular Hemoglobin 30.4 pg (25-34); Mean Corpuscular Hgb Conc 32.8 g/dL (32-36); Mean Corpuscular Volume 92.8 fL (80-100); Mean Platelet Volume 10.8 fL (7.4-10.4); Monocytes # (auto) 1.21 K/uL (0.11-0.59); Monocytes % (auto) 8.9 %; Neutrophils # (auto) 11.49 K/uL (1.4-6.5); Neutrophils % (auto) 84.1 %; Platelet Count 190 K/uL (130-400); RDW Coefficient of Variation 14.2 % (11.5-14.5); RDW Standard Deviation 48.1 fL (36.4-46.3); Red Blood Count 3.91 M/uL (4.2-5.4); White Blood Count 13.67 K/uL (4.8-10.8)
[2021-10-07 11:32] LABS: Alanine Aminotransferase 26 U/L (12-78); Albumin Level 3.1 gm/dl (3.4-5.0); Aspartate Aminotransferase 38 U/L (15-37); BUN Creatinine Ratio 11.4 (10-20); Bilirubin Direct 0.3 mg/dl (0-0.2); Blood Urea Nitrogen 19 mg/dl (7-18); Carbon Dioxide 27 mmol/L (21-32); Chloride 101 mmol/L (98-107); Creatinine Clr Calc Pharmacy 21.2 ml/min; Est GFR (African American) 31.3 ml/min; Glucose 142 mg/dl (70-99); Magnesium 2.3 mg/dl (1.8-2.4); Potassium 3.9 mmol/L (3.5-5.1); Sodium 136 mmol/L (136-145)
[2021-10-07 11:36] LABS: Alkaline Phosphatase 70 U/L (45-117); Bilirubin,Total 0.9 mg/dl (0.2-1); Total Protein 6.4 gm/dl (6.4-8.2); Troponin I < 0.015 ng/ml (0-0.045)
--- NOTE | 2021-10-07 11:57 | CT Scan Report ---
HEAD CT NONCONTRAST CT DOSE: 638.56 mGycm HISTORY: fall, on blood thinner TECHNIQUE: Multiaxial CT images of the head were performed without the use of intravenous contrast. A utomated exposure control was utilized for this study. A dose lowering technique was utilized adheri ng to the principles of ALARA. Comparison: Head CT 05/12/2020. Brain MRI 05/13/2020. Findings: The paranasal sinuses and mastoid air cells are clear. The calvarium and skull base are int act. There is no mass, hematoma, midline shift, acute infarct. White matter hypodensity is nonspecifi c but suggestive of microvascular ischemic change. The ventricles and sulci demonstrate mild age-rela robi involutional changes. Focal hypodensity within the left posterior temporoparietal lobe correspond s to the site of the prior infarct. Therefore, this is likely chronic. Impression: 1. No acute intracranial abnormality. 2. Hypodensity within the left posterior temporoparietal lobe corresponds to the site of the prior in farct. ACT 112: Negative or not required by law. Electronically signed by: Miko Isaac M.D. 10/07/2021 11:56 AM
--- NOTE | 2021-10-07 12:19 | XRay Report ---
XR tibia fibula LT 2V CLINICAL HISTORY: fall, left calf bruising Comparison: None available at the time of this dictation. TECHNIQUE: 2 radiographic views of the left leg were obtained. FINDINGS: There is no evidence of an acute fracture. The alignment is anatomic. Degenerative changes are seen i n the ankle and knee joints. No soft tissue abnormality is seen. IMPRESSION: Degenerative changes without evidence of acute fracture. ACT 112: Negative or not required by law. Electronically signed by: Aries Davis M.D. 10/07/2021 12:18 PM
--- NOTE | 2021-10-07 12:26 | XRay Report ---
XR pelvis 1-2V routine CLINICAL HISTORY: fall TECHNIQUE: A single frontal view of the pelvis was obtained. Comparison: None available at the time of this dictation. FINDINGS: There is no evidence of acute fracture or dislocation. The bones are anatomically aligned. The joint spaces are well-maintained. No significant soft tissue abnormality is seen. IMPRESSION: No evidence of acute bony injury. ACT 112: Negative or not required by law. Electronically signed by: Aries Davis M.D. 10/07/2021 12:24 PM
--- NOTE | 2021-10-07 12:33 | XRay Report ---
XR chest 1V portable HISTORY: fall, possible syncope COMPARISON: Chest 12/19/2015. FINDINGS: Mild chronic interstitial thickening remains unchanged. No new focal lung consolidations. N o evidence for pulmonary edema. The heart remains mildly enlarged. No focal effusions. No pneumothora x. The bones are osteopenic. IMPRESSION: No significant change compared to the prior study. No acute process. ACT 112: Negative or not required by law. Electronically signed by: Miko Isaac M.D. 10/07/2021 12:32 PM
--- NOTE | 2021-10-07 13:29 | History & Physical Report ---
Date of Service October 07, 2021 Assessment & Plan (1) Urinary tract infection: Plan: Patient has an markedly abnormal urinalysis on presentation likely could be having metabolic encephalopathy from urinary tract infection present on admission. Urine cultures and blood cultures are sent patient started on Rocephin 1 g IV every 24. (2) Hematoma and contusion: Plan: ThePatient has a large hematoma to her left calf with contusion previously being on anticoagulation with Eliquis therapy for atrial flutter, peripheral pulses are intact. It is however fairly taunt. Eliquis is held in orthopedic consultation be undertaken likely expecting conservative management but will ask expertise if hematoma evacuation may return the patient ambulation on a more sooner timeline (3) Atrial flutter: Plan: Patient previous with atrial flutter remains in anticoagulation in sinus rhythm. Patient will be continued on her metoprolol as mentioned above Eliquis is held Is a patient was found down on the ground arrhythmia cannot be ruled out as a cause. She'll be on medical telemetry for evaluation of tachyarrhythmias or bradycardia arrhythmias. (4) Chronic kidney disease, stage III (moderate): Plan: Patient with a slight acute kidney injury with chronic kidney disease stage III 1 L of normal saline be given overnight. Patient will be maintained on her losartan holding her hydrochlorothiazide (5) Hypothyroidism: Plan: Appears appropriately treated with Synthroid this will be continued (6) Hypertension: Plan: Typically maintained with metoprolol losartan hydrochlorothiazide and amlodipine (7) Dysphagia: Plan: Patient seen by speech therapy in 2019 at that time discharge instructions were regular diet, aspiration precautions. Elevation of head of bed greater than 30 degrees. Alternating liquids and solids. Slippery diet. Upright after meals for 30 minutes. Single bite small sips slow rate (8) DVT prophylaxis: Plan: Patient's Eliquis is on hold on presentation to orthopedic evaluation. Patient cannot have SCDs due to the tenderness of her leg. Once orthopedic decides the direction may go into may consider restarting this once in a stable condition. Patient's DNR status is reconfirmed by her daughter at bedside. History of Present Illness Primary Care Provider: Jesse Grigsby MD Patient reportedly brought in by her son. She has a history of a stroke but does live alone she has expressive aphasia. Reportedly he found her on the ground. She is an injury to her left lower leg. There is no signs of bony injury of the pelvis or tib-fib x-rays. CT scan of her head shows no new stroke and initial laboratories are fairly unrevealing. Reportedly the pain from her injury prevents her from ambulating effectively Daughter at the bedside says in addition to her expressive aphasia, she is demented and does typically wander at night, he is also at home, age 89, and only allows family to come into the house, the pt has been happy with [facility] in the past for rehab Allergies Allergy/AdvReac Type Severity Reaction Status Date / Time No Known Drug Allergies Allergy Unknown ` Verified 10/07/21 11:38 Home Medications Medication Instructions Recorded Confirmed Type levothyroxine 75 mcg tablet 75 mcg PO DAILY #90 tab 12/18/20 10/07/21 Rx menthol 0.44 %-zinc oxide 20.6 % 1 applic TOPICAL BID PRN #113 g 12/31/20 Rx topical ointment (Calmoseptine) nystatin 100,000 unit/gram topical 1 applic TOPICAL BID #60 g 12/31/20 10/07/21 Rx powder apixaban 5 mg tablet (Eliquis) 5 mg PO BID 30 Days #180 tab 06/18/21 10/07/21 Rx losartan 50 mg-hydrochlorothiazide 1 tab PO QAM 30 Days #90 tab 06/18/21 10/07/21 Rx 12.5 mg tablet metoprolol tartrate 25 mg tablet 25 mg PO BID 30 Days #180 tab 06/18/21 10/07/21 Rx amlodipine 2.5 mg tablet 2.5 mg PO BID #180 tab 08/12/21 10/07/21 Rx aspirin 81 mg tablet,delayed 81 mg PO QAM 10/07/21 10/07/21 History release atorvastatin 40 mg tablet 40 mg PO QPM 10/07/21 10/07/21 History potassium chloride 10 mEq 10 meq PO QPM 10/07/21 10/07/21 History tablet,extended release (Klor-Con) Past Med/Surg History Medical History (Updated 10/07/21 @ 14:11 by Del Bullock MD) Atrial flutter with rapid ventricular response Hyperlipidemia Hypertension Hypothyroidism Memory loss Vitamin B12 deficiency Surgical History History of tonsillectomy and adenoidectomy Family History Other Coronary heart disease Hypertension Social History Smoking Status: Unknown if ever smoked Hx Alcohol Use: No Hx Substance Use: No Preferred Language: Kazakh Communication Ability: Impaired Psychiatry Physician Required: No Beliefs That Will Affect Care: None marital status: Current Living Situation: Spouse current occupational status: retired Feels Safe at Home: Yes Assistive Devices: Glasses Review of Systems Review of Systems: Review of systems is difficult due to expressive aphasia and dementia. Most of this is gotten from historical reports from her daughter. Mild distress and fatigue complains of leg pain when attempting to walk Pre-existing speech and swallowing issues where patient has regular diet is postop swallowing precautions no chest pain, pressure or palpitations no shortness of breath, cough or wheezes no abdominal pain, nausea or vomiting, diarrhea or constipation no dysuria, hematuria or frequency noted to have markedly abnormal urine collection in the emergency department Left lower extremity pain with swelling and tenderness to touch no back pain, CVA tenderness or radicular pain Oozing on left lower calf no focal signs of weakness patient is alert does not typically respond reliably to commands Daughter states patient has advanced dementia. Physical Exam Physical Exam: The patient appeared well nourished and normally developed. Vital signs as documented. Head exam is normocephalic atraumatic Neck is without JVD, thyromegaly, or carotid bruits. Lungs are clear to auscultation, no focal loss of breath sounds Cardiac exam, Rhythm is regular. Although history of atrial fibrillation is in sinus rhythm now No murmurs, rubs or gallops. Abdominal exam reveals normal bowel sounds, soft non tender, no masses Left lower extremity has significant bruising and swelling to the calf. Neurologic exam is alert and she responds somewhat to exam but not reliably when asked questions such as squeeze my hands etc. Skin is with oozing the calf seems to be slightly older than 1 day as was described by family Psychologically is with difficult memory loss Results & Data Results & Data ([facility]) Vital Signs (Past 12 Hours) Vital Signs Temp Pulse Pulse Resp BP BP Pulse Ox 10/07/21 12:15 70 18 123/75 99 10/07/21 10:29 98.1 F 71 16 151/78 H 97 Diagnostic Findings Patient had multiple radiological studies. This includes a chest x-ray with old fibrotic changes not progressing. A pelvis x-ray which was unremarkable for fracture tibia-fibula x-ray also unremarkable for fracture. A CT head which only showed's her old CVA in the left posterior temporoparietal area ECG Additional Comments: EKG shows controlled rate sinus rhythm replacing previous A. Flutter PG Care Time/CCT Total # of Minutes Spent Total Time Spent with Patient: Total time spent is greater than 50% in coordination of care (as documented) at patient's floor/unit and/or counseling patient: Coding Level of Care Code 71533 Initial Inpt Care Lvl 3 Diagnoses Atrial flutter I48.92 Chronic kidney disease, stage III (moderate) N18.30 Hypothyroidism E03.9 Hypertension I10 Dysphagia R13.10 Urinary tract infection N39.0 Hematoma and contusion T14.8XXA DVT prophylaxis Z29.9
[2021-10-07 13:56] LABS: Appearance Urine Cloudy (Clear); Bacteria Urine Automated 4+ (Negative); Blood Urine 3+ (Negative); Color Urine Dark Yellow; Epithelial Cell Urine Auto 20-30 /lpf (0-5); Glucose Urine UA Negative (Negative); Ketones Urine Trace (Negative); Leukocyte Esterase Urine 2+ (Negative); Nitrite Urine Positive (Negative); Protein Urine Trace (Negative); Specific Gravity Urine 1.019 (1.000-1.030); Urobilinogen Urine Negative (Negative); WBC Urine Automated >30 /hpf (0-5)
[2021-10-07 14:11] LABS: Bilirubin Urine 1+ (Negative)
[2021-10-07] MEDS ORDERED: cefTRIAXone SODIUM 1000MG/50ML D5W IV ONE (14:11)
[2021-10-07] MEDS: cefTRIAXone SODIUM 1,000 MG in DEXTROSE 5% 50 ML IV SCH (14:13)
--- NOTE | 2021-10-07 16:37 | Electrocardiogram Report ---
Test Reason : Blood Pressure : / mmHG Vent. Rate : 065 BPM Atrial Rate : 065 BPM P-R Int : 160 ms QRS Dur : 088 ms QT Int : 448 ms P-R-T Axes : 055 086 069 degrees QTc Int : 465 ms Poor data quality, interpretation may be adversely affected Normal sinus rhythm Normal ECG When compared with ECG of 13-MAY-2020 10:19, Sinus rhythm has replaced Atrial flutter Vent. rate has decreased BY 42 BPM Confirmed by Mani Lerma ([id number]) on 10/07/2021 4:37:24 PM Referred By: REFERRED SELF Confirmed By:Mani Lerma
[2021-10-07] MEDS ORDERED: SODIUM CHLORIDE 0.9% 1000ML 1,000 ML IV SCH (18:19)
[2021-10-07] MEDS ORDERED: LORazepam 0.5 MG TAB PO PRN (18:19)
[2021-10-07] MEDS ORDERED: ONDANSETRON INJ 2 MG/ML 2 ML VIAL IV PRN (18:19)
[2021-10-07] MEDS: LORazepam 0.5 MG/1 ML VIAL IV PRN (19:33)
[2021-10-07] MEDS: METOPROLOL TARTRATE 25 MG TAB PO SCH (21:35)
[2021-10-07] MEDS: ATORVASTATIN 40 MG TAB PO SCH (21:35)
[2021-10-07] MEDS: amLODIPine BESYLATE 5 MG TAB PO SCH (21:35)
[2021-10-07] MEDS: POTASSIUM CHLORIDE 10 MEQ TABCR PO SCH (21:36)
[2021-10-08] MEDS: LORazepam 0.5 MG/1 ML VIAL IV PRN (04:14)
[2021-10-08] MEDS: LEVOTHYROXINE SODIUM 75 MCG TABLET PO SCH (06:03)
[2021-10-08 06:14] LABS: Hematocrit (blood only) 29.2 % (37-47); Hemoglobin 9.8 g/dL (12.0-16.0); Mean Corpuscular Hemoglobin 31.1 pg (25-34); Mean Corpuscular Hgb Conc 33.6 g/dL (32-36); Mean Corpuscular Volume 92.7 fL (80-100); Mean Platelet Volume 10.6 fL (7.4-10.4); Platelet Count 168 K/uL (130-400); RDW Coefficient of Variation 14.2 % (11.5-14.5); RDW Standard Deviation 48.3 fL (36.4-46.3); Red Blood Count 3.15 M/uL (4.2-5.4); White Blood Count 9.33 K/uL (4.8-10.8)
[2021-10-08 07:20] LABS: BUN Creatinine Ratio 16.6 (10-20); Calcium 8.5 mg/dl (8.5-10.1); Creatinine Clr Calc Pharmacy 32.7 ml/min; Est GFR (African American) 52.9 ml/min; Est GFR (Non-African American) 45.6 ml/min; Potassium 3.1 mmol/L (3.5-5.1)
[2021-10-08] MEDS ORDERED: LOSARTAN/HCTZ 50/12.5MG TAB PO SCH (09:00)
[2021-10-08] MEDS: amLODIPine BESYLATE 5 MG TAB PO SCH ×2 (10:08→22:03)
[2021-10-08] MEDS: ASPIRIN 81 MG ECTAB PO SCH (10:09)
[2021-10-08] MEDS: LOSARTAN POTASSIUM 50 MG TAB PO SCH (10:09)
[2021-10-08] MEDS: LOSARTAN/HCTZ 50/12.5MG TAB PO SCH (10:10)
[2021-10-08] MEDS: METOPROLOL TARTRATE 25 MG TAB PO SCH ×2 (10:10→19:23)
--- NOTE | 2021-10-08 12:09 | Orthopedic Consultation ---
Date of Service October 08, 2021 Assessment & Plan (1) Hematoma of left lower leg: -Due to early evidence of skin breakdown, we recommended attempt at aspiration of hematoma. We discussed this with her daughter over the phone. Risks of procedure include mostly bleeding and infection. Benefits would be improvement of pain and less risk of skin breakdown. Daughter gave verbal consent over the phone. Procedure: Pt was identified, procedure confirmed: left calf hematoma aspiration. Site was marked and prepped with alcohol. Aspiration was attempted using 16 gauge needle and 60 cc syringe. After several passes with the needle in multiple trajectories no blood was able to be aspirated. Insertion site was dressed with gauze, ABD, and LLE was then bandaged with an MIKAELA bandage. -No further orthopedic intervention. -Recommend continuous compression with thigh high DIVYA stocking vs MIKAELA bandage, ice and elevation prn. -Rest of care per primary team. -Will follow peripherally, call with questions. Pt seen and discussed w/ Dr. Lee. History of Present Illness Reason for Consultation: Left calf hematoma . Requesting Physician: Del Bullock . Attending Physician: Surjit Grijalva Pt is an 86 y/o/f with PMHx of previous stroke w/ residual expressive aphasia, dementia, A-fib (on Eliquis), HTN, Hypothyroidism, DLD, CKD who was admitted on 10/07 after a possible unwitnessed fall at home. She was brought to [facility] ED by her son after she was found down at her home, where she resides with her 95 year old . While in ED she was noted to have a left calf hematoma which was tender to palpation and limiting her ability to ambulate. XRs were obtained of L tib/fib and pelvis which were negative for acute fracture or other bony injury. CT head and CXR obtained as part of trauma work up in ED, which were both negative for injury or other acute findings. Admitted to Medicine for further evaluation and treatment given unclear etiology (mechanical fall vs syncope) and LLE hematoma. Orthopedics consulted for management of LLE hematoma. Seen at bedside, no family present. Allergies Allergy/AdvReac Type Severity Reaction Status Date / Time No Known Drug Allergies Allergy Unknown ` Verified 10/07/21 11:38 Home Medications Medication Instructions Recorded Confirmed Type levothyroxine 75 mcg tablet 75 mcg PO DAILY #90 tab 12/18/20 10/07/21 Rx menthol 0.44 %-zinc oxide 20.6 % 1 applic TOPICAL BID PRN #113 g 12/31/20 10/07/21 Rx topical ointment (Calmoseptine) nystatin 100,000 unit/gram topical 1 applic TOPICAL BID #60 g 12/31/20 10/07/21 Rx powder apixaban 5 mg tablet (Eliquis) 5 mg PO BID 30 Days #180 tab 06/18/21 10/07/21 Rx losartan 50 mg-hydrochlorothiazide 1 tab PO QAM 30 Days #90 tab 06/18/21 10/07/21 Rx 12.5 mg tablet metoprolol tartrate 25 mg tablet 25 mg PO BID 30 Days #180 tab 06/18/21 10/07/21 Rx amlodipine 2.5 mg tablet 2.5 mg PO BID #180 tab 08/12/21 10/07/21 Rx aspirin 81 mg tablet,delayed 81 mg PO QAM 10/07/21 10/07/21 History release atorvastatin 40 mg tablet 40 mg PO QPM 10/07/21 10/07/21 History potassium chloride 10 mEq 10 meq PO QPM 10/07/21 10/07/21 History tablet,extended release (Klor-Con) Past Med/Surg History Medical History (Updated 10/07/21 @ 15:17 by Madi Garcia MD) Atrial flutter with rapid ventricular response Hyperlipidemia Hypertension Hypothyroidism Memory loss Vitamin B12 deficiency Surgical History History of tonsillectomy and adenoidectomy Family History Other Coronary heart disease Hypertension Social History Smoking Status: Never smoker Second Hand Exposure: No; Hx Alcohol Use: No Hx Substance Use: No Preferred Language: Swedish Communication Ability: Impaired 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 Physical Exam General: Chronically ill appearing, confused, elderly female resting in bed. Appears to be in pain. Not following commands. LLE: Large hematoma present over the posteromedial aspect of left calf. Skin appears mostly soft and intact, with one specific area of swelling at the medial mid calf area with some early signs of blistering and more tense skin. Hematoma is tender to palpation. She is actively moving her L ankle and knee, albeit not purposefully. LLE is NVI. Results & Data Results & Data Laboratory Results Laboratory Tests 10/08/21 10/08/21 05:45 05:45 WBC 9.33 Hgb 9.8 L Hct 29.2 L Plt Count 168 Sodium 136 Potassium 3.1 L D Chloride 103 Creatinine 1.09 Glucose 105 H . Diagnostic Findings Imaging as noted in HPI; CT head, CXR, Tib/Fib XR, and Pelvis XR negative for acute injury . PG Care Time/CCT Total # of Minutes Spent Total Time Spent with Patient: Total time spent is greater than 50% in coordination of care (as documented) at patient's floor/unit and/or counseling patient: Coding Level of Care Code 19228 Inpt Consult Level 3 Diagnoses Hematoma of left lower leg S80.12XA
[2021-10-08] MEDS: cefTRIAXone SODIUM 1,000 MG in DEXTROSE 5% 50 ML IV SCH (13:39)
[2021-10-08] MEDS: ACETAMINOPHEN 325 MG TAB PO PRN (15:29)
--- NOTE | 2021-10-08 21:24 | Hospitalist Progress Note ---
Date of Service October 08, 2021 Assessment & Plan (1) Urinary tract infection: Plan: Patient has an markedly abnormal urinalysis on presentation likely could be having metabolic encephalopathy from urinary tract infection present on admission. Urine cultures and blood cultures are sent patient started on Rocephin 1 g IV every 24. will continue antibiotic. patient is confused. placed one dose of antpsychotic (2) Hematoma and contusion: Plan: ThePatient has a large hematoma to her left calf with contusion previously being on anticoagulation with Eliquis therapy for atrial flutter, peripheral pulses are intact. It is however fairly taunt. Eliquis is held in orthopedic consultation be undertaken likely expecting conservative management but will ask expertise if hematoma evacuation may return the patient ambulation on a more sooner timeline (3) Atrial flutter: Plan: Patient previous with atrial flutter remains in anticoagulation in sinus rhythm. Patient will be continued on her metoprolol as mentioned above Eliquis is held Is a patient was found down on the ground arrhythmia cannot be ruled out as a cause. She'll be on medical telemetry for evaluation of tachyarrhythmias or bradycardia arrhythmias. (4) Chronic kidney disease, stage III (moderate): Plan: Patient with a slight acute kidney injury with chronic kidney disease stage III 1 L of normal saline be given overnight. Patient will be maintained on her losartan holding her hydrochlorothiazide (5) Hypothyroidism: Plan: Appears appropriately treated with Synthroid this will be continued (6) Hypertension: Plan: Typically maintained with metoprolol losartan hydrochlorothiazide and amlodipine (7) Dysphagia: Plan: Patient seen by speech therapy in 2019 at that time discharge instructions were regular diet, aspiration precautions. Elevation of head of bed greater than 30 degrees. Alternating liquids and solids. Slippery diet. Upright after meals for 30 minutes. Single bite small sips slow rate (8) DVT prophylaxis: Plan: Patient's Eliquis is on hold on presentation to orthopedic evaluation. Patient cannot have SCDs due to the tenderness of her leg. Once orthopedic decides the direction may go into may consider restarting this once in a stable condition. Patient's DNR status is reconfirmed by her daughter at bedside. Admission and Anticipated Discharge Date Admission Date: October 07, 2021 Subjective 86 yo female is a poor historian. Review of Systems Review of Systems: unable to obtain due to cognitive dysfunction. Physical Exam Physical Exam: The patient appeared well nourished and normally developed. Vital signs as documented. Head exam is normocephalic atraumatic Neck is without JVD, thyromegaly, or carotid bruits. Lungs are clear to auscultation, no focal loss of breath sounds Cardiac exam, Rhythm is regular. Although history of atrial fibrillation is in sinus rhythm now No murmurs, rubs or gallops. Abdominal exam reveals normal bowel sounds, soft non tender, no masses Left lower extremity has significant bruising and swelling to the calf. Neurologic exam is alert and she responds somewhat to exam but not reliably when asked questions such as squeeze my hands etc. Psychologically is with difficult memory loss Results & Data Results & Data ([facility]) Vital Signs (Past 12 Hours) Vital Signs Temp Pulse Pulse Resp BP Pulse Ox 10/08/21 19:18 125 H 160/76 H 10/08/21 15:45 36.5 C 94 H 20 167/84 H 98 10/08/21 14:32 93 H 10/08/21 12:19 36.4 C L 88 18 153/83 H 95 PG Care Time/CCT Total # of Minutes Spent Total Time Spent with Patient: Total time spent is greater than 50% in coordination of care (as documented) at patient's floor/unit and/or counseling patient: Coding Level of Care Code 93540 Subseq Hosp Care Lvl 2 Diagnoses Urinary tract infection N39.0 Hematoma and contusion T14.8XXA Atrial flutter I48.92 Chronic kidney disease, stage III (moderate) N18.30 Hypothyroidism E03.9 Hypertension I10 Dysphagia R13.10 DVT prophylaxis Z29.9
[2021-10-08] MEDS: ATORVASTATIN 40 MG TAB PO SCH (22:03)
[2021-10-08] MEDS: POTASSIUM CHLORIDE 10 MEQ TABCR PO SCH (22:03)
[2021-10-09] MEDS ORDERED: MoRPHine SULFATE 2 MG/ML CARP IV ONE ×2 (02:15→04:45)
[2021-10-09 06:00] LABS: Hematocrit (blood only) 26.7 % (37-47); Hemoglobin 8.9 g/dL (12.0-16.0); Mean Corpuscular Hemoglobin 30.7 pg (25-34); Mean Corpuscular Hgb Conc 33.3 g/dL (32-36); Mean Corpuscular Volume 92.1 fL (80-100); Mean Platelet Volume 10.3 fL (7.4-10.4); Platelet Count 179 K/uL (130-400); RDW Coefficient of Variation 14.1 % (11.5-14.5); RDW Standard Deviation 47.4 fL (36.4-46.3); White Blood Count 10.42 K/uL (4.8-10.8)
[2021-10-09] MEDS: LEVOTHYROXINE SODIUM 75 MCG TABLET PO SCH (06:00)
[2021-10-09 06:28] LABS: BUN Creatinine Ratio 16.6 (10-20); Calcium 8.6 mg/dl (8.5-10.1); Creatinine Clr Calc Pharmacy 42.5 ml/min; Est GFR (African American) 76.8 ml/min; Est GFR (Non-African American) 66.3 ml/min; Potassium 3.1 mmol/L (3.5-5.1)
[2021-10-09] MEDS: ACETAMINOPHEN 325 MG TAB PO PRN (08:45)
[2021-10-09] MEDS: LOSARTAN/HCTZ 50/12.5MG TAB PO SCH (08:46)
[2021-10-09] MEDS: METOPROLOL TARTRATE 25 MG TAB PO SCH ×2 (08:46→20:15)
[2021-10-09] MEDS: amLODIPine BESYLATE 5 MG TAB PO SCH ×2 (10:38→20:14)
[2021-10-09] MEDS: ASPIRIN 81 MG ECTAB PO SCH (10:38)
[2021-10-09] MEDS: LOSARTAN POTASSIUM 50 MG TAB PO SCH (10:39)
[2021-10-09] MEDS: cefTRIAXone SODIUM 1,000 MG in DEXTROSE 5% 50 ML IV SCH (13:14)
--- NOTE | 2021-10-09 16:45 | Cardiology Consultation ---
Date of Consultation October 09, 2021 Assessment & Plan (1) Fall from standing: (2) Atrial flutter with rapid ventricular response: (3) Aphasia: Patient was apparently free of symptoms and was hemodynamically stable and in sinus rhythm at the time of my evaluation. It is unclear if she actually had syncope or a mechanical fall resulting in her leg injury. Certainly, she could have a tachybradycardia syndrome with pauses after transition from atrial flutter with RVR to sinus resulting in syncope, but at this point she has not had either documented syncope or pauses (unfortunately, as noted she was off the monitor during the transition from atrial flutter to sinus last night). She is on low-dose metoprolol for rhythm control and had been on apixaban for anticoagulation (this was held due to her leg hematoma). Would monitor overnight to see if she has further episodes of atrial flutter, hopefully to catch the transition to sinus to determine whether she has pauses which might prompt pacemaker placement. After further observation overnight (in hopes of documenting rhythm transition) would recommend changing from low-dose metoprolol to amiodarone since she is having breakthrough dysrhythmias. Would not amiodarone load given her tendency to bradycardia, but simply stop met oprolol and start amiodarone 200 mg daily. Will continue to follow along. History of Present Illness Reason for Consultation: Syncope/tachyarrhythmia Requesting Physician: Surjit Grijalva MD Attending Physician: Surjit Grijalva History of Present Illness 86-year-old woman with dementia, CVA with residual expressive aphasia, paroxysmal atrial flutter (with history of rapid ventricular response at times), and chronic renal insufficiency who was found on the ground with an injured left lower leg and was admitted for further evaluation of possible syncope. Patient lives at home with her 95-year-old . No clear history could be obtained at bedside, the patient gave one-word answers but lacked insight. She seemed to deny any ongoing dyspnea or chest pain. Telemetry showed sinus rhythm at 60-70 bpm overnight, with about 1 hour of atrial flutter with rapid ventricular response (160 bpm). Unfortunately, the patient was off monitor for about half an hour, during which time she reverted from atrial flutter back to sinus rhythm (thus, the transition from atrial flutter to sinus was not captured). She has remained in sinus rhythm throughout the day. Allergies Allergy/AdvReac Type Severity Reaction Status Date / Time No Known Drug Allergies Allergy Unknown ` Verified 10/07/21 11:38 Home Medications Medication Instructions Recorded Confirmed Type levothyroxine 75 mcg tablet 75 mcg PO DAILY #90 tab 12/18/20 10/07/21 Rx menthol 0.44 %-zinc oxide 20.6 % 1 applic TOPICAL BID PRN #113 g 12/31/20 10/07/21 Rx topical ointment (Calmoseptine) nystatin 100,000 unit/gram topical 1 applic TOPICAL BID #60 g 12/31/20 10/07/21 Rx powder apixaban 5 mg tablet (Eliquis) 5 mg PO BID 30 Days #180 tab 06/18/21 10/07/21 Rx losartan 50 mg-hydrochlorothiazide 1 tab PO QAM 30 Days #90 tab 06/18/21 10/07/21 Rx 12.5 mg tablet metoprolol tartrate 25 mg tablet 25 mg PO BID 30 Days #180 tab 06/18/21 10/07/21 Rx amlodipine 2.5 mg tablet 2.5 mg PO BID #180 tab 08/12/21 10/07/21 Rx aspirin 81 mg tablet,delayed 81 mg PO QAM 10/07/21 10/07/21 History release atorvastatin 40 mg tablet 40 mg PO QPM 10/07/21 10/07/21 History potassium chloride 10 mEq 10 meq PO QPM 10/07/21 10/07/21 History tablet,extended release (Klor-Con) Patient History Medical History Atrial flutter with rapid ventricular response Hyperlipidemia Hypertension Hypothyroidism Memory loss Vitamin B12 deficiency Surgical History History of tonsillectomy and adenoidectomy Family History Other Coronary heart disease Hypertension Social History Smoking Status: Never smoker Second Hand Exposure: No; Hx Alcohol Use: No Hx Substance Use: No Preferred Language: Moroccan Communication Ability: Unable 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 She was in no apparent distress, looked at the examiner, but was unable to dinesh ningfully answer questions. Skin: Extensive ecchymoses left leg. No generalized lesions. HEENT: unremarkable. Neck: Jugular venous pulse was not elevated, no carotid bruits. Lungs: clear bilaterally Cardiac: regular rhythm with normal S1 and S2, no obvious murmur or gallop. Abdomen: benign. Extremities: no edema, pulses intact. Neurologic: normal affect, nonfocal. Results & Data ([facility]) Vital Signs (Past 12 Hours) Vital Signs Temp Pulse Pulse Resp BP Pulse Ox 10/09/21 11:37 97.0 F L 66 18 155/75 H 97 10/09/21 07:52 97.9 F 80 16 153/78 H 98 10/09/21 07:00 75 Laboratory Results Negative troponin. Hemoglobin 8.9 with normal white count. Sodium 134, potassium 3.1, BUN 13, creatinine 0.8. Diagnostic Findings ECG on admission showed sinus rhythm at 65 bpm and was completely unremarkable. Compared with ECG from 05/13/2020, sinus rhythm has replaced atrial flutter ventricular rate decreased by 42 bpm. Echocardiogram from 2019 showed EF 6065% with mild LVH and no significant valvular pathology. Chest x-ray showed no acute process. PG Care Time/CCT Total # of Minutes Spent Total Time Spent with Patient: Total time spent is greater than 50% in coordination of care (as documented) at patient's floor/unit and/or counseling patient: Coding Level of Care Code 34927 Inpt Consult Level 4 Diagnoses Fall from standing W19.XXXA Encounter type: initial encounter Atrial flutter with rapid ventricular response I48.92 Aphasia R47.01 (1) Fall from standing Encounter type: initial encounter Qualified Code(s): W19.XXXA - Unspecified fall, initial encounter
[2021-10-09] MEDS: POTASSIUM CHLORIDE 10 MEQ TABCR PO SCH (20:13)
[2021-10-09] MEDS: ATORVASTATIN 40 MG TAB PO SCH (20:15)
--- NOTE | 2021-10-09 20:19 | Hospitalist Progress Note ---
Date of Service October 09, 2021 Assessment & Plan (1) Delirium: Plan: Patient appears to be very confused at the moment. Patient does have history of dementia as per progress notes from Dr. Grigsby. Patient with dementia are at an increased risk of delirium (confusion). Do not anticipate a quick turna around as these episodes tend to linger. Will recheck blood work, Patient being in the hospital may feed into her confusion as this is not her [place] environment. (2) Dementia: Plan: as stated above. (3) Urinary tract infection: Plan: Patient has an markedly abnormal urinalysis on presentation likely could be having metabolic encephalopathy from urinary tract infection present on admission. Urine cultures and blood cultures are sent patient started on Rocephin 1 g IV every 24. will continue antibiotic. patient is confused. received one dose of antipsychotic med while in the hospital. (4) Hematoma and contusion: Plan: ThePatient has a large hematoma to her left calf with contusion previously being on anticoagulation with Eliquis therapy for atrial flutter, peripheral pulses are intact. It is however fairly taunt. Eliquis is held in orthopedic consultation be undertaken likely expecting conservative management but will ask expertise if hematoma evacuation may return the patient ambulation on a more sooner timeline (5) Atrial flutter: Plan: Patient previous with atrial flutter remains in anticoagulation in sinus rhythm. Patient will be continued on her metoprolol as mentioned above Eliquis is held Is a patient was found down on the ground arrhythmia cannot be ruled out as a cause. She'll be on medical telemetry for evaluation of tachyarrhythmias or bradycardia arrhythmias. (6) Chronic kidney disease, stage III (moderate): Plan: Patient with a slight acute kidney injury with chronic kidney disease stage III 1 L of normal saline be given overnight. Patient will be maintained on her losartan holding her hydrochlorothiazide (7) Hypothyroidism: Plan: Appears appropriately treated with Synthroid this will be continued (8) Hypertension: Plan: Typically maintained with metoprolol losartan hydrochlorothiazide and amlodipine (9) Dysphagia: Plan: Patient seen by speech therapy in 2019 at that time discharge instructions were regular diet, aspiration precautions. Elevation of head of bed greater than 30 degrees. Alternating liquids and solids. Slippery diet. Upright after meals for 30 minutes. Single bite small sips slow rate (10) DVT prophylaxis: Plan: Patient's Eliquis is on hold on presentation to orthopedic evaluation. Patient cannot have SCDs due to the tenderness of her leg. Once orthopedic decides the direction may go into may consider restarting this once in a stable condition. Patient's DNR status is reconfirmed by her daughter at bedside. Admission and Anticipated Discharge Date Admission Date: October 08, 2021 Subjective 86 yo female is a poor historian. Patient is nonverbal. Review of Systems Review of Systems: Unobtainable due to cognitive status Physical Exam Physical Exam: The patient appeared well nourished and normally developed. Vital signs as documented. Head exam is normocephalic atraumatic Neck is without JVD, thyromegaly, or carotid bruits. Lungs are clear to auscultation, no focal loss of breath sounds Cardiac exam, Rhythm is regular. Although history of atrial fibrillation is in sinus rhythm now No murmurs, rubs or gallops. Abdominal exam reveals normal bowel sounds, soft non tender, no masses Left lower extremity has significant bruising and swelling to the calf. Neurologic exam is alert and she responds somewhat to exam but not reliably when asked questions such as squeeze my hands etc. Psychologically is with difficult memory loss Results & Data Results & Data ([facility]) Vital Signs (Past 12 Hours) Vital Signs Temp Pulse Pulse Resp BP Pulse Ox 10/09/21 17:47 36.2 C L 77 20 160/76 H 96 10/09/21 16:00 63 10/09/21 11:37 36.1 C L 66 18 155/75 H 97 PG Care Time/CCT Total # of Minutes Spent Total Time Spent with Patient: Total time spent is greater than 50% in coordination of care (as documented) at patient's floor/unit and/or counseling patient: Coding Level of Care Code 11289 Subseq Hosp Care Lvl 2 Diagnoses Urinary tract infection N39.0 Hematoma and contusion T14.8XXA Atrial flutter I48.92 Chronic kidney disease, stage III (moderate) N18.30 Hypothyroidism E03.9 Hypertension I10 Dysphagia R13.10 DVT prophylaxis Z29.9 Dementia F03.90 Delirium R41.0
[2021-10-09] MEDS ORDERED: OLANZapine ZYDIS 5 MG ORALLY DIS. TAB PO ONE (23:13)
[2021-10-10] MEDS: ACETAMINOPHEN 325 MG TAB PO PRN ×2 (00:31→19:54)
[2021-10-10] MEDS: LEVOTHYROXINE SODIUM 75 MCG TABLET PO SCH (05:51)
[2021-10-10 06:03] LABS: Hematocrit (blood only) 25.1 % (37-47); Hemoglobin 8.5 g/dL (12.0-16.0); Mean Corpuscular Hgb Conc 33.9 g/dL (32-36); Mean Corpuscular Volume 91.6 fL (80-100); Platelet Count 191 K/uL (130-400); RDW Coefficient of Variation 14.1 % (11.5-14.5); RDW Standard Deviation 46.7 fL (36.4-46.3); Red Blood Count 2.74 M/uL (4.2-5.4); White Blood Count 8.77 K/uL (4.8-10.8)
[2021-10-10 06:36] LABS: BUN Creatinine Ratio 18.1 (10-20); Calcium 8.4 mg/dl (8.5-10.1); Creatinine Clr Calc Pharmacy 37.3 ml/min; Est GFR (African American) 65.7 ml/min; Est GFR (Non-African American) 56.7 ml/min; Potassium 3.3 mmol/L (3.5-5.1)
[2021-10-10] MEDS: amLODIPine BESYLATE 5 MG TAB PO SCH ×2 (09:31→19:45)
[2021-10-10] MEDS: LOSARTAN POTASSIUM 50 MG TAB PO SCH (09:33)
[2021-10-10] MEDS: LOSARTAN/HCTZ 50/12.5MG TAB PO SCH (09:33)
[2021-10-10] MEDS: ASPIRIN 81 MG ECTAB PO SCH (09:34)
[2021-10-10] MEDS: METOPROLOL TARTRATE 25 MG TAB PO SCH ×2 (09:36→19:46)
[2021-10-10] MEDS: cefTRIAXone SODIUM 1,000 MG in DEXTROSE 5% 50 ML IV SCH (13:05)
--- NOTE | 2021-10-10 13:42 | Cardiology Progress Note ---
Date of Service October 10, 2021 Assessment & Plan (1) Atrial flutter with rapid ventricular response: (2) Fall from standing: (3) Aphasia: Plan: Still remains uncertain as to whether she actually had a syncopal event or fall. No further dysrhythmias, but given the fact that she had atrial flutter with RVR during this admission, would recommend replacing metoprolol with amiodarone to achieve rhythm control. As noted, doubt she would tolerate higher doses of m etoprolol without developing bradycardia. No need for amiodarone loading, would start amiodarone 200 mg daily and discontinue metoprolol. Will continue to follow. Admission and Anticipated Discharge Date Admission Date: October 08, 2021 Subjective Patient nonverbal. Resting quietly. Intermittently cooperative/combative with nursing. Telemetry showed sinus rhythm in the 70 bpm range. No further tachydysrhythmias. Physical Exam Physical Exam: No distress. Normotensive. Pulse 60 bpm and regular. Skin: Extensive ecchymoses left leg. No generalized lesions. HEENT: unremarkable. Neck: Jugular venous pulse was not elevated, no carotid bruits. Lungs: clear bilaterally Cardiac: regular rhythm with normal S1 and S2, no obvious murmur or gallop. Abdomen: benign. Extremities: no edema, pulses intact. Neurologic: normal affect, nonfocal. Results & Data ([facility]) Vital Signs (Past 12 Hours) Vital Signs Temp Pulse Pulse Resp BP BP Pulse Ox 10/10/21 11:22 97.7 F 61 18 118/73 98 10/10/21 07:09 97.7 F 70 18 128/74 98 10/10/21 06:54 64 Laboratory Results Potassium 3.3. BUN 17, creatinine 0.91. Diagnostic Findings Telemetry as noted. PG Care Time/CCT Total # of Minutes Spent Total Time Spent with Patient: Total time spent is greater than 50% in coordination of care (as documented) at patient's floor/unit and/or counseling patient: Coding Level of Care Code 96110 Subseq Hosp Care Lvl 3 Diagnoses Fall from standing W19.XXXA Encounter type: initial encounter Atrial flutter with rapid ventricular response I48.92 Aphasia R47.01 (1) Fall from standing Encounter type: initial encounter Qualified Code(s): W19.XXXA - Unspecified fall, initial encounter
--- NOTE | 2021-10-10 16:43 | Orthopedic Progress Note ---
Date of Service October 10, 2021 Assessment & Plan (1) Hematoma of left lower leg: -Slowly improving, no further evidence of skin breakdown -No further orthopedic intervention. -OK to restart anticoagulation from Orthopedics perspective. -Recommend continuous compression with thigh high DIVYA stocking vs MIKAELA bandage, ice and elevation prn. -Rest of care per primary team. -Signing off but available if there are any questions. Pt discussed w/ Dr. Lee. Subjective More alert, still not answering questions . Review of Systems All systems reviewed & are unremarkable except as noted in HPI & below. Physical Exam General: Chronically ill appearing, confused, elderly female resting in bed. Appears to be in pain. Not following commands. LLE: Large hematoma present over the posteromedial aspect of left calf. Skin appears mostly soft and intact, with one specific area of swelling at the medial mid calf area. This area is less tense without further evidence of blistering compared to examination 2 days ago. Hematoma is tender to palpation. She is actively moving her L ankle and knee, albeit not purposefully. LLE is NVI. Results & Data Results & Data Laboratory Results Reviewed . Diagnostic Findings Reviewed PG Care Time/CCT Total # of Minutes Spent Total Time Spent with Patient: Total time spent is greater than 50% in coordination of care (as documented) at patient's floor/unit and/or counseling patient: Coding Level of Care Code 05167 Subseq Hosp Care Lvl 2 Diagnoses Hematoma of left lower leg S80.12XA
[2021-10-10] MEDS: ATORVASTATIN 40 MG TAB PO SCH (19:46)
[2021-10-10] MEDS: APIXABAN 2.5 MG TAB PO SCH (19:46)
[2021-10-10] MEDS: POTASSIUM CHLORIDE 10 MEQ TABCR PO SCH (19:54)
--- NOTE | 2021-10-10 21:35 | Hospitalist Progress Note ---
Date of Service October 10, 2021 Assessment & Plan (1) Delirium: Plan: Patient appears to be very confused at the moment. Patient does have history of dementia as per progress notes from Dr. Grigsby. Patient with dementia are at an increased risk of delirium (confusion). Do not anticipate a quick turn around as these episodes tend to linger. Will recheck blood work, Patient being in the hospital may feed into her confusion as this is not her normal environment. Patient remains confused on 10/10, will require placement. (2) Dementia: Plan: as stated above. (3) Urinary tract infection: Plan: Patient has an markedly abnormal urinalysis on presentation likely could be having metabolic encephalopathy from urinary tract infection present on admission. Urine cultures and blood cultures are sent patient started on Rocephin 1 g IV every 24. will continue antibiotic. patient is confused. received one dose of antipsychotic med while in the hospital. (4) Hematoma and contusion: Plan: ThePatient has a large hematoma to her left calf with contusion previously being on anticoagulation with Eliquis therapy for atrial flutter, peripheral pulses are intact. It is however fairly taunt. Eliquis is held in orthopedic consultation be undertaken likely expecting conservative management but will ask expertise if hematoma evacuation may return the patient ambulation on a more sooner timeline (5) Atrial flutter: Plan: Patient previous with atrial flutter remains in anticoagulation in sinus rhythm. Patient will be continued on her metoprolol as mentioned above Eliquis is held Is a patient was found down on the ground arrhythmia cannot be ruled out as a cause. She'll be on medical telemetry for evaluation of tachyarrhythmias or bradycardia arrhythmias. (6) Chronic kidney disease, stage III (moderate): Plan: Patient with a slight acute kidney injury with chronic kidney disease stage III 1 L of normal saline be given overnight. Patient will be maintained on her losartan holding her hydrochlorothiazide (7) Hypothyroidism: Plan: Appears appropriately treated with Synthroid this will be continued (8) Hypertension: Plan: Typically maintained with metoprolol losartan hydrochlorothiazide and amlodipine (9) Dysphagia: Plan: Patient seen by speech therapy in 2019 at that time discharge instructions were regular diet, aspiration precautions. Elevation of head of bed greater than 30 degrees. Alternating liquids and solids. Slippery diet. Upright after meals for 30 minutes. Single bite small sips slow rate (10) DVT prophylaxis: Plan: Patient's Eliquis is on hold on presentation to orthopedic evaluation. Patient cannot have SCDs due to the tenderness of her leg. Once orthopedic decides the direction may go into may consider restarting this once in a stable condition. Patient's DNR status is reconfirmed by her daughter at bedside. Admission and Anticipated Discharge Date Admission Date: October 08, 2021 Subjective Patient remains confused. Daughter at bedside. Review of Systems Review of Systems: All systems reviewed & are unremarkable except as noted in HPI & below Physical Exam Physical Exam: The patient appeared well nourished and normally developed. Vital signs as documented. Head exam is normocephalic atraumatic Neck is without JVD, thyromegaly, or carotid bruits. Lungs are clear to auscultation, no focal loss of breath sounds Cardiac exam, Rhythm is regular. Although history of atrial fibrillation is in sinus rhythm now No murmurs, rubs or gallops. Abdominal exam reveals normal bowel sounds, soft non tender, no masses Left lower extremity has significant bruising and swelling to the calf. Neurologic exam is alert and she responds somewhat to exam but not reliably when asked questions such as squeeze my hands etc. Psychologically is with difficult memory loss Results & Data Results & Data ([facility]) Vital Signs (Past 12 Hours) Vital Signs Temp Pulse Pulse Resp BP Pulse Ox 10/10/21 18:46 36.5 C 81 20 129/76 97 10/10/21 15:13 36.5 C 84 18 164/77 H 95 10/10/21 14:18 56 L 10/10/21 11:22 36.5 C 61 18 118/73 98 PG Care Time/CCT Total # of Minutes Spent Total Time Spent with Patient: Total time spent is greater than 50% in coordination of care (as documented) at patient's floor/unit and/or counseling patient: Coding Level of Care Code 77847 Subseq Hosp Care Lvl 2 Diagnoses Delirium R41.0 Dementia F03.90 Urinary tract infection N39.0 Hematoma and contusion T14.8XXA Atrial flutter I48.92 Chronic kidney disease, stage III (moderate) N18.30 Hypothyroidism E03.9 Hypertension I10 Dysphagia R13.10 DVT prophylaxis Z29.9
[2021-10-11] MEDS: LEVOTHYROXINE SODIUM 75 MCG TABLET PO SCH (06:25)
[2021-10-11 06:34] LABS: BUN Creatinine Ratio 20.9 (10-20); Calcium 8.5 mg/dl (8.5-10.1); Est GFR (African American) 43.1 ml/min; Est GFR (Non-African American) 37.2 ml/min; Potassium 3.7 mmol/L (3.5-5.1)
[2021-10-11 06:38] LABS: Hematocrit (blood only) 24.8 % (37-47); Mean Corpuscular Hemoglobin 30.4 pg (25-34); Mean Corpuscular Hgb Conc 32.3 g/dL (32-36); Mean Corpuscular Volume 94.3 fL (80-100); Mean Platelet Volume 11.6 fL (7.4-10.4); Platelet Count 174 K/uL (130-400); RDW Coefficient of Variation 14.4 % (11.5-14.5); RDW Standard Deviation 49.8 fL (36.4-46.3); Red Blood Count 2.63 M/uL (4.2-5.4); White Blood Count 8.45 K/uL (4.8-10.8)
[2021-10-11] MEDS: amLODIPine BESYLATE 5 MG TAB PO SCH ×2 (12:15→20:09)
[2021-10-11] MEDS: APIXABAN 2.5 MG TAB PO SCH ×2 (12:16→20:16)
[2021-10-11] MEDS: ASPIRIN 81 MG ECTAB PO SCH (12:16)
[2021-10-11] MEDS: LOSARTAN POTASSIUM 50 MG TAB PO SCH (12:16)
[2021-10-11] MEDS: METOPROLOL TARTRATE 25 MG TAB PO SCH ×2 (12:17→20:03)
[2021-10-11] MEDS: LOSARTAN/HCTZ 50/12.5MG TAB PO SCH (12:17)
[2021-10-11] MEDS: cefTRIAXone SODIUM 1,000 MG in DEXTROSE 5% 50 ML IV SCH (13:28)
--- NOTE | 2021-10-11 17:03 | Cardiology Progress Note ---
Date of Service October 11, 2021 Assessment & Plan (1) Atrial flutter with rapid ventricular response: (2) Fall from standing: (3) Aphasia: Plan: Still remains uncertain as to whether she actually had a syncopal event or fall. No further dysrhythmias, but given the fact that she had atrial flutter with RVR during this admission, would recommend replacing metoprolol with amiodarone to achieve rhythm control. As noted, doubt she would tolerate higher doses of m etoprolol without developing bradycardia. No need for amiodarone loading, would start amiodarone 200 mg daily and discontinue metoprolol. No further dysrhythmias, will sign off. If rhythm issues over the weekend, please contact Dr. Ricci. Admission and Anticipated Discharge Date Admission Date: October 08, 2021 Subjective Patient awake but confused, no meaningful conversation. Son at bedside, his questions were answered. Telemetry showed only sinus rhythm of 60-80 bpm range. No ectopy or dysrhythmia. Physical Exam Physical Exam: No distress. Pulse 60 bpm and regular. Skin: Extensive ecchymoses left leg. No generalized lesions. HEENT: unremarkable. Neck: Jugular venous pulse was not elevated, no carotid bruits. Lungs: clear bilaterally Cardiac: regular rhythm with normal S1 and S2, no obvious murmur or gallop. Abdomen: benign. Extremities: no edema, pulses intact. Neurologic: normal affect, nonfocal. Results & Data ([facility]) Vital Signs (Past 12 Hours) Vital Signs Temp Pulse Pulse Resp BP Pulse Ox 10/11/21 15:26 98.1 F 67 20 93/61 L 97 10/11/21 15:19 70 10/11/21 10:56 97.5 F L 71 18 120/69 100 10/11/21 08:19 97.5 F L 67 19 121/76 96 10/11/21 06:19 58 L Laboratory Results Normal electrolytes, BUN 27, creatinine 1.29 (BUN/creatinine increasing). PG Care Time/CCT Total # of Minutes Spent Total Time Spent with Patient: Total time spent is greater than 50% in coordination of care (as documented) at patient's floor/unit and/or counseling patient: Coding Level of Care Code 19489 Subseq Hosp Care Lvl 3 Diagnoses Atrial flutter with rapid ventricular response I48.92 Fall from standing W19.XXXA Encounter type: initial encounter Aphasia R47.01 (1) Fall from standing Encounter type: initial encounter Qualified Code(s): W19.XXXA - Unspecified fall, initial encounter
[2021-10-11] MEDS: POTASSIUM CHLORIDE 10 MEQ TABCR PO SCH (20:16)
[2021-10-11] MEDS: ATORVASTATIN 40 MG TAB PO SCH (20:16)
--- NOTE | 2021-10-11 20:59 | Hospitalist Progress Note ---
Date of Service October 11, 2021 Assessment & Plan (1) Delirium: Plan: Patient appears to be very confused at the moment. Patient does have history of dementia as per progress notes from Dr. Grigsby. Patient with dementia are at an increased risk of delirium (confusion). Do not anticipate a quick turn around as these episodes tend to linger. Will recheck blood work, Patient being in the hospital may feed into her confusion as this is not her normal environment. Patient remains confused on 10/11, will require placement. (2) Dementia: Plan: as stated above. (3) Urinary tract infection: Plan: Patient has an markedly abnormal urinalysis on presentation likely could be having metabolic encephalopathy from urinary tract infection present on admission. Urine cultures and blood cultures are sent patient started on Rocephin 1 g IV every 24. will continue antibiotic. patient is confused. received one dose of antipsychotic med while in the hospital. (4) Hematoma and contusion: Plan: ThePatient has a large hematoma to her left calf with contusion previously being on anticoagulation with Eliquis therapy for atrial flutter, peripheral pulses are intact. It is however fairly taunt. Eliquis is held in orthopedic consultation be undertaken likely expecting conservative management but will ask expertise if hematoma evacuation may return the patient ambulation on a more sooner timeline (5) Atrial flutter: Plan: Patient previous with atrial flutter remains in anticoagulation in sinus rhythm. Patient will be continued on her metoprolol as mentioned above Eliquis is held Is a patient was found down on the ground arrhythmia cannot be ruled out as a cause. She'll be on medical telemetry for evaluation of tachyarrhythmias or bradycardia arrhythmias. (6) Chronic kidney disease, stage III (moderate): Plan: Patient with a slight acute kidney injury with chronic kidney disease stage III 1 L of normal saline be given overnight. Patient will be maintained on her losartan holding her hydrochlorothiazide (7) Hypothyroidism: Plan: Appears appropriately treated with Synthroid this will be continued (8) Hypertension: Plan: Typically maintained with metoprolol losartan hydrochlorothiazide and amlodipine (9) Dysphagia: Plan: Patient seen by speech therapy in 2019 at that time discharge instructions were regular diet, aspiration precautions. Elevation of head of bed greater than 30 degrees. Alternating liquids and solids. Slippery diet. Upright after meals for 30 minutes. Single bite small sips slow rate (10) DVT prophylaxis: Plan: Patient's Eliquis is on hold on presentation to orthopedic evaluation. Patient cannot have SCDs due to the tenderness of her leg. Once orthopedic decides the direction may go into may consider restarting this once in a stable condition. Patient's DNR status is reconfirmed by her daughter at bedside. Admission and Anticipated Discharge Date Admission Date: October 08, 2021 Subjective Patient is resting. Review of Systems Review of Systems: All systems reviewed & are unremarkable except as noted in HPI & below Physical Exam Physical Exam: The patient appeared well nourished and normally developed. Vital signs as documented. Head exam is normocephalic atraumatic Neck is without JVD, thyromegaly, or carotid bruits. Lungs are clear to auscultation, no focal loss of breath sounds Cardiac exam, Rhythm is regular. Although history of atrial fibrillation is in sinus rhythm now No murmurs, rubs or gallops. Abdominal exam reveals normal bowel sounds, soft non tender, no masses Left lower extremity has significant bruising and swelling to the calf. Neurologic exam is alert and she responds somewhat to exam but not reliably when asked questions such as squeeze my hands etc. Psychologically is with difficult memory loss Results & Data Results & Data ([facility]) Vital Signs (Past 12 Hours) Vital Signs Temp Pulse Pulse Resp BP Pulse Ox 10/11/21 19:00 36.7 C 77 20 93/59 L 97 10/11/21 15:26 36.7 C 67 20 93/61 L 97 10/11/21 15:19 70 10/11/21 10:56 36.4 C L 71 18 120/69 100 PG Care Time/CCT Total # of Minutes Spent Total Time Spent with Patient: Total time spent is greater than 50% in coordination of care (as documented) at patient's floor/unit and/or counseling patient: Coding Level of Care Code 88425 Subseq Hosp Care Lvl 1 Diagnoses Delirium R41.0 Dementia F03.90 Urinary tract infection N39.0 Hematoma and contusion T14.8XXA Atrial flutter I48.92 Chronic kidney disease, stage III (moderate) N18.30 Hypothyroidism E03.9 Hypertension I10 Dysphagia R13.10 DVT prophylaxis Z29.9
[2021-10-12] MEDS: LEVOTHYROXINE SODIUM 75 MCG TABLET PO SCH (05:19)
[2021-10-12] MEDS: APIXABAN 2.5 MG TAB PO SCH ×2 (09:14→19:59)
[2021-10-12] MEDS: amLODIPine BESYLATE 5 MG TAB PO SCH ×2 (09:15→19:59)
[2021-10-12] MEDS: LOSARTAN/HCTZ 50/12.5MG TAB PO SCH (09:15)
[2021-10-12] MEDS: ASPIRIN 81 MG ECTAB PO SCH (09:15)
[2021-10-12] MEDS: LOSARTAN POTASSIUM 50 MG TAB PO SCH (09:16)
[2021-10-12] MEDS: METOPROLOL TARTRATE 25 MG TAB PO SCH ×2 (09:16→19:59)
[2021-10-12] MEDS: POTASSIUM CHLORIDE 10 MEQ TABCR PO SCH (19:59)
[2021-10-12] MEDS: ATORVASTATIN 40 MG TAB PO SCH (19:59)
--- NOTE | 2021-10-12 22:16 | Hospitalist Progress Note ---
Date of Service October 12, 2021 Assessment & Plan (1) Delirium: Plan: Patient appears to be very confused at the moment. Patient does have history of dementia as per progress notes from Dr. Grigsby. Patient with dementia are at an increased risk of delirium (confusion). Do not anticipate a quick turn around as these episodes tend to linger. Will recheck blood work, Patient being in the hospital may feed into her confusion as this is not her normal environment. Patient is awake today and is eating. No new complaints. will require placement. (2) Dementia: Plan: as stated above. (3) Urinary tract infection: Plan: Patient has an markedly abnormal urinalysis on presentation likely could be having metabolic encephalopathy from urinary tract infection present on admission. Urine cultures and blood cultures are sent patient started on Rocephin 1 g IV every 24. will continue antibiotic. patient is confused. received one dose of antipsychotic med while in the hospital. (4) Hematoma and contusion: Plan: ThePatient has a large hematoma to her left calf with contusion previously being on anticoagulation with Eliquis therapy for atrial flutter, peripheral pulses are intact. It is however fairly taunt. Eliquis is held in orthopedic consultation be undertaken likely expecting conservative management but will ask expertise if hematoma evacuation may return the patient ambulation on a more sooner timeline (5) Atrial flutter: Plan: Patient previous with atrial flutter remains in anticoagulation in sinus rhythm. Patient will be continued on her metoprolol as mentioned above Eliquis is held Is a patient was found down on the ground arrhythmia cannot be ruled out as a cause. She'll be on medical telemetry for evaluation of tachyarrhythmias or bradycardia arrhythmias. (6) Chronic kidney disease, stage III (moderate): Plan: Patient with a slight acute kidney injury with chronic kidney disease stage III 1 L of normal saline be given overnight. Patient will be maintained on her losartan holding her hydrochlorothiazide (7) Hypothyroidism: Plan: Appears appropriately treated with Synthroid this will be continued (8) Hypertension: Plan: Typically maintained with metoprolol losartan hydrochlorothiazide and amlodipine (9) Dysphagia: Plan: Patient seen by speech therapy in 2019 at that time discharge instructions were regular diet, aspiration precautions. Elevation of head of bed greater than 30 degrees. Alternating liquids and solids. Slippery diet. Upright after meals for 30 minutes. Single bite small sips slow rate (10) DVT prophylaxis: Plan: Patient's Eliquis is on hold on presentation to orthopedic evaluation. Patient cannot have SCDs due to the tenderness of her leg. Once orthopedic decides the direction may go into may consider restarting this once in a stable condition. Patient's DNR status is reconfirmed by her daughter at bedside. Admission and Anticipated Discharge Date Admission Date: October 08, 2021 Subjective Patient is awake, has no concerns. Review of Systems Review of Systems: All systems reviewed & are unremarkable except as noted in HPI & below Physical Exam Physical Exam: The patient appeared well nourished and normally developed. Vital signs as documented. Head exam is normocephalic atraumatic Neck is without JVD, thyromegaly, or carotid bruits. Lungs are clear to auscultation, no focal loss of breath sounds Cardiac exam, Rhythm is regular. Although history of atrial fibrillation is in sinus rhythm now No murmurs, rubs or gallops. Abdominal exam reveals normal bowel sounds, soft non tender, no masses Left lower extremity has significant bruising and swelling to the calf. Neurologic exam is alert and she responds somewhat to exam but not reliably when asked questions such as squeeze my hands etc. Psychologically is with difficult memory loss Results & Data Results & Data ([facility]) Vital Signs (Past 12 Hours) Vital Signs Temp Pulse Pulse Resp BP Pulse Ox 10/12/21 19:30 36.9 C 84 18 123/75 94 10/12/21 15:53 36.6 C 88 18 124/74 97 10/12/21 14:20 80 10/12/21 11:19 36.4 C L 74 16 126/72 97 PG Care Time/CCT Total # of Minutes Spent Total Time Spent with Patient: Total time spent is greater than 50% in coordination of care (as documented) at patient's floor/unit and/or counseling patient: Coding Level of Care Code 10558 Subseq Hosp Care Lvl 2 Diagnoses Delirium R41.0 Dementia F03.90 Urinary tract infection N39.0 Hematoma and contusion T14.8XXA Atrial flutter I48.92 Chronic kidney disease, stage III (moderate) N18.30 Hypothyroidism E03.9 Hypertension I10 Dysphagia R13.10 DVT prophylaxis Z29.9
[2021-10-13] MEDS: LEVOTHYROXINE SODIUM 75 MCG TABLET PO SCH (06:10)
[2021-10-13] MEDS: LOSARTAN POTASSIUM 50 MG TAB PO SCH (08:46)
[2021-10-13] MEDS: ASPIRIN 81 MG ECTAB PO SCH (08:46)
[2021-10-13] MEDS: amLODIPine BESYLATE 5 MG TAB PO SCH ×2 (08:47→20:03)
[2021-10-13] MEDS: APIXABAN 2.5 MG TAB PO SCH ×2 (08:47→20:02)
[2021-10-13] MEDS: LOSARTAN/HCTZ 50/12.5MG TAB PO SCH (08:48)
[2021-10-13] MEDS: METOPROLOL TARTRATE 25 MG TAB PO SCH (08:49)
[2021-10-13] MEDS: AMIODARONE 200 MG TAB PO SCH (12:44)
[2021-10-13] MEDS: POLYETHYLENE (MIRALAX) 17 GM PACK PO SCH (15:25)
[2021-10-13 18:51] LABS: BUN Creatinine Ratio 17.1 (10-20); Calcium 8.8 mg/dl (8.5-10.1); Creatinine Clr Calc Pharmacy 25.4 ml/min; Est GFR (African American) 41.2 ml/min; Est GFR (Non-African American) 35.5 ml/min
[2021-10-13] MEDS: ATORVASTATIN 40 MG TAB PO SCH (20:03)
[2021-10-13] MEDS: POTASSIUM CHLORIDE 10 MEQ TABCR PO SCH (20:06)
--- NOTE | 2021-10-13 22:57 | Hospitalist Progress Note ---
Date of Service October 13, 2021 Assessment & Plan (1) Delirium: Plan: Patient had been confused earlier in the hospital stay. Patient does have history of dementia as per progress notes from Dr. Grigsby. Patient with dementia are at an increased risk of delirium (confusion). Today she appears to be at baseline. Patient being in the hospital may feed into her confusion as this is not her normal environment. May waxe and wane. Patient is awake today and is eating. No new complaints. will require placement. (2) Dementia: Plan: as stated above. (3) Urinary tract infection: Plan: Patient has an markedly abnormal urinalysis on presentation likely could be having metabolic encephalopathy from urinary tract infection present on admission. Urine cultures and blood cultures are sent patient started on Rocephin 1 g IV every 24. will continue antibiotic. patient is confused. received one dose of antipsychotic med while in the hospital. (4) Hematoma and contusion: Plan: ThePatient has a large hematoma to her left calf with contusion previously being on anticoagulation with Eliquis therapy for atrial flutter, peripheral pulses are intact. It is however fairly taunt. Eliquis is held in orthopedic consultation be undertaken likely expecting conservative management but will ask expertise if hematoma evacuation may return the patient ambulation on a more sooner timeline (5) Atrial flutter: Plan: Patient previous with atrial flutter remains in anticoagulation in sinus rhythm. Patient will be continued on her metoprolol as mentioned above Eliquis is held Is a patient was found down on the ground arrhythmia cannot be ruled out as a cause. She'll be on medical telemetry for evaluation of tachyarrhythmias or bradycardia arrhythmias. (6) Chronic kidney disease, stage III (moderate): Plan: Patient with a slight acute kidney injury with chronic kidney disease stage III 1 L of normal saline be given overnight. Patient will be maintained on her losartan holding her hydrochlorothiazide (7) Hypothyroidism: Plan: Appears appropriately treated with Synthroid this will be continued (8) Hypertension: Plan: Typically maintained with metoprolol losartan hydrochlorothiazide and amlodipine (9) Dysphagia: Plan: Patient seen by speech therapy in 2019 at that time discharge instructions were regular diet, aspiration precautions. Elevation of head of bed greater than 30 degrees. Alternating liquids and solids. Slippery diet. Upright after meals for 30 minutes. Single bite small sips slow rate (10) DVT prophylaxis: Plan: Patient's Eliquis is on hold on presentation to orthopedic evaluation. Patient cannot have SCDs due to the tenderness of her leg. Once orthopedic decides the direction may go into may consider restarting this once in a stable condition. Patient's DNR status is reconfirmed by her daughter at bedside. Admission and Anticipated Discharge Date Admission Date: October 08, 2021 Subjective Patient is awake pleasant, and eating. Patient has no complaints. Review of Systems Review of Systems: All systems reviewed & are unremarkable except as noted in HPI & below Physical Exam Physical Exam: The patient appeared well nourished and normally developed. Vital signs as documented. Head exam is normocephalic atraumatic Neck is without JVD, thyromegaly, or carotid bruits. Lungs are clear to auscultation, no focal loss of breath sounds Cardiac exam, Rhythm is regular. Although history of atrial fibrillation is in sinus rhythm now No murmurs, rubs or gallops. Abdominal exam reveals normal bowel sounds, soft non tender, no masses Left lower extremity has significant bruising and swelling to the calf. Neurologic exam is alert and she responds somewhat to exam. Psychologically is with difficult memory loss Results & Data Results & Data ([facility]) Vital Signs (Past 12 Hours) Vital Signs Temp Pulse Pulse Resp BP BP Pulse Ox 10/13/21 19:41 36.5 C 82 16 112/64 96 10/13/21 15:10 36.7 C 81 18 114/59 L 96 10/13/21 14:20 79 10/13/21 12:00 36.7 C 75 18 120/74 97 PG Care Time/CCT Total # of Minutes Spent Total Time Spent with Patient: Total time spent is greater than 50% in coordination of care (as documented) at patient's floor/unit and/or counseling patient: Coding Level of Care Code 74307 Subseq Hosp Care Lvl 2 Diagnoses Delirium R41.0 Dementia F03.90 Urinary tract infection N39.0 Hematoma and contusion T14.8XXA Atrial flutter I48.92 Chronic kidney disease, stage III (moderate) N18.30 Hypothyroidism E03.9 Hypertension I10 Dysphagia R13.10 DVT prophylaxis Z29.9
[2021-10-14] MEDS: LEVOTHYROXINE SODIUM 75 MCG TABLET PO SCH (06:08)
[2021-10-14 06:10] LABS: Hematocrit (blood only) 25.8 % (37-47); Hemoglobin 8.8 g/dL (12.0-16.0); Mean Corpuscular Hemoglobin 32.4 pg (25-34); Mean Corpuscular Hgb Conc 34.1 g/dL (32-36); Mean Corpuscular Volume 94.9 fL (80-100); Mean Platelet Volume 10.3 fL (7.4-10.4); Platelet Count 266 K/uL (130-400); RDW Coefficient of Variation 14.5 % (11.5-14.5); RDW Standard Deviation 49.8 fL (36.4-46.3); Red Blood Count 2.72 M/uL (4.2-5.4); White Blood Count 9.67 K/uL (4.8-10.8)
[2021-10-14 06:46] LABS: Albumin Level 2.3 gm/dl (3.4-5.0); BUN Creatinine Ratio 22.9 (10-20); Bilirubin Direct 0.3 mg/dl (0-0.2); Calcium 8.7 mg/dl (8.5-10.1); Creatinine Clr Calc Pharmacy 32.7 ml/min; Est GFR (African American) 55.9 ml/min; Est GFR (Non-African American) 48.3 ml/min; Potassium 3.9 mmol/L (3.5-5.1)
[2021-10-14 06:49] LABS: Bilirubin,Total 1.2 mg/dl (0.2-1); Total Protein 5.7 gm/dl (6.4-8.2)
[2021-10-14] MEDS: AMIODARONE 200 MG TAB PO SCH (08:53)
[2021-10-14] MEDS: APIXABAN 2.5 MG TAB PO SCH ×2 (08:53→19:36)
[2021-10-14] MEDS: LOSARTAN POTASSIUM 50 MG TAB PO SCH (08:54)
[2021-10-14] MEDS: amLODIPine BESYLATE 5 MG TAB PO SCH ×2 (08:54→19:39)
[2021-10-14] MEDS: ASPIRIN 81 MG ECTAB PO SCH (08:54)
[2021-10-14] MEDS: POLYETHYLENE (MIRALAX) 17 GM PACK PO SCH (08:55)
[2021-10-14] MEDS: LOSARTAN/HCTZ 50/12.5MG TAB PO SCH (08:55)
[2021-10-14] MEDS ORDERED: SODIUM CHLORIDE 0.9% 1000ML 250 ML IV ONE (11:11)
[2021-10-14 11:27] LABS: Hematocrit (blood only) 25.3 % (37-47); Hemoglobin 8.3 g/dL (12.0-16.0)
--- NOTE | 2021-10-14 18:22 | Hospitalist Progress Note ---
Date of Service October 14, 2021 Assessment & Plan (1) Delirium: Plan: Improved, appears at/near baseline Patient is awake today and is eating. - No new complaints. - will require placement. Patient was progressing towards discharge, was hypotensive and held for further observation this morning. On review of medications patient may received higher than home dose of losartan contributing to a.m. hypotension, medication adjusted and will follow overnight. If remains hemodynamically stable anticipate possible discharge tomorrow (2) Dementia: Plan: as stated above. (3) Urinary tract infection: Plan: Patient has an markedly abnormal urinalysis on presentation likely could be having metabolic encephalopathy from urinary tract infection present on admission. UC 10/07+ for pansensitive E. coli Patient adequately treated with Rocephin during admission, no additional antibiotics indicated at this time Follow clinically (4) Hematoma and contusion: Plan: Hematoma to left calf, without neurovascular compromise on exam Surgery consulted during admission. Do not recommend surgical intervention. Apixaban resumed, remained stable (5) Atrial flutter: Plan: Patient previous with atrial flutter remains in anticoagulation in sinus rhythm. Metoprolol r held, rate controlled Anticoagulation resumed held (6) Chronic kidney disease, stage III (moderate): Plan: Continue losartan/HCTZ Patient appears to have been on 50 mg total dose of losartan at home, add losartan 50+ losartan/HCTZ on medication change? Elevated dose Borderline hypotensive this morning Improving throughout the day Held losartan, suspect medication induced mild hypotension. Follow overnight (7) Hypothyroidism: Plan: Appears appropriately treated with Synthroid this will be continued (8) Hypertension: Plan: Continue antihypertensives as noted above (9) Dysphagia: Plan: Patient seen by speech therapy in 2019 at that time discharge instructions were regular diet, aspiration precautions. Elevation of head of bed greater than 30 degrees. Alternating liquids and solids. Slippery diet. Upright after meals for 30 minutes. Single bite small sips slow rate (10) DVT prophylaxis: Plan: Zachary resumed Admission and Anticipated Discharge Date Admission Date: October 08, 2021 Subjective Seen at bedside with her son present today. Denies pain, dysuria, fever, chills. Blood pressure has been low, denies lightheadedness/dizziness. Denies bleeding. Pleasant, but subjective limited by dementia/cognitive status. Review of Systems Review of Systems: Unobtainable due to cognitive status Physical Exam Physical Exam: Alert, not oriented to name or place. Oriented to name. Cooperative. Requires frequent redirection. HEENT: Atraumatic, normocephalic. Visual acuity and hearing grossly intact. Pulm: CTAB A&P. -wheezes, -rales, -rhonchi. Symmetrical chest rise. No increase work of breathing. No respiratory distress. Cardiac: RRR, -mrg. Radial pulses intact and symmetrical. Abdominal: Nontender, nondistended, soft. BS present. Extremities: Left lower extremity with left calf hematoma, PT pulses intact bilaterally without compromise, sensation and feet intact without asymmetry. Appears consistent with prior description. No signs of neurovascular compromise. Results & Data Results & Data ([facility]) Vital Signs (Past 12 Hours) Vital Signs Temp Pulse Pulse Resp BP BP Pulse Ox 10/14/21 15:05 36.9 C 77 16 121/61 96 10/14/21 11:00 36.7 C 68 18 89/48 L 96 10/14/21 07:00 36.4 C L 66 73 18 128/61 98 PG Care Time/CCT Total # of Minutes Spent Total Time Spent with Patient: Total time spent is greater than 50% in coordination of care (as documented) at patient's floor/unit and/or counseling patient: Coding Level of Care Code 72192 Subseq Hosp Care Lvl 2 Diagnoses Delirium R41.0 Dementia F03.90 Urinary tract infection N39.0 Hematoma and contusion T14.8XXA Atrial flutter I48.92 Chronic kidney disease, stage III (moderate) N18.30 Hypothyroidism E03.9 Hypertension I10 Dysphagia R13.10 DVT prophylaxis Z29.9
[2021-10-14] MEDS: ATORVASTATIN 40 MG TAB PO SCH (19:37)
[2021-10-14] MEDS: POTASSIUM CHLORIDE 10 MEQ TABCR PO SCH (19:38)
[2021-10-15] MEDS: LEVOTHYROXINE SODIUM 75 MCG TABLET PO SCH (05:55)
[2021-10-15] MEDS: ASPIRIN 81 MG ECTAB PO SCH (07:40)
[2021-10-15] MEDS: LOSARTAN/HCTZ 50/12.5MG TAB PO SCH (07:41)
[2021-10-15] MEDS: AMIODARONE 200 MG TAB PO SCH (07:41)
[2021-10-15] MEDS: amLODIPine BESYLATE 5 MG TAB PO SCH ×2 (07:41→20:42)
[2021-10-15] MEDS: APIXABAN 2.5 MG TAB PO SCH ×2 (07:42→20:42)
[2021-10-15] MEDS: POLYETHYLENE (MIRALAX) 17 GM PACK PO SCH (07:42)
[2021-10-15 09:14] LABS: Basophils # (auto) 0.03 K/uL (0-0.2); Basophils % (auto) 0.3 %; Eosinophils # (auto) 0.24 K/uL (0-0.5); Eosinophils % (auto) 2.3 %; Hematocrit (blood only) 28.7 % (37-47); Hemoglobin 9.4 g/dL (12.0-16.0); Immature Granulocytes # (auto) 0.04 K/uL (0.00-0.02); Immature Granulocytes % (auto) 0.4 %; Lymphocytes # (auto) 1.61 K/uL (1.2-3.4); Lymphocytes % (auto) 15.7 %; Mean Corpuscular Hemoglobin 30.7 pg (25-34); Mean Corpuscular Hgb Conc 32.8 g/dL (32-36); Mean Corpuscular Volume 93.8 fL (80-100); Mean Platelet Volume 10.3 fL (7.4-10.4); Monocytes # (auto) 1.11 K/uL (0.11-0.59); Monocytes % (auto) 10.8 %; Neutrophils # (auto) 7.23 K/uL (1.4-6.5); Neutrophils % (auto) 70.5 %; Platelet Count 365 K/uL (130-400); RDW Coefficient of Variation 14.3 % (11.5-14.5); Red Blood Count 3.06 M/uL (4.2-5.4); White Blood Count 10.26 K/uL (4.8-10.8)
[2021-10-15 09:41] LABS: BUN Creatinine Ratio 20.2 (10-20); Creatinine Clr Calc Pharmacy 21.2 ml/min; Est GFR (African American) 32.5 ml/min; Potassium 4.1 mmol/L (3.5-5.1)
[2021-10-15] MEDS ORDERED: SODIUM CHLORIDE 0.9% 1000ML 250 ML IV ONE (12:34)
--- NOTE | 2021-10-15 12:40 | Hospitalist Progress Note ---
Date of Service October 15, 2021 Assessment & Plan (1) Delirium: Plan: Disposition: Patient with uptrending creatinine today after episode of hypotension yesterday. Losartan/HCTZ held, small bolus given, trend creatinine tomorrow morning, Patient clinically appears well and at baseline, placement pending present towards discharge? 10/16 Improved, appears at/near baseline Patient is awake today and is eating. - No new complaints. -Placement when ready as below (2) Dementia: Plan: as stated above. (3) Urinary tract infection: Plan: Patient has an markedly abnormal urinalysis on presentation likely could be having metabolic encephalopathy from urinary tract infection present on admission. UC 10/07+ for pansensitive E. coli Patient adequately treated with Rocephin during admission, no additional antibiotics indicated at this time Follow clinically (4) Hematoma and contusion: Plan: Hematoma to left calf, without neurovascular compromise on exam Surgery consulted during admission. Do not recommend surgical intervention. Apixaban resumed, remains stable (5) Atrial flutter: Plan: Patient previous with atrial flutter remains in anticoagulation in sinus rhythm. Metoprolol held, rate controlled Anticoagulation resumed held (6) Chronic kidney disease, stage III (moderate): Plan: No losartan/HCTZ Patient appears to have been on 50 mg total dose of losartan at home, on reconciliation had losartan 50+ losartan/HCTZ. Likely received increased dose, and hypotension on 10/14 which improved. Increased creatinine 10/15, hold HCTZ/losartan, plus NSS bolus x1, repeat BMP. Urine output stable (7) Hypothyroidism: Plan: Appears appropriately treated with Synthroid this will be continued (8) Hypertension: Plan: Continue antihypertensives as noted above (9) Dysphagia: Plan: Patient seen by speech therapy in 2019 at that time discharge instructions were regular diet, aspiration precautions. Elevation of head of bed greater than 30 degrees. Alternating liquids and solids. Slippery diet. Upright after meals for 30 minutes. Single bite small sips slow rate (10) DVT prophylaxis: Plan: Lissanorrisantony resumed Admission and Anticipated Discharge Date Admission Date: October 08, 2021 Subjective Seen at bedside. Reports she feels "good ". History limited by dementia, but patient pleasant and cooperative. Follows commands. Denies pain, shortness of breath, difficulty breathing, lightheadedness, dizziness. Awakens easily. Review of Systems Review of Systems: Unobtainable due to cognitive status Physical Exam Physical Exam: Alert, not oriented to place or date, oriented to name. Cooperative. Requires frequent redirection. HEENT: Atraumatic, normocephalic. Visual acuity and hearing grossly intact. Pulm: CTAB A&P. -wheezes, -rales, -rhonchi. Symmetrical chest rise. No increase work of breathing. No respiratory distress. Cardiac: RRR, -mrg. Radial pulses intact and symmetrical. Abdominal: Nontender, nondistended, soft. BS present. Extremities: Left lower extremity with left calf hematoma, PT pulses intact bilaterally without compromise, sensation and feet intact without asymmetry. Appears consistent with prior description. No signs of neurovascular compromise. Results & Data Results & Data ([facility]) Vital Signs (Past 12 Hours) Vital Signs Temp Pulse Pulse Resp BP BP Pulse Ox 10/15/21 11:48 36.5 C 79 18 111/69 97 10/15/21 08:00 36.8 C 83 18 114/70 96 10/15/21 04:00 36.6 C 71 18 144/77 H 94 10/15/21 00:50 84 PG Care Time/CCT Total # of Minutes Spent Total Time Spent with Patient: Total time spent is greater than 50% in coordination of care (as documented) at patient's floor/unit and/or counseling patient: Coding Level of Care Code 38404 Subseq Hosp Care Lvl 2 Diagnoses Delirium R41.0 Dementia F03.90 Urinary tract infection N39.0 Hematoma and contusion T14.8XXA Atrial flutter I48.92 Chronic kidney disease, stage III (moderate) N18.30 Hypothyroidism E03.9 Hypertension I10 Dysphagia R13.10 DVT prophylaxis Z29.9
[2021-10-15] MEDS: POTASSIUM CHLORIDE 10 MEQ TABCR PO SCH (20:42)
[2021-10-15] MEDS: ATORVASTATIN 40 MG TAB PO SCH (20:42)
[2021-10-16] MEDS: LEVOTHYROXINE SODIUM 75 MCG TABLET PO SCH (06:17)
[2021-10-16] MEDS ORDERED: MAGNESIUM HYDROXIDE SUSP 30 ML UDC PO PRN (07:12)
[2021-10-16] MEDS ORDERED: bisacodyL 10 MG SUPP PR PRN (07:12)
[2021-10-16] MEDS: APIXABAN 2.5 MG TAB PO SCH (07:50)
[2021-10-16] MEDS: AMIODARONE 200 MG TAB PO SCH (07:50)
[2021-10-16] MEDS: amLODIPine BESYLATE 5 MG TAB PO SCH (07:50)
[2021-10-16] MEDS: ASPIRIN 81 MG ECTAB PO SCH (07:50)
[2021-10-16] MEDS: POLYETHYLENE (MIRALAX) 17 GM PACK PO SCH (07:51)
[2021-10-16 07:59] LABS: BUN Creatinine Ratio 19.5 (10-20); Calcium 8.3 mg/dl (8.5-10.1); Creatinine Clr Calc Pharmacy 24.2 ml/min; Est GFR (African American) 36.8 ml/min; Est GFR (Non-African American) 31.8 ml/min; Potassium 4.3 mmol/L (3.5-5.1)
--- NOTE | 2021-10-16 17:04 | Discharge Summary ---
Date of Service October 16, 2021 Admission HPI Per Admitting Provider Patient reportedly brought in by her son. She has a history of a stroke but does live alone she has expressive aphasia. Reportedly he found her on the ground. She is an injury to her left lower leg. There is no signs of bony injury of the pelvis or tib-fib x-rays. CT scan of her head shows no new stroke and initial laboratories are fairly unrevealing. Reportedly the pain from her injury prevents her from ambulating effectively Daughter at the bedside says in addition to her expressive aphasia, she is demented and does typically wander at night, he is also at home, age 89, and only allows family to come into the house, the pt has been happy with [facility] in the past for rehab Admission Exam Per Admitting Provider The patient appeared well nourished and normally developed. Vital signs as documented. Head exam is normocephalic atraumatic Neck is without JVD, thyromegaly, or carotid bruits. Lungs are clear to auscultation, no focal loss of breath sounds Cardiac exam, Rhythm is regular. Although history of atrial fibrillation is in sinus rhythm now No murmurs, rubs or gallops. Abdominal exam reveals normal bowel sounds, soft non tender, no masses Left lower extremity has significant bruising and swelling to the calf. Neurologic exam is alert and she responds somewhat to exam but not reliably when asked questions such as squeeze my hands etc. Skin is with oozing the calf seems to be slightly older than 1 day as was described by family Psychologically is with difficult memory loss Principal Diagnosis UTI Leg Hematoma Dementia Discharge Exam Alert, not oriented to place or date, oriented to name. Cooperative. HEENT: Atraumatic, normocephalic. Visual acuity and hearing grossly intact. Pulm: CTAB A&P. -wheezes, -rales, -rhonchi. Symmetrical chest rise. No increase work of breathing. No respiratory distress. Cardiac: RRR, -mrg. Radial pulses intact and symmetrical. Abdominal: Nontender, nondistended, soft. BS present. Extremities: Left lower extremity with left calf hematoma, PT pulses intact bilaterally without compromise, sensation and feet intact without asymmetry. No signs of neurovascular compromise Discharge Data Allergies Allergy/AdvReac Type Severity Reaction Status Date / Time No Known Drug Allergies Allergy Unknown ` Verified 10/07/21 11:38 Consultations 10/07/21 12:55 ED Decision to Admit Stat 10/07/21 14:00 Consult Orthopedic Surgery Stat 10/08/21 08:54 Consult Orthopedic Surgery Routine 10/09/21 08:34 Consult Cardiology Routine Ordered Studies 10/07/21 11:07 CT head/brain wo con Stat Hospital Course (1) Delirium: To do as outpatient: -Follow-up BMP within 1 week. Follow creatinine. Based on BMP/WILMER and blood pressure consider whether to continue holding losartanhydrochlorothiazide or to hold either/both of these medications.- -Neurovascular recheck of left lower leg with stable improving hematoma -Routine follow-up with PCP -Routine follow-up with cardiology -Reassess dose of apixaban based on renal function -Continue amiodarone 200 mg twice daily, this replaced metoprolol at the recommendation of cardiology Delirium Improved, appears at/near baseline Patient is awake day of discharge and is eating. - No new complaints. -Placement when ready as below (2) Dementia: as stated above. (3) Urinary tract infection: Patient has an markedly abnormal urinalysis on presentation likely could be having metabolic encephalopathy from urinary tract infection present on admission. UC 10/07+ for pansensitive E. coli Patient adequately treated with Rocephin during admission, no additional antibiotics indicated at this time Follow clinically Voiding independently on day of discharge (4) Hematoma and contusion: Hematoma to left calf, without neurovascular compromise on exam Surgery consulted during admission. Do not recommend surgical intervention. Apixaban resumed, remains stable. Improving at time of discharge (5) Atrial flutter: Patient previous with atrial flutter remains in anticoagulation in sinus rhythm. Metoprolol replaced with amiodarone per cardiology recommendations Anticoagulation initially held, resumed prior to discharge (6) Chronic kidney disease, stage III (moderate): Held losartan/HCTZ Patient appears to have been on 50 mg total dose of losartan at home, on reconciliation had losartan 50+ losartan/HCTZ. Likely received increased dose, and hypotension on 10/14 which improved. Increased creatinine 10/15, hold HCTZ/losartan, plus NSS bolus x1, repeat BMP. Urine output stable Patient normotensive without losartan/HCTZ, this was held on discharge and restarting of either or both of these agents was deferred to PCP follow-up based on BMP to be formed within a week as above (7) Hypothyroidism: Appears appropriately treated with Synthroid this will be continued (8) Hypertension: Continue antihypertensives as noted above (9) Dysphagia: Patient seen by speech therapy in 2020 at that time discharge instructions were regular diet, aspiration precautions. Elevation of head of bed greater than 30 degrees. Alternating liquids and solids. Slippery diet. Upright after meals for 30 minutes. Single bite small sips slow rate (10) DVT prophylaxis: Eliquis resumed Total Time Total Time Spent Total Time Spent (In Minutes): Total time spent day of discharge 35 minutes including documentation, review of labs of images, coordination of care, and direct patient care Discharge Plan Discharge Items Patient Disposition: Transfer Halfway Fac Reason For Visit: SYNCOPE, LEFT LEG HEMATOMA, INABILITY TO WALK Discharge Diagnosis: UTI WILMER L Leg Hematoma Activity: Per Instructions section Non-emergency contact: Primary Care Provider Call non-emergency contact if: you have any medication questions, your symptoms worsen, your pain is not controlled, your pain is worsening and you have a fever Follow-up/Referrals: Mani Lerma MD [Physician] - Jesse Grigsby MD [Primary Care Provider] - Diet: Heart Healthy Addtl Attending Provider Instructions: You were seen in the hospital for a UTI and were found to have a kidney injury during admission. Your UTI was treated with antibiotics and no further antibiotics were indicated at time of discharge. Your kidney injury was improved , but not yet normal at time of discharge. Your blood pressure medications have had temporary changes as noted below. Your losartan-hydrochlorothiazide has been temporarily held. Do not take losartan-hctz at this time. Your medication was held due to elevated creatinine, you may resume this when your creatinine returns to normal. Your blood pressure was normal while this was held in the hospital, you may not require this medication if it remains normal. Please discuss this with your PCP at your followup appointment. Your kidney function was improving but not yet completely normal at time of discharge. Please have a BMP (basic metabolic panel) to check your creatnine within 1 week performed by your primary care provider. You experienced a hematoma (bleed) in the L lower leg during admission. This was stable, and did not require surgical intervention. This was improving at time of discharge, please have your leg checked by your PCP at your followup appointment. Your metoprolol has been discontinued. Please stop taking metoprolol. You have been started on a new medication to control your heart rhythm at the recommendation of cardiology. Please take amiodarone 200mg twice daily by mouth. Your dose of your blood thinner eliquis has been adjusted. Please take Apixaban 2.5mg twice daily INSTEAD OF 5mg twice daily. Please discuss this with your PCP at followup appointment, you may require additional adjustments based on your kidney function. A followup appointment is being scheduled for you with your PCP Dr. Grigsby. You should be seen seen within 1 week. You should receive a call to confirm this appointment. If you do not receive a call within 48 hours to confirm this appointment, or need to change this appointment, please call the provider's office at [phone]. If you develop any new or worsening symptoms including fever, chills, sweats, chest pain, chest pressure, difficulty breathing, uncontrolled nausea/vomiting, rash, wheezing, passing out or nearly passing out, bleeding, black/bloody bowel movements, or other new or concerning symptoms please call your primary care physician at [phone], or call 911 for re-evaluation in the emergency department if you are very concerned. Pending Studies at Discharge: Yes (BMP within 1 week) Stand-Alone Forms: My [facility] Skilled Items Patient informed of condition?: Yes DNR: Yes Discharge Level of Care: Skilled Communicable Disease: No Discharge Prognosis: Stable Lines: None Urinary Catheter: No Medications and DC Order Prescriptions: New amiodarone 200 mg Tablet 200 mg PO QAM 30 Days Qty: 30 RF: 0 Continued levothyroxine 75 mcg tablet 75 mcg PO DAILY Qty: 90 RF: 3 nystatin 100,000 unit/gram powder 1 applic topical BID Qty: 60 RF: 11 Calmoseptine 0.44-20.6 % ointment 1 applic topical BID PRN (Reason: skin irritation) Qty: 113 RF: 11 amlodipine 2.5 mg tablet 2.5 mg PO BID Qty: 180 RF: 3 aspirin 81 mg Tablet,Delayed Release (Dr/Ec) 81 mg PO QAM RF: 0 atorvastatin 40 mg tablet 40 mg PO QPM RF: 0 potassium chloride [Klor-Con 10] 10 mEq tablet extended release 10 meq PO QPM RF: 0 Changed Eliquis 5 mg tablet 2.5 mg PO BID 30 Days Qty: 180 RF: 3 Discontinued metoprolol tartrate 25 mg tablet 25 mg PO BID 30 Days Qty: 180 RF: 3 losartan-hydrochlorothiazide 50-12.5 mg tablet 1 tab PO QAM 30 Days Qty: 90 RF: 3 Discharge Orders: Discharge Order (Routine); Ordered 10/16/21 Ordered By: José Manuel Kasper Admission Data Admit Date/Time: 10/08/21 21:13 Attending Provider: José Manuel Kasper Admit Provider: Del Bullock Primary Care Provider: Jesse Grigsby Other Providers: Jackson Lee ; Del Bullock ; [facility] ; Mani Lerma Other Interventions: Discharge Summary Assessment (RN) Last Done: 10/16/21 10:09 Coding Level of Care Code D/C DAY MANAGEMENT >30 MINS Diagnoses Delirium R41.0 Dementia F03.90 Urinary tract infection N39.0 Hematoma and contusion T14.8XXA Atrial flutter I48.92 Chronic kidney disease, stage III (moderate) N18.30 Hypothyroidism E03.9 Hypertension I10 Dysphagia R13.10 DVT prophylaxis Z29.9
== END 2021-10-16 11:47 | DRG 689 ==
LOC: ED 10:09 → EDINP 10:09 → SUATTDRO 13:36 → EDINP 18:30 → 2N 20:10 → SUATTDRO 10-08 21:13

== ENCOUNTER 2021-10-23 15:47 | Inpatient (IN) ==
[2021-10-23] MEDS ORDERED: ACETAMINOPHEN 1,000 MG/100 ML VIAL IV STA (16:25)
[2021-10-23] MEDS ORDERED: MoRPHine SULFATE 2 MG/ML CARP IV PRN (16:25)
[2021-10-23] MEDS ORDERED: MoRPHine SULFATE 4 MG/ML 1 ML CARP\\VIAL IV PRN ×2 (16:25→20:09)
[2021-10-23] MEDS ORDERED: SODIUM CHLORIDE 0.9% 500 ML IV SCH (16:30)
--- NOTE | 2021-10-23 16:52 | XRay Report ---
XR chest 1V portable CLINICAL HISTORY: fall. Pain. COMPARISON STUDY: 10/07/2021 TECHNIQUE: 1 view of the chest FINDINGS: Single frontal view of the chest demonstrates the heart to again be enlarged and the aorta to be athe rosclerotic and ectatic. The lungs are clear of alveolar opacities. There is no evidence for pleural effusion. There is no evidence for vascular congestion. There is no acute osseous pathology. IMPRESSION: No acute cardiopulmonary disease. ACT 112: Negative or not required by law. Electronically signed by: Wil Lanier M.D. 10/23/2021 4:51 PM
--- NOTE | 2021-10-23 16:54 | XRay Report ---
XR tibia fibula LT 2V CLINICAL HISTORY: Fall. Left lower leg pain. COMPARISON STUDY: Left tibia/fibula 10/07/2021. FINDINGS: The bones are osteopenic. No acute fracture or dislocation within the left tibia or fibula. Diffuse subcutaneous edema within the left lower leg. Focal round density within the proximal/medial calf measuring 15 cm. This is increased in size and likely represents a soft tissue hematoma. Modera te to severe degenerative changes and chondrocalcinosis within the left knee. IMPRESSION: 1. No fractures within the left lower leg. 2. Focal round density within the proximal/medial calf measuring 15 cm. This is increased in size and likely represents a soft tissue hematoma. ACT 112: Negative or not required by law. Electronically signed by: Miko Isaac M.D. 10/23/2021 4:52 PM
--- NOTE | 2021-10-23 16:55 | XRay Report ---
XR hip ANISHA 2v w pelvis CLINICAL HISTORY: pain fall. COMPARISON STUDY: No previous studies for comparison. TECHNIQUE: AP pelvis and both hips each to views FINDINGS: Bones: There is a comminuted, intertrochanteric fracture of the right femoral neck with coxa varus de formity present. The left hip is maintained. The remaining visualized bones of the pelvis are intact. There is no lytic or blastic lesion. Joints: The femoral heads maintain their anatomic position within the acetabula. The remaining bones are in anatomic alignment. Soft tissues: There is no focal soft tissue abnormality. There is no radiopaque foreign body. IMPRESSION: Comminuted, intratrochanteric fracture of the right femoral neck with coxa varus deformit y present. ACT 112: Negative or not required by law. Electronically signed by: Wil Lanier M.D. 10/23/2021 4:54 PM
[2021-10-23 17:18] LABS: Basophils # (auto) 0.04 K/uL (0-0.2); Basophils % (auto) 0.4 %; Eosinophils # (auto) 0.15 K/uL (0-0.5); Eosinophils % (auto) 1.4 %; Hematocrit (blood only) 25.2 % (37-47); Hemoglobin 7.9 g/dL (12.0-16.0); Immature Granulocytes # (auto) 0.05 K/uL (0.00-0.02); Immature Granulocytes % (auto) 0.5 %; Lymphocytes # (auto) 1.28 K/uL (1.2-3.4); Lymphocytes % (auto) 12.1 %; Mean Corpuscular Hemoglobin 30.5 pg (25-34); Mean Corpuscular Hgb Conc 31.3 g/dL (32-36); Mean Corpuscular Volume 97.3 fL (80-100); Mean Platelet Volume 10.9 fL (7.4-10.4); Monocytes # (auto) 1.11 K/uL (0.11-0.59); Monocytes % (auto) 10.5 %; Neutrophils # (auto) 7.93 K/uL (1.4-6.5); Neutrophils % (auto) 75.1 %; Platelet Count 280 K/uL (130-400); RDW Coefficient of Variation 15.7 % (11.5-14.5); RDW Standard Deviation 54.8 fL (36.4-46.3); Red Blood Count 2.59 M/uL (4.2-5.4); White Blood Count 10.56 K/uL (4.8-10.8)
[2021-10-23 17:20] LABS: Appearance Urine Clear (Clear); Bacteria Urine Automated Negative (Negative); Bilirubin Urine Negative (Negative); Blood Urine Negative (Negative); Color Urine Dark Yellow; Epithelial Cell Urine Auto >30 /lpf (0-5); Glucose Urine UA Negative (Negative); Ketones Urine Negative (Negative); Leukocyte Esterase Urine Trace (Negative); Nitrite Urine Negative (Negative); Protein Urine Trace (Negative); RBC Urine Automated 0-4 /hpf (0-4); Specific Gravity Urine 1.023 (1.000-1.030); Urobilinogen Urine Negative (Negative)
[2021-10-23 17:27] LABS: Albumin Level 2.4 gm/dl (3.4-5.0); BUN Creatinine Ratio 30.5 (10-20); Calcium 8.5 mg/dl (8.5-10.1); Creatinine Clr Calc Pharmacy 22.6 ml/min; Est GFR (African American) 36.5 ml/min; Est GFR (Non-African American) 31.5 ml/min; Potassium 4.1 mmol/L (3.5-5.1)
[2021-10-23 17:31] LABS: Partial Thromboplastin Time 26.5 Seconds (21.0-31.0); Prothrombin Time 10.3 Seconds (9.0-12.0)
[2021-10-23 17:38] LABS: Echinocytes 1+; Polychromasia 1+
[2021-10-23 17:41] LABS: Albumin Globulin Ratio 0.6 (0.9-2); Bilirubin,Total 1.1 mg/dl (0.2-1); Total Protein 6.4 gm/dl (6.4-8.2)
--- NOTE | 2021-10-23 17:48 | History & Physical Report ---
Date of Service October 23, 2021 Assessment & Plan (1) Hip fracture: Plan: Patient will be admitted to the hospital proceeding as follows: Patient be placed on bedrest for the present time Orthopedics will be consulted for further surgical recommendations Analgesics will be provided Antiemetics will be provided We will follow serial labs Due to the patient's underlying medical comorbidities the patient's daughter is uncertain if she wishes to pursue any surgical intervention at this time but she would like the input of orthopedics to help guide this decision. Will await their input before further plans about surgical invention are made. Patient's daughter expressed concern that her mother had a urinary tract infection during previous admission. Urinalysis has been sent and is not indicative of infection We will continue to monitor the patient's left calf hematoma for signs of worsening and ask orthopedics to comment on whether or not this should be surgically drained. I discussed in great detail with the patient's daughter and she notes that event of cardiopulmonary arrest her mother is a DO NOT RESUSCITATE. Patient's daughter Fidelina can be contacted at [phone] or [phone] (2) Dementia: (3) Fall: (4) Anemia: (5) Hematoma of left lower leg: (6) Chronic kidney disease, stage III (moderate): (7) Atrial flutter: (8) Hypothyroidism: (9) Hypertension: (10) Hyperlipidemia: (11) Aphasia: (12) Stroke: (13) Osteoporosis: History of Present Illness Chief Complaint: Right hip fracture Primary Care Provider: [facility] This is an 86-year-old female who presented [facility] secondary to a right hip fracture. The patient has underlying dementia and could not provide any meaningful history whatsoever at the time of my interview. Fortunately the patient's daughter who is well versed in her mother's care was present at the bedside who did help supplement history. This along with review of records sent from long-term as well as records review of his hospitalization were used to complete history. This patient was recently hospitalized at [facility] 10/07/2021 through 10/16/2021 secondary to delirium and a urinary tract infect ion. She was noted to have an E. coli urinary tract infection. Patient was also noted to have a left calf hematoma. Patient's daughter says that she is uncertain how this injury occurred. She did add that the patient does take Eliquis due to history of atrial fibrillation which likely contributed to this Hematoma. She was seen by orthopedics during this admission and was not felt that any drainage of this hematoma was required. Today the patient continues to have a left calf hematoma but her daughter notes it has markedly improved from previously. This patient resides at [facility] and according to reports from the staff the patient was complaining of some discomfort of her right hip. Patient's daughter is unaware of any falls that occurred however the staff to report her that approximately 4 days ago the patient "slipped out of her wheelchair". According the patient's daughter she is not aware of any other problems at the present time. The best of her knowledge her mother has not any fevers, shakes, chills, abdominal pain, or nausea or vomiting. She does note that prior to her previously mentioned hospitalization she was able to ambulate independently without the use of any assistive devices although her daughter does admit that she was somewhat unsteady. Did not note any falls that occurred previously. Since arrival to the emergency department patient did have labs and imaging which I independently reviewed. Patient did have bilateral hip x-rays along with a pelvic x-ray that showed a comminuted, and trochanteric fracture of the right femoral neck. A chest x-ray did not show any evidence of pneumonia. A left tib/fib x-ray did not show any evidence of fracture. Labs were performed including a CBC her white blood cell count was within normal range. Patient's hemoglobin and hematocrit were 7.9 and 25.2. This represented approximately a 4 to 5 g drop from previous baseline values. Platelet count was noted to be within normal range. Coagulation studies were all within normal limits. Chemistry profile showed sodium, potassium, were within normal range. BUN and creatinine were slightly elevated at 45 and 1.4. Urinalysis today showed trace leukocyte Estrace was otherwise not indicative of infection. A Covid test was performed and was noted to be negative. At the time of my interview the patient was unresponsive to verbal stimuli but she did respond to light touch/painful stimulation. Allergies Allergy/AdvReac Type Severity Reaction Status Date / Time No Known Allergies Allergy Verified 10/23/21 16:11 Home Medications Medication Instructions Recorded Confirmed Type levothyroxine 75 mcg tablet 75 mcg PO DAILY #90 tab 12/18/20 10/23/21 Rx menthol 0.44 %-zinc oxide 20.6 % 1 applic TOPICAL BID PRN #113 g 12/31/20 10/23/21 Rx topical ointment (Calmoseptine) nystatin 100,000 unit/gram topical 1 applic TOPICAL BID #60 g 12/31/20 10/23/21 Rx powder amlodipine 2.5 mg tablet 2.5 mg PO BID #180 tab 08/12/21 10/23/21 Rx aspirin 81 mg tablet,delayed 81 mg PO QAM 10/07/21 10/23/21 History release atorvastatin 40 mg tablet 40 mg PO QPM 10/07/21 10/23/21 History potassium chloride 10 mEq 10 meq PO QPM 10/07/21 10/23/21 History tablet,extended release (Klor-Con) amiodarone 200 mg tablet 200 mg PO QAM 30 Days #30 tab 10/16/21 10/23/21 Rx apixaban 5 mg tablet (Eliquis) 2.5 mg PO BID 30 Days #180 tab 10/16/21 10/23/21 Rx acetaminophen 325 mg tablet 650 mg PO Q6H PRN 10/23/21 10/23/21 History (Tylenol) melatonin 3 mg tablet 3 mg PO HS 10/23/21 10/23/21 History Past Med/Surg History Medical History (Updated 10/23/21 @ 19:34 by Aubrey Scott MD) Atrial flutter with rapid ventricular response Hyperlipidemia Hypertension Hypothyroidism Memory loss Vitamin B12 deficiency Surgical History History of tonsillectomy and adenoidectomy Family History Other Coronary heart disease Hypertension Social History Smoking Status: Never smoker Second Hand Exposure: No; Hx Alcohol Use: No Hx Substance Use: No Preferred Language: Armenian Communication Ability: Unable Intranet Specialist Required: No Beliefs That Will Affect Care: None marital status: Current Living Situation: Spouse Current Living Situation Comment: Home w/ current occupational status: retired Feels Safe at Home: Yes Assistive Devices: Walker Medical History (Updated 10/23/21 @ 19:34 by Aubrey Scott MD) Atrial flutter with rapid ventricular response Hyperlipidemia Hypertension Hypothyroidism Memory loss Vitamin B12 deficiency Surgical History History of tonsillectomy and adenoidectomy History of right knee replacement Family History Other Coronary heart disease Hypertension Social History Smoking Status: Never smoker Second Hand Exposure: No; Hx Alcohol Use: No Hx Substance Use: No Preferred Language: Armenian Communication Ability: Unable Intranet Specialist Required: No Beliefs That Will Affect Care: None marital status: Current Living Situation: Spouse Current Living Situation Comment: Home w/ current occupational status: retired Feels Safe at Home: Yes Assistive Devices: Walker Review of Systems Review of Systems: All systems reviewed & are unremarkable except as noted in HPI & below Physical Exam Physical Exam: No evidence of head trauma Constitutional: WD/WN, vitals as above Eyes: PERRL, conjunctivae normal, anicteric sclerae ENMT: No evidence of hemotympanum Neck: trachea midline Respiratory: normal respiratory effort, lungs clear to auscultation Cardiovascular: Rate/Rhythm: + irregularly irregular Gastrointestinal (Abdomen): Soft and nondistended. No pain with palpation Musculoskeletal: Pedal pulses are palpable bilaterally. Patient had a large amount of swelling in the left calf consistent with the previously noted left calf hematoma. Skin: normal turgor Neurologic: Unable to perform a full neurologic exam due to clinical status of patient Results & Data Results & Data ([facility]) Vital Signs (Past 12 Hours) Vital Signs Temp Pulse Resp BP Pulse Ox 10/23/21 16:19 36.6 C 78 16 120/57 L 95 Laboratory Results 10/23/21 Unknown 10/23/21 Unknown Supervising Physician Co-Signing Physician Notes PA Supervision Note: I personally saw and examined the patient. I verified all price points and agree with ISRRAEL Vallejo with the following exceptions and/or additions: Pt is an 86 yo female with a h/o a-flutter on Eliquis, dementia, CVA with aphasia, CKD stage 3,hypothyroidism, HTN, here with right hip fracture after having a fall out of her bed a few days ago. Pt unable to give any history. O- Vitals reviewed Gen: [alert, awake, not oriented, NAD] HEENT: [anicteric sclerae, EOMI] CV: [RRR no mgr nl S1S2] Pulm: [CTAB no wcr] Abd: [+BS soft NT ND no masses or hernias] Ext: [left medial calf with large hematoma, ecchymosis down leg, 2+ DP pulses bilat, Right LE ext rotated and shortened ] Skin: [no rashes, warm/dry] Neuro: [moves arms and left leg] Labs and rads reviewed A/P-Pt is an 86 yo female with history as above, here with fall and right hip fracture. Chronic anemia likely from acute blood loss anemia from previous hematoma and some from current fracture-hold ELiquis, may need transfusion tomorrow follow CBC Ortho consulted to see about surgical fixation Could consider Palliative route if family desires due to severe dementia PG Care Time/CCT Total # of Minutes Spent Total Time Spent with Patient: Total time spent is greater than 50% in coordination of care (as documented) at patient's floor/unit and/or counseling patient: Coding Level of Care Code 52488 Initial Inpt Care Lvl 3 Diagnoses Hip fracture S72.009A Dementia F03.90 Dementia behavioral disturbance: without behavioral disturbance Dementia type: unspecified type Fall W19.XXXA Encounter type: initial encounter Anemia D64.9 Anemia type: unspecified type Hematoma of left lower leg S80.12XA Chronic kidney disease, stage III (moderate) N18.30 Atrial flutter I48.92 Hypothyroidism E03.9 Hypertension I10 Hyperlipidemia E78.5 Aphasia R47.01 Stroke I63.9 Osteoporosis M81.0 (1) Dementia Dementia behavioral disturbance: without behavioral disturbance Dementia type: unspecified type Qualified Code(s): F03.90 - Unspecified dementia without behavioral disturbance (2) Fall Encounter type: initial encounter Qualified Code(s): W19.XXXA - Unspecified fall, initial encounter (3) Anemia Anemia type: unspecified type Qualified Code(s): D64.9 - Anemia, unspecified
--- NOTE | 2021-10-23 19:22 | Emergency Department Note ---
Impression & Plan Closed intertrochanteric fracture of right hip, Hematoma of left lower leg, Dementia, Fall, Anemia ED Provider Note NAME: CYNTHIA HART AGE: 86 SEX: F ARRIVES VIA: Ambulance INFORMANT: EMS, Daughter, SNF staff ED PROVIDER(S): Aubrey Scott MD CHIEF COMPLAINT: Hip pain, fall PLAN: Disposition: Admit MEDICAL DECISION MAKING: The patient is a pleasant 86-year-old woman with a past medical history of dementia, history of CVA with residual aphasia, atrial flutter on Eliquis, CKD, hypertension, hypothyroidism who presents to the emergency department from her assisted facility at [facility] for evaluation of hip pain with concern for hip fracture. The patient presents in the setting of a reported fall on Thursday where the patient was found sitting on the ground next to her wheelchair in the hallway which they presume she had fallen out of. Per discussion with [facility] staff member who is not directly familiar with the patient but reviewed her records notes that staff reported that she had been known to walk out of her room into the hallway but following her fall on Thursday was no longer doing this or walking otherwise. Presumably therapy was performed while in bed. However, EMS reported that the patient had been a mbulating until today when it was noted she would not bear weight and report that the patient's roommate had said that the patient fell by sliding out of her bed and hit the garbage can. Today it was noted that she was having significant pain and so EMS was called to transfer the patient to the emergency department. The patient received fentanyl by EMS for pain. The patient is a limited/poor historian due to aphasia, dementia, and having received narcotics in route. On arrival the patient is chronically ill-appearing but no acute distress, afebrile stable vital signs. She appears clinically dry. She has gross deformity of her right hip with external rotation and shortening. Distal PMS is intact. She does have a subacute hematoma of her left calf which was noted on her recent admission last week. Plain films of the right hip and pelvis demonstrate comminuted intertrochanteric fracture of the right femoral neck. Plain films of the left lower leg were negative for fracture. EKG without overt acute ischemia. Chest x-ray negative for acute cardiopulmonary process. WBC and platelets within normal limits. H/H 7.9/25.2 which is decreased from patient's recent admission. Chemistry without metabolic acidosis. Creatinine 1.48 similar to prior values. LFTs without significant abnormality. UA without convincing evidence of infection. COVID-19 RNA, NAAT test was negative. Findings were reviewed with the patient's daughter who did arrive to the bedside. Agrees with plan for admission for further management. Case discussed with Willie Vallejo PA-C with [facility] hospitalist, will evaluate the patient for admission. Patient has followed with [facility] orthopedics in the past. Orthopedic consultation per admitting team. Triage Nursing notes reviewed and agree them. prior medical records reviewed Vital Signs: reviewed and remarkable for no significant abnormalities Differential diagnosis: Fracture, subluxation, dislocation, contusion, ligamentous injury, neurovascular, compartment syndrome, rhabdomyolysis, as well as other pathologies. ER treatment provided: See below. Diagnostics interpreted by me: ECG: Normal sinus rhythm, 85 bpm, no ectopy, no overt ST elevation or depression, QTC 499, QRS 88. Cardiac Monitoring: An order for continuous cardiac monitoring was placed and demonstrated Normal sinus rhythm, 85 bpm, no ectopy. Laboratory studies: see below Imaging studies: See below Consultation(s): Willie aVllejo PA-C with [facility] hospitalist HPI: The patient is a pleasant 86-year-old woman with a past medical history of dementia, history of CVA with residual aphasia, atrial flutter on Eliquis, CKD, hypertension, hypothyroidism who presents to the emergency department from her assisted facility at [facility] for evaluation of hip pain with concern for hip fracture. The patient presents in the setting of a reported fall on Thursday where the patient was found sitting on the ground next to her wheelchair in the hallway which they presume she had fallen out of. Per discussion with [facility] staff member who is not directly familiar with the patient but reviewed her records notes that staff reported that she had been known to walk out of her room into the hallway but following her fall on Thursday was no longer doing this or walking otherwise. Presumably therapy was performed while in bed. However, EMS reported that the patient had been ambulating until today when it was noted she would not bear weight and report that the patient's roommate had said that the patient fell by sliding out of her bed and hit the garbage can. Today it was noted that she was having significant pain and so EMS was called to transfer the patient to the emergency department. The patient received fentanyl by EMS for pain. The patient is a limited/poor historian due to aphasia, dementia, and having received narcotics in route. ROS: See above HPI for pertinent positives & negatives. A total of 10 systems re viewed and were otherwise negative. PAST MEDICAL HISTORY: see Below PAST SURGICAL HISTORY: see Below FAMILY HISTORY:See Below SOCIAL HISTORY: see Below HOME MEDICATIONS: see Below ALLERGIES: see Below VITALS: see Below PHYSICAL EXAMINATION: GENERAL: Awake, alert, chronically ill-appearing, in no distress HENT: Normocephalic, atraumatic. Oropharynx with dry mucous membranes and otherwise unremarkable. EYES: Normal conjunctiva. Sclera non-icteric. NECK: Supple. No nuchal rigidity. FROM. No JVD. RESPIRATORY: Clear to auscultation. CARDIAC: Regular rate, normal rhythm. Extremities warm and well perfused. Pulses equal. ABDOMEN: Soft, non-distended. No tenderness to palpation. No rebound or guarding. No masses. RECTAL: Deferred. MUSCULOSKELETAL: Chest examination reveals no tenderness. The back is symmetrical on inspection without obvious abnormality. There is no CVA tenderness to palpation. Gross deformity of her right hip with external rotation and shortening. Distal PMS is intact. LOWER EXTREMITIES: Subacute hematoma of her left calf. Right calf without edema or discoloration. NEURO: Aphasia at baseline. No focal extremity motor deficits noted within li mited exam in setting of hip fracture, dementia. SKIN: No rash or jaundice noted. Aubrey Scott MD Past Med/Surg History Medical History (Updated 10/23/21 @ 19:34 by Aubrey Scott MD) Atrial flutter with rapid ventricular response Hyperlipidemia Hypertension Hypothyroidism Memory loss Vitamin B12 deficiency Surgical History History of tonsillectomy and adenoidectomy Family History Other Coronary heart disease Hypertension Social History Smoking Status: Never smoker Second Hand Exposure: No; Hx Alcohol Use: No Hx Substance Use: No Preferred Language: Nepali Communication Ability: Unable [employer] Manager Required: No Beliefs That Will Affect Care: None marital status: Current Living Situation: Spouse Current Living Situation Comment: Home w/ current occupational status: retired Feels Safe at Home: Yes Assistive Devices: Walker Allergies Allergies Allergy/AdvReac Type Severity Reaction Status Date / Time No Known Allergies Allergy Verified 10/23/21 16:11 Home Meds Home Medications Medication Instructions Recorded Confirmed aspirin 81 mg tablet,delayed 81 mg PO QAM 10/07/21 10/23/21 release atorvastatin 40 mg tablet 40 mg PO QPM 10/07/21 10/23/21 potassium chloride 10 mEq 10 meq PO QPM 10/07/21 10/23/21 tablet,extended release (Klor-Con) acetaminophen 325 mg tablet 650 mg PO Q6H PRN 10/23/21 10/23/21 (Tylenol) melatonin 3 mg tablet 3 mg PO HS 10/23/21 10/23/21 Previous Rx's Medication Instructions Recorded levothyroxine 75 mcg tablet 75 mcg PO DAILY #90 tab 12/18/20 menthol 0.44 %-zinc oxide 20.6 % 1 applic TOPICAL BID PRN #113 g 12/31/20 topical ointment (Calmoseptine) nystatin 100,000 unit/gram topical 1 applic TOPICAL BID #60 g 12/31/20 powder amlodipine 2.5 mg tablet 2.5 mg PO BID #180 tab 08/12/21 amiodarone 200 mg tablet 200 mg PO QAM 30 Days #30 tab 10/16/21 apixaban 5 mg tablet (Eliquis) 2.5 mg PO BID 30 Days #180 tab 10/16/21 Results & Data (ED) Vital Signs Vital Signs - 24 hr 10/23/21 16:19 10/23/21 17:20 10/23/21 18:17 Temperature 36.6 C Temperature Source Oral Pulse Rate [Right Finger] 78 80 Pulse Rhythm [Right Finger] Regular Pulse Strength [Right Finger] Normal Respiratory Rate 16 16 Respiratory Effort / Characteristics Non-Labored Respiratory Depth Normal Respiratory Pattern Regular Blood Pressure [Right Arm] 120/57 L 112/62 Blood Pressure Mean [Right Arm] 78 78 Pulse Oximetry 95 95 Oxygen Delivery Method Room Air Sepsis Recent Fever Within 48 Hours No Sepsis New/Unexplained Change in Mental Status No Sepsis Action Taken by Nursing No Action Required Laboratory Data Attestation: I reviewed the patient's lab results. Result diagrams: 10/23/21 Unknown 10/23/21 Unknown Lab Results 10/23/21 10/23/21 10/23/21 Range/Units 16:35 16:51 17:10 WBC (4.8-10.8) K/uL RBC (4.2-5.4) M/uL Hgb (12.0-16.0) g/dL Hct (37-47) % MCV (80-100) fL MCH (25-34) pg MCHC (32-36) g/dL RDW Std Deviation (36.4-46.3) fL RDW Coeff of Luis (11.5-14.5) % Plt Count (130-400) K/uL MPV (7.4-10.4) fL Immature Gran % (Auto) % Neut % (Auto) % Lymph % (Auto) % [place] % (Auto) % Eos % (Auto) % Baso % (Auto) % Neut # (Auto) (1.4-6.5) K/uL Lymph # (Auto) (1.2-3.4) K/uL [place] # (Auto) (0.11-0.59) K/uL Eos # (Auto) (0-0.5) K/uL Baso # (Auto) (0-0.2) K/uL Immature Gran # (Auto) (0.00-0.02) K/uL Polychromasia Echinocytes PT (9.0-12.0) Seconds INR (0.9-1.1) APTT (21.0-31.0) Seconds PTT Ratio Sodium (136-145) mmol/L Potassium (3.5-5.1) mmol/L Chloride (98-107) mmol/L Carbon Dioxide (21-32) mmol/L Anion Gap (3-11) BUN (7-18) mg/dl Creatinine (0.6-1.2) mg/dl Est Cr Clr Drug Dosing ml/min Est GFR ( Amer) ml/min Est GFR (Non-Af Amer) ml/min BUN/Creatinine Ratio (10-20) Glucose (70-99) mg/dl Calcium (8.5-10.1) mg/dl Total Bilirubin (0.2-1) mg/dl AST (15-37) U/L ALT (12-78) U/L Alkaline Phosphatase (45-117) U/L Total Protein (6.4-8.2) gm/dl Albumin (3.4-5.0) gm/dl Globulin (2.5-4.0) gm/dl Albumin/Globulin Ratio (0.9-2) Urine Color Dark Yellow Urine Appearance Clear (Clear) Urine pH 5.0 (4.5-7.5) Ur Specific [place] 1.023 (1.000-1.030) Urine Protein Trace H (Negative) Urine Glucose (UA) Negative (Negative) Urine Ketones Negative (Negative) Urine Blood Negative (Negative) Urine Nitrite Negative (Negative) Urine Bilirubin Negative (Negative) Urine Urobilinogen Negative (Negative) Ur Leukocyte Esterase Trace H (Negative) Urine WBC (Auto) 1-5 (0-5) /hpf Urine RBC (Auto) 0-4 (0-4) /hpf U Hyaline Cast (Auto) 1-5 (0-5) /lpf U Epithel Cells (Auto) >30 H (0-5) /lpf Urine Bacteria (Auto) Negative (Negative) SARS-CoV-2, RNA, NAAT NEGATIVE (NEGATIVE) Blood Type O Negative Antibody Screen NEGATIVE 10/23/21 10/23/21 10/23/21 Range/Units Unknown Unknown Unknown WBC 10.56 (4.8-10.8) K/uL RBC 2.59 L (4.2-5.4) M/uL Hgb 7.9 L (12.0-16.0) g/dL Hct 25.2 L (37-47) % MCV 97.3 (80-100) fL MCH 30.5 (25-34) pg MCHC 31.3 L (32-36) g/dL RDW Std Deviation 54.8 H (36.4-46.3) fL RDW Coeff of Luis 15.7 H (11.5-14.5) % Plt Count 280 (130-400) K/uL MPV 10.9 H (7.4-10.4) fL Immature Gran % (Auto) 0.5 % Neut % (Auto) 75.1 % Lymph % (Auto) 12.1 % [place] % (Auto) 10.5 % Eos % (Auto) 1.4 % Baso % (Auto) 0.4 % Neut # (Auto) 7.93 H (1.4-6.5) K/uL Lymph # (Auto) 1.28 (1.2-3.4) K/uL [place] # (Auto) 1.11 H (0.11-0.59) K/uL Eos # (Auto) 0.15 (0-0.5) K/uL Baso # (Auto) 0.04 (0-0.2) K/uL Immature Gran # (Auto) 0.05 H (0.00-0.02) K/uL Polychromasia 1+ Echinocytes 1+ PT 10.3 (9.0-12.0) Seconds INR 1.0 (0.9-1.1) APTT 26.5 (21.0-31.0) Seconds PTT Ratio 1.0 Sodium 140 (136-145) mmol/L Potassium 4.1 (3.5-5.1) mmol/L Chloride 109 H (98-107) mmol/L Carbon Dioxide 29 (21-32) mmol/L Anion Gap 2.0 L (3-11) BUN 45 H (7-18) mg/dl Creatinine 1.48 H (0.6-1.2) mg/dl Est Cr Clr Drug Dosing 22.6 ml/min Est GFR ( Amer) 36.5 ml/min Est GFR (Non-Af Amer) 31.5 ml/min BUN/Creatinine Ratio 30.5 H (10-20) Glucose 131 H (70-99) mg/dl Calcium 8.5 (8.5-10.1) mg/dl Total Bilirubin 1.1 H (0.2-1) mg/dl AST 34 (15-37) U/L ALT 22 (12-78) U/L Alkaline Phosphatase 86 (45-117) U/L Total Protein 6.4 (6.4-8.2) gm/dl Albumin 2.4 L (3.4-5.0) gm/dl Globulin 4.0 (2.5-4.0) gm/dl Albumin/Globulin Ratio 0.6 L (0.9-2) Urine Color Urine Appearance (Clear) Urine pH (4.5-7.5) Ur Specific [place] (1.000-1.030) Urine Protein (Negative) Urine Glucose (UA) (Negative) Urine Ketones (Negative) Urine Blood (Negative) Urine Nitrite (Negative) Urine Bilirubin (Negative) Urine Urobilinogen (Negative) Ur Leukocyte Esterase (Negative) Urine WBC (Auto) (0-5) /hpf Urine RBC (Auto) (0-4) /hpf U Hyaline Cast (Auto) (0-5) /lpf U Epithel Cells (Auto) (0-5) /lpf Urine Bacteria (Auto) (Negative) SARS-CoV-2, RNA, NAAT (NEGATIVE) Blood Type Antibody Screen Administered Medications Sodium Chloride (Nss) 500 mls @ 125 mls/hr IV .Q4H HECTOR Stop: 11/22/21 16:29 Last Admin: 10/23/21 17:02 Dose: 125 mls/hr Documented by: [id number] Morphine Sulfate (Morphine Sulfate 2 Mg/Ml Carp) 1 mg IV Q2H PRN PRN Reason: Moderate Pain (Rating 3,4,5,6) Stop: 11/06/21 16:24 Last Admin: 10/23/21 17:02 Dose: 1 mg Documented by: [id number] Discontinued Medications Acetaminophen (Ofirmev) 1,000 mg in 100 mls @ 400 mls/hr IV NOW STA Stop: 10/23/21 16:39 Last Infusion: 10/23/21 17:53 Dose: 0 mls/hr Documented by: [id number] Admin: 10/23/21 17:01 Dose: 400 mls/hr Documented by: [id number] Imaging Data Radiologist's Impression: Hip/Pelvis X-Ray 10/23/21 16:25 XR hip ANISHA 2v w pelvis CLINICAL HISTORY: pain fall. COMPARISON STUDY: No previous studies for comparison. TECHNIQUE: AP pelvis and both hips each to views FINDINGS: Bones: There is a comminuted, intertrochanteric fracture of the right femoral neck with coxa varus deformity present. The left hip is maintained. The remaining visualized bones of the pelvis are intact. There is no lytic or blastic lesion. Joints: The femoral heads maintain their anatomic position within the acetabula. The remaining bones are in anatomic alignment. Soft tissues: There is no focal soft tissue abnormality. There is no radiopaque foreign body. IMPRESSION: Comminuted, intratrochanteric fracture of the right femoral neck wit h coxa varus deformity present. ACT 112: Negative or not required by law. Electronically signed by: Wil Lanier M.D. 10/23/2021 4:54 PM Tibia/Fibula X-Ray 10/23/21 16:25 XR tibia fibula LT 2V CLINICAL HISTORY: Fall. Left lower leg pain. COMPARISON STUDY: Left tibia/fibula 10/07/2021. FINDINGS: The bones are osteopenic. No acute fracture or dislocation within the left tibia or fibula. Diffuse subcutaneous edema within the left lower leg. Focal round density within the proximal/medial calf measuring 15 cm. This is increased in size and likely represents a soft tissue hematoma. Moderate to severe degenerative changes and chondrocalcinosis within the left knee. IMPRESSION: 1. No fractures within the left lower leg. 2. Focal round density within the proximal/medial calf measuring 15 cm. This is increased in size and likely represents a soft tissue hematoma. ACT 112: Negative or not required by law. Electronically signed by: Miko Isaac M.D. 10/23/2021 4:52 PM Chest X-Ray 10/23/21 16:26 XR chest 1V portable CLINICAL HISTORY: fall. Pain. COMPARISON STUDY: 10/07/2021 TECHNIQUE: 1 view of the chest FINDINGS: Single frontal view of the chest demonstrates the heart to again be enlarged and the aorta to be atherosclerotic and ectatic. The lungs are clear of alveolar opacities. There is no evidence for pleural effusion. There is no evidence for vascular congestion. There is no acute osseous pathology. IMPRESSION: No acute cardiopulmonary disease. ACT 112: Negative or not required by law. Electronically signed by: Wil Lanier M.D. 10/23/2021 4:51 PM Discharge Plan Visit Data Chief Complaint: Hip Pain Stated Complaint: fracture ED Provider: Aubrey Scott Discharge Problem: Closed intertrochanteric fracture of right hip, Hematoma of left lower leg, Dementia, Fall, Anemia Forms Stand Alone Forms: [facility] Prescriptions Prescriptions: No Action levothyroxine 75 mcg tablet 75 mcg PO DAILY Qty: 90 RF: 3 nystatin 100,000 unit/gram powder 1 applic topical BID Qty: 60 RF: 11 Calmoseptine 0.44-20.6 % ointment 1 applic topical BID PRN (Reason: skin irritation) Qty: 113 RF: 11 amlodipine 2.5 mg tablet 2.5 mg PO BID Qty: 180 RF: 3 aspirin 81 mg Tablet,Delayed Release (Dr/Ec) 81 mg PO QAM RF: 0 atorvastatin 40 mg tablet 40 mg PO QPM RF: 0 potassium chloride [Klor-Con 10] 10 mEq tablet extended release 10 meq PO QPM RF: 0 amiodarone 200 mg Tablet 200 mg PO QAM 30 Days Qty: 30 RF: 0 Eliquis 5 mg tablet 2.5 mg PO BID 30 Days Qty: 180 RF: 3 acetaminophen [Tylenol] 325 mg Tablet 650 mg PO Q6H PRN (Reason: TEMP >100/PAIN) RF: 0 melatonin 3 mg Tablet 3 mg PO HS RF: 0 Referrals Referrals: [facility] [Primary Care Provider] - Discharge Problem: Closed intertrochanteric fracture of right hip Qualifiers: Encounter type: initial encounter Fracture alignment: displaced Qualified Code(s): S72.141A - Displaced intertrochanteric fracture of right femur, initial encounter for closed fracture Dementia Qualifiers: Dementia type: unspecified type Dementia behavioral disturbance: without behavioral disturbance Qualified Code(s): F03.90 - Unspecified dementia without behavioral disturbance Fall Qualifiers: Encounter type: initial encounter Qualified Code(s): W19.XXXA - Unspecified fall, initial encounter Anemia Qualifiers: Anemia type: unspecified type Qualified Code(s): D64.9 - Anemia, unspecified
[2021-10-23] MEDS: SODIUM CHLORIDE 0.9% 1000ML 1,000 ML IV SCH (20:37)
--- NOTE | 2021-10-23 20:50 | Orthopedic Consultation ---
Date of Service October 23, 2021 Assessment & Plan (1) Closed intertrochanteric fracture of right hip: Comminuted intertrochanteric fracture of the right hip in an 86-year-old febrile with multiple medical comorbidities including dementia and anticoagulation. I discussed her condition with her power of customer care agent, her daughter, Mariana. She stated that she discussed her condition with the family and they are amenable to surgery if this is the best option. I discussed treatment alternatives. The only alternative surgery is bed rest and the likelihood this will be a nonunion or malunion. This would mean she would not be able to ambulate any longer. I also stated we often offer the surgery even in palliative situations for pain control with transfers and on potential to bear some weight for transfers. I discussed the likelihood of blood loss and potential for perioperative anesthetic complications. We discussed the potential for blood clots, pneumonia, nonunion, malunion, cardiopulmonary complications from fracture surgery, symptomatic hardware, potential for further surgery, and complications related to anesthesia. She asked appropriate questions, demonstrate good understanding of the diagnosis and treatment options, and at this time expressed desire to proceed with surgery. She also states that Raquel was a patient of Dr. Daniel Adrian for her total knee replacement. I let her know that we will contact [facility] to check on their availability. She is agreeable to proceed with surgery with either [facility] or [facility] orthopedics. We will proceed with surgical planning for right hip trochanteric fixation nail as soon as tomorrow, pending medical optimization. History of Present Illness Reason for Consultation: Right hip fracture Requesting Physician: . Attending Physician: Pili Scanlon MD 86-year-old female in recent poor health due to delirium with a past medical history significant for dementia, stroke, atrial flutter requiring anticoagulation, aphasia, chronic kidney disease was readmitted this evening for discovered hip pain and the diagnosis in the ER of an intertrochanteric fracture. She is unable to provide history due to stroke and aphasia. History was obtained through the medical record and speaking with her daughter Mariana this evening. There is a questionable history of a fall potentially 4 days ago. She has not been ambulatory since her last admission in mid September for delirium and UTI. She did have a hematoma complication on her calf that has been improving. She has been [facility] [place] [facility] and her daughter reports that she has not been ambulatory in the past few weeks. Prior to the admission in September, she was independently ambulatory and perform stairs without assist devices. Her daughter stated the family's goal is to keep her comfortable. They would like the fracture to be treated appropriately despite the DNR designation. They would like to see her to be comfortable for transfers and ambulation if she is well enough. Allergies Allergy/AdvReac Type Severity Reaction Status Date / Time No Known Allergies Allergy Verified 10/23/21 16:11 Home Medications Medication Instructions Recorded Confirmed Type levothyroxine 75 mcg tablet 75 mcg PO DAILY #90 tab 12/18/20 10/23/21 Rx menthol 0.44 %-zinc oxide 20.6 % 1 applic TOPICAL BID PRN #113 g 12/31/20 10/23/21 Rx topical ointment (Calmoseptine) nystatin 100,000 unit/gram topical 1 applic TOPICAL BID #60 g 12/31/20 10/23/21 Rx powder amlodipine 2.5 mg tablet 2.5 mg PO BID #180 tab 08/12/21 10/23/21 Rx aspirin 81 mg tablet,delayed 81 mg PO QAM 10/07/21 10/23/21 History release atorvastatin 40 mg tablet 40 mg PO QPM 10/07/21 10/23/21 History potassium chloride 10 mEq 10 meq PO QPM 10/07/21 10/23/21 History tablet,extended release (Klor-Con) amiodarone 200 mg tablet 200 mg PO QAM 30 Days #30 tab 10/16/21 10/23/21 Rx apixaban 5 mg tablet (Eliquis) 2.5 mg PO BID 30 Days #180 tab 10/16/21 10/23/21 Rx acetaminophen 325 mg tablet 650 mg PO Q6H PRN 10/23/21 10/23/21 History (Tylenol) melatonin 3 mg tablet 3 mg PO HS 10/23/21 10/23/21 History Past Med/Surg History Medical History Atrial flutter with rapid ventricular response Hyperlipidemia Hypertension Hypothyroidism Memory loss Vitamin B12 deficiency Surgical History History of tonsillectomy and adenoidectomy Family History Other Coronary heart disease Hypertension Social History Smoking Status: Never smoker Second Hand Exposure: No; Hx Alcohol Use: No Hx Substance Use: No Preferred Language: Guamanian Communication Ability: Unable Landscape Specialist Required: No Beliefs That Will Affect Care: None marital status: Current Living Situation: Spouse Current Living Situation Comment: Home w/ current occupational status: retired Feels Safe at Home: Yes Assistive Devices: Walker Review of Systems All systems reviewed & are unremarkable except as noted in HPI & below. Physical Exam General: She is mostly uncooperative. She pulls the covers up over her face and wishes not to discuss. Right lower extremity: There is no significant ecchymosis nor skin compromise about the right hip. She appears to be neurovascularly intact with motor to dorsiflexion, plantarflexion, EHL. Palpable DP pulse. Left lower extremity: There is a improved appearance to the medial calf hematoma. There is no evidence for skin compromise. Motor intact on observation. Palpable DP pulse. Constitutional no acute distress and not intoxicated appearing Respiratory normal respiratory effort; no respiratory distress Cardiovascular Extremities: normal capillary refill; no edema Skin no rashes, warm and dry Psychiatric Orientation: alert; + not oriented to place and + not oriented to time Results & Data Results & Data Laboratory Results . Diagnostic Findings Radiographs included multiple views of the pelvis and right hip. These x-rays demonstrate a comminuted fracture of the intertrochanteric region. There are several centimeters of subtrochanteric extension. PG Care Time/CCT Total # of Minutes Spent Total Time Spent with Patient: Total time spent is greater than 50% in coordination of care (as documented) at patient's floor/unit and/or counseling patient: Coding Level of Care Code 07806 Inpt Consult Level 4 Diagnoses Closed intertrochanteric fracture of right hip S72.141A Encounter type: initial encounter Fracture alignment: displaced (1) Closed intertrochanteric fracture of right hip Encounter type: initial encounter Fracture alignment: displaced Qualified Code(s): S72.141A - Displaced intertrochanteric fracture of right femur, initial encounter for closed fracture
[2021-10-23] MEDS: amLODIPine BESYLATE 5 MG TAB PO SCH (21:20)
[2021-10-23] MEDS ORDERED: INFLUENZA VACCINE HIGH DOSE PF 65+ 0.7 ML SYR IM ONE (23:17)
[2021-10-23] MEDS ORDERED: PNEUMOCOCCAL POLYSACCHARIDES 25 MCG/0.5 ML VIAL/SYR IM ONE (23:17)
[2021-10-24] MEDS ORDERED: ceFAZolin 2000MG 2,000 MG/15 ML SYR IV SCH (06:00)
[2021-10-24] MEDS ORDERED: TRANEXAMIC ACID / 0.7% NACL 1,000 MG/100 ML BAG IV SCH ×2 (06:00→06:30)
[2021-10-24] MEDS: SODIUM CHLORIDE 0.9% 1000ML 1,000 ML IV SCH ×2 (06:15→18:34)
[2021-10-24 06:35] LABS: Hematocrit (blood only) 21.3 % (37-47); Hemoglobin 6.8 g/dL (12.0-16.0); Mean Corpuscular Hemoglobin 31.1 pg (25-34); Mean Corpuscular Hgb Conc 31.9 g/dL (32-36); Mean Corpuscular Volume 97.3 fL (80-100); Mean Platelet Volume 9.8 fL (7.4-10.4); Platelet Count 287 K/uL (130-400); RDW Coefficient of Variation 15.7 % (11.5-14.5); RDW Standard Deviation 55.6 fL (36.4-46.3); Red Blood Count 2.19 M/uL (4.2-5.4); White Blood Count 7.74 K/uL (4.8-10.8)
[2021-10-24 06:55] LABS: Acanthocytes 1+; Basophils # (auto) 0.05 K/uL (0-0.2); Basophils % (auto) 0.6 %; Eosinophils # (auto) 0.32 K/uL (0-0.5); Eosinophils % (auto) 4.1 %; Immature Granulocytes # (auto) 0.03 K/uL (0.00-0.02); Immature Granulocytes % (auto) 0.4 %; Lymphocytes # (auto) 1.19 K/uL (1.2-3.4); Lymphocytes % (auto) 15.4 %; Monocytes % (auto) 10.3 %; Neutrophils # (auto) 5.35 K/uL (1.4-6.5); Neutrophils % (auto) 69.2 %
[2021-10-24 06:56] LABS: BUN Creatinine Ratio 32.2 (10-20); Calcium 8.1 mg/dl (8.5-10.1); Creatinine Clr Calc Pharmacy 30.1 ml/min; Est GFR (African American) 54.1 ml/min; Est GFR (Non-African American) 46.6 ml/min
[2021-10-24] MEDS ORDERED: SODIUM CHLORIDE 0.9% 250 ML IV PRN (07:01)
[2021-10-24] MEDS: LEVOTHYROXINE SODIUM 75 MCG TABLET PO SCH (07:08)
[2021-10-24] MEDS: amLODIPine BESYLATE 5 MG TAB PO SCH ×2 (07:53→21:53)
[2021-10-24] MEDS: AMIODARONE 200 MG TAB PO SCH (07:53)
--- NOTE | 2021-10-24 08:02 | Orthopedic Progress Note ---
Date of Service October 24, 2021 Assessment & Plan Admission and Anticipated Discharge Date Admission Date: October 23, 2021 Subjective I spoke with Dr. Lee about this patient last night and this morning. Her family has a preference that someone from [facility] does her surgery. I spoke with her daughter, Fidelina, this morning, to confirm this, and saw and examined the patient. Difficult for her to follow commands and communicate as a result of her aphasia and dementia, but she appears comfortable in bed. Her RLE is shortened and externally rotated. Palpable pulses. She was not able to wiggle her toes or dorsi and plantarflex her foot for me. However, she has palpable dorsalis pedis and posterior tibial pulses. Skin overlying the R hip is intact. Hemoglobin dropped overnight to 6.9. 2 units PRBC's have been ordered and will be transfused this AM. I marked her surgical site. She has been NPO since midnight. I reviewed risks/benefits of the surgery with her Daughter Fidelina. She would like to proceed. Will plan on taking patient to the operating room this afternoon for a long IM nail. May need to have the hospital metal coater operator do a recorded verbal consent with her daughter. Will try to coordinate this with anesthesia. Results & Data ([facility]) Vital Signs (Past 12 Hours) Vital Signs Temp Pulse Pulse Resp BP BP Pulse Ox 10/24/21 07:26 36.8 C 75 18 112/61 90 10/24/21 04:25 36.7 C 78 16 106/48 L 94 10/23/21 21:16 76 105/63 10/23/21 20:10 36.5 C 83 16 128/63 94
--- NOTE | 2021-10-24 08:51 | Electrocardiogram Report ---
Test Reason : Blood Pressure : / mmHG Vent. Rate : 085 BPM Atrial Rate : 085 BPM P-R Int : 174 ms QRS Dur : 088 ms QT Int : 420 ms P-R-T Axes : 061 090 051 degrees QTc Int : 499 ms Poor data quality, interpretation may be adversely affected Normal sinus rhythm Rightward axis Prolonged QT Abnormal ECG When compared with ECG of 14-OCT-2021 11:23, (unconfirmed) QT has lengthened Confirmed by Jensen Gonzalez ([id number]) on 10/24/2021 8:51:26 AM Referred By: [facility] [place] Confirmed By:Khadar Gonzalez
--- NOTE | 2021-10-24 13:04 | Hospitalist Progress Note ---
Date of Service October 24, 2021 Assessment & Plan (1) Hip fracture: Plan: Pt is an 86 yo female with a h/o a-flutter on Eliquis, dementia, CVA with aphasia, CKD stage 3,hypothyroidism, HTN, here with right hip fracture after having a fall out of her bed a few days ago. Pt unable to give any history. Plan for OR for surgical repair today -pain control with morphine SCDs for prophylaxis and eventually restart ELiquis -bowel regimen follow CBC, BMP in AM Appreciate Ortho consult (2) Dementia: Plan: severe, with aphasia due to CVA 04/2020 supporitve care (3) Fall: Plan: as above (4) Anemia: Plan: Chronic anemia plus acute blood loss anemia from previous hematoma and some from current fracture-hold ELiquis -transfuse 2 units PRBCs today for further drop in hgb to 6.9 follow H/H today at 1300 prior to surgery and CBC in AM (5) Hematoma of left lower leg: Plan: stable (6) Chronic kidney disease, stage III (moderate): Plan: Had WILMER on CKD 3 and now resolved with IVFs -Avoid nephrotoxins -renally dose meds when appropriate -follow BMP (7) Atrial flutter: Plan: rate controlled, in paced rhtyhm here hold eliquis continue amiodarone (8) Hypothyroidism: Plan: continue LT4 (9) Hypertension: Plan: controlled continue amlodipine (10) Hyperlipidemia: Plan: continue statin (11) Aphasia: Plan: as renee, 2/2 CVA old (12) Stroke: Plan: CVA 04/2020 with exp aphasia continue ELiquis once cleared from surgery continue statin (13) Osteoporosis: Plan: Vit D severely low at 12 here with pathologic fracture from fall from seated position start Vit D, calcium consider outpt bisphosphonate , FOrteo, Prolia Plan: DVT Proph-SCDs, eventually restart ELiquis Dispo-continue dstay med/surg Admission and Anticipated Discharge Date Admission Date: October 23, 2021 Subjective Pt much more talkative today but nonsensical. Tries to show me that sh ehas pain with trying to move her RLE. Does not appear in distress getting PRBC transfusion Review of Systems Review of Systems: All systems reviewed & are unremarkable except as noted in HPI & below Physical Exam Constitutional: WD/WN, vitals as above Neck: trachea midline, no thyromegaly Respiratory: normal respiratory effort, lungs clear to auscultation Cardiovascular: RRR, no murmur, no edema Chest (Breasts): Chest: normal inspection of chest Gastrointestinal (Abdomen): normal bowel sounds, soft, nontender, no hepatosplenomegaly Musculoskeletal: Extremities: + extremities abnormal to inspection (left calf hematoma), no cyanosis and no clubbing Skin: no rashes, warm and dry Neurologic: moves all extremities and awake; no focal motor deficits Speech / Cognition: + expressive aphasia Psychiatric: Orientation: alert and cooperative Results & Data Results & Data ([facility]) Vital Signs (Past 12 Hours) Vital Signs Temp Pulse Pulse Pulse Resp BP BP 10/24/21 12:57 36.7 C 79 16 125/63 10/24/21 12:37 36.5 C 81 16 135/62 10/24/21 12:19 36.7 C 82 16 129/72 10/24/21 11:47 36.6 C 79 18 123/64 10/24/21 10:47 36.5 C 83 18 129/66 10/24/21 09:47 36.3 C L 76 16 118/65 10/24/21 09:17 37 C 72 18 118/54 L 10/24/21 09:02 36.3 C L 72 18 125/63 10/24/21 08:46 36.6 C 76 18 121/63 10/24/21 07:26 36.8 C 75 18 10/24/21 04:25 36.7 C 78 16 106/48 L BP Pulse Ox 10/24/21 12:57 94 10/24/21 12:37 93 10/24/21 12:19 94 10/24/21 11:47 93 10/24/21 10:47 92 10/24/21 09:47 93 10/24/21 09:17 92 10/24/21 09:02 92 10/24/21 08:46 92 10/24/21 07:26 112/61 90 10/24/21 04:25 94 Laboratory Results 10/24/21 10/24/21 10/24/21 Range/Units 07:24 06:00 06:00 WBC (4.8-10.8) K/uL RBC (4.2-5.4) M/uL Hgb (12.0-16.0) g/dL Hct (37-47) % MCV (80-100) fL MCH (25-34) pg MCHC (32-36) g/dL RDW Std Deviation (36.4-46.3) fL RDW Coeff of Luis (11.5-14.5) % Plt Count (130-400) K/uL MPV (7.4-10.4) fL Immature Gran % (Auto) % Neut % (Auto) % Lymph % (Auto) % [place] % (Auto) % Eos % (Auto) % Baso % (Auto) % Neut # (Auto) (1.4-6.5) K/uL Lymph # (Auto) (1.2-3.4) K/uL [place] # (Auto) (0.11-0.59) K/uL Eos # (Auto) (0-0.5) K/uL Baso # (Auto) (0-0.2) K/uL Immature Gran # (Auto) (0.00-0.02) K/uL Polychromasia Echinocytes Acanthocytes (Spur) PT (9.0-12.0) Seconds INR (0.9-1.1) APTT (21.0-31.0) Seconds PTT Ratio Sodium 143 (136-145) mmol/L Potassium 4.0 (3.5-5.1) mmol/L Chloride 114 H (98-107) mmol/L Carbon Dioxide 28 (21-32) mmol/L Anion Gap 1.0 L (3-11) BUN 34 H (7-18) mg/dl Creatinine 1.07 (0.6-1.2) mg/dl Est Cr Clr Drug Dosing 30.1 ml/min Est GFR ( Amer) 54.1 ml/min Est GFR (Non-Af Amer) 46.6 ml/min BUN/Creatinine Ratio 32.2 H (10-20) Glucose 100 H (70-99) mg/dl Calcium 8.1 L (8.5-10.1) mg/dl Total Bilirubin (0.2-1) mg/dl AST (15-37) U/L ALT (12-78) U/L Alkaline Phosphatase (45-117) U/L Total Protein (6.4-8.2) gm/dl Albumin (3.4-5.0) gm/dl Globulin (2.5-4.0) gm/dl Albumin/Globulin Ratio (0.9-2) 25-OH Vitamin D Total 12.6 L (30-100) ng/ml Urine Color Urine Appearance (Clear) Urine pH (4.5-7.5) Ur Specific [place] (1.000-1.030) Urine Protein (Negative) Urine Glucose (UA) (Negative) Urine Ketones (Negative) Urine Blood (Negative) Urine Nitrite (Negative) Urine Bilirubin (Negative) Urine Urobilinogen (Negative) Ur Leukocyte Esterase (Negative) Urine WBC (Auto) (0-5) /hpf Urine RBC (Auto) (0-4) /hpf U Hyaline Cast (Auto) (0-5) /lpf U Epithel Cells (Auto) (0-5) /lpf Urine Bacteria (Auto) (Negative) Nasal Screen MRSA (PCR) (Negative) SARS-CoV-2, RNA, NAAT (NEGATIVE) Blood Type Blood Type Recheck O Negative Antibody Screen Crossmatch 10/24/21 10/24/21 10/23/21 Range/Units 06:00 02:50 Unknown WBC 7.74 (4.8-10.8) K/uL RBC 2.19 L (4.2-5.4) M/uL Hgb 6.8 L* (12.0-16.0) g/dL Hct 21.3 L (37-47) % MCV 97.3 (80-100) fL MCH 31.1 (25-34) pg MCHC 31.9 L (32-36) g/dL RDW Std Deviation 55.6 H (36.4-46.3) fL RDW Coeff of Luis 15.7 H (11.5-14.5) % Plt Count 287 (130-400) K/uL MPV 9.8 (7.4-10.4) fL Immature Gran % (Auto) 0.4 % Neut % (Auto) 69.2 % Lymph % (Auto) 15.4 % [place] % (Auto) 10.3 % Eos % (Auto) 4.1 % Baso % (Auto) 0.6 % Neut # (Auto) 5.35 (1.4-6.5) K/uL Lymph # (Auto) 1.19 L (1.2-3.4) K/uL [place] # (Auto) 0.80 H (0.11-0.59) K/uL Eos # (Auto) 0.32 (0-0.5) K/uL Baso # (Auto) 0.05 (0-0.2) K/uL Immature Gran # (Auto) 0.03 H (0.00-0.02) K/uL Polychromasia Echinocytes Acanthocytes (Spur) 1+ PT (9.0-12.0) Seconds INR (0.9-1.1) APTT (21.0-31.0) Seconds PTT Ratio Sodium 140 (136-145) mmol/L Potassium 4.1 (3.5-5.1) mmol/L Chloride 109 H (98-107) mmol/L Carbon Dioxide 29 (21-32) mmol/L Anion Gap 2.0 L (3-11) BUN 45 H (7-18) mg/dl Creatinine 1.48 H (0.6-1.2) mg/dl Est Cr Clr Drug Dosing 22.6 ml/min Est GFR ( Amer) 36.5 ml/min Est GFR (Non-Af Amer) 31.5 ml/min BUN/Creatinine Ratio 30.5 H (10-20) Glucose 131 H (70-99) mg/dl Calcium 8.5 (8.5-10.1) mg/dl Total Bilirubin 1.1 H (0.2-1) mg/dl AST 34 (15-37) U/L ALT 22 (12-78) U/L Alkaline Phosphatase 86 (45-117) U/L Total Protein 6.4 (6.4-8.2) gm/dl Albumin 2.4 L (3.4-5.0) gm/dl Globulin 4.0 (2.5-4.0) gm/dl Albumin/Globulin Ratio 0.6 L (0.9-2) 25-OH Vitamin D Total (30-100) ng/ml Urine Color Urine Appearance (Clear) Urine pH (4.5-7.5) Ur Specific [place] (1.000-1.030) Urine Protein (Negative) Urine Glucose (UA) (Negative) Urine Ketones (Negative) Urine Blood (Negative) Urine Nitrite (Negative) Urine Bilirubin (Negative) Urine Urobilinogen (Negative) Ur Leukocyte Esterase (Negative) Urine WBC (Auto) (0-5) /hpf Urine RBC (Auto) (0-4) /hpf U Hyaline Cast (Auto) (0-5) /lpf U Epithel Cells (Auto) (0-5) /lpf Urine Bacteria (Auto) (Negative) Nasal Screen MRSA (PCR) Negative (Negative) SARS-CoV-2, RNA, NAAT (NEGATIVE) Blood Type Blood Type Recheck Antibody Screen Crossmatch 10/23/21 10/23/21 10/23/21 Range/Units Unknown Unknown 17:10 WBC 10.56 (4.8-10.8) K/uL RBC 2.59 L (4.2-5.4) M/uL Hgb 7.9 L (12.0-16.0) g/dL Hct 25.2 L (37-47) % MCV 97.3 (80-100) fL MCH 30.5 (25-34) pg MCHC 31.3 L (32-36) g/dL RDW Std Deviation 54.8 H (36.4-46.3) fL RDW Coeff of Luis 15.7 H (11.5-14.5) % Plt Count 280 (130-400) K/uL MPV 10.9 H (7.4-10.4) fL Immature Gran % (Auto) 0.5 % Neut % (Auto) 75.1 % Lymph % (Auto) 12.1 % [place] % (Auto) 10.5 % Eos % (Auto) 1.4 % Baso % (Auto) 0.4 % Neut # (Auto) 7.93 H (1.4-6.5) K/uL Lymph # (Auto) 1.28 (1.2-3.4) K/uL [place] # (Auto) 1.11 H (0.11-0.59) K/uL Eos # (Auto) 0.15 (0-0.5) K/uL Baso # (Auto) 0.04 (0-0.2) K/uL Immature Gran # (Auto) 0.05 H (0.00-0.02) K/uL Polychromasia 1+ Echinocytes 1+ Acanthocytes (Spur) PT 10.3 (9.0-12.0) Seconds INR 1.0 (0.9-1.1) APTT 26.5 (21.0-31.0) Seconds PTT Ratio 1.0 Sodium (136-145) mmol/L Potassium (3.5-5.1) mmol/L Chloride (98-107) mmol/L Carbon Dioxide (21-32) mmol/L Anion Gap (3-11) BUN (7-18) mg/dl Creatinine (0.6-1.2) mg/dl Est Cr Clr Drug Dosing ml/min Est GFR ( Amer) ml/min Est GFR (Non-Af Amer) ml/min BUN/Creatinine Ratio (10-20) Glucose (70-99) mg/dl Calcium (8.5-10.1) mg/dl Total Bilirubin (0.2-1) mg/dl AST (15-37) U/L ALT (12-78) U/L Alkaline Phosphatase (45-117) U/L Total Protein (6.4-8.2) gm/dl Albumin (3.4-5.0) gm/dl Globulin (2.5-4.0) gm/dl Albumin/Globulin Ratio (0.9-2) 25-OH Vitamin D Total (30-100) ng/ml Urine Color Urine Appearance (Clear) Urine pH (4.5-7.5) Ur Specific [place] (1.000-1.030) Urine Protein (Negative) Urine Glucose (UA) (Negative) Urine Ketones (Negative) Urine Blood (Negative) Urine Nitrite (Negative) Urine Bilirubin (Negative) Urine Urobilinogen (Negative) Ur Leukocyte Esterase (Negative) Urine WBC (Auto) (0-5) /hpf Urine RBC (Auto) (0-4) /hpf U Hyaline Cast (Auto) (0-5) /lpf U Epithel Cells (Auto) (0-5) /lpf Urine Bacteria (Auto) (Negative) Nasal Screen MRSA (PCR) (Negative) SARS-CoV-2, RNA, NAAT NEGATIVE (NEGATIVE) Blood Type Blood Type Recheck Antibody Screen Crossmatch 10/23/21 10/23/21 Range/Units 16:51 16:35 WBC (4.8-10.8) K/uL RBC (4.2-5.4) M/uL Hgb (12.0-16.0) g/dL Hct (37-47) % MCV (80-100) fL MCH (25-34) pg MCHC (32-36) g/dL RDW Std Deviation (36.4-46.3) fL RDW Coeff of Luis (11.5-14.5) % Plt Count (130-400) K/uL MPV (7.4-10.4) fL Immature Gran % (Auto) % Neut % (Auto) % Lymph % (Auto) % [place] % (Auto) % Eos % (Auto) % Baso % (Auto) % Neut # (Auto) (1.4-6.5) K/uL Lymph # (Auto) (1.2-3.4) K/uL [place] # (Auto) (0.11-0.59) K/uL Eos # (Auto) (0-0.5) K/uL Baso # (Auto) (0-0.2) K/uL Immature Gran # (Auto) (0.00-0.02) K/uL Polychromasia Echinocytes Acanthocytes (Spur) PT (9.0-12.0) Seconds INR (0.9-1.1) APTT (21.0-31.0) Seconds PTT Ratio Sodium (136-145) mmol/L Potassium (3.5-5.1) mmol/L Chloride (98-107) mmol/L Carbon Dioxide (21-32) mmol/L Anion Gap (3-11) BUN (7-18) mg/dl Creatinine (0.6-1.2) mg/dl Est Cr Clr Drug Dosing ml/min Est GFR ( Amer) ml/min Est GFR (Non-Af Amer) ml/min BUN/Creatinine Ratio (10-20) Glucose (70-99) mg/dl Calcium (8.5-10.1) mg/dl Total Bilirubin (0.2-1) mg/dl AST (15-37) U/L ALT (12-78) U/L Alkaline Phosphatase (45-117) U/L Total Protein (6.4-8.2) gm/dl Albumin (3.4-5.0) gm/dl Globulin (2.5-4.0) gm/dl Albumin/Globulin Ratio (0.9-2) 25-OH Vitamin D Total (30-100) ng/ml Urine Color Dark Yellow Urine Appearance Clear (Clear) Urine pH 5.0 (4.5-7.5) Ur Specific [place] 1.023 (1.000-1.030) Urine Protein Trace H (Negative) Urine Glucose (UA) Negative (Negative) Urine Ketones Negative (Negative) Urine Blood Negative (Negative) Urine Nitrite Negative (Negative) Urine Bilirubin Negative (Negative) Urine Urobilinogen Negative (Negative) Ur Leukocyte Esterase Trace H (Negative) Urine WBC (Auto) 1-5 (0-5) /hpf Urine RBC (Auto) 0-4 (0-4) /hpf U Hyaline Cast (Auto) 1-5 (0-5) /lpf U Epithel Cells (Auto) >30 H (0-5) /lpf Urine Bacteria (Auto) Negative (Negative) Nasal Screen MRSA (PCR) (Negative) SARS-CoV-2, RNA, NAAT (NEGATIVE) Blood Type O Negative Blood Type Recheck Antibody Screen NEGATIVE Crossmatch See Detail PG Care Time/CCT Total # of Minutes Spent Total Time Spent with Patient: Total time spent is greater than 50% in coordination of care (as documented) at patient's floor/unit and/or counseling patient: Coding Level of Care Code 14629 Subseq Hosp Care Lvl 3 Diagnoses Hip fracture S72.009A Dementia F03.90 Dementia behavioral disturbance: without behavioral disturbance Dementia type: unspecified type Fall W19.XXXA Encounter type: initial encounter Anemia D64.9 Anemia type: unspecified type Hematoma of left lower leg S80.12XA Chronic kidney disease, stage III (moderate) N18.30 Atrial flutter I48.92 Hypothyroidism E03.9 Hypertension I10 Hyperlipidemia E78.5 Aphasia R47.01 Stroke I63.9 Osteoporosis M81.0 (1) Dementia Dementia behavioral disturbance: without behavioral disturbance Dementia type: unspecified type Qualified Code(s): F03.90 - Unspecified dementia without behavioral disturbance (2) Fall Encounter type: initial encounter Qualified Code(s): W19.XXXA - Unspecified fall, initial encounter (3) Anemia Anemia type: unspecified type Qualified Code(s): D64.9 - Anemia, unspecified
[2021-10-24 13:39] LABS: Hematocrit (blood only) 28.3 % (37-47)
[2021-10-24] MEDS ORDERED: HYDROmorphone INJ 2 MG/ML SYR/VIAL IV PRN (14:20)
[2021-10-24] MEDS ORDERED: ePHEDrine sulfate 50 MG/ML AMP IV PRN (14:20)
[2021-10-24] MEDS ORDERED: fentaNYL citrate 100 MCG/2 ML VIAL ONE (14:20)
[2021-10-24] MEDS ORDERED: ATROPINE SULFATE 0.1 MG/ML 10ML SYR IV PRN (14:20)
[2021-10-24] MEDS ORDERED: PROPOFOL IV EMULSION 10 MG/ML 20 ML VIAL IV ONE (14:20)
[2021-10-24] MEDS ORDERED: fentaNYL citrate 100 MCG/2 ML VIAL IV PRN (14:20)
[2021-10-24] MEDS ORDERED: LIDOCAINE 2% 2 ML VIAL/AMP(20MG/ML) INFIL ONE (14:20)
[2021-10-24] MEDS ORDERED: ONDANSETRON INJ 2 MG/ML 2 ML VIAL ONE (14:20)
[2021-10-24] MEDS ORDERED: ROCURONIUM BROMIDE 10 MG/ML 5 ML VIAL IV ONE (14:20)
[2021-10-24] MEDS ORDERED: ONDANSETRON INJ 2 MG/ML 2 ML VIAL IV PRN (14:20)
--- NOTE | 2021-10-24 14:20 | Anesthesiology Consultation ---
Date of Service October 24, 2021 Assessment & Plan ASA ASA3 Proposed Anesthesia Anesthesia Type: General Risk / Benefits Reviewed With: PT / POA / Parent / Guardian, Accepts Plan and Informed Consent Obtained History Surgery Operation Date: 10/24/21 07:00 Proposed Procedures p Trochanteric Nail Long Right - José Manuel Douglas MD Height/Weight Height: 5 ft Weight: 60.5 kg Allergies Allergy/AdvReac Type Severity Reaction Status Date / Time No Known Allergies Allergy Verified 10/23/21 16:11 Medications Home Medications Medication Instructions Recorded Confirmed Last Taken levothyroxine 75 mcg tablet 75 mcg PO DAILY #90 tab 12/18/20 10/23/21 10/23/21 menthol 0.44 %-zinc oxide 20.6 % 1 applic TOPICAL BID PRN #113 g 12/31/20 10/23/21 Unknown topical ointment (Calmoseptine) nystatin 100,000 unit/gram topical 1 applic TOPICAL BID #60 g 12/31/20 10/23/21 10/23/21 08:00 powder amlodipine 2.5 mg tablet 2.5 mg PO BID #180 tab 08/12/21 10/23/21 10/23/21 08:30 aspirin 81 mg tablet,delayed 81 mg PO QAM 10/07/21 10/23/21 10/23/21 release atorvastatin 40 mg tablet 40 mg PO QPM 10/07/21 10/23/21 10/22/21 potassium chloride 10 mEq 10 meq PO QPM 10/07/21 10/23/21 10/22/21 tablet,extended release (Klor-Con) amiodarone 200 mg tablet 200 mg PO QAM 30 Days #30 tab 10/16/21 10/23/21 1 12/24/20 apixaban 5 mg tablet (Eliquis) 2.5 mg PO BID 30 Days #180 tab 10/16/21 10/23/21 10/23/21 08:30 acetaminophen 325 mg tablet 650 mg PO Q6H PRN 10/23/21 10/23/21 10/23/21 09:36 (Tylenol) melatonin 3 mg tablet 3 mg PO HS 10/23/21 10/23/21 10/22/21 Active Medications Generic Name Dose Route Start Last Admin Trade Name Freq PRN Reason Stop Dose Admin Amiodarone HCl 200 mg 10/24/21 09:00 10/24/21 07:53 Amiodarone 200 Mg Tab PO 11/23/21 08:59 200 mg QAM HECTOR Administration Amlodipine Besylate 2.5 mg 10/23/21 21:00 10/24/21 07:53 Amlodipine Besylate 5 Mg Tab PO 11/22/21 20:59 2.5 mg BID HECTOR Administration Sodium Chloride 1,000 mls @ 75 mls/hr 10/23/21 20:09 10/24/21 08:47 Nss 1000ml IV 11/22/21 20:08 0 mls/hr .[id number] HECTOR Infusion Levothyroxine Sodium 75 mcg 10/24/21 06:30 10/24/21 07:08 Levothyroxine Sodium 75 Mcg Tablet PO 11/23/21 06:29 75 mcg DAILYBB HECTOR Administration NPO Date Last Intake of Fluids: 10/23/21 Time Last Intake of Fluids: 19:00 Last Intake of Fluids Comment: 10/24/98 Date Last Intake of Solids: 10/23/21 Time Last Intake of Solids: 18:00 Past Medical History Medical History (Updated 10/24/21 @ 12:09 by Miko Flores MD) Anemia Atrial flutter with rapid ventricular response Closed intertrochanteric fracture of right hip Dementia Esophageal dysmotility Hyperlipidemia Hypertension Hypothyroidism Memory loss Stroke April 2020 Vitamin B12 deficiency Exercise / Class Metabolic Activity II 4-5 Yardwork/Stairs/Walk up hill Past Family History Family History Other Coronary heart disease Hypertension Past Surgical History Surgical History History of tonsillectomy and adenoidectomy Past Anesthesia History No Hx of Anesthesia Complications and No Family Hx of Anesthesia Complications History of PONV No Hx of PONV and No Hx of Motion Sickness Social History Smoking Status: Unknown if ever smoked Hx Alcohol Use: No Hx Substance Use: No substance use type: prescription drug Review of Systems denies fever/cough/ colds/ chest pain/ SOB/ JESSICA denies JESSICA Physical Exam Vital Signs Last Vital Signs Temp 36.8 C 10/24/21 13:40 Pulse 79 10/24/21 14:10 Resp 18 10/24/21 14:10 BP 137/69 10/24/21 14:10 Pulse Ox 95 10/24/21 14:10 ENMT Mouth: no TMJ abnormality and no dentition abnormality Thyromental Distance: > or= 3.5 Finger Breadths Mallampati Class: Other (pt not cooperative with exam) Neck neck extension not limited Respiratory normal respiratory effort; no respiratory distress Auscultation: lungs clear to auscultation bilaterally Cardiovascular Rate/Rhythm: regular rate and regular rhythm Neurologic moves all extremities Psychiatric Orientation: alert and oriented x 3 Testing Laboratory Results 10/24/21 13:08 10/24/21 06:00 PT 10.3 Seconds (9.0-12.0) 10/23/21 Unknown INR 1.0 (0.9-1.1) 10/23/21 Unknown APTT 26.5 Seconds (21.0-31.0) 10/23/21 Unknown Urine Color Dark Yellow 10/23/21 16:35 Urine Appearance Clear (Clear) 10/23/21 16:35 Urine pH 5.0 (4.5-7.5) 10/23/21 16:35 Ur Specific [place] 1.023 (1.000-1.030) 10/23/21 16:35 Urine Protein Trace (Negative) H 10/23/21 16:35 Urine Glucose (UA) Negative (Negative) 10/23/21 16:35 Urine Ketones Negative (Negative) 10/23/21 16:35 Urine Nitrite Negative (Negative) 10/23/21 16:35 Ur Leukocyte Esterase Trace (Negative) H 10/23/21 16:35 Urine WBC (Auto) 1-5 /hpf (0-5) 10/23/21 16:35 Urine RBC (Auto) 0-4 /hpf (0-4) 10/23/21 16:35 U Hyaline Cast (Auto) 1-5 /lpf (0-5) 10/23/21 16:35 U Epithel Cells (Auto) >30 /lpf (0-5) H 10/23/21 16:35 Urine Bacteria (Auto) Negative (Negative) 10/23/21 16:35 Blood Type O Negative 10/23/21 16:51 Antibody Screen NEGATIVE 10/23/21 16:51
[2021-10-24] MEDS ORDERED: BUPIVACAINE 0.5 % 5 MG/1 ML MPF 30ML VIAL ONE (14:35)
[2021-10-24] MEDS ORDERED: PHENYLEPHRINE 100MCG/ML 5ML SYR ONE (14:51)
[2021-10-24] MEDS ORDERED: ePHEDrine sulfate 50 MG/ML SYR ONE (16:15)
--- NOTE | 2021-10-24 16:33 | Post Operative Brief Note ---
Immediate Post Op Note v1 Date of Surgery October 24, 2021 Pre & Post Diagnosis Operation Date: 10/24/21 07:00 Pre-Op Diagnosis: Right intertrochanteric femur fracture Post-Op Diagnosis: Right intertrochanteric femur fracture I identified the patient and participated in the time-out.: Yes Procedure Operation Date: 10/24/21 07:00 Actual Procedures p Trochanteric Nail Long Right(Right) - José Manuel Douglas MD Surgeon José Manuel Douglas MD Paint Striping Machine Operator GISELE Lee PA-C. No resident or fellow was available to assist Estimated Blood Loss 100 Findings Consistent with Post-Op Diagnosis Fluids 1000 cc Drains Yeung Catheter (in place upon entering OR suite, clear yellow urine for drainage) Anesthesia Type General Complications none Disposition Disposition: Recovery Room
--- NOTE | 2021-10-24 16:37 | Operative Report ---
Post Operative Report Pre & Post Diagnosis Operation Date: 10/24/21 07:00 Pre-Op Diagnosis: Right hip fracture Post-Op Diagnosis: Right hip fracture I identified the patient and participated in the time-out.: Yes Procedure Operation Date: 10/24/21 07:00 Actual Procedures p Trochanteric Nail Long Right(Right) - José Manuel Douglas MD Surgeon José Manuel Douglas MD Youth Officer GISELE Lee PA-C. No resident or fellow was available to assist Estimated Blood Loss 100 Findings Consistent with Post-Op Diagnosis Specimens none Description of Procedure I was present during the entire procedure assisting with positioning, prepping, draping, wound retraction, wound closure and dressing application. No fellow present. Please see Dr. Douglas procedure note for specifics. I attest to the content of the Intraoperative Record and any orders documented therein. Any exceptions are noted below.
[2021-10-24] MEDS ORDERED: ACETAMINOPHEN 325 MG TAB PO PRN (16:39)
[2021-10-24] MEDS ORDERED: MENTHOL-ZINC OXIDE 360 APPLN/120 GM TUBE EXT PRN (16:39)
--- NOTE | 2021-10-24 16:40 | Fluoroscopy Report ---
FL hip RT 2-3V CLINICAL HISTORY: RT LONG TROCH NAIL COMPARISON STUDY: 10/23/2021 FLUOROSCOPY TIME: 2 minutes and 41 seconds. FLUOROSCOPIC IMAGES: 4 FINDINGS: Images demonstrate placement of an intertrochanteric nail and a long stem intramedullary ro d within the femoral shaft secured by a distal screw. Comminuted intratrochanteric fracture fragments are now in near-anatomic alignment. IMPRESSION: Status post internal fixation of comminuted intratrochanteric fracture. ACT 112: Negative or not required by law. Electronically signed by: Wil Lanier M.D. 10/24/2021 4:39 PM
--- NOTE | 2021-10-24 17:06 | XRay Report ---
XR hip RT min 2V CLINICAL HISTORY: Post-Operative implant position COMPARISON: Pelvis and hip radiographs October 23, 2021. FINDINGS: Alignment of the intertrochanteric fracture of the right femur has significantly improved following internal fixation with trochanteric nail. Hardware is intact. Lesser trochanter is displace d. There are no unexpected radiopaque foreign bodies. There are skin marge. Right knee arthroplasty is noted. IMPRESSION: Expected findings following internal fixation of the intertrochanteric fracture of the ri ght femur. ACT 112: Negative or not required by law. Electronically signed by: Bob Rodriguez M.D. 10/24/2021 5:05 PM
--- NOTE | 2021-10-24 17:19 | Anesthesiology Progress Note ---
Date of Service October 24, 2021 Anesthesia Post Procedure Vital Signs Vital Signs: Temp Pulse Pulse Pulse Pulse Resp BP 10/24/21 17:10 76 12 10/24/21 17:00 79 16 10/24/21 16:50 77 12 10/24/21 14:10 79 18 10/24/21 13:40 36.8 C 77 16 134/66 10/24/21 13:13 36.9 C 76 16 127/48 L 10/24/21 12:57 36.7 C 79 16 125/63 10/24/21 12:37 36.5 C 81 16 135/62 10/24/21 12:19 36.7 C 82 16 129/72 10/24/21 11:47 36.6 C 79 18 123/64 10/24/21 10:47 36.5 C 83 18 129/66 10/24/21 09:47 36.3 C L 76 16 118/65 10/24/21 09:17 37 C 72 18 118/54 L 10/24/21 09:02 36.3 C L 72 18 125/63 10/24/21 08:46 36.6 C 76 18 121/63 10/24/21 07:26 36.8 C 75 18 10/24/21 04:25 36.7 C 78 16 10/23/21 21:16 76 10/23/21 20:10 36.5 C 83 16 10/23/21 18:17 80 16 BP BP Pulse Ox 10/24/21 17:10 146/87 H 99 10/24/21 17:00 145/88 H 97 10/24/21 16:50 144/82 H 137/69 97 10/24/21 14:10 137/69 137/69 95 10/24/21 13:40 92 10/24/21 13:13 91 10/24/21 12:57 94 10/24/21 12:37 93 10/24/21 12:19 94 10/24/21 11:47 93 10/24/21 10:47 92 10/24/21 09:47 93 10/24/21 09:17 92 10/24/21 09:02 92 10/24/21 08:46 92 10/24/21 07:26 112/61 90 10/24/21 04:25 106/48 L 94 10/23/21 21:16 105/63 10/23/21 20:10 128/63 94 10/23/21 18:17 112/62 95 Transfer of Care Handoff Completed per policy Notes Mental Status: alert / awake / arousable Patient Amnestic to Procedure: Yes Nausea / Vomiting: adequately controlled Pain: adequately controlled Airway Patency, RR, SpO2: stable & adequate BP & HR: stable & adequate Hydration State: stable & adequate Anesthetic Complications: no major complications apparent and Pt Satisfied with anesthetic care
--- NOTE | 2021-10-24 17:48 | Operative Report (OR) ---
DATE OF SURGERY: 10/24/2021 PREOPERATIVE DIAGNOSIS: Right comminuted intertrochanteric femur fracture. POSTOPERATIVE DIAGNOSIS: Right comminuted intertrochanteric femur fracture. OPERATION PERFORMED: Long intramedullary nail for comminuted intertrochanteric femur fracture of the right hip. SURGEON: José Manuel Douglas MD. SURGEON: Hayley Lee PA-C. No resident or fellow was available to assist. ESTIMATED BLOOD LOSS: 100 mL. INTRAVENOUS FLUIDS: 1 liter of crystalloid. SPECIMENS: None. COMPLICATIONS: None. IMPLANTS: 1. Synthes 130-degree titanium cannulated trochanteric fixation nail, 11 mm diameter and 400 mm in l ength for right hip. 2. An 11 mm titanium helical blade 95 mm in length. 3. 48 mm Crosslock screw. INDICATIONS: The patient is an 86-year-old female with a medical history significant for aphasia, de mentia, who had a fall yesterday. She was brought to the emergency room where x-rays were obtained d emonstrating a right intertrochanteric femur fracture. She has previously undergone right total knee arthroplasty by one of my partners, Dr. Adrian. She was seen by Dr. Lee the on-call physi walter last night. He explained the treatment options. The patient elected to have surgery, but reque sted that it be done by someone in Dr. Adrian's group. I spoke with the daughter, Fidelina, who is a power of family law attorney about all the risks and benefits of surgery. In her case, the major benefits ar e to increase the risk of union, decreased risk of malunion or nonunion as well as a promote patient comfort and possibly regain the ability to ambulate. After reviewing all the risks and benefits of s darrion, the family elected to proceed. Verbal informed consent was obtained over the phone from the daughter, Rukhsana, who is her power of family law attorney. DESCRIPTION OF OPERATION: The patient was identified in the preoperative holding area where her surg ical site was marked. She was brought back to the main operating room where general anesthesia was a dministered on the hospital bed. She was then carefully moved onto the fracture table. A perineal p ost was placed. She was gently slid down on to the perineal post. The nonoperative leg was abducted and flexed and secured. This leg was well padded. The foot on the operative side was then padded w ith ABD pad and cotton roll and then secured in the boot. We then brought in fluoroscopy. We then c onfirmed that the fracture was shortened and externally rotated. We then pulled traction on the leg grossly. This was able to get her close to length. We then used a mechanical arm of the fracture ta ble to obtain further traction on the leg. Once we had her outer length, we then internally rotated and adducted the leg, which gave us a near anatomic reduction. Lateral fluoroscopic views confirmed this. We then prepped and draped the extremity in the usual sterile fashion. We began by marking out the trajectory for the cephalomedullary implant on the skin as well as the tr ajectory of the femur on the lateral view. A small stab incision was made approximately 6 cm above t he greater trochanter. We inserted the guidewire through the stab incision. Once we had optimized t he starting position, we then were able to advance the wire into the proximal femur. The wire actual ly slid right down through the crack of the intertrochanteric femur fracture. This was confirmed on the lateral view. We then extended the incision for a total length of approximately 4 cm to allow us to instrument the femur. We then used the cannulated awl followed by the cannulated reamer to open up the proximal femur. We leaned the reamer in towards the medial fragment so as to not blow out the lateral wall. Once this was complete, the ball tip guidewire was then advanced down into the femur. Starting guidewire was removed. We wanted to protect the entirety of the femur, so we advanced the guidewire all the way to the tip of her right total knee prosthesis on the AP view. It measured 390 , I elected to use a 400 mm nail, so as to protect the entire femur. Next, the reamers were opened up and we reamed up to a 12.5 mm diameter. We had some nice chatter of the intramedullary canal with this 12.5 reamer. We then opened up the 11 mm diameter nail, 400 mm i n length on the back table. This was then slid down over the guidewire and then advanced until the c ephalomedullary portion of the nail sat in the appropriate position. We checked down at the knee wit h fluoroscopy and we had the appropriate length of our nail. We then went back up to the hip with fl uoroscopy and attached to the outrigger device. We made a small stab incision on the lateral aspect of the femur to allow the trocar and a drill guide to be advanced down on the lateral cortex of the f emur. The guidewire was then drilled up into the femoral head, center-center position. We took our measurement at 95 mm. We then used the opening reamer followed by the 95 mm step reamer to ream up i nto the subchondral bone of the femoral head. We then placed our helical blade over the guidewire an d advanced this up to the subchondral bone, so that the lateral aspect of the blade was along the lat eral cortex. This slightly distracted the fracture as we tapped in the helical blade. We therefore used the introducer in counterclockwise fashion to compress the fracture, which we were very happy wi th. We then used a screwdriver to advance the set environmental health physician to lock the helical blade in position. We then removed the attachment to the nail and were very happy with our AP and lateral fluoroscopic views at the hip. At this point, traction was taken off the leg and we abducted the leg to allow us to get our lateral cross locking screws distally. Using the perfect circles technique, the distal cross locking screw w as placed through the oblong dynamic hole. This measured a 48 mm screw length, which was placed with out difficulty. At this point, our final fluoroscopic images were obtained. We were very happy with the length of ou r nail, the fracture reduction and position of the hardware. We then irrigated out all the wounds. 0 Vicryl was used for the proximal incision to close the subcutaneous tissues. 2-0 Vicryl was used f or the remaining wounds in deep dermal fashion. [place] were used for the skin. Sterile dressings w ere applied followed by a compressive dressing. The patient was then awoken from anesthesia and ruelas sferred to the recovery room in stable condition. POSTOPERATIVE COURSE: The patient will be readmitted to the internal medicine service. She will be weightbearing as tolerated on the right lower extremity with fall precautions due to her dementia. P ostoperative x-rays will be obtained in the recovery room. DVT prophylaxis per the primary service. Job ID: [id number]
[2021-10-24] MEDS: POTASSIUM CHLORIDE 10 MEQ TABCR PO SCH (21:53)
[2021-10-24] MEDS: MELATONIN 3 MG TAB PO SCH (21:53)
[2021-10-24] MEDS: ATORVASTATIN 40 MG TAB PO SCH (21:54)
[2021-10-24] MEDS: CALCIUM 600MG + VIT D 400 IU TAB PO SCH (21:54)
[2021-10-24] MEDS: APIXABAN 2.5 MG TAB PO SCH (21:54)
[2021-10-24] MEDS: NYSTATIN POWDER 15GM BTL EXT SCH (21:55)
[2021-10-25] MEDS: MoRPHine SULFATE 2 MG/ML CARP IV PRN ×3 (00:42→13:38)
[2021-10-25] MEDS: SODIUM CHLORIDE 0.9% 1000ML 1,000 ML IV SCH ×2 (04:43→05:29)
[2021-10-25] MEDS: LEVOTHYROXINE SODIUM 75 MCG TABLET PO SCH (05:33)
--- NOTE | 2021-10-25 07:22 | Hospitalist Progress Note ---
Date of Service October 25, 2021 Assessment & Plan (1) Hip fracture: Plan: Pt is an 86 yo female with a h/o a-flutter on Eliquis, dementia, CVA with aphasia, CKD stage 3,hypothyroidism, HTN, here with right hip fracture after having a fall out of her bed a few days ago. Pt unable to give any history. Now s/p hip nailing on 10/24 Doing well post-op Hgb dropped since transfusion on 10/24 slightly -pain control with morphine, APAP, and will add on po tramadol as needed SCDs, ASA, Eliquis for prophylaxis -bowel regimen -PT/OT-recommend SNF -ok to advance diet and dc IVFs follow CBC, BMP in AM Appreciate Ortho consult (2) Dementia: Plan: severe, with aphasia due to CVA 04/2020 supporitve care (3) Fall: Plan: as above (4) Anemia: Plan: Chronic anemia plus acute blood loss anemia from previous hematoma and some from current fracture-hold ELiquis -transfused 2 units PRBCs 10/24 for further drop in hgb to 6.9 hgb improved today to 8.3 but lower than expected s/p transfusion follow CBC (5) Hematoma of left lower leg: Plan: stable see previous admission for this (6) Chronic kidney disease, stage III (moderate): Plan: Had WILMER on CKD 3 and now resolved with IVFs -Avoid nephrotoxins -renally dose meds when appropriate -follow BMP (7) Atrial flutter: Plan: rate controlled, in paced rhythm here continue eliquis continue amiodarone (8) Hypothyroidism: Plan: continue LT4 (9) Hypertension: Plan: controlled continue amlodipine (10) Hyperlipidemia: Plan: continue statin (11) Aphasia: Plan: as above, 2/2 old CVA (12) Stroke: Plan: CVA 04/2020 with exp aphasia continue ELiquis once cleared from surgery continue statin (13) Osteoporosis: Plan: Vit D severely low at 12 here with pathologic fracture from fall from seated position started Vit D, calcium consider outpt bisphosphonate , FOrteo, Prolia Age-related osteoporosis w/o current pathological fracture of right femur (14) Asymptomatic bacteriuria: Plan: UA was clearly a contaminated sample with epis and had no WBCs or bacteria--> unclear why Ur cx was sent to begin with Ur cx with Enterococcus but no need to treat as this is likely from GI tract Plan: DVT Proph-SCDs, ELiquis Dispo-continued stay med/surg, awaiting placement at SNF--> as per CM, won't be until next week while awaiting bed at rehab Admission and Anticipated Discharge Date Admission Date: October 23, 2021 Subjective Pt holding a stuffed animal and says "cute." Otherwise, appears in no distress, cannot verbalize anything else. RN reports she grimaces with pain at times and he has been giving her pain meds. She is eating very well. Review of Systems Review of Systems: Unobtainable due to cognitive status Physical Exam Constitutional: WD/WN, vitals as above Eyes: + anicteric sclerae Neck: trachea midline, no thyromegaly Respiratory: normal respiratory effort, lungs clear to auscultation Cardiovascular: RRR, no murmur, no edema Chest (Breasts): Chest: normal inspection of chest Gastrointestinal (Abdomen): normal bowel sounds, soft, nontender, no hepatosplenomegaly Musculoskeletal: Extremities: + extremities abnormal to inspection (left calf hematoma), no cyanosis and no clubbing Skin: no rashes, warm and dry Neurologic: moves all extremities and awake; no focal motor deficits Speech / Cognition: + expressive aphasia Psychiatric: Orientation: alert and cooperative Results & Data Results & Data ([facility]) Vital Signs (Past 12 Hours) Vital Signs Temp Pulse Resp BP Pulse Ox 10/25/21 03:35 36.7 C 82 16 112/60 92 10/25/21 02:07 36.8 C 80 96/53 L 92 10/24/21 22:45 36.7 C 80 16 107/52 L 95 10/24/21 21:47 81 103/64 10/24/21 20:45 36.7 C 72 16 129/69 100 10/24/21 19:45 36.3 C L 79 16 128/72 100 Laboratory Results 10/25/21 10/25/21 10/25/21 Range/Units 07:03 07:03 07:03 WBC 8.72 (4.8-10.8) K/uL RBC 2.73 L (4.2-5.4) M/uL Hgb 8.3 L (12.0-16.0) g/dL Hct 26.0 L (37-47) % MCV 95.2 (80-100) fL MCH 30.4 (25-34) pg MCHC 31.9 L (32-36) g/dL RDW Std Deviation 54.0 H (36.4-46.3) fL RDW Coeff of Luis 15.8 H (11.5-14.5) % Plt Count 257 (130-400) K/uL MPV 10.3 (7.4-10.4) fL Immature Gran % (Auto) 0.3 % Neut % (Auto) 75.7 % Lymph % (Auto) 11.9 % [place] % (Auto) 10.4 % Eos % (Auto) 1.1 % Baso % (Auto) 0.6 % Neut # (Auto) 6.59 H (1.4-6.5) K/uL Lymph # (Auto) 1.04 L (1.2-3.4) K/uL [place] # (Auto) 0.91 H (0.11-0.59) K/uL Eos # (Auto) 0.10 (0-0.5) K/uL Baso # (Auto) 0.05 (0-0.2) K/uL Immature Gran # (Auto) 0.03 H (0.00-0.02) K/uL Sodium 142 (136-145) mmol/L Potassium 4.5 (3.5-5.1) mmol/L Chloride 112 H (98-107) mmol/L Carbon Dioxide 28 (21-32) mmol/L Anion Gap 2.0 L (3-11) BUN 30 H (7-18) mg/dl Creatinine 1.13 (0.6-1.2) mg/dl Est Cr Clr Drug Dosing 28.5 ml/min Est GFR ( Amer) 50.6 ml/min Est GFR (Non-Af Amer) 43.7 ml/min BUN/Creatinine Ratio 26.1 H (10-20) Glucose 138 H (70-99) mg/dl Calcium 8.3 L (8.5-10.1) mg/dl 25-OH Vitamin D Total 12.4 L (30-100) ng/ml PG Care Time/CCT Total # of Minutes Spent Total Time Spent with Patient: Total time spent is greater than 50% in coordination of care (as documented) at patient's floor/unit and/or counseling patient: Coding Level of Care Code 81439 Subseq Hosp Care Lvl 2 Diagnoses Hip fracture S72.009A Dementia F03.90 Dementia behavioral disturbance: without behavioral disturbance Dementia type: unspecified type Fall W19.XXXA Encounter type: initial encounter Anemia D64.9 Anemia type: unspecified type Hematoma of left lower leg S80.12XA Chronic kidney disease, stage III (moderate) N18.30 Atrial flutter I48.92 Hypothyroidism E03.9 Hypertension I10 Hyperlipidemia E78.5 Aphasia R47.01 Stroke I63.9 Osteoporosis M81.0 Asymptomatic bacteriuria R82.71 (1) Anemia Anemia type: unspecified type Qualified Code(s): D64.9 - Anemia, unspecified (2) Dementia Dementia behavioral disturbance: without behavioral disturbance Dementia type: unspecified type Qualified Code(s): F03.90 - Unspecified dementia without behavioral disturbance (3) Fall Encounter type: initial encounter Qualified Code(s): W19.XXXA - Unspecified fall, initial encounter
[2021-10-25 07:32] LABS: Basophils # (auto) 0.05 K/uL (0-0.2); Basophils % (auto) 0.6 %; Eosinophils % (auto) 1.1 %; Hemoglobin 8.3 g/dL (12.0-16.0); Immature Granulocytes # (auto) 0.03 K/uL (0.00-0.02); Immature Granulocytes % (auto) 0.3 %; Lymphocytes # (auto) 1.04 K/uL (1.2-3.4); Lymphocytes % (auto) 11.9 %; Mean Corpuscular Hemoglobin 30.4 pg (25-34); Mean Corpuscular Hgb Conc 31.9 g/dL (32-36); Mean Corpuscular Volume 95.2 fL (80-100); Mean Platelet Volume 10.3 fL (7.4-10.4); Monocytes # (auto) 0.91 K/uL (0.11-0.59); Monocytes % (auto) 10.4 %; Neutrophils # (auto) 6.59 K/uL (1.4-6.5); Neutrophils % (auto) 75.7 %; Platelet Count 257 K/uL (130-400); RDW Coefficient of Variation 15.8 % (11.5-14.5); Red Blood Count 2.73 M/uL (4.2-5.4); White Blood Count 8.72 K/uL (4.8-10.8)
[2021-10-25 08:00] LABS: BUN Creatinine Ratio 26.1 (10-20); Calcium 8.3 mg/dl (8.5-10.1); Creatinine Clr Calc Pharmacy 28.5 ml/min; Est GFR (African American) 50.6 ml/min; Est GFR (Non-African American) 43.7 ml/min; Potassium 4.5 mmol/L (3.5-5.1)
[2021-10-25] MEDS: amLODIPine BESYLATE 5 MG TAB PO SCH ×2 (09:15→20:27)
[2021-10-25] MEDS: APIXABAN 2.5 MG TAB PO SCH ×2 (09:16→20:28)
[2021-10-25] MEDS: AMIODARONE 200 MG TAB PO SCH (09:16)
[2021-10-25] MEDS: ASPIRIN 81 MG ECTAB PO SCH (09:16)
[2021-10-25] MEDS: CALCIUM 600MG + VIT D 400 IU TAB PO SCH ×2 (09:17→20:28)
[2021-10-25] MEDS: CHOLECALCIFEROL 1,000 UNITS 25 MCG TAB PO SCH (09:17)
[2021-10-25] MEDS: NYSTATIN POWDER 15GM BTL EXT SCH ×2 (09:18→20:26)
--- NOTE | 2021-10-25 09:35 | Orthopedic Progress Note ---
Date of Service October 25, 2021 Assessment & Plan (1) Closed intertrochanteric fracture of right hip: Plan: Patient may be weightbearing as tolerated with walker and a full assistance Ice with easy wrap DVT prophylaxis with her prescription Eliquis and baby aspirin along with DIVYA stockings Pain control with p.o. medication PT/OT Keep dressing in place. May reinforce if necessary We will continue to follow patient while she is inpatient Admission and Anticipated Discharge Date Admission Date: October 23, 2021 Subjective This 86-year-old female is day one status post right hip fracture with trochanteric nailing. She is currently resting in bed. Her dressing does seem to be saturated with blood. She is arousable but is only alert to person.Review of systems was unobtainable due to patient's cognitive status. Review of Systems Review of Systems: Unobtainable due to cognitive status Physical Exam Physical Exam: Right lower extremity: Proximal and mid dressings were clean dry and intact. Distalmost dressing was heavily saturated with blood that would seep through onto the Vernon bandage. The outer dressing was removed. Area was cleansed with a sterile saline wipe. Patted dry with a sterile 4 x 4. I applied a new dressing consisting of an Adaptic gauze, sterile 4 x 4's and two Tegaderm dressings. I did not reapply an Vernon bandage to the patient's right low er extremity. She was unable to perform a straight leg raise test. She was unable to actively flex her knee. She was able to dorsi and plantarflex her foot and had no pain with applied resistance.She did tolerate a passive logroll test Results & Data ([facility] [place]) Vital Signs (Past 12 Hours) Vital Signs Temp Pulse Resp BP Pulse Ox 10/25/21 07:50 36.9 C 76 17 117/59 L 92 10/25/21 03:35 36.7 C 82 16 112/60 92 10/25/21 02:07 36.8 C 80 96/53 L 92 10/24/21 22:45 36.7 C 80 16 107/52 L 95 10/24/21 21:47 81 103/64 Diagnostic Findings Laboratory Results WBC 8.72 K/uL (4.8-10.8) 10/25/21 07:03 RBC 2.73 M/uL (4.2-5.4) L 10/25/21 07:03 Hgb 8.3 g/dL (12.0-16.0) L 10/25/21 07:03 Hct 26.0 % (37-47) L 10/25/21 07:03 MCV 95.2 fL (80-100) 10/25/21 07:03 MCH 30.4 pg (25-34) 10/25/21 07:03 MCHC 31.9 g/dL (32-36) L 10/25/21 07:03 RDW Std Deviation 54.0 fL (36.4-46.3) H 10/25/21 07:03 RDW Coeff of Luis 15.8 % (11.5-14.5) H 10/25/21 07:03 Plt Count 257 K/uL (130-400) 10/25/21 07:03 MPV 10.3 fL (7.4-10.4) 10/25/21 07:03 Immature Gran % (Auto) 0.3 % 10/25/21 07:03 Neut % (Auto) 75.7 % 10/25/21 07:03 Lymph % (Auto) 11.9 % 10/25/21 07:03 [place] % (Auto) 10.4 % 10/25/21 07:03 Eos % (Auto) 1.1 % 10/25/21 07:03 Baso % (Auto) 0.6 % 10/25/21 07:03 Neut # (Auto) 6.59 K/uL (1.4-6.5) H 10/25/21 07:03 Lymph # (Auto) 1.04 K/uL (1.2-3.4) L 10/25/21 07:03 [place] # (Auto) 0.91 K/uL (0.11-0.59) H 10/25/21 07:03 Eos # (Auto) 0.10 K/uL (0-0.5) 10/25/21 07:03 Baso # (Auto) 0.05 K/uL (0-0.2) 10/25/21 07:03 Immature Gran # (Auto) 0.03 K/uL (0.00-0.02) H 10/25/21 07:03 Polychromasia 1+ 10/23/21 Unknown Echinocytes 1+ 10/23/21 Unknown Acanthocytes (Spur) 1+ 10/24/21 06:00 PT 10.3 Seconds (9.0-12.0) 10/23/21 Unknown INR 1.0 (0.9-1.1) 10/23/21 Unknown APTT 26.5 Seconds (21.0-31.0) 10/23/21 Unknown PTT Ratio 1.0 10/23/21 Unknown Sodium 142 mmol/L (136-145) 10/25/21 07:03 Potassium 4.5 mmol/L (3.5-5.1) 10/25/21 07:03 Chloride 112 mmol/L (98-107) H 10/25/21 07:03 Carbon Dioxide 28 mmol/L (21-32) 10/25/21 07:03 Anion Gap 2.0 (3-11) L 10/25/21 07:03 BUN 30 mg/dl (7-18) H 10/25/21 07:03 Creatinine 1.13 mg/dl (0.6-1.2) 10/25/21 07:03 Est Cr Clr Drug Dosing 28.5 ml/min 10/25/21 07:03 Est GFR ( Amer) 50.6 ml/min 10/25/21 07:03 Est GFR (Non-Af Amer) 43.7 ml/min 10/25/21 07:03 BUN/Creatinine Ratio 26.1 (10-20) H 10/25/21 07:03 Glucose 138 mg/dl (70-99) H 10/25/21 07:03 Calcium 8.3 mg/dl (8.5-10.1) L 10/25/21 07:03 Total Bilirubin 1.1 mg/dl (0.2-1) H 10/23/21 Unknown AST 34 U/L (15-37) 10/23/21 Unknown ALT 22 U/L (12-78) 10/23/21 Unknown Alkaline Phosphatase 86 U/L (45-117) 10/23/21 Unknown Total Protein 6.4 gm/dl (6.4-8.2) 10/23/21 Unknown Albumin 2.4 gm/dl (3.4-5.0) L 10/23/21 Unknown Globulin 4.0 gm/dl (2.5-4.0) 10/23/21 Unknown Albumin/Globulin Ratio 0.6 (0.9-2) L 10/23/21 Unknown 25-OH Vitamin D Total 12.4 ng/ml (30-100) L 10/25/21 07:03 Urine Color Dark Yellow 10/23/21 16:35 Urine Appearance Clear (Clear) 10/23/21 16:35 Urine pH 5.0 (4.5-7.5) 10/23/21 16:35 Ur Specific [place] 1.023 (1.000-1.030) 10/23/21 16:35 Urine Protein Trace (Negative) H 10/23/21 16:35 Urine Glucose (UA) Negative (Negative) 10/23/21 16:35 Urine Ketones Negative (Negative) 10/23/21 16:35 Urine Blood Negative (Negative) 10/23/21 16:35 Urine Nitrite Negative (Negative) 10/23/21 16:35 Urine Bilirubin Negative (Negative) 10/23/21 16:35 Urine Urobilinogen Negative (Negative) 10/23/21 16:35 Ur Leukocyte Esterase Trace (Negative) H 10/23/21 16:35 Urine WBC (Auto) 1-5 /hpf (0-5) 10/23/21 16:35 Urine RBC (Auto) 0-4 /hpf (0-4) 10/23/21 16:35 U Hyaline Cast (Auto) 1-5 /lpf (0-5) 10/23/21 16:35 U Epithel Cells (Auto) >30 /lpf (0-5) H 10/23/21 16:35 Urine Bacteria (Auto) Negative (Negative) 10/23/21 16:35 Nasal Screen MRSA (PCR) Negative (Negative) 10/24/21 02:50 SARS-CoV-2, RNA, NAAT NEGATIVE (NEGATIVE) 10/23/21 17:10 Blood Type O Negative 10/23/21 16:51 Blood Type Recheck O Negative 10/24/21 06:00 Antibody Screen NEGATIVE 10/23/21 16:51 Crossmatch See Detail 10/23/21 16:51 Impressions Hip/Pelvis X-Ray 10/23/21 16:25 XR hip ANISHA 2v w pelvis CLINICAL HISTORY: pain fall. COMPARISON STUDY: No previous studies for comparison. TECHNIQUE: AP pelvis and both hips each to views FINDINGS: Bones: There is a comminuted, intertrochanteric fracture of the right femoral neck with coxa varus deformity present. The left hip is maintained. The remaining visualized bones of the pelvis are intact. There is no lytic or blastic lesion. Joints: The femoral heads maintain their anatomic position within the acetabula. The remaining bones are in anatomic alignment. Soft tissues: There is no focal soft tissue abnormality. There is no radiopaque foreign body. IMPRESSION: Comminuted, intratrochanteric fracture of the right femoral neck with coxa varus deformity present. ACT 112: Negative or not required by law. Electronically signed by: Wil Lanier M.D. 10/23/2021 4:54 PM Tibia/Fibula X-Ray 10/23/21 16:25 XR tibia fibula LT 2V CLINICAL HISTORY: Fall. Left lower leg pain. COMPARISON STUDY: Left tibia/fibula 10/07/2021. FINDINGS: The bones are osteopenic. No acute fracture or dislocation within the left tibia or fibula. Diffuse subcutaneous edema within the left lower leg. Focal round density within the proximal/medial calf measuring 15 cm. This is increased in size and likely represents a soft tissue hematoma. Moderate to severe degenerative changes and chondrocalcinosis within the left knee. IMPRESSION: 1. No fractures within the left lower leg. 2. Focal round density within the proximal/medial calf measuring 15 cm. This is increased in size and likely represents a soft tissue hematoma. ACT 112: Negative or not required by law. Electronically signed by: Miko Isaac M.D. 10/23/2021 4:52 PM Chest X-Ray 10/23/21 16:26 XR chest 1V portable CLINICAL HISTORY: fall. Pain. COMPARISON STUDY: 10/07/2021 TECHNIQUE: 1 view of the chest FINDINGS: Single frontal view of the chest demonstrates the heart to again be enlarged and the aorta to be atherosclerotic and ectatic. The lungs are clear of alveolar opacities. There is no evidence for pleural effusion. There is no evidence for vascular congestion. There is no acute osseous pathology. IMPRESSION: No acute cardiopulmonary disease. ACT 112: Negative or not required by law. Electronically signed by: Wil Lanier M.D. 10/23/2021 4:51 PM Hip X-Ray 10/24/21 16:37 XR hip RT min 2V CLINICAL HISTORY: Post-Operative implant position COMPARISON: Pelvis and hip radiographs October 23, 2021. FINDINGS: Alignment of the intertrochanteric fracture of the right femur has significantly improved following internal fixation with trochanteric nail. Hardware is intact. Lesser trochanter is displaced. There are no unexpected radiopaque foreign bodies. There are skin marge. Right knee arthroplasty is noted. IMPRESSION: Expected findings following internal fixation of the intertrochanteric fracture of the right femur. ACT 112: Negative or not required by law. Electronically signed by: Bob Rodriguez M.D. 10/24/2021 5:05 PM (1) Closed intertrochanteric fracture of right hip Encounter type: initial encounter Fracture alignment: displaced Qualified Code(s): S72.141A - Displaced intertrochanteric fracture of right femur, initial encounter for closed fracture
[2021-10-25] MEDS: POTASSIUM CHLORIDE 10 MEQ TABCR PO SCH (20:27)
[2021-10-25] MEDS: MELATONIN 3 MG TAB PO SCH (20:28)
[2021-10-25] MEDS: ATORVASTATIN 40 MG TAB PO SCH (20:28)
[2021-10-26] MEDS: MoRPHine SULFATE 2 MG/ML CARP IV PRN (03:07)
[2021-10-26] MEDS: LEVOTHYROXINE SODIUM 75 MCG TABLET PO SCH (06:05)
[2021-10-26 06:39] LABS: Basophils # (auto) 0.04 K/uL (0-0.2); Basophils % (auto) 0.5 %; Eosinophils # (auto) 0.36 K/uL (0-0.5); Eosinophils % (auto) 4.2 %; Hemoglobin 7.2 g/dL (12.0-16.0); Immature Granulocytes # (auto) 0.05 K/uL (0.00-0.02); Immature Granulocytes % (auto) 0.6 %; Lymphocytes # (auto) 1.19 K/uL (1.2-3.4); Lymphocytes % (auto) 13.8 %; Mean Corpuscular Hemoglobin 30.1 pg (25-34); Mean Corpuscular Hgb Conc 31.3 g/dL (32-36); Mean Corpuscular Volume 96.2 fL (80-100); Mean Platelet Volume 10.1 fL (7.4-10.4); Monocytes # (auto) 1.01 K/uL (0.11-0.59); Monocytes % (auto) 11.7 %; Neutrophils # (auto) 5.98 K/uL (1.4-6.5); Neutrophils % (auto) 69.2 %; Platelet Count 239 K/uL (130-400); RDW Coefficient of Variation 15.6 % (11.5-14.5); RDW Standard Deviation 54.5 fL (36.4-46.3); Red Blood Count 2.39 M/uL (4.2-5.4); White Blood Count 8.63 K/uL (4.8-10.8)
[2021-10-26 07:11] LABS: Acanthocytes 1+; BUN Creatinine Ratio 24.6 (10-20); Calcium 8.2 mg/dl (8.5-10.1); Creatinine Clr Calc Pharmacy 31.9 ml/min; Potassium 3.9 mmol/L (3.5-5.1)
[2021-10-26] MEDS: AMIODARONE 200 MG TAB PO SCH (08:10)
[2021-10-26] MEDS: CHOLECALCIFEROL 1,000 UNITS 25 MCG TAB PO SCH (08:11)
[2021-10-26] MEDS: APIXABAN 2.5 MG TAB PO SCH ×3 (08:11→20:27)
[2021-10-26] MEDS: CALCIUM 600MG + VIT D 400 IU TAB PO SCH ×2 (08:11→20:28)
[2021-10-26] MEDS: NYSTATIN POWDER 15GM BTL EXT SCH ×2 (08:11→20:29)
[2021-10-26] MEDS: amLODIPine BESYLATE 5 MG TAB PO SCH (08:11)
[2021-10-26] MEDS: ASPIRIN 81 MG ECTAB PO SCH (08:11)
--- NOTE | 2021-10-26 09:11 | Hospitalist Progress Note ---
Date of Service October 26, 2021 Assessment & Plan (1) Hip fracture: Plan: Pt is an 86 yo female with a h/o a-flutter on Eliquis, dementia, CVA with aphasia, CKD stage 3,hypothyroidism, HTN, here with right hip fracture after having a fall out of her bed a few days ago. Pt unable to give any history. Ortho consulted POD#2 s/p hip nailing on [address] Douglas s/p 2 u PRBC however hgb 7.2 on AM labs -- had multiple saturations of dressing (x3 thus far) and ordered additional unit PRBC --> Acute blood loss anemia from surgery and dilutional from IVF however acute loss now from bleeding from surgical site. Stable hematoma to LE --> repeat CBC this afternoon --> Re-enforcement of dressing per discussion with ortho ASA, Eliquis for DVT Prop --> hx afib Pain control -- Tylenol and morphine for severe but ADDED tramadol q4h prn moderate discomfort -- asked RN to administer this evening Bowel regimen -- add scheduled miralax, senna Adv diet as tolerate -- taking pills crushed in carrier without issue PT/OT --SNF, awaiting placement Continue to monitor (2) Dementia: Plan: severe, with aphasia due to CVA 04/2020 supportive care (3) Fall: Plan: as above (4) Anemia: Plan: Chronic anemia plus acute blood loss anemia from previous hematoma and some from current fracture-hold ELiquis -transfused 2 units PRBCs / for further drop in hgb to 6.9 hgb improved to 8.3 but lower than expected s/p transfusion --> continued bleeding from surgical site 1u PRBC transfusing currently, repeat CBC after transfuse if needed --> she has been continued on her Eliquis post-op --> discussed with ortho and they would like this to be continued and re-inforce dressing follow CBC (5) Hematoma of left lower leg: Plan: stable see previous admission for this (6) Chronic kidney disease, stage III (moderate): Plan: Had WILMER on CKD 3 and now resolved with IVFs -Avoid nephrotoxins -renally dose meds when appropriate -follow BMP (7) Atrial flutter: Plan: rate controlled, in paced rhythm here continue eliquis continue amiodarone (8) Hypothyroidism: Plan: continue LT4 (9) Hypertension: Plan: controlled but now hypotensive 1u PRBC as above holding amlodipine for this evening, resume when able (10) Hyperlipidemia: Plan: continue statin (11) Aphasia: Plan: as above, 2/2 old CVA (12) Stroke: Plan: CVA 04/2020 with exp aphasia continue ELiquis --> resumed by surgery continue statin (13) Osteoporosis: Plan: Vit D severely low at 12 here with pathologic fracture from fall from seated position started Vit D, calcium consider outpt bisphosphonate , FOrteo, Prolia Age-related osteoporosis w/o current pathological fracture of right femur (14) Asymptomatic bacteriuria: Plan: UA was clearly a contaminated sample with epis and had no WBCs or bacteria--> unclear why Ur cx was sent to begin with Ur cx with Enterococcus but no need to treat as this is likely from GI tract Plan: DVT Proph-SCDs, ELiquis Dispo- continued stay med/surg, awaiting placement at SNF--> as per CM, won't be until next week while awaiting bed at rehab Admission and Anticipated Discharge Date Admission Date: October 23, 2021 Supervising Physician Co-Signing Physician Notes chart reviewed and case d/w L Huff PAC. agree w above Subjective patient seen this morning no acute distress however dressing saturated x 2 and again saturated. Per ortho convo with nursing to apply some type of gauze material however not available and OR not sure what they are speaking of when asked. Discussed with RN (who held her Eliquis this AM)--> to place on thigh high SCDs for now. Will message orthopedics. Pain appears to be controlled and no chest pain or shortness of breath reported (although few insp/exp wheezing appreciated) NO abd pain, nausea, vomiting. Got 1 u prbc last evening (total 2 units)and will transfuse additional unit and repeat blood counts . following Pulled out IV -- new one placed. Also will order some tramadol for pain to avoid morphine use. Review of Systems Review of Systems: All systems reviewed & are unremarkable except as noted in HPI & below Physical Exam Constitutional: WD/WN, vitals as above +pallor Eyes: + anicteric sclerae Neck: trachea midline, no thyromegaly Respiratory: CTAB with faint bibasilar crackles, end exp wheezing, on RA, no accessory muscle use or distress noted Cardiovascular: RRR, no murmur, no edema Chest (Breasts): Chest: normal inspection of chest Gastrointestinal (Abdomen): normal bowel sounds, soft, nontender, no hepatosplenomegaly Musculoskeletal: Extremities: + extremities abnormal to inspection (left calf hematoma), no cyanosis and no clubbing Skin: no rashes, warm and dry Neurologic: moves all extremities and awake; no focal motor deficits Speech / Cognition: + expressive aphasia Psychiatric: Orientation: alert and cooperative Results & Data Results & Data ([facility]) Vital Signs (Past 12 Hours) Vital Signs Temp Pulse Resp BP Pulse Ox 10/26/21 07:00 36.8 C 79 16 106/62 95 10/25/21 23:47 36.9 C 82 16 94/58 L 91 Laboratory Results 10/26/21 10/26/21 10/26/21 Range/Units 12:38 06:20 06:20 WBC 8.63 (4.8-10.8) K/uL RBC 2.39 L (4.2-5.4) M/uL Hgb 7.2 L (12.0-16.0) g/dL Hct 23.0 L (37-47) % MCV 96.2 (80-100) fL MCH 30.1 (25-34) pg MCHC 31.3 L (32-36) g/dL RDW Std Deviation 54.5 H (36.4-46.3) fL RDW Coeff of Luis 15.6 H (11.5-14.5) % Plt Count 239 (130-400) K/uL MPV 10.1 (7.4-10.4) fL Immature Gran % (Auto) 0.6 % Neut % (Auto) 69.2 % Lymph % (Auto) 13.8 % [place] % (Auto) 11.7 % Eos % (Auto) 4.2 % Baso % (Auto) 0.5 % Neut # (Auto) 5.98 (1.4-6.5) K/uL Lymph # (Auto) 1.19 L (1.2-3.4) K/uL [place] # (Auto) 1.01 H (0.11-0.59) K/uL Eos # (Auto) 0.36 (0-0.5) K/uL Baso # (Auto) 0.04 (0-0.2) K/uL Immature Gran # (Auto) 0.05 H (0.00-0.02) K/uL Acanthocytes (Spur) 1+ Sodium 140 (136-145) mmol/L Potassium 3.9 (3.5-5.1) mmol/L Chloride 110 H (98-107) mmol/L Carbon Dioxide 27 (21-32) mmol/L Anion Gap 3.0 (3-11) BUN 25 H (7-18) mg/dl Creatinine 1.01 (0.6-1.2) mg/dl Est Cr Clr Drug Dosing 31.9 ml/min Est GFR ( Amer) 58.0 ml/min Est GFR (Non-Af Amer) 50.0 ml/min BUN/Creatinine Ratio 24.6 H (10-20) Glucose 138 H (70-99) mg/dl Calcium 8.2 L (8.5-10.1) mg/dl Blood Type O Negative Antibody Screen NEGATIVE Crossmatch See Detail 10/23/21 Range/Units 16:51 WBC (4.8-10.8) K/uL RBC (4.2-5.4) M/uL Hgb (12.0-16.0) g/dL Hct (37-47) % MCV (80-100) fL MCH (25-34) pg MCHC (32-36) g/dL RDW Std Deviation (36.4-46.3) fL RDW Coeff of Luis (11.5-14.5) % Plt Count (130-400) K/uL MPV (7.4-10.4) fL Immature Gran % (Auto) % Neut % (Auto) % Lymph % (Auto) % [place] % (Auto) % Eos % (Auto) % Baso % (Auto) % Neut # (Auto) (1.4-6.5) K/uL Lymph # (Auto) (1.2-3.4) K/uL [place] # (Auto) (0.11-0.59) K/uL Eos # (Auto) (0-0.5) K/uL Baso # (Auto) (0-0.2) K/uL Immature Gran # (Auto) (0.00-0.02) K/uL Acanthocytes (Spur) Sodium (136-145) mmol/L Potassium (3.5-5.1) mmol/L Chloride (98-107) mmol/L Carbon Dioxide (21-32) mmol/L Anion Gap (3-11) BUN (7-18) mg/dl Creatinine (0.6-1.2) mg/dl Est Cr Clr Drug Dosing ml/min Est GFR ( Amer) ml/min Est GFR (Non-Af Amer) ml/min BUN/Creatinine Ratio (10-20) Glucose (70-99) mg/dl Calcium (8.5-10.1) mg/dl Blood Type Antibody Screen Crossmatch See Detail PG Care Time/CCT Total # of Minutes Spent Total Time Spent with Patient: Total time spent is greater than 50% in coordination of care (as documented) at patient's floor/unit and/or counseling patient: Coding Level of Care Code 13528 Subseq Hosp Care Lvl 2 Diagnoses Hip fracture S72.009A Dementia F03.90 Dementia behavioral disturbance: without behavioral disturbance Dementia type: unspecified type Fall W19.XXXA Encounter type: initial encounter Anemia D64.9 Anemia type: unspecified type Hematoma of left lower leg S80.12XA Chronic kidney disease, stage III (moderate) N18.30 Atrial flutter I48.92 Hypothyroidism E03.9 Hypertension I10 Hyperlipidemia E78.5 Aphasia R47.01 Stroke I63.9 Osteoporosis M81.0 Asymptomatic bacteriuria R82.71 (1) Anemia Anemia type: unspecified type Qualified Code(s): D64.9 - Anemia, unspecified (2) Dementia Dementia behavioral disturbance: without behavioral disturbance Dementia type: unspecified type Qualified Code(s): F03.90 - Unspecified dementia without behavioral disturbance (3) Fall Encounter type: initial encounter Qualified Code(s): W19.XXXA - Unspecified fall, initial encounter
[2021-10-26] MEDS ORDERED: SODIUM CHLORIDE 0.9% 250 ML IV PRN (12:22)
[2021-10-26] MEDS: traMADol HCL 50 MG TABLET PO PRN (17:34)
[2021-10-26] MEDS ORDERED: POLYETHYLENE (MIRALAX) 17 GM PACK PO STA (17:37)
[2021-10-26 19:51] LABS: Hematocrit (blood only) 27.6 % (37-47); Hemoglobin 8.7 g/dL (12.0-16.0); Mean Corpuscular Hemoglobin 29.6 pg (25-34); Mean Corpuscular Hgb Conc 31.5 g/dL (32-36); Mean Corpuscular Volume 93.9 fL (80-100); Mean Platelet Volume 10.4 fL (7.4-10.4); Platelet Count 254 K/uL (130-400); RDW Coefficient of Variation 16.6 % (11.5-14.5); Red Blood Count 2.94 M/uL (4.2-5.4); White Blood Count 11.69 K/uL (4.8-10.8)
[2021-10-26] MEDS: MELATONIN 3 MG TAB PO SCH (20:28)
[2021-10-26] MEDS: POTASSIUM CHLORIDE 10 MEQ TABCR PO SCH (20:28)
[2021-10-26] MEDS: ATORVASTATIN 40 MG TAB PO SCH (20:28)
[2021-10-27] MEDS: LEVOTHYROXINE SODIUM 75 MCG TABLET PO SCH (06:09)
--- NOTE | 2021-10-27 07:54 | Hospitalist Progress Note ---
Date of Service October 27, 2021 Assessment & Plan (1) Hip fracture: Plan: Pt is an 86 yo female with a h/o a-flutter on Eliquis, dementia, CVA with aphasia, CKD stage 3,hypothyroidism, HTN, here with right hip fracture after having a fall out of her bed a few days ago. Pt unable to give any history. Ortho consulted POD#3 s/p hip nailing on 10/[address] Douglas s/p 2 u PRBC however hgb 7.2 on AM labs 10/26 with had multiple saturations of dressing (x3 far) and ordered additional unit PRBC --> Acute blood loss anemia from surgery and dilutional from IVF however acute loss now from bleeding from surgical site. Stable hematoma to LE hgb improved and stable 8.6, no further bleeding reported ASA, Eliquis for DVT Prop --> hx afib Pain control -- Tylenol and morphine for severe but ADDED tramadol q4h prn moderate discomfort -- asked RN to administer this evening Bowel regimen -- added scheduled miralax, senna. 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 supportive care (3) Fall: Plan: as above (4) Anemia: Plan: Chronic anemia plus acute blood loss anemia from previous hematoma and some from current fracture-hold ELiquis s/p 3 units (2 post-op, 1 u on 10/26 for issues with bleeding from surgical site) --> will give 1gm IV calcium gluconate given drop in Ca from blood products, especially given the prior bleeding hgb stable on repeat Follow CBC to ensure stable in AM (5) Hematoma of left lower leg: Plan: stable see previous admission for this (6) Chronic kidney disease, stage III (moderate): Plan: Had WILMER on CKD 3 and now resolved with IVFs -Avoid nephrotoxins -renally dose meds when appropriate -follow BMP (7) Atrial flutter: Plan: rate controlled, in paced rhythm here continue eliquis continue amiodarone (8) Hypothyroidism: Plan: continue LT4 (9) Hypertension: Plan: BP lower 10/26 and amlodipine held in evening BP improved today along w/ 1u PRBC 10/26, currently 151/55 Continue home medications Monitor (10) Hyperlipidemia: Plan: continue statin (11) Aphasia: Plan: as above, 2/2 old CVA (12) Stroke: Plan: CVA 04/2020 with exp aphasia continue ELiquis --> resumed by surgery post-op. continued despite bleeding and hgb stable at this time continue statin BP controlled w/ amlodipine (13) Osteoporosis: Plan: Vit D severely low at 12 here with pathologic fracture from fall from seated position started Vit D, calcium consider outpt bisphosphonate , FOrteo, Prolia Age-related osteoporosis w/o current pathological fracture of right femur (14) Asymptomatic bacteriuria: Plan: UA was clearly a contaminated sample with epis and had no WBCs or bacteria--> unclear why Ur cx was sent to begin with Ur cx with Enterococcus but no need to treat as this is likely from GI tract Plan: DVT Proph- ELiquis, ASA Dispo- continued stay med/surg, awaiting placement at SNF--> as per CM, won't be until next week while awaiting bed at rehab Admission and Anticipated Discharge Date Admission Date: October 23, 2021 Supervising Physician Co-Signing Physician Notes chart reviewed and case d/w L Huff PAC. agree w above Subjective patient eval this AM just medicated for pain with tramadol and appearing comfortable at this time no further bleeding reported and hemoglobin stable at this time and she is continued on ASA/Eliquis for DVT proph/afib. plans for rehab tomorrow/when bed available no events overnight. Review of Systems Review of Systems: Unobtainable due to cognitive status Physical Exam Constitutional: WD/WN, vitals as above resting in bed at this time Eyes: + anicteric sclerae Neck: trachea midline, no thyromegaly Respiratory: normal respiratory effort, lungs clear to auscultation Cardiovascular: RRR, no murmur, no edema Chest (Breasts): Chest: normal inspection of chest Gastrointestinal (Abdomen): normal bowel sounds, soft, nontender, no hepatosplenomegaly Musculoskeletal: Extremities: + extremities abnormal to inspection (left calf hematoma, unchanged), no cyanosis and no clubbing Skin: warm ,dry Neurologic: moves all extremities and awake; no focal motor deficits Speech / Cognition: + expressive aphasia Psychiatric: Orientation: alert and cooperative Results & Data Results & Data ([facility]) Vital Signs (Past 12 Hours) Vital Signs Temp Pulse Resp BP BP Pulse Ox 10/27/21 06:15 89 151/55 H 95 10/26/21 22:46 36.6 C 85 18 115/66 95 Laboratory Results 10/27/21 10/27/21 10/26/21 Range/Units 11:00 11:00 19:33 WBC 10.20 11.69 H (4.8-10.8) K/uL RBC 2.89 L 2.94 L (4.2-5.4) M/uL Hgb 8.6 L 8.7 L (12.0-16.0) g/dL Hct 26.7 L 27.6 L (37-47) % MCV 92.4 93.9 (80-100) fL MCH 29.8 29.6 (25-34) pg MCHC 32.2 31.5 L (32-36) g/dL RDW Std Deviation 55.4 H 57.0 H (36.4-46.3) fL RDW Coeff of Luis 16.8 H 16.6 H (11.5-14.5) % Plt Count 210 254 (130-400) K/uL MPV 10.9 H 10.4 (7.4-10.4) fL Immature Gran % (Auto) 0.9 % Neut % (Auto) 76.5 % Lymph % (Auto) 10.8 % [place] % (Auto) 9.0 % Eos % (Auto) 2.3 % Baso % (Auto) 0.5 % Neut # (Auto) 7.81 H (1.4-6.5) K/uL Lymph # (Auto) 1.10 L (1.2-3.4) K/uL [place] # (Auto) 0.92 H (0.11-0.59) K/uL Eos # (Auto) 0.23 (0-0.5) K/uL Baso # (Auto) 0.05 (0-0.2) K/uL Immature Gran # (Auto) 0.09 H (0.00-0.02) K/uL Sodium 141 (136-145) mmol/L Potassium 4.1 (3.5-5.1) mmol/L Chloride 110 H (98-107) mmol/L Carbon Dioxide 25 (21-32) mmol/L Anion Gap 6.0 (3-11) BUN 23 H (7-18) mg/dl Creatinine 0.89 (0.6-1.2) mg/dl Est Cr Clr Drug Dosing 36.2 ml/min Est GFR ( Amer) 67.5 ml/min Est GFR (Non-Af Amer) 58.3 ml/min BUN/Creatinine Ratio 25.6 H (10-20) Glucose 139 H (70-99) mg/dl Calcium 8.1 L (8.5-10.1) mg/dl Crossmatch 10/26/21 10/23/21 Range/Units 12:38 16:51 WBC (4.8-10.8) K/uL RBC (4.2-5.4) M/uL Hgb (12.0-16.0) g/dL Hct (37-47) % MCV (80-100) fL MCH (25-34) pg MCHC (32-36) g/dL RDW Std Deviation (36.4-46.3) fL RDW Coeff of Luis (11.5-14.5) % Plt Count (130-400) K/uL MPV (7.4-10.4) fL Immature Gran % (Auto) % Neut % (Auto) % Lymph % (Auto) % [place] % (Auto) % Eos % (Auto) % Baso % (Auto) % Neut # (Auto) (1.4-6.5) K/uL Lymph # (Auto) (1.2-3.4) K/uL [place] # (Auto) (0.11-0.59) K/uL Eos # (Auto) (0-0.5) K/uL Baso # (Auto) (0-0.2) K/uL Immature Gran # (Auto) (0.00-0.02) K/uL Sodium (136-145) mmol/L Potassium (3.5-5.1) mmol/L Chloride (98-107) mmol/L Carbon Dioxide (21-32) mmol/L Anion Gap (3-11) BUN (7-18) mg/dl Creatinine (0.6-1.2) mg/dl Est Cr Clr Drug Dosing ml/min Est GFR ( Amer) ml/min Est GFR (Non-Af Amer) ml/min BUN/Creatinine Ratio (10-20) Glucose (70-99) mg/dl Calcium (8.5-10.1) mg/dl Crossmatch See Detail See Detail PG Care Time/CCT Total # of Minutes Spent Total Time Spent with Patient: Total time spent is greater than 50% in coordination of care (as documented) at patient's floor/unit and/or counseling patient: Coding Level of Care Code 30450 Subseq Hosp Care Lvl 2 Diagnoses Hip fracture S72.009A Dementia F03.90 Dementia behavioral disturbance: without behavioral disturbance Dementia type: unspecified type Fall W19.XXXA Encounter type: initial encounter Anemia D64.9 Anemia type: unspecified type Hematoma of left lower leg S80.12XA Chronic kidney disease, stage III (moderate) N18.30 Atrial flutter I48.92 Hypothyroidism E03.9 Hypertension I10 Hyperlipidemia E78.5 Aphasia R47.01 Stroke I63.9 Osteoporosis M81.0 Asymptomatic bacteriuria R82.71 (1) Anemia Anemia type: unspecified type Qualified Code(s): D64.9 - Anemia, unspecified (2) Dementia Dementia behavioral disturbance: without behavioral disturbance Dementia type: unspecified type Qualified Code(s): F03.90 - Unspecified dementia without behavioral disturbance (3) Fall Encounter type: initial encounter Qualified Code(s): W19.XXXA - Unspecified fall, initial encounter
[2021-10-27] MEDS: AMIODARONE 200 MG TAB PO SCH (09:56)
[2021-10-27] MEDS: NYSTATIN POWDER 15GM BTL EXT SCH ×2 (09:57→19:06)
[2021-10-27] MEDS: APIXABAN 2.5 MG TAB PO SCH ×2 (09:57→19:06)
[2021-10-27] MEDS: ASPIRIN 81 MG ECTAB PO SCH (09:57)
[2021-10-27] MEDS: CALCIUM 600MG + VIT D 400 IU TAB PO SCH ×2 (09:57→19:06)
[2021-10-27] MEDS: CHOLECALCIFEROL 1,000 UNITS 25 MCG TAB PO SCH (09:57)
[2021-10-27] MEDS: traMADol HCL 50 MG TABLET PO PRN ×2 (10:07→17:09)
[2021-10-27] MEDS: DOCUSATE SODIUM/SENNA 50/8.6MG TAB PO SCH (10:09)
[2021-10-27] MEDS: POLYETHYLENE (MIRALAX) 17 GM PACK PO SCH (10:09)
[2021-10-27 12:06] LABS: Basophils # (auto) 0.05 K/uL (0-0.2); Basophils % (auto) 0.5 %; Eosinophils # (auto) 0.23 K/uL (0-0.5); Eosinophils % (auto) 2.3 %; Hematocrit (blood only) 26.7 % (37-47); Hemoglobin 8.6 g/dL (12.0-16.0); Immature Granulocytes # (auto) 0.09 K/uL (0.00-0.02); Immature Granulocytes % (auto) 0.9 %; Lymphocytes % (auto) 10.8 %; Mean Corpuscular Hemoglobin 29.8 pg (25-34); Mean Corpuscular Hgb Conc 32.2 g/dL (32-36); Mean Corpuscular Volume 92.4 fL (80-100); Mean Platelet Volume 10.9 fL (7.4-10.4); Monocytes # (auto) 0.92 K/uL (0.11-0.59); Neutrophils # (auto) 7.81 K/uL (1.4-6.5); Neutrophils % (auto) 76.5 %; Platelet Count 210 K/uL (130-400); RDW Coefficient of Variation 16.8 % (11.5-14.5); RDW Standard Deviation 55.4 fL (36.4-46.3); Red Blood Count 2.89 M/uL (4.2-5.4)
[2021-10-27 12:34] LABS: BUN Creatinine Ratio 25.6 (10-20); Calcium 8.1 mg/dl (8.5-10.1); Creatinine Clr Calc Pharmacy 36.2 ml/min; Est GFR (African American) 67.5 ml/min; Est GFR (Non-African American) 58.3 ml/min; Potassium 4.1 mmol/L (3.5-5.1)
[2021-10-27] MEDS ORDERED: CALCIUM GLUCONATE 10% 1,000 MG in SODIUM CHLORIDE 0.9% 50 ML IV ONE (15:30)
[2021-10-27] MEDS: POTASSIUM CHLORIDE 10 MEQ TABCR PO SCH (19:06)
[2021-10-27] MEDS: amLODIPine BESYLATE 5 MG TAB PO SCH (19:06)
[2021-10-27] MEDS: MELATONIN 3 MG TAB PO SCH (19:07)
[2021-10-27] MEDS: ATORVASTATIN 40 MG TAB PO SCH (19:07)
[2021-10-28] MEDS: LEVOTHYROXINE SODIUM 75 MCG TABLET PO SCH (05:23)
[2021-10-28 08:10] LABS: Basophils # (auto) 0.03 K/uL (0-0.2); Basophils % (auto) 0.3 %; Eosinophils # (auto) 0.48 K/uL (0-0.5); Eosinophils % (auto) 5.5 %; Hematocrit (blood only) 28.5 % (37-47); Hemoglobin 8.9 g/dL (12.0-16.0); Immature Granulocytes # (auto) 0.07 K/uL (0.00-0.02); Immature Granulocytes % (auto) 0.8 %; Lymphocytes # (auto) 1.11 K/uL (1.2-3.4); Lymphocytes % (auto) 12.7 %; Mean Corpuscular Hemoglobin 29.7 pg (25-34); Mean Corpuscular Hgb Conc 31.2 g/dL (32-36); Mean Platelet Volume 10.6 fL (7.4-10.4); Monocytes # (auto) 0.93 K/uL (0.11-0.59); Monocytes % (auto) 10.7 %; Neutrophils # (auto) 6.11 K/uL (1.4-6.5); Platelet Count 263 K/uL (130-400); RDW Coefficient of Variation 16.8 % (11.5-14.5); RDW Standard Deviation 57.9 fL (36.4-46.3); White Blood Count 8.73 K/uL (4.8-10.8)
[2021-10-28] MEDS: amLODIPine BESYLATE 5 MG TAB PO SCH ×2 (08:32→19:43)
[2021-10-28] MEDS: APIXABAN 2.5 MG TAB PO SCH ×2 (08:32→19:40)
[2021-10-28] MEDS: CALCIUM 600MG + VIT D 400 IU TAB PO SCH ×2 (08:32→19:42)
[2021-10-28] MEDS: POLYETHYLENE (MIRALAX) 17 GM PACK PO SCH (08:33)
[2021-10-28] MEDS: ASPIRIN 81 MG ECTAB PO SCH (08:33)
[2021-10-28] MEDS: CHOLECALCIFEROL 1,000 UNITS 25 MCG TAB PO SCH (08:33)
[2021-10-28] MEDS: AMIODARONE 200 MG TAB PO SCH (08:33)
[2021-10-28] MEDS: DOCUSATE SODIUM/SENNA 50/8.6MG TAB PO SCH (08:33)
[2021-10-28] MEDS: NYSTATIN POWDER 15GM BTL EXT SCH ×2 (08:33→19:43)
[2021-10-28 08:50] LABS: Albumin Level 1.8 gm/dl (3.4-5.0); BUN Creatinine Ratio 25.9 (10-20); Calcium 8.4 mg/dl (8.5-10.1); Creatinine Clr Calc Pharmacy 40.3 ml/min; Est GFR (African American) 76.8 ml/min; Est GFR (Non-African American) 66.3 ml/min; Potassium 4.1 mmol/L (3.5-5.1)
[2021-10-28 08:52] LABS: Albumin Globulin Ratio 0.6 (0.9-2); Globulin 3.3 gm/dl (2.5-4.0); Total Protein 5.1 gm/dl (6.4-8.2)
--- NOTE | 2021-10-28 10:49 | Hospitalist Progress Note ---
Date of Service October 28, 2021 Assessment & Plan (1) Hip fracture: Plan: Pt is an 86 yo female with a h/o a-flutter on Eliquis, dementia, CVA with aphasia, CKD stage 3,hypothyroidism, HTN, here with right hip fracture after having a fall out of her wheelchair a few days ago. Pt unable to give any history. - S/P R hip nailing on 10/[address] Douglas - Continue ASA daily and Eliquis BID - Continue pain control - can consider HECTOR Tylenol; Tramadol PRN - Continue bowel regimen - HECTOR Miralax and Senna - PT/OT evaluations - recommending SNF - awaiting placement - Ortho following - appreciate assistance -- May weighbear as tolerated with walker and full assistance (2) Anemia: Plan: - Chronic anemia plus acute blood loss anemia from previous hematoma and some from current fracture -- Acute blood loss anemia from surgery and dilutional from IVF and bleeding from surgical site - stable hematoma of LLE - S/P 3 units PRBC and 1 g IV calcium gluconate - Hgb currently stable at 8.9 and vitals acceptable - will monitor (3) Hematoma of left lower leg: Plan: - Stable - See previous admission for this (4) Chronic kidney disease, stage III (moderate): Plan: - Had WILMER on CKD 3 and now resolved with IVFs -- Baseline 1.0 - 1.4) - Avoid nephrotoxins; renally dose meds when appropriate (5) Atrial flutter: Plan: - Rate controlled, in paced rhythm here - Continue Eliquis 2.5 mg BID and Amiodarone 200 mg daily (6) Hypothyroidism: Plan: - Continue Levothyroxine 75 mcg daily (7) Hypertension: Plan: - Had intermittent lows but stabilized now - Continue Norvasc 2.5 mg BID (8) Hyperlipidemia: Plan: - Continue statin (9) Aphasia: Plan: - As above, 2/2 old CVA (10) Stroke: Plan: - 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 (12) Asymptomatic bacteriuria: Plan: - UA was clearly a contaminated sample with epis and had no WBCs or bacteria--> unclear why Ur cx was sent to begin with - Ur cx with Enterococcus but no need to treat as this is likely from GI tract (13) Dementia: Plan: - Severe; with aphasia due to CVA in April 2020 - Supportive care Plan: DVT Proph- Eliquis, ASA Disposition: - Awaiting rehab placement at [facility] - appears stable at this time pending bed availability Admission and Anticipated Discharge Date Admission Date: October 23, 2021 Subjective Patient is resting comfortably upon entering room. Awakens to gentle touch but largely non-conversational. When asked if anything was bothering her she stated "nothing I can think of" however doesn't really answer other questions. Hgb is stable and vitals stable. Awaiting rehab placement Review of Systems Review of Systems: Unobtainable due to cognitive status Physical Exam Physical Exam: PHYSICAL EXAM General Appearance: WDWN in NAD who is resting in bed but easily opens eyes HEENT: Head is normocephalic/atraumatic; Mucous membranes moist Neck: Supple; Trachea midline; Neg JVD Heart: RRR with no M/G/R Lungs: CTA in all lung pike bilaterally; Respirations unlabored; Neg accessory muscle use Abdomen: Soft, non-tender, non-distended; Positive BS x 4 quadrants Extremities: Neg cyanosis or edema; L calf hematoma Neurological: Speech clear; Gross motor/sensory function intact; Neg focal neurologic deficits Psychiatric: Flat affect Skin: Normal Color; Warm/Dry; other than described above Results & Data Results & Data ([facility]) Vital Signs (Past 12 Hours) Vital Signs Temp Pulse Resp BP Pulse Ox 10/28/21 07:55 36.6 C 72 16 123/72 92 PG Care Time/CCT Total # of Minutes Spent Total Time Spent with Patient: Total time spent is greater than 50% in coordination of care (as documented) at patient's floor/unit and/or counseling patient: Coding Level of Care Code 66112 Subseq Hosp Care Lvl 3 Diagnoses Hip fracture S72.009A Dementia F03.90 Dementia behavioral disturbance: without behavioral disturbance Dementia type: unspecified type Anemia D64.9 Anemia type: unspecified type Hematoma of left lower leg S80.12XA Chronic kidney disease, stage III (moderate) N18.30 Atrial flutter I48.92 Hypothyroidism E03.9 Hypertension I10 Hyperlipidemia E78.5 Aphasia R47.01 Stroke I63.9 Osteoporosis M81.0 Asymptomatic bacteriuria R82.71 (1) Anemia Anemia type: unspecified type Qualified Code(s): D64.9 - Anemia, unspecified (2) Dementia Dementia behavioral disturbance: without behavioral disturbance Dementia type: unspecified type Qualified Code(s): F03.90 - Unspecified dementia without behavioral disturbance
[2021-10-28] MEDS: ACETAMINOPHEN 325 MG TAB PO SCH ×2 (14:00→19:41)
[2021-10-28] MEDS: traMADol HCL 50 MG TABLET PO PRN (15:46)
[2021-10-28] MEDS: MELATONIN 3 MG TAB PO SCH (19:39)
[2021-10-28] MEDS: POTASSIUM CHLORIDE 10 MEQ TABCR PO SCH (19:40)
[2021-10-28] MEDS: ATORVASTATIN 40 MG TAB PO SCH (19:41)
[2021-10-29] MEDS: traMADol HCL 50 MG TABLET PO PRN ×2 (01:02→15:37)
[2021-10-29] MEDS: LEVOTHYROXINE SODIUM 75 MCG TABLET PO SCH (06:09)
[2021-10-29] MEDS: ACETAMINOPHEN 325 MG TAB PO SCH ×3 (07:46→20:30)
[2021-10-29] MEDS: ASPIRIN 81 MG ECTAB PO SCH (07:46)
[2021-10-29] MEDS: CHOLECALCIFEROL 1,000 UNITS 25 MCG TAB PO SCH (07:46)
[2021-10-29] MEDS: CALCIUM 600MG + VIT D 400 IU TAB PO SCH ×2 (07:46→20:33)
[2021-10-29] MEDS: amLODIPine BESYLATE 5 MG TAB PO SCH ×2 (07:46→20:32)
[2021-10-29] MEDS: DOCUSATE SODIUM/SENNA 50/8.6MG TAB PO SCH (07:47)
[2021-10-29] MEDS: APIXABAN 2.5 MG TAB PO SCH ×2 (07:47→20:32)
[2021-10-29] MEDS: AMIODARONE 200 MG TAB PO SCH (07:47)
[2021-10-29] MEDS: POLYETHYLENE (MIRALAX) 17 GM PACK PO SCH (07:47)
[2021-10-29 07:57] LABS: Basophils # (auto) 0.07 K/uL (0-0.2); Basophils % (auto) 0.7 %; Eosinophils # (auto) 0.55 K/uL (0-0.5); Eosinophils % (auto) 5.6 %; Hematocrit (blood only) 27.7 % (37-47); Hemoglobin 8.8 g/dL (12.0-16.0); Lymphocytes # (auto) 1.86 K/uL (1.2-3.4); Lymphocytes % (auto) 18.8 %; Mean Corpuscular Hgb Conc 31.8 g/dL (32-36); Mean Corpuscular Volume 94.5 fL (80-100); Mean Platelet Volume 10.4 fL (7.4-10.4); Monocytes # (auto) 0.87 K/uL (0.11-0.59); Monocytes % (auto) 8.8 %; Neutrophils # (auto) 6.45 K/uL (1.4-6.5); Neutrophils % (auto) 65.1 %; Platelet Count 284 K/uL (130-400); RDW Coefficient of Variation 16.4 % (11.5-14.5); RDW Standard Deviation 56.1 fL (36.4-46.3); Red Blood Count 2.93 M/uL (4.2-5.4)
--- NOTE | 2021-10-29 09:04 | Orthopedic Progress Note ---
Date of Service October 29, 2021 Assessment & Plan (1) Closed intertrochanteric fracture of right hip: Plan: Patient may be weightbearing as tolerated with walker and Maximal assistance Ice with easy wrap DVT prophylaxis with her prescription Eliquis and baby aspirin along with DIVYA stockings Pain control with p.o. medication PT/OT Keep dressing in place. May reinforce if necessary Patient's daughter who is power of trial attorney has discussed placement with case management, however there is no care home facility that is excepting her at this point. We will continue to follow patient while she is inpatient Admission and Anticipated Discharge Date Admission Date: October 23, 2021 Subjective This 86-year-old female seen today 5 days status post trochanteric nailing for a right hip fracture. Patient is resting comfortably in her bed. She is alert to person only. When asked questions she does not answer appropriately. When aske d if she has any pain she says "tomorrow." Review of Systems Review of Systems: Unobtainable due to cognitive status Physical Exam Physical Exam: Right lower extremity: All dressings were clean dry and intact. They consisted of sterile 2 by fours with 4 x 4's covered with Tegaderm. Patient was unable to perform a straight leg raise test. She was unable to actively flex her knee. She was able to dorsi and plantarflex her foot and had no pain with applied resistance. She did tolerate a passive logroll test, However she only tolerated knee flexion to about 25 degrees. She did have some slight tenderness over all the incision sites. She did not say that it was painful however she did groan when I palpated the areas. Results & Data ([facility]) Vital Signs (Past 12 Hours) Vital Signs Temp Pulse Resp BP Pulse Ox 10/29/21 07:50 36.8 C 68 18 126/68 95 10/28/21 22:25 36.3 C L 69 18 114/66 93 Laboratory Results 10/29/21 Range/Units 07:19 WBC 9.90 (4.8-10.8) K/uL RBC 2.93 L (4.2-5.4) M/uL Hgb 8.8 L (12.0-16.0) g/dL Hct 27.7 L (37-47) % MCV 94.5 (80-100) fL MCH 30.0 (25-34) pg MCHC 31.8 L (32-36) g/dL RDW Std Deviation 56.1 H (36.4-46.3) fL RDW Coeff of Luis 16.4 H (11.5-14.5) % Plt Count 284 (130-400) K/uL MPV 10.4 (7.4-10.4) fL Immature Gran % (Auto) 1.0 % Neut % (Auto) 65.1 % Lymph % (Auto) 18.8 % [place] % (Auto) 8.8 % Eos % (Auto) 5.6 % Baso % (Auto) 0.7 % Neut # (Auto) 6.45 (1.4-6.5) K/uL Lymph # (Auto) 1.86 (1.2-3.4) K/uL [place] # (Auto) 0.87 H (0.11-0.59) K/uL Eos # (Auto) 0.55 H (0-0.5) K/uL Baso # (Auto) 0.07 (0-0.2) K/uL Immature Gran # (Auto) 0.10 H (0.00-0.02) K/uL (1) Closed intertrochanteric fracture of right hip Encounter type: initial encounter Fracture alignment: displaced Qualified Code(s): S72.141A - Displaced intertrochanteric fracture of right femur, initial encounter for closed fracture
[2021-10-29] MEDS: NYSTATIN POWDER 15GM BTL EXT SCH ×2 (09:25→20:33)
--- NOTE | 2021-10-29 14:22 | Hospitalist Progress Note ---
Date of Service October 29, 2021 Assessment & Plan (1) Hip fracture: Plan: Pt is an 86 yo female with a h/o a-flutter on Eliquis, dementia, CVA with aphasia, CKD stage 3,hypothyroidism, HTN, here with right hip fracture after having a fall out of her wheelchair a few days ago. Pt unable to give any history. - S/P R hip nailing on 10/[address] Douglas - Continue ASA daily and Eliquis BID - Continue pain control - HECTOR Tylenol; Tramadol PRN - Continue bowel regimen - HECTOR Miralax and Senna - PT/OT evaluations - recommending SNF - awaiting placement - Ortho following - appreciate assistance -- May weightbear as tolerated with walker and full assistance (2) Anemia: Plan: - Chronic anemia plus acute blood loss anemia from previous hematoma and some from current fracture -- Acute blood loss anemia from surgery and dilutional from IVF and bleeding from surgical site - stable hematoma of LLE - S/P 3 units PRBC and 1 g IV calcium gluconate - Hgb currently stable at 8.8 and vitals acceptable - will monitor (3) Hematoma of left lower leg: Plan: - Stable - See previous admission for this (4) Chronic kidney disease, stage III (moderate): Plan: - Had WILMER on CKD 3 and now resolved with IVFs -- Baseline 1.0 - 1.4 - Avoid nephrotoxins; renally dose meds when appropriate (5) Atrial flutter: Plan: - Rate controlled, in paced rhythm here - Continue Eliquis 2.5 mg BID and Amiodarone 200 mg daily (6) Hypothyroidism: Plan: - Continue Levothyroxine 75 mcg daily (7) Hypertension: Plan: - Had intermittent lows but stabilized now - Continue Norvasc 2.5 mg BID (8) Hyperlipidemia: Plan: - Continue statin (9) Aphasia: Plan: - As above, 2/2 old CVA (10) Stroke: Plan: - 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 (12) Asymptomatic bacteriuria: Plan: - UA was clearly a contaminated sample with epis and had no WBCs or bacteria--> unclear why Ur cx was sent to begin with - Ur cx with Enterococcus but no need to treat as this is likely from GI tract (13) Dementia: Plan: - Severe; with aphasia due to CVA in April 2020 - Supportive care Plan: DVT Proph- Eliquis, ASA Disposition: - Awaiting rehab placement at SNF - appears stable at this time pending bed availability Admission and Anticipated Discharge Date Admission Date: October 23, 2021 Subjective Patient looks comfortable during my visit. Was not conversant today but was mumbling and then closed her eyes. She seems to get more interactive when daughter is at bedside. Unable to gather a ROS Review of Systems Review of Systems: Unobtainable due to cognitive status Physical Exam Physical Exam: PHYSICAL EXAM General Appearance: WDWN in NAD who is resting in bed but easily opens eyes HEENT: Head is normocephalic/atraumatic; Mucous membranes moist Neck: Supple; Trachea midline; Neg JVD Heart: RRR with no M/G/R Lungs: CTA in all lung pike bilaterally; Respirations unlabored; Neg accessory muscle use Abdomen: Soft, non-tender, non-distended; Positive BS x 4 quadrants Extremities: Neg cyanosis or edema; L calf hematoma (large and appears unchanged) extends on the medial aspect of the calf Neurological: Speech clear; Unable to follow commands Psychiatric: Flat affect Skin: Normal Color; Warm/Dry; other than described above Results & Data Results & Data ([facility]) Vital Signs (Past 12 Hours) Vital Signs Temp Pulse Resp BP Pulse Ox 10/29/21 07:50 36.8 C 68 18 126/68 95 PG Care Time/CCT Total # of Minutes Spent Total Time Spent with Patient: Total time spent is greater than 50% in coordination of care (as documented) at patient's floor/unit and/or counseling patient: Coding Level of Care Code 93930 Subseq Hosp Care Lvl 3 Diagnoses Hip fracture S72.009A Anemia D64.9 Anemia type: unspecified type Hematoma of left lower leg S80.12XA Chronic kidney disease, stage III (moderate) N18.30 Atrial flutter I48.92 Hypothyroidism E03.9 Hypertension I10 Hyperlipidemia E78.5 Aphasia R47.01 Stroke I63.9 Osteoporosis M81.0 Asymptomatic bacteriuria R82.71 Dementia F03.90 Dementia behavioral disturbance: without behavioral disturbance Dementia type: unspecified type (1) Anemia Anemia type: unspecified type Qualified Code(s): D64.9 - Anemia, unspecified (2) Dementia Dementia behavioral disturbance: without behavioral disturbance Dementia type: unspecified type Qualified Code(s): F03.90 - Unspecified dementia without behavioral disturbance
[2021-10-29] MEDS: POTASSIUM CHLORIDE 10 MEQ TABCR PO SCH (20:33)
[2021-10-29] MEDS: MELATONIN 3 MG TAB PO SCH (20:33)
[2021-10-29] MEDS: ATORVASTATIN 40 MG TAB PO SCH (20:33)
[2021-10-30] MEDS: LEVOTHYROXINE SODIUM 75 MCG TABLET PO SCH (05:39)
[2021-10-30 08:09] LABS: Basophils # (auto) 0.06 K/uL (0-0.2); Basophils % (auto) 0.6 %; Eosinophils # (auto) 0.38 K/uL (0-0.5); Eosinophils % (auto) 3.6 %; Hematocrit (blood only) 28.5 % (37-47); Hemoglobin 9.1 g/dL (12.0-16.0); Immature Granulocytes # (auto) 0.11 K/uL (0.00-0.02); Immature Granulocytes % (auto) 1.1 %; Lymphocytes # (auto) 1.32 K/uL (1.2-3.4); Lymphocytes % (auto) 12.6 %; Mean Corpuscular Hemoglobin 30.1 pg (25-34); Mean Corpuscular Hgb Conc 31.9 g/dL (32-36); Mean Corpuscular Volume 94.4 fL (80-100); Mean Platelet Volume 10.5 fL (7.4-10.4); Monocytes # (auto) 0.91 K/uL (0.11-0.59); Monocytes % (auto) 8.7 %; Neutrophils # (auto) 7.67 K/uL (1.4-6.5); Neutrophils % (auto) 73.4 %; Platelet Count 311 K/uL (130-400); RDW Coefficient of Variation 16.5 % (11.5-14.5); RDW Standard Deviation 55.8 fL (36.4-46.3); Red Blood Count 3.02 M/uL (4.2-5.4); White Blood Count 10.45 K/uL (4.8-10.8)
[2021-10-30] MEDS: CHOLECALCIFEROL 1,000 UNITS 25 MCG TAB PO SCH (08:38)
[2021-10-30] MEDS: ASPIRIN 81 MG ECTAB PO SCH (08:38)
[2021-10-30] MEDS: ACETAMINOPHEN 325 MG TAB PO SCH ×3 (08:39→20:56)
[2021-10-30] MEDS: AMIODARONE 200 MG TAB PO SCH (08:39)
[2021-10-30] MEDS: DOCUSATE SODIUM/SENNA 50/8.6MG TAB PO SCH (08:39)
[2021-10-30] MEDS: CALCIUM 600MG + VIT D 400 IU TAB PO SCH ×2 (08:39→20:58)
[2021-10-30] MEDS: APIXABAN 2.5 MG TAB PO SCH ×2 (08:39→20:57)
[2021-10-30] MEDS: amLODIPine BESYLATE 5 MG TAB PO SCH ×2 (08:40→21:06)
[2021-10-30] MEDS: POLYETHYLENE (MIRALAX) 17 GM PACK PO SCH (08:41)
[2021-10-30] MEDS: NYSTATIN POWDER 15GM BTL EXT SCH ×2 (08:41→20:58)
--- NOTE | 2021-10-30 11:21 | Orthopedic Progress Note ---
Date of Service October 30, 2021 Assessment & Plan (1) Closed intertrochanteric fracture of right hip: Plan: Patient may be weightbearing as tolerated with walker and Maximal assistance Ice with easy wrap DVT prophylaxis with her prescription Eliquis and baby aspirin along with DIVYA stockings Pain control with p.o. medication PT/OT Keep dressing in place. May reinforce if necessary. Change PRN. Patient's daughter who is power of research greenhouse supervisor has discussed placement with case management, however there is no group home facility that is excepting her at this point. We will continue to follow patient while she is inpatient Admission and Anticipated Discharge Date Admission Date: October 23, 2021 Subjective Lying in bed, does tell me that she feels the need to cover her eyes with something. Has her arm over her eyes. Physical Exam Musculoskeletal: Dressings changed at bedside. Most distal incision, marge intact, no serous drainage of dressings. No active drainage. Middle incision with serous drainage on dressings, but no active drainage. no drainage able to be expressed from incision, surrounding ecchymosis, no collection of fluid around incision. No active bleeding. Nontender with palpation. Terry intact. Most proximal incision marge intact, no active drainage, about a quarter sized serous bloody drainage on dressing, no surrounding collection of fluid, nontender to palpation. No erythema of any incision. Results & Data ([facility]) Vital Signs (Past 12 Hours) Vital Signs Temp Pulse Resp BP BP Pulse Ox 10/30/21 07:59 37.1 C 87 16 102/57 L 92 10/30/21 01:43 36.5 C 68 16 131/69 97 (1) Closed intertrochanteric fracture of right hip Encounter type: initial encounter Fracture alignment: displaced Qualified Code(s): S72.141A - Displaced intertrochanteric fracture of right femur, initial encounter for closed fracture
[2021-10-30] MEDS: traMADol HCL 50 MG TABLET PO PRN ×2 (12:55→16:58)
--- NOTE | 2021-10-30 17:46 | Hospitalist Progress Note ---
Date of Service October 30, 2021 Assessment & Plan (1) Hip fracture: Plan: Pt is an 86 yo female with a h/o a-flutter on Eliquis, dementia, CVA with aphasia, CKD stage 3,hypothyroidism, HTN, here with right hip fracture after having a fall out of her wheelchair a few days ago. Pt unable to give any history. - S/P R hip nailing on 10/[address] Douglas - Continue ASA daily and Eliquis BID - Continue pain control - HECTOR Tylenol; Tramadol PRN - Continue bowel regimen - HECTOR Miralax and Senna - PT/OT evaluations - recommending SNF - awaiting placement - Ortho following - appreciate assistance -- May weightbear as tolerated with walker and full assistance (2) Anemia: Plan: - Chronic anemia plus acute blood loss anemia from previous hematoma and some from current fracture -- Acute blood loss anemia from surgery and dilutional from IVF and bleeding from surgical site - stable hematoma of LLE - S/P 3 units PRBC and 1 g IV calcium gluconate - Hgb currently stable at at high 8s to 9 and vitals acceptable - will monitor (3) Hematoma of left lower leg: Plan: - Stable - See previous admission for this (4) Chronic kidney disease, stage III (moderate): Plan: - Had WILMER on CKD 3 and now resolved with IVFs -- Baseline 1.0 - 1.4 - Avoid nephrotoxins; renally dose meds when appropriate (5) Atrial flutter: Plan: - Rate controlled, in paced rhythm here - Continue Eliquis 2.5 mg BID and Amiodarone 200 mg daily (6) Hypothyroidism: Plan: - Continue Levothyroxine 75 mcg daily (7) Hypertension: Plan: - Had intermittent lows but stabilized now - Continue Norvasc 2.5 mg BID (8) Hyperlipidemia: Plan: - Continue statin (9) Aphasia: Plan: - As above, 2/2 old CVA (10) Stroke: Plan: - 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 (12) Asymptomatic bacteriuria: Plan: - UA was clearly a contaminated sample with epis and had no WBCs or bacteria--> unclear why Ur cx was sent to begin with - Ur cx with Enterococcus but no need to treat as this is likely from GI tract - however has duong so if any change in mentation would recommend recheck as she may be prone to infection (13) Dementia: Plan: - Severe; with aphasia due to CVA in April 2020 - Supportive care Plan: DVT Proph- Zachary, ASA Disposition: - Awaiting rehab placement at [facility] - would be stable for discharge pending bed availability - Updated daughter at bedside today. She did ask about flu, pneumonia, and booster shot as she was on a list at [facility] and she does not believe she got it - can verify with [facility] and discuss with case management to see if we can get this completed here Admission and Anticipated Discharge Date Admission Date: October 23, 2021 Subjective Patient looks comfortable. Met with daughter at bedside and agrees she looks comfortable however was recently medicated. Daughter states she was sitting on the edge of the bed today which is the first she has seen in awhile as she was not doing much since her last admission when she went to [facility] Review of Systems Review of Systems: Unobtainable due to cognitive status Physical Exam Physical Exam: PHYSICAL EXAM General Appearance: WDWN in NAD who is resting in bed more interactive when family at bedside but largely non-verbal with me HEENT: Head is normocephalic/atraumatic; Mucous membranes moist Neck: Supple; Trachea midline; Neg JVD Heart: RRR with no M/G/R Lungs: CTA in all lung pike bilaterally; Respirations unlabored; Neg accessory muscle use Abdomen: Soft, non-tender, non-distended; Positive BS x 4 quadrants Extremities: Neg cyanosis or edema; L calf hematoma (large and appears unc hanged) extends on the medial aspect of the calf Neurological: Speech clear; Unable to follow commands Psychiatric: Flat affect Skin: Normal Color; Warm/Dry; other than described above Results & Data Results & Data ([facility]) Vital Signs (Past 12 Hours) Vital Signs Temp Pulse Resp BP Pulse Ox 10/30/21 07:59 37.1 C 87 16 102/57 L 92 PG Care Time/CCT Total # of Minutes Spent Total Time Spent with Patient: Total time spent is greater than 50% in coordination of care (as documented) at patient's floor/unit and/or counseling patient: Coding Level of Care Code 04410 Subseq Hosp Care Lvl 3 Diagnoses Hip fracture S72.009A Anemia D64.9 Anemia type: unspecified type Hematoma of left lower leg S80.12XA Chronic kidney disease, stage III (moderate) N18.30 Atrial flutter I48.92 Hypothyroidism E03.9 Hypertension I10 Hyperlipidemia E78.5 Aphasia R47.01 Stroke I63.9 Osteoporosis M81.0 Asymptomatic bacteriuria R82.71 Dementia F03.90 Dementia behavioral disturbance: without behavioral disturbance Dementia type: unspecified type (1) Anemia Anemia type: unspecified type Qualified Code(s): D64.9 - Anemia, unspecified (2) Dementia Dementia behavioral disturbance: without behavioral disturbance Dementia type: unspecified type Qualified Code(s): F03.90 - Unspecified dementia without behavioral disturbance
[2021-10-30] MEDS: ATORVASTATIN 40 MG TAB PO SCH (20:57)
[2021-10-30] MEDS: POTASSIUM CHLORIDE 10 MEQ TABCR PO SCH (20:58)
[2021-10-30] MEDS: MELATONIN 3 MG TAB PO SCH (20:58)
[2021-10-31] MEDS: traMADol HCL 50 MG TABLET PO PRN ×3 (00:38→16:53)
[2021-10-31] MEDS: LEVOTHYROXINE SODIUM 75 MCG TABLET PO SCH (05:40)
[2021-10-31 07:18] LABS: Basophils # (auto) 0.05 K/uL (0-0.2); Basophils % (auto) 0.5 %; Eosinophils # (auto) 0.49 K/uL (0-0.5); Eosinophils % (auto) 5.2 %; Hematocrit (blood only) 29.1 % (37-47); Hemoglobin 9.2 g/dL (12.0-16.0); Immature Granulocytes # (auto) 0.12 K/uL (0.00-0.02); Immature Granulocytes % (auto) 1.3 %; Lymphocytes # (auto) 1.47 K/uL (1.2-3.4); Lymphocytes % (auto) 15.6 %; Mean Corpuscular Hgb Conc 31.6 g/dL (32-36); Mean Corpuscular Volume 94.8 fL (80-100); Mean Platelet Volume 9.8 fL (7.4-10.4); Monocytes # (auto) 0.91 K/uL (0.11-0.59); Monocytes % (auto) 9.7 %; Neutrophils # (auto) 6.37 K/uL (1.4-6.5); Neutrophils % (auto) 67.7 %; Platelet Count 324 K/uL (130-400); RDW Coefficient of Variation 16.8 % (11.5-14.5); RDW Standard Deviation 56.7 fL (36.4-46.3); Red Blood Count 3.07 M/uL (4.2-5.4); White Blood Count 9.41 K/uL (4.8-10.8)
[2021-10-31] MEDS: ACETAMINOPHEN 325 MG TAB PO SCH ×3 (08:50→20:18)
[2021-10-31] MEDS: amLODIPine BESYLATE 5 MG TAB PO SCH ×2 (08:51→20:23)
[2021-10-31] MEDS: AMIODARONE 200 MG TAB PO SCH (08:51)
[2021-10-31] MEDS: APIXABAN 2.5 MG TAB PO SCH ×2 (08:52→20:19)
[2021-10-31] MEDS: ASPIRIN 81 MG ECTAB PO SCH (08:52)
[2021-10-31] MEDS: DOCUSATE SODIUM/SENNA 50/8.6MG TAB PO SCH (08:53)
[2021-10-31] MEDS: NYSTATIN POWDER 15GM BTL EXT SCH ×2 (08:53→20:21)
[2021-10-31] MEDS: CALCIUM 600MG + VIT D 400 IU TAB PO SCH ×2 (08:53→20:20)
[2021-10-31] MEDS: CHOLECALCIFEROL 1,000 UNITS 25 MCG TAB PO SCH (08:53)
[2021-10-31] MEDS: POLYETHYLENE (MIRALAX) 17 GM PACK PO SCH ×2 (08:53→20:18)
--- NOTE | 2021-10-31 10:41 | Orthopedic Progress Note ---
Date of Service October 31, 2021 Assessment & Plan (1) S/P ORIF (open reduction internal fixation) fracture: Plan: Patient's dressings were left in place today. They may be changed tomorrow as needed if soiling is present. Continue with ice across her right thigh and left calf. Continue with PT/OT She continues to wait for placement based on bed availability at a fpc facility or rehab facility. We will continue to follow while she is admitted. Continue DVT prophylaxis. Admission and Anticipated Discharge Date Admission Date: October 23, 2021 Subjective Patient is seen in her room this morning. Remains confused. Pleasant. She is currently being fed her breakfast. She is unable to reliably answer whether she is having pain. No other reliable history. Review of Systems Review of Systems: Unchanged from yesterday. Physical Exam Physical Exam: General: Well-developed elderly white female who is pleasantly confused. Sitting in bed. Skin: Left leg has a very large ecchymotic area extending from thigh to heel. She has a large hematoma present on the medial aspect of her left calf. It does not appear to be tender at this time. Nonfluctuant. Right leg has some mild ecchymosis as well. She has intact dressings laterally on the right thigh. They are dry. Scant serous type drainage on the distal bandage. These were not removed. Musculoskeletal: Patient has intact motor function of both ankles and toes. She has no signs of discomfort with logrolling of the left hip or gentle flexion of the left knee. She appears uncomfortable with motion of the right hip. No visible discomfort with gentle motion of the right knee. Neurologic: Gross sensation appears to be intact on both lower extremities by soft touch Peripheral pulses are 2+ bilaterally. Results & Data ([facility]) Vital Signs (Past 12 Hours) Vital Signs Temp Pulse Resp BP Pulse Ox 10/31/21 08:22 36.4 C L 70 18 153/77 H 97 Laboratory Results H&H today are 9.2 and 29.1.
--- NOTE | 2021-10-31 13:38 | Hospitalist Progress Note ---
Date of Service October 31, 2021 Assessment & Plan (1) Hip fracture: Plan: Pt is an 86 yo female with a h/o a-flutter on Eliquis, dementia, CVA with aphasia, CKD stage 3,hypothyroidism, HTN, here with right hip fracture after having a fall out of her wheelchair a few days ago. Pt unable to give any history. - S/P R hip nailing on 10/[address] Douglas - Continue ASA daily and Eliquis BID - Continue pain control - HECTOR Tylenol; Tramadol PRN - Continue bowel regimen - HECTOR Miralax (changed to BID) and Senna -- Last BM 10/25; abdomen is soft and good bowel sounds - PT/OT evaluations - recommending SNF - awaiting placement - Ortho following - appreciate assistance -- May weightbear as tolerated with walker and full assistance (2) Anemia: Plan: - Chronic anemia plus acute blood loss anemia from previous hematoma and some from current fracture -- Acute blood loss anemia from surgery and dilutional from IVF and bleeding from surgical site - stable hematoma of LLE - S/P 3 units PRBC and 1 g IV calcium gluconate - Hgb currently stable at at high 8s to 9 and vitals acceptable - will monitor (3) Hematoma of left lower leg: Plan: - Stable - See previous admission for this (4) Chronic kidney disease, stage III (moderate): Plan: - Had WILMER on CKD 3 and now resolved with IVFs -- Baseline 1.0 - 1.4 - Avoid nephrotoxins; renally dose meds when appropriate (5) Atrial flutter: Plan: - Rate controlled - Continue Eliquis 2.5 mg BID and Amiodarone 200 mg daily (6) Hypothyroidism: Plan: - Continue Levothyroxine 75 mcg daily (7) Hypertension: Plan: - Had intermittent lows but stabilized now - Continue Norvasc 2.5 mg BID (8) Hyperlipidemia: Plan: - Continue statin (9) Aphasia: Plan: - As above, 2/2 old CVA (10) Stroke: Plan: - 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 (12) Asymptomatic bacteriuria: Plan: - UA was clearly a contaminated sample with epis and had no WBCs or bacteria--> unclear why Ur cx was sent to begin with - Ur cx with Enterococcus but no need to treat as this is likely from GI tract - Review of PT notes shows she was grabbing for things not present and wasn't sure if she could be hallucinating - given Yeung and previous culture will obtain a new UA -- Currently no leukocytosis or fever (13) Dementia: Plan: - Severe; with aphasia due to CVA in April 2020 - Supportive care Plan: DVT Proph- Eliquis, ASA Disposition: - Awaiting rehab placement at [facility] - would be stable for discharge pending bed availability - Updated daughter at bedside on 10/30. She did ask about flu, pneumonia, and booster shot as she was on a list at [facility] and she does not believe she got it - it looks like it was administered on 10/23 while here (unable to do booster) Admission and Anticipated Discharge Date Admission Date: October 23, 2021 Subjective Patient a bit more awake today during my visit. Follows me a bit more with her eyes but does not speak to me. Slightly mumbled words but that was it. She was not making any grimaces and appears comfortable. Seems to interact a bit more when family is at bedside. Reviewed PT note which she displaced signs of grabbing things that were not there. Will recheck UA. No leukocytosis or fever. Review of Systems Review of Systems: Unobtainable due to cognitive status Physical Exam Physical Exam: PHYSICAL EXAM General Appearance: WDWN in NAD who is resting in bed more interactive when family at bedside but largely non-verbal with me but seems to follow me more with her eyes HEENT: Head is normocephalic/atraumatic; Mucous membranes moist Neck: Supple; Trachea midline; Neg JVD Heart: RRR with no M/G/R Lungs: CTA in all lung pike bilaterally; Respirations unlabored; Neg accessory muscle use Abdomen: Soft, non-tender, non-distended; Positive BS x 4 quadrants Extremities: Neg cyanosis or edema; L calf hematoma (large and appears unchanged) extends on the medial aspect of the calf; ecchymosis around hematoma Neurological: Speech clear; Unable to follow commands Psychiatric: Flat affect Skin: Normal Color; Warm/Dry; other than described above Results & Data Results & Data ([facility]) Vital Signs (Past 12 Hours) Vital Signs Temp Pulse Resp BP Pulse Ox 10/31/21 08:22 36.4 C L 70 18 153/77 H 97 PG Care Time/CCT Total # of Minutes Spent Total Time Spent with Patient: Total time spent is greater than 50% in coordination of care (as documented) at patient's floor/unit and/or counseling patient: Coding Level of Care Code 25256 Subseq Hosp Care Lvl 3 Diagnoses Hip fracture S72.009A Anemia D64.9 Anemia type: unspecified type Hematoma of left lower leg S80.12XA Chronic kidney disease, stage III (moderate) N18.30 Atrial flutter I48.92 Hypothyroidism E03.9 Hypertension I10 Hyperlipidemia E78.5 Aphasia R47.01 Stroke I63.9 Osteoporosis M81.0 Asymptomatic bacteriuria R82.71 Dementia F03.90 Dementia behavioral disturbance: without behavioral disturbance Dementia type: unspecified type (1) Anemia Anemia type: unspecified type Qualified Code(s): D64.9 - Anemia, unspecified (2) Dementia Dementia behavioral disturbance: without behavioral disturbance Dementia type: unspecified type Qualified Code(s): F03.90 - Unspecified dementia without behavioral disturbance
[2021-10-31 14:33] LABS: Appearance Urine Clear (Clear); Bacteria Urine Automated 1+ (Negative); Bilirubin Urine Negative (Negative); Blood Urine 1+ (Negative); Color Urine Dark Yellow; Epithelial Cell Urine Auto 0-5 /lpf (0-5); Glucose Urine UA Negative (Negative); Ketones Urine Negative (Negative); Leukocyte Esterase Urine 2+ (Negative); Nitrite Urine Negative (Negative); Protein Urine Trace (Negative); Urobilinogen Urine Positive (Negative); pH Urine 6.5 (4.5-7.5)
[2021-10-31] MEDS: AMOXICILLIN 500 MG CAP PO SCH ×2 (15:38→20:19)
[2021-10-31] MEDS: ATORVASTATIN 40 MG TAB PO SCH (20:19)
[2021-10-31] MEDS: POTASSIUM CHLORIDE 10 MEQ TABCR PO SCH (20:20)
[2021-10-31] MEDS: MELATONIN 3 MG TAB PO SCH (20:20)
[2021-11-01] MEDS: LEVOTHYROXINE SODIUM 75 MCG TABLET PO SCH (05:45)
[2021-11-01] MEDS: traMADol HCL 50 MG TABLET PO PRN ×2 (05:46→16:26)
[2021-11-01 06:36] LABS: Basophils # (auto) 0.04 K/uL (0-0.2); Basophils % (auto) 0.5 %; Eosinophils # (auto) 0.51 K/uL (0-0.5); Eosinophils % (auto) 6.5 %; Hematocrit (blood only) 29.6 % (37-47); Hemoglobin 9.2 g/dL (12.0-16.0); Immature Granulocytes # (auto) 0.07 K/uL (0.00-0.02); Immature Granulocytes % (auto) 0.9 %; Lymphocytes # (auto) 1.56 K/uL (1.2-3.4); Lymphocytes % (auto) 19.9 %; Mean Corpuscular Hgb Conc 31.1 g/dL (32-36); Mean Corpuscular Volume 96.4 fL (80-100); Mean Platelet Volume 9.9 fL (7.4-10.4); Monocytes % (auto) 8.9 %; Neutrophils # (auto) 4.97 K/uL (1.4-6.5); Neutrophils % (auto) 63.3 %; Platelet Count 331 K/uL (130-400); RDW Coefficient of Variation 17.3 % (11.5-14.5); RDW Standard Deviation 59.1 fL (36.4-46.3); Red Blood Count 3.07 M/uL (4.2-5.4); White Blood Count 7.85 K/uL (4.8-10.8)
[2021-11-01 07:10] LABS: BUN Creatinine Ratio 18.2 (10-20); Creatinine Clr Calc Pharmacy 40.8 ml/min; Est GFR (Non-African American) 67.3 ml/min
[2021-11-01] MEDS: POLYETHYLENE (MIRALAX) 17 GM PACK PO SCH ×2 (08:50→20:28)
[2021-11-01] MEDS: ASPIRIN 81 MG ECTAB PO SCH (08:50)
[2021-11-01] MEDS: AMIODARONE 200 MG TAB PO SCH (08:50)
[2021-11-01] MEDS: amLODIPine BESYLATE 5 MG TAB PO SCH ×2 (08:51→20:24)
[2021-11-01] MEDS: AMOXICILLIN 500 MG CAP PO SCH ×3 (08:52→20:25)
[2021-11-01] MEDS: APIXABAN 2.5 MG TAB PO SCH ×2 (08:52→20:26)
[2021-11-01] MEDS: CALCIUM 600MG + VIT D 400 IU TAB PO SCH ×2 (08:52→20:27)
[2021-11-01] MEDS: ACETAMINOPHEN 325 MG TAB PO SCH ×3 (08:53→20:23)
[2021-11-01] MEDS: CHOLECALCIFEROL 1,000 UNITS 25 MCG TAB PO SCH (08:53)
[2021-11-01] MEDS: DOCUSATE SODIUM/SENNA 50/8.6MG TAB PO SCH (08:53)
[2021-11-01] MEDS: NYSTATIN POWDER 15GM BTL EXT SCH ×2 (09:00→20:30)
--- NOTE | 2021-11-01 10:16 | Orthopedic Progress Note ---
Date of Service November 01, 2021 Assessment & Plan (1) Closed intertrochanteric fracture of right hip: Plan: Patient may be weightbearing as tolerated with walker and Maximal assistance Ice with easy wrap DVT prophylaxis with her prescription Eliquis and baby aspirin along with DIVYA stockings Pain control with p.o. medication PT/OT Keep dressing in place. May reinforce if necessary. Change PRN. Patient's daughter who is power of district attorney has discussed placement with case management, however there is no halfway facility that is excepting her at this point. We will continue to follow patient while she is inpatient Admission and Anticipated Discharge Date Admission Date: October 23, 2021 Subjective This 86-year-old female is day 8 status post right hip fracture open reduction internal fixation with trochanteric nailing. She is very somnolent during her examination today.Physical therapist is currently in room and states that the patient was able to do some basic exercises yesterday but that she still requires maximum assistance to get out of bed. Review of Systems Review of Systems: Unobtainable due to cognitive status Physical Exam Physical Exam: Right lower extremity: All dressings were clean dry and intact. They consisted of sterile 2 by fours with 4 x 4's covered with Tegaderm. Patient was unable to perform a straight leg raise test. She was unable to actively flex her knee. She was able to dorsi and plantarflex her foot and had no pain with applied resistance. She did tolerate a passive logroll test. During today's examination patient was able to tolerate knee flexion to 90 degrees and hip flexion to about 75 degrees.. She did have some slight tenderness over all the incision sites. Results & Data ([facility]) Vital Signs (Past 12 Hours) Vital Signs Temp Pulse Resp BP Pulse Ox 11/01/21 07:30 36.1 C L 63 16 120/68 97 10/31/21 22:50 36.9 C 67 18 136/72 97 Laboratory Results 11/01/21 11/01/21 10/31/21 Range/Units 06:16 06:16 Unknown WBC 7.85 (4.8-10.8) K/uL RBC 3.07 L (4.2-5.4) M/uL Hgb 9.2 L (12.0-16.0) g/dL Hct 29.6 L (37-47) % MCV 96.4 (80-100) fL MCH 30.0 (25-34) pg MCHC 31.1 L (32-36) g/dL RDW Std Deviation 59.1 H (36.4-46.3) fL RDW Coeff of Luis 17.3 H (11.5-14.5) % Plt Count 331 (130-400) K/uL MPV 9.9 (7.4-10.4) fL Immature Gran % (Auto) 0.9 % Neut % (Auto) 63.3 % Lymph % (Auto) 19.9 % Petroleum % (Auto) 8.9 % Eos % (Auto) 6.5 % Baso % (Auto) 0.5 % Neut # (Auto) 4.97 (1.4-6.5) K/uL Lymph # (Auto) 1.56 (1.2-3.4) K/uL Petroleum # (Auto) 0.70 H (0.11-0.59) K/uL Eos # (Auto) 0.51 H (0-0.5) K/uL Baso # (Auto) 0.04 (0-0.2) K/uL Immature Gran # (Auto) 0.07 H (0.00-0.02) K/uL Sodium 139 (136-145) mmol/L Potassium 4.0 (3.5-5.1) mmol/L Chloride 106 (98-107) mmol/L Carbon Dioxide 28 (21-32) mmol/L Anion Gap 5.0 (3-11) BUN 14 (7-18) mg/dl Creatinine 0.79 (0.6-1.2) mg/dl Est Cr Clr Drug Dosing 40.8 ml/min Est GFR ( Amer) 78.0 ml/min Est GFR (Non-Af Amer) 67.3 ml/min BUN/Creatinine Ratio 18.2 (10-20) Glucose 97 (70-99) mg/dl Calcium 8.0 L (8.5-10.1) mg/dl Urine Color Dark Yellow Urine Appearance Clear (Clear) Urine pH 6.5 (4.5-7.5) Ur Specific Garner 1.020 (1.000-1.030) Urine Protein Trace H (Negative) Urine Glucose (UA) Negative (Negative) Urine Ketones Negative (Negative) Urine Blood 1+ H (Negative) Urine Nitrite Negative (Negative) Urine Bilirubin Negative (Negative) Urine Urobilinogen Positive H (Negative) Ur Leukocyte Esterase 2+ H (Negative) Urine WBC (Auto) 10-30 H (0-5) /hpf Urine RBC (Auto) 5-10 H (0-4) /hpf U Hyaline Cast (Auto) 1-5 (0-5) /lpf U Epithel Cells (Auto) 0-5 (0-5) /lpf Urine Bacteria (Auto) 1+ H (Negative) (1) Closed intertrochanteric fracture of right hip Encounter type: initial encounter Fracture alignment: displaced Qualified Code(s): S72.141A - Displaced intertrochanteric fracture of right femur, initial encounter for closed fracture
[2021-11-01] MEDS ORDERED: bisacodyL 10 MG SUPP PR PRN (17:28)
--- NOTE | 2021-11-01 17:40 | Hospitalist Progress Note ---
Date of Service November 01, 2021 Assessment & Plan (1) Hip fracture: Plan: Pt is an 86 yo female with a h/o a-flutter on Eliquis, dementia, CVA with aphasia, CKD stage 3,hypothyroidism, HTN, here with right hip fracture after having a fall out of her wheelchair a few days ago. Pt unable to give any history. - S/P R hip nailing on 10/[address] Douglas - Continue ASA daily and Eliquis BID - Continue pain control - HECTOR Tylenol; Tramadol PRN - Continue bowel regimen - HECTOR Miralax (changed to BID) and Senna; add Dulcolax suppository - likely may need if not having BM by tomorrow -- Last BM 10/25; abdomen is soft and good bowel sounds; no grimacing with palpation but could consider KUB - PT/OT -- Daughter states she has not been very mobile since last hospital stay - Ortho following - appreciate assistance -- May weightbear as tolerated with walker and full assistance (2) Anemia: Plan: - Chronic anemia plus acute blood loss anemia from previous hematoma and some from current fracture -- Acute blood loss anemia from surgery and dilutional from IVF and bleeding from surgical site - stable hematoma of LLE - S/P 3 units PRBC and 1 g IV calcium gluconate - Hgb currently stable at at high 8s to 9 and vitals acceptable - will monitor (3) Hematoma of left lower leg: Plan: - Stable - See previous admission for this (4) Chronic kidney disease, stage III (moderate): Plan: - Had WILMER on CKD 3 and now resolved with IVFs -- Baseline 1.0 - 1.4 - Avoid nephrotoxins; renally dose meds when appropriate (5) Atrial flutter: Plan: - Rate controlled - Continue Eliquis 2.5 mg BID and Amiodarone 200 mg daily (6) Hypothyroidism: Plan: - Continue Levothyroxine 75 mcg daily (7) Hypertension: Plan: - Had intermittent lows but stabilized now - Continue Norvasc 2.5 mg BID (8) Hyperlipidemia: Plan: - Continue statin (9) Aphasia: Plan: - As above, 2/2 old CVA (10) Stroke: Plan: - 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 (12) Asymptomatic bacteriuria: Plan: - UA was clearly a contaminated sample with epis and had no WBCs or bacteria--> unclear why Ur cx was sent to begin with on admission - Review of PT notes shows she was grabbing for things not present and wasn't sure if she could be hallucinating - given Yeung and previous culture obtained new UA which is growing probable enterococcus -- Currently no leukocytosis or fever -- Discussed with daughter - states she does occasional grab for things that are not there but noted she appeared to be "knitting" with her hands which is not normal and was trying to take her clothes off which is not normal either as she is very modest - Per uptodate Amoxil can be good coverage - could consider conversion to ampicillin po (don't care oral in-house) if limited response from Amoxil - however assessing clinical response may be difficult given CVA/aphasia/dementia (13) Dementia: Plan: - Severe; with aphasia 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 Flu/Pneumonia vaccine given on 10/23 while here; is COVID vaccinated and daughter would like a booster (unable to do that here) - Need to move bowels, can consider KUB but does have a soft abdomen with good bowel sounds but a bowel regimen could be [facility] at [facility] Admission and Anticipated Discharge Date Admission Date: October 23, 2021 Subjective Patient largely non-verbal. However will speak more phrases when family is at bedside. Discussed with daughter that sometimes she will act like she is sleeping to avoid things especially when offered by people she does not know. Seems to improve some in the afternoon. Review of Systems Review of Systems: Unobtainable due to cognitive status Physical Exam Physical Exam: PHYSICAL EXAM General Appearance: WDWN in NAD who is resting in bed more interactive when family at bedside but largely non-verbal with me HEENT: Head is normocephalic/atraumatic Neck: Supple; Trachea midline; Neg JVD Heart: RRR with no M/G/R Lungs: CTA in all lung pike bilaterally; Respirations unlabored; Neg accessory muscle use Abdomen: Soft, non-tender (no grimacing when palpating abdomen), non-distended; Positive BS x 4 quadrants Extremities: Neg cyanosis or edema; L calf hematoma (large and appears unchanged) extends on the medial aspect of the calf; ecchymosis around hematoma Neurological: Speech clear; Unable to follow commands Psychiatric: Flat affect Skin: Normal Color; Warm/Dry; other than described above Results & Data Results & Data ([facility]) Vital Signs (Past 12 Hours) Vital Signs Temp Pulse Resp BP Pulse Ox 11/01/21 16:14 36.4 C L 67 14 121/75 97 11/01/21 07:30 36.1 C L 63 16 120/68 97 PG Care Time/CCT Total # of Minutes Spent Total Time Spent with Patient: Total time spent is greater than 50% in coordination of care (as documented) at patient's floor/unit and/or counseling patient: Coding Level of Care Code 63740 Subseq Hosp Care Lvl 3 Diagnoses Hip fracture S72.009A Anemia D64.9 Anemia type: unspecified type Hematoma of left lower leg S80.12XA Chronic kidney disease, stage III (moderate) N18.30 Atrial flutter I48.92 Hypothyroidism E03.9 Hypertension I10 Hyperlipidemia E78.5 Aphasia R47.01 Stroke I63.9 Osteoporosis M81.0 Asymptomatic bacteriuria R82.71 Dementia F03.90 Dementia behavioral disturbance: without behavioral disturbance Dementia type: unspecified type (1) Anemia Anemia type: unspecified type Qualified Code(s): D64.9 - Anemia, unspecified (2) Dementia Dementia behavioral disturbance: without behavioral disturbance Dementia type: unspecified type Qualified Code(s): F03.90 - Unspecified dementia without behavioral disturbance
[2021-11-01] MEDS: ATORVASTATIN 40 MG TAB PO SCH (20:27)
[2021-11-01] MEDS: MELATONIN 3 MG TAB PO SCH (20:28)
[2021-11-01] MEDS: POTASSIUM CHLORIDE 10 MEQ TABCR PO SCH (20:29)
[2021-11-02] MEDS: traMADol HCL 50 MG TABLET PO PRN (01:05)
[2021-11-02] MEDS: LEVOTHYROXINE SODIUM 75 MCG TABLET PO SCH (05:33)
[2021-11-02 07:41] LABS: Basophils # (auto) 0.05 K/uL (0-0.2); Basophils % (auto) 0.6 %; Eosinophils # (auto) 0.43 K/uL (0-0.5); Eosinophils % (auto) 5.4 %; Hematocrit (blood only) 28.6 % (37-47); Hemoglobin 9.1 g/dL (12.0-16.0); Immature Granulocytes # (auto) 0.07 K/uL (0.00-0.02); Immature Granulocytes % (auto) 0.9 %; Lymphocytes # (auto) 1.59 K/uL (1.2-3.4); Lymphocytes % (auto) 20.1 %; Mean Corpuscular Hemoglobin 30.2 pg (25-34); Mean Corpuscular Hgb Conc 31.8 g/dL (32-36); Mean Platelet Volume 9.9 fL (7.4-10.4); Monocytes # (auto) 0.75 K/uL (0.11-0.59); Monocytes % (auto) 9.5 %; Neutrophils # (auto) 5.04 K/uL (1.4-6.5); Neutrophils % (auto) 63.5 %; Platelet Count 346 K/uL (130-400); RDW Coefficient of Variation 17.8 % (11.5-14.5); Red Blood Count 3.01 M/uL (4.2-5.4); White Blood Count 7.93 K/uL (4.8-10.8)
[2021-11-02] MEDS: POLYETHYLENE (MIRALAX) 17 GM PACK PO SCH (08:42)
[2021-11-02 08:50] LABS: BUN Creatinine Ratio 20.7 (10-20); Calcium 8.1 mg/dl (8.5-10.1); Creatinine Clr Calc Pharmacy 33.2 ml/min; Est GFR (African American) 60.9 ml/min; Est GFR (Non-African American) 52.5 ml/min; Potassium 3.9 mmol/L (3.5-5.1)
[2021-11-02] MEDS ORDERED: DOCUSATE SODIUM/SENNA 50/8.6MG TAB PO SCH (09:00)
[2021-11-02] MEDS: CALCIUM 600MG + VIT D 400 IU TAB PO SCH (09:46)
[2021-11-02] MEDS: CHOLECALCIFEROL 1,000 UNITS 25 MCG TAB PO SCH (09:46)
[2021-11-02] MEDS: AMOXICILLIN 500 MG CAP PO SCH (09:47)
[2021-11-02] MEDS: amLODIPine BESYLATE 5 MG TAB PO SCH (09:47)
[2021-11-02] MEDS: ASPIRIN 81 MG ECTAB PO SCH (09:47)
[2021-11-02] MEDS: APIXABAN 2.5 MG TAB PO SCH (09:47)
[2021-11-02] MEDS: ACETAMINOPHEN 325 MG TAB PO SCH (09:47)
[2021-11-02] MEDS: NYSTATIN POWDER 15GM BTL EXT SCH (09:48)
[2021-11-02] MEDS: AMIODARONE 200 MG TAB PO SCH (09:48)
--- NOTE | 2021-11-02 19:39 | Discharge Summary ---
Date of Service November 02, 2021 Admission HPI Per Admitting Provider This is an 86-year-old female who presented [facility] secondary to a right hip fracture. The patient has underlying dementia and could not provide any meaningful history whatsoever at the time of my interview. Fortunately the patient's daughter who is well versed in her mother's care was present at the bedside who did help supplement history. This along with review of records sent from detention as well as records review of his hospitalization were used to complete history. This patient was recently hospitalized at [facility] 10/07/2021 through 10/16/2021 secondary to delirium and a urinary tract infection. She was noted to have an E. coli urinary tract infection. Patient was also noted to have a left calf hematoma. Patient's daughter says that she is uncertain how this injury occurred. She did add that the patient does take Eliquis due to history of atrial fibrillation which likely contributed to this Hematoma. She was seen by orthopedics during this admission and was not felt that any drainage of this hematoma was required. Today the patient continues to have a left calf hematoma but her daughter notes it has markedly improved from previously. This patient resides at [facility] and according to reports from the staff the patient was complaining of some discomfort of her right hip. Patient's daughter is unaware of any falls that occurred however the staff to report her that approximately 4 days ago the patient "slipped out of her wheelchair". According the patient's daughter she is not aware of any other problems at the present time. The best of her knowledge her mother has not any fevers, shakes, chills, abdominal pain, or nausea or vomiting. She does note that prior to her previously mentioned hospitalization she was able to ambulate independently without the use of any assistive devices although her daughter does admit that she was somewhat unsteady. Did not note any falls that occurred previously. Since arrival to the emergency department patient did have labs and imaging which I independently reviewed. Patient did have bilateral hip x-rays along with a pelvic x-ray that showed a comminuted, and trochanteric fracture of the right femoral neck. A chest x-ray did not show any evidence of pneumonia. A left tib/fib x-ray did not show any evidence of fracture. Labs were performed including a CBC her white blood cell count was within normal range. Patient's hemoglobin and hematocrit were 7.9 and 25.2. This represented approximately a 4 to 5 g drop from previous baseline values. Platelet count was noted to be within normal range. Coagulation studies were all within normal limits. Chemistry profile showed sodium, potassium, were within normal range. BUN and creatinine were slightly elevated at 45 and 1.4. Urinalysis today showed trace leukocyte Estrace was otherwise not indicative of infection. A Covid test was performed and was noted to be negative. At the time of my interview the patient was unresponsive to verbal stimuli but she did respond to light touch/painful stimulation. Principal Diagnosis right femur fracture s/p nailing acute blood loss anemia ckd 3 Discharge Exam The patient appeared well pleasantly confused Vital signs as documented. Lungs are clear to auscultation and appear unlabored Cardiac exam, Rhythm is regular.. No murmurs, rubs or gallops. Abdominal exam reveals normal bowel sounds, soft non tender, no masses Extremities sites are clean dry intact there is a hematoma to her right inner calf likely from her fall this is nontender to but fairly substantial Neurologic exam is alert and oriented x1 lower extremity strength is limited by recent surgery Skin is with hematoma to left inner calf Psychologically is with in transfer dementia Discharge Data Allergies Allergy/AdvReac Type Severity Reaction Status Date / Time No Known Allergies Allergy Verified 10/23/21 16:11 Consultations 10/23/21 17:13 ED Decision to Admit Stat 10/23/21 20:30 Consult Orthopedic Surgery Routine Procedures Performed Operation Date: 10/24/21 07:00 Actual Procedures p Trochanteric Nail Long Right(Right) - José Manuel Douglas MD Ordered Studies 10/24/21 FL hip RT 2-3V Routine Hospital Course (1) Hip fracture: Pt is an 86 yo female with a h/o a-flutter on Eliquis, dementia, CVA with aphasia, CKD stage 3,hypothyroidism, HTN, here with right hip fracture after having a fall out of her wheelchair a few days ago. Pt unable to give any history. - S/P R hip nailing on 10/[address] Douglas - Continue ASA daily and Eliquis BID - Continue pain control - HECTOR Tylenol; Tramadol PRN - Continue bowel regimen - HECTOR Miralax (changed to BID) and Senna; add Dulcolax suppository - likely may need if not having BM by tomorrow -- Last BM 10/25; abdomen is soft and good bowel sounds; no grimacing with palpation but could consider KUB - PT/OT patient transferred to custodial facility for rehab -- Daughter states she has not been very mobile since last hospital stay - Ortho following - appreciate assistance -- May weightbear as tolerated with walker and full assistance (2) Anemia: - Chronic anemia plus acute blood loss anemia from previous hematoma and some from current fracture -- Acute blood loss anemia from surgery and dilutional from IVF and bleeding from surgical site - stable hematoma of LLE - S/P 3 units PRBC and 1 g IV calcium gluconate - Hgb currently stable at at high 8s to 9 (3) Hematoma of left lower leg: - Stable - See previous admission for this (4) Chronic kidney disease, stage III (moderate): - Had WILMER on CKD 3 and now resolved with IVFs -- Baseline 1.0 - 1.4 - Avoid nephrotoxins; renally dose meds when appropriate (5) Atrial flutter: - Rate controlled - Continue Eliquis 2.5 mg BID and Amiodarone 200 mg daily (6) Hypothyroidism: - Continue Levothyroxine 75 mcg daily (7) Hypertension: - Had intermittent lows but stabilized now - Continue Norvasc 2.5 mg BID (8) Hyperlipidemia: - Continue statin (9) Aphasia: - As above, 2/2 old CVA (10) Stroke: - 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 (12) Asymptomatic bacteriuria: - UA was clearly a contaminated sample with epis and had no WBCs or bacteria--> unclear why Ur cx was sent to begin with on admission - Review of PT notes shows she was grabbing for things not present and wasn't sure if she could be hallucinating - given Yeung and previous culture obtained new UA which is growing probable enterococcus -- Currently no leukocytosis or fever -- Discussed with daughter - states she does occasional grab for things that are not there but noted she appeared to be "knitting" with her hands which is not normal and was trying to take her clothes off which is not normal either as she is very modest - Per uptodate Amoxil can be good coverage - could consider conversion to ampicillin po (don't care oral in-house) if limited response from Amoxil - however assessing clinical response may be difficult given CVA/aphasia/dementia (13) Dementia: - Severe; with aphasia due to CVA in April 2020 - Supportive care DVT Proph- Eliquis Disposition: - [facility] for rehab placement - bowel regimen could be continued at [facility] Total Time Total Time Spent Total Time Spent (In Minutes): It required greater than 30 minutes to prepare this patient for discharge Discharge Plan Discharge Items Patient Disposition: [facility] Reason For Visit: HIP FRACTURE Discharge Diagnosis: right femur nailing 10/24/21 Activity: Per Instructions section Activity Comment: PT and OT Non-emergency contact: Primary Care Provider Call non-emergency contact if: your symptoms worsen and you have a fever Follow-up/Referrals: [facility] [Primary Care Provider] - Diet: Regular Addtl Attending Provider Instructions: please arrange follow up for orhtopedics with pt did have transfusion here post operatively x 3 units, is on eliquis, please consider recheck Pt with low Vitamin D please continue supplementation Pending Studies at Discharge: No Stand-Alone Forms: My [facility] Skilled Items Patient informed of condition?: Yes DNR: Yes Discharge Level of Care: Skilled Communicable Disease: No Discharge Prognosis: Stable Lines: None Urinary Catheter: No Medications and DC Order Prescriptions: New amoxicillin 500 mg Capsule 500 mg PO TID Qty: 16 RF: 0 Caltrate 600-D Plus Minerals 600 mg calcium- 800 unit-50 mg Tablet 1 tab PO BID Qty: 60 RF: 0 cholecalciferol (vitamin D3) 25 mcg (1,000 unit) Capsule 1,000 unit PO QAM Qty: 30 RF: 0 Continued levothyroxine 75 mcg tablet 75 mcg PO DAILY Qty: 90 RF: 3 nystatin 100,000 unit/gram powder 1 applic topical BID Qty: 60 RF: 11 Calmoseptine 0.44-20.6 % ointment 1 applic topical BID PRN (Reason: skin irritation) Qty: 113 RF: 11 amlodipine 2.5 mg tablet 2.5 mg PO BID Qty: 180 RF: 3 aspirin 81 mg Tablet,Delayed Release (Dr/Ec) 81 mg PO QAM RF: 0 atorvastatin 40 mg tablet 40 mg PO QPM RF: 0 potassium chloride [Klor-Con 10] 10 mEq tablet extended release 10 meq PO QPM RF: 0 amiodarone 200 mg Tablet 200 mg PO QAM 30 Days Qty: 30 RF: 0 Eliquis 5 mg tablet 2.5 mg PO BID 30 Days Qty: 180 RF: 3 acetaminophen [Tylenol] 325 mg Tablet 650 mg PO Q6H PRN (Reason: TEMP >100/PAIN) RF: 0 melatonin 3 mg Tablet 3 mg PO HS RF: 0 Discharge Orders: Discharge Order (Routine); Ordered 11/02/21 Ordered By: Del Bullock Admission Data Admit Date/Time: 10/23/21 17:52 Attending Provider: Del Bullock Admit Provider: Pili Scanlon Primary Care Provider: [facility] Other Providers: Teodoro Mercado [facility] ; [facility] ; Roxie Scanlon ; Jackson Lee ; Sania Aiken [place] Other Interventions: Discharge Summary Assessment (RN) Last Done: 11/02/21 10:55 Coding Level of Care Code D/C DAY MANAGEMENT >30 MINS Diagnoses Hip fracture S72.009A Anemia D64.9 Anemia type: unspecified type Hematoma of left lower leg S80.12XA Chronic kidney disease, stage III (moderate) N18.30 Atrial flutter I48.92 Hypothyroidism E03.9 Hypertension I10 Hyperlipidemia E78.5 Aphasia R47.01 Stroke I63.9 Osteoporosis M81.0 Asymptomatic bacteriuria R82.71 Dementia F03.90 Dementia behavioral disturbance: without behavioral disturbance Dementia type: unspecified type
== END 2021-11-02 13:28 | DRG 481 ==
LOC: ED 15:47 → 3N 17:52 → SUATTDRO 17:52 → 3N 19:59

== ENCOUNTER 2023-01-02 14:02 | Inpatient (IN) ==
--- NOTE | 2023-01-02 14:37 | Emergency Department Note ---
Impression & Plan Pressure ulcer, Urinary tract infection ED Provider Note NAME: CYNTHIA HART AGE: 87 SEX: F : 1935 ARRIVES VIA: Ambulance INFORMANT: EMS ED PROVIDER(S): Baldemar Lema DO CHIEF COMPLAINT: Pressure ulcer HPI: The patient is an 87-year-old female who presented to the emergency department for an evaluation of pressure ulcers. The patient is nonverbal because of previous drug. She has a history of stroke in the past but lives at home currently with family. The patient presented to the emergency department today from home. Apparently the patient's been having skin breakdown and is difficult to manage with the family so she was brought to the emergency department by ambulance. ROS: See above HPI for pertinent positives & negatives. A total of 10 systems reviewed and were otherwise negative. PAST MEDICAL HISTORY: See Below PAST SURGICAL HISTORY: See Below FAMILY HISTORY: See Below SOCIAL HISTORY: See Below HOME MEDICATIONS: See Below ALLERGIES: See Below VITALS: See Below PHYSICAL EXAMINATION: GENERAL: The patient is awake and alert. She does not respond to questions. She does not appear to be uncomfortable or in pain. EYES: The conjunctivae are clear. The pupils are round and reactive. EARS, NOSE, MOUTH AND THROAT: The nose is without any evidence of any deformity. Mucous membranes are moist. NECK: The neck is nontender and supple. RESPIRATORY: Normal respiratory effort is noted there is no evidence of wheezing rhonchi or rales CARDIOVASCULAR: Regular rate and rhythm noted there no murmurs rubs or gallops normal S1 normal S2. GASTROINTESTINAL: The abdomen is soft. Abdomen is nontender. MUSCULOSKELETAL/EXTREMITIES: There is no evidence of gross deformity full range of motion is noted in the hips and shoulders. SKIN: Skin is warm and dry. There is no pedal edema. Patient has significant skin breakdown over the sacrum as well as bilateral buttocks. There is erythema but no abscess or fluctuance to palpation. NEUROLOGIC: Patient is not responding to questions. She is not moving extremities to command. I am unable to assess orientation at this time. MEDICAL DECISION MAKING: The patient is an 87-year-old female who presented to the emergency department for an evaluation of pressure ulcers. Patient has a history of a stroke. She has been managed very well at her home with family members. Unfortunately patient started to develop problems with skin breakdown. The patient was being managed at home quite well but things started to worsen and the patient arrived via ambulance. She does appear to have significant areas of pressure ulceration. She was found to have elevation white blood cell count. It is unclear if this is secondary to a urine infection or the underlying infection in her skin. For this reason she was treated with an IV antibiotic. I discussed her condition with the on-call [facility]. They have agreed to evaluate the patient in the emergency department for further management and disposition. Triage Nursing notes reviewed. Prior medical records reviewed Vital Signs: reviewed and remarkable for elevated blood pressure. Differential diagnosis: Cellulitis, abscess, MRSA infection, DVT, necrotizing fasciitis, dermatitis, drug eruption, allergic reaction, as well as other pathologies. ER treatment provided: See below Diagnostics interpreted by me: ECG: EKG was obtained in the emergency department. My interpretation is normal sinus rhythm at 63 bpm. There was no ectopy. There is no acute ST segment abnormalities noted. This was compared to a tracing from October 23, 2021. No changes were noted. Cardiac Monitoring: An order was placed for continuous cardiac monitoring. The monitor shows a rate of 57 bpm with sinus bradycardia. Laboratory studies: As stated above and show below. Imaging studies: See below. Radiographic imaging was reviewed by myself Consultation(s): Case was referred to Dr. Staley who is on-call for the [facility]. He evaluated the patient in the emergency department Past Med/Surg History Medical History Acute UTI (urinary tract infection) Anemia Atrial flutter with rapid ventricular response Closed intertrochanteric fracture of right hip Dementia Esophageal dysmotility Hyperlipidemia Hypertension Hypothyroidism Memory loss Stroke April 2020 Vitamin B12 deficiency Surgical History History of tonsillectomy and adenoidectomy Family History Other Coronary heart disease Hypertension Social History Smoking Status: Unknown if ever smoked Second Hand Exposure: No; Hx Alcohol Use: No Hx Substance Use: No Preferred Language: Indonesian Communication Ability: Effective Car Lubricator Required: No Beliefs That Will Affect Care: None marital status: Current Living Situation: [facility] Current Living Situation Comment: Home w/ current occupational status: retired Feels Safe at Home: Yes Assistive Devices: None Allergies Allergies Allergy/AdvReac Type Severity Reaction Status Date / Time No Known Allergies Allergy Verified 12/05/21 13:04 Home Meds Home Medications Medication Instructions Recorded Confirmed aspirin 81 mg tablet,delayed 81 mg PO QAM 10/07/21 01/02/23 release acetaminophen 325 mg tablet 650 mg PO Q6H PRN TEMP >100/PAIN 10/23/21 01/02/23 (Tylenol) melatonin 3 mg tablet 3 mg PO HS 10/23/21 01/02/23 atorvastatin 40 mg tablet 40 mg PO QAM 01/02/23 01/02/23 levothyroxine 75 mcg tablet 75 mcg PO DAILYBB 01/02/23 01/02/23 potassium chloride 10 mEq 10 meq PO DAILY 01/02/23 01/02/23 tablet,extended release Previous Rx's Medication Instructions Recorded menthol 0.44 %-zinc oxide 20.6 % 1 applic topical BID PRN skin 12/31/20 topical ointment (Calmoseptine) irritation #113 grams calcium 600 mg-D3 800 unit-mag11 1 tab PO BID #60 tabs 11/02/21 50 wr-pvlf-hifali-ilana-s.borat tablet (Caltrate 600-D Plus Minerals) cholecalciferol (vitamin D3) 25 1,000 unit PO QAM #30 caps 11/02/21 mcg (1,000 unit) capsule amiodarone 200 mg tablet 200 mg PO DAILY #90 tabs 10/03/22 amlodipine 2.5 mg tablet 2.5 mg PO BID #180 tabs 10/06/22 apixaban 2.5 mg tablet 2.5 mg PO BID #180 tabs 10/06/22 Results & Data (ED) Vital Signs Vital Signs - 24 hr 01/02/23 14:12 01/02/23 14:34 01/02/23 18:46 Temperature 36.0 C L Temperature Source Oral Pulse Rate 63 66 Pulse Rate [Right Finger] 64 Pulse Rhythm Regular Regular Pulse Strength Normal Respiratory Rate 20 20 20 Respiratory Effort / Characteristics Non-Labored Spontaneous Non-Labored Spontaneous Respiratory Depth Normal Normal Respiratory Pattern Regular Blood Pressure 136/80 Blood Pressure [Right Arm] 163/83 H Blood Pressure Mean 98 Blood Pressure Mean [Right Arm] 109 Blood Pressure Position Sitting Pulse Oximetry 93 93 90 Oxygen Delivery Method Room Air Room Air Room Air Sepsis Recent Fever Within 48 Hours No Sepsis New/Unexplained Change in Mental Status No Sepsis Action Taken by Nursing No Action Required 01/02/23 20:18 Temperature Temperature Source Pulse Rate Pulse Rate [Right Finger] 57 L Pulse Rhythm Pulse Strength Respiratory Rate 16 Respiratory Effort / Characteristics Respiratory Depth Respiratory Pattern Blood Pressure Blood Pressure [Right Arm] 145/77 H Blood Pressure Mean Blood Pressure Mean [Right Arm] 99 Blood Pressure Position Pulse Oximetry 95 Oxygen Delivery Method Room Air Sepsis Recent Fever Within 48 Hours Sepsis New/Unexplained Change in Mental Status Sepsis Action Taken by [facility] Medications Current Medication List: was personally reviewed by me Laboratory Data Attestation: I reviewed the patient's lab results. 01/02/23 15:24 01/02/23 15:56 Lab Results 01/02/23 01/02/23 01/02/23 Range/Units 15:24 15:24 15:24 WBC 12.25 H (4.8-10.8) K/ul RBC 3.94 L (4.20-5.40) M/uL Hgb 12.3 (12.0-16.0) g/dl Hct 37.9 (37.0-47.0) % MCV 96.2 (80.0-100.0) fL MCH 31.2 (25.0-34.0) pg MCHC 32.5 (32.0-36.0) g/dL RDW Std Deviation 56.8 H (36.4-46.3) fL RDW Coeff of Luis 16.0 H (11.5-14.5) % Plt Count 182 (130-400) K/uL MPV 11.0 (9.4-12.4) fL Immature Gran % (Auto) 0.6 % Neut % (Auto) 81.4 % Lymph % (Auto) 8.2 % [place] % (Auto) 9.1 % Eos % (Auto) 0.3 % Baso % (Auto) 0.4 % Neut # (Auto) 9.97 H (1.40-6.50) K/uL Lymph # (Auto) 1.01 L (1.2-3.4) K/uL [place] # (Auto) 1.11 H (0.11-0.59) K/uL Eos # (Auto) 0.04 (0-0.50) K/uL Baso # (Auto) 0.05 (0-0.2) K/uL Immature Gran # (Auto) 0.07 (0.01-0.20) K/uL ESR 39 H (0-30) mm/hr PT (9.0-12.0) Seconds INR (0.9-1.1) APTT (21.0-31.0) Seconds PTT Ratio Sodium 138 (136-145) mmol/L Potassium TNP Chloride 106 (98-107) mmol/L Carbon Dioxide 27 (21-32) mmol/L Anion Gap 5 (3-11) BUN 36 H (6-23) mg/dl Creatinine 1.17 (0.6-1.2) mg/dl Est Cr Clr Drug Dosing Not Reportable Est GFR ( Amer) 48.2 ml/min Est GFR (Non-Af Amer) 41.6 ml/min BUN/Creatinine Ratio 30.8 H (10-20) Glucose 103 H (70-99(Fasting)) mg/dl Calcium 8.7 (8.5-10.1) mg/dl Total Bilirubin 1.3 H (0.2-1.0) mg/dl AST TNP ALT 98 H (7-52) U/L Alkaline Phosphatase 106 H (34-104) U/L Troponin I High Sens 17.8 H (0-14) pg/ml C-Reactive Protein 19.37 H (0-0.5) mg/dl Total Protein 6.4 (6.0-8.3) gm/dl Albumin 3.0 L (3.4-5.0) gm/dl Globulin 3.4 (2.5-4.0) gm/dl Albumin/Globulin Ratio 0.9 (0.9-2) Lipase 15 (11-82) U/L Procalcitonin (0-0.5) ng/ml Urine Color Urine Appearance (Clear) Urine pH (4.5-7.5) Ur Specific [place] (1.000-1.030) Urine Protein (Negative) Urine Glucose (UA) (Negative) Urine Ketones (Negative) Urine Blood (Negative) Urine Nitrite (Negative) Urine Bilirubin (Negative) Urine Urobilinogen (Negative) Ur Leukocyte Esterase (Negative) Urine WBC (Auto) (0-5) /hpf Urine RBC (Auto) (0-4) /hpf U Hyaline Cast (Auto) (0-5) /lpf U Epithel Cells (Auto) (0-5) /lpf Urine Bacteria (Auto) (Negative) SARS-CoV-2, RNA, NAAT (NEGATIVE) 01/02/23 01/02/23 01/02/23 Range/Units 15:24 15:56 15:56 WBC (4.8-10.8) K/ul RBC (4.20-5.40) M/uL Hgb (12.0-16.0) g/dl Hct (37.0-47.0) % MCV (80.0-100.0) fL MCH (25.0-34.0) pg MCHC (32.0-36.0) g/dL RDW Std Deviation (36.4-46.3) fL RDW Coeff of Luis (11.5-14.5) % Plt Count (130-400) K/uL MPV (9.4-12.4) fL Immature Gran % (Auto) % Neut % (Auto) % Lymph % (Auto) % [place] % (Auto) % Eos % (Auto) % Baso % (Auto) % Neut # (Auto) (1.40-6.50) K/uL Lymph # (Auto) (1.2-3.4) K/uL [place] # (Auto) (0.11-0.59) K/uL Eos # (Auto) (0-0.50) K/uL Baso # (Auto) (0-0.2) K/uL Immature Gran # (Auto) (0.01-0.20) K/uL ESR (0-30) mm/hr PT 10.9 (9.0-12.0) Seconds INR 1.0 (0.9-1.1) APTT 29.7 (21.0-31.0) Seconds PTT Ratio 1.1 Sodium (136-145) mmol/L Potassium 4.1 Chloride (98-107) mmol/L Carbon Dioxide (21-32) mmol/L Anion Gap (3-11) BUN (6-23) mg/dl Creatinine (0.6-1.2) mg/dl Est Cr Clr Drug Dosing Est GFR ( Amer) ml/min Est GFR (Non-Af Amer) ml/min BUN/Creatinine Ratio (10-20) Glucose (70-99(Fasting)) mg/dl Calcium (8.5-10.1) mg/dl Total Bilirubin (0.2-1.0) mg/dl AST 59 H ALT (7-52) U/L Alkaline Phosphatase (34-104) U/L Troponin I High Sens (0-14) pg/ml C-Reactive Protein (0-0.5) mg/dl Total Protein (6.0-8.3) gm/dl Albumin (3.4-5.0) gm/dl Globulin (2.5-4.0) gm/dl Albumin/Globulin Ratio (0.9-2) Lipase (11-82) U/L Procalcitonin 2.22 H (0-0.5) ng/ml Urine Color Urine Appearance (Clear) Urine pH (4.5-7.5) Ur Specific [place] (1.000-1.030) Urine Protein (Negative) Urine Glucose (UA) (Negative) Urine Ketones (Negative) Urine Blood (Negative) Urine Nitrite (Negative) Urine Bilirubin (Negative) Urine Urobilinogen (Negative) Ur Leukocyte Esterase (Negative) Urine WBC (Auto) (0-5) /hpf Urine RBC (Auto) (0-4) /hpf U Hyaline Cast (Auto) (0-5) /lpf U Epithel Cells (Auto) (0-5) /lpf Urine Bacteria (Auto) (Negative) SARS-CoV-2, RNA, NAAT (NEGATIVE) 01/02/23 01/02/23 Range/Units 17:30 Unknown WBC (4.8-10.8) K/ul RBC (4.20-5.40) M/uL Hgb (12.0-16.0) g/dl Hct (37.0-47.0) % MCV (80.0-100.0) fL MCH (25.0-34.0) pg MCHC (32.0-36.0) g/dL RDW Std Deviation (36.4-46.3) fL RDW Coeff of Luis (11.5-14.5) % Plt Count (130-400) K/uL MPV (9.4-12.4) fL Immature Gran % (Auto) % Neut % (Auto) % Lymph % (Auto) % [place] % (Auto) % Eos % (Auto) % Baso % (Auto) % Neut # (Auto) (1.40-6.50) K/uL Lymph # (Auto) (1.2-3.4) K/uL [place] # (Auto) (0.11-0.59) K/uL Eos # (Auto) (0-0.50) K/uL Baso # (Auto) (0-0.2) K/uL Immature Gran # (Auto) (0.01-0.20) K/uL ESR (0-30) mm/hr PT (9.0-12.0) Seconds INR (0.9-1.1) APTT (21.0-31.0) Seconds PTT Ratio Sodium (136-145) mmol/L Potassium Chloride (98-107) mmol/L Carbon Dioxide (21-32) mmol/L Anion Gap (3-11) BUN (6-23) mg/dl Creatinine (0.6-1.2) mg/dl Est Cr Clr Drug Dosing Est GFR ( Amer) ml/min Est GFR (Non-Af Amer) ml/min BUN/Creatinine Ratio (10-20) Glucose (70-99(Fasting)) mg/dl Calcium (8.5-10.1) mg/dl Total Bilirubin (0.2-1.0) mg/dl AST ALT (7-52) U/L Alkaline Phosphatase (34-104) U/L Troponin I High Sens (0-14) pg/ml C-Reactive Protein (0-0.5) mg/dl Total Protein (6.0-8.3) gm/dl Albumin (3.4-5.0) gm/dl Globulin (2.5-4.0) gm/dl Albumin/Globulin Ratio (0.9-2) Lipase (11-82) U/L Procalcitonin (0-0.5) ng/ml Urine Color Dark Yellow Urine Appearance Cloudy A (Clear) Urine pH 5.0 (4.5-7.5) Ur Specific [place] 1.017 (1.000-1.030) Urine Protein Trace H (Negative) Urine Glucose (UA) Negative (Negative) Urine Ketones Negative (Negative) Urine Blood 1+ H (Negative) Urine Nitrite Negative (Negative) Urine Bilirubin Negative (Negative) Urine Urobilinogen Negative (Negative) Ur Leukocyte Esterase 1+ H (Negative) Urine WBC (Auto) 5-10 H (0-5) /hpf Urine RBC (Auto) 0-4 (0-4) /hpf U Hyaline Cast (Auto) 1-5 (0-5) /lpf U Epithel Cells (Auto) 0-5 (0-5) /lpf Urine Bacteria (Auto) 4+ H (Negative) SARS-CoV-2, RNA, NAAT NEGATIVE (NEGATIVE) Administered Medications Sodium Chloride (Nss 1000ml) 1,000 mls @ 100 mls/hr IV .Q10H HECTOR Stop: 01/03/23 03:44 Last Admin: 01/02/23 18:59 Dose: 100 mls/hr Documented By: HORTENCIA Discontinued Medications Ceftriaxone Sodium (Rocephin) 2,000 mg in 70 mls @ 140 mls/hr IV NOW STA Stop: 01/02/23 17:11 Last Infusion: 01/02/23 18:47 Dose: 0 mls/hr Documented By: Admin: 01/02/23 18:02 Dose: 140 mls/hr Documented By: HORTENCIA Ioversol (Optiray 350 100ml) 89 ml IV ONCE ONE Stop: 01/02/23 18:25 Last Admin: 01/02/23 18:25 Dose: 89 ml Documented By: RICHIE Imaging Data Radiologist's Impression: Chest X-Ray 01/02/23 14:34 XR chest 1V portable HISTORY: 87 years-old Female Chest pain, nonspecific acute chest pain COMPARISON: 10/23/2021 TECHNIQUE: AP view the chest FINDINGS: Cardiac silhouette is enlarged. Pulmonary vascular congestion with interstitial coarsening. Mild left greater than right bibasilar densities. No pneumothorax. Degenerative changes of the shoulders and spine. Impacted left proximal humeral fracture is new from prior. Numerous left-sided rib fractures are likely chronic. IMPRESSION: 1. Cardiomegaly with pulmonary vascular congestion and interstitial coarsening suggestive of pulmonary edema. 2. Mild left basilar densities may represent atelectasis versus pneumonia. 3. Left proximal humeral and left rib fractures are new from 2020, favored to be subacute or chronic. ACT 112: Negative or not required by law. The above report was generated using voice recognition software. It may contain grammatical, syntax or spelling errors. Electronically signed by: Raghu Myers M.D. 01/02/2023 3:55 PM Abdomen/Pelvis CT 01/02/23 17:39 CT OF THE ABDOMEN AND PELVIS WITH CONTRAST CLINICAL HISTORY: multiple sacral ulcers ?underlying osteomyelitis COMPARISON STUDY: Pelvis radiograph October 07, 2021 and October 23, 2021. TECHNIQUE: Following IV administration of 89 mL of Optiray, axial images of the abdomen and pelvis were obtained from the lung bases to the proximal femurs. Rose Marie ges were reviewed in the axial, sagittal, and coronal planes. IV contrast was administered without complication. Automated exposure control was utilized for the study. A dose lowering technique was utilized adhering to the principles of ALARA. CT DOSE: 377.79 mGy.cm FINDINGS: Cardiomegaly is incidentally noted. There are multifocal groundglass opacities within the lower lungs. No pneumatosis, free air or portal venous gas is present. Evaluation of the abdomen and pelvis is difficult given paucity intra-abdominal fat as well as body wall edema. Calcified granulomas within the spleen are present. A 1.4 cm capsular hypodense focus within the spleen is probably not acute. There is no biliary or pancreatic ductal dilatation. A right renal cyst is noted. There is no hydronephrosis. No peripancreatic or pericholec ystic infiltration is present. There is no evidence for a bowel obstruction. The caliber and wall thickness of small and large bowel are normal. The appendix is not identified. There is no lymphadenopathy. Decubitus ulcer overlying the lower sacrum and coccyx is noted. There is no bony destruction to suggest acute osteomyelitis by CT. No fluid collection is identified to suggest an abscess. There is a partially calcified 3.4 x 2.5 cm lesion within the uterine fundus. This projects over the endometrium. There is also a water attenuation 6.5 x 3.5 cm elongated right adnexal lesion. Bladder wall thickening is noted. Gastric wall thickening is likely due to underdistention. Urothelial thickening of the left collecting system and proximal left ureter is noted. There is mucosal hyperemia of the bladder. Right femoral internal fixation is partially imaged. There are no acute fractures within the visualized skeletal structures. Moderate amount stool within the colon and rectum. There is mild rectal wall thickening. IMPRESSION: 1. Decubitus ulcer overlying the lower sacrum and coccyx. No CT evidence for acute osteomyelitis. No abscess. 2. No bowel obstruction. Moderate amount of stool within the colon and rectum. Mild rectal wall thickening 3. Bladder wall thickening and left-sided urothelial thickening which could be correlated with urinalysis to exclude an infectious process. 4. Indeterminate water attenuation density within the right hemipelvis, measuring 6.5 x 3.5 cm. This likely arises from the right ovary. Nonemergent pelvic ultrasound could be performed to assess for complexity. 5. 3.4 x 2.5 cm partially calcified lesion within the uterine fundus. This is nonspecific but may reflect a submucosal fibroid. This could be correlated with history of postmenopausal bleeding and assessed on follow-up ultrasound. 6. Apparent gastric wall thickening. This is likely due to underdistention however gastritis could appear similar. 3. Ground glass opacities within the lower lungs which favor an infectious process. ACT 112: Negative or not required by law. Electronically signed by: Bob Rodriguez M.D. 01/02/2023 6:43 PM Discharge Plan Visit Data Chief Complaint: Skin Problem Stated Complaint: bedsores ED Provider: Baldemar Lema Discharge Problem: Pressure ulcer, Urinary tract infection Patient Disposition: Being Evaluated by Hospitalist Forms Stand Alone Forms: My [facility] Prescriptions Prescriptions: No Action Calmoseptine 0.44-20.6 % ointment 1 applic topical BID PRN (Reason: skin irritation) Qty: 113 11RF amiodarone 200 mg tablet 200 mg PO DAILY Qty: 90 3RF apixaban 2.5 mg tablet 2.5 mg PO BID Qty: 180 3RF amlodipine 2.5 mg tablet 2.5 mg PO BID Qty: 180 3RF aspirin 81 mg Tablet,Delayed Release (Dr/Ec) 81 mg PO QAM atorvastatin 40 mg tablet 40 mg PO QAM potassium chloride 10 mEq tablet extended release 10 meq PO DAILY levothyroxine 75 mcg tablet 75 mcg PO DAILYBB acetaminophen [Tylenol] 325 mg Tablet 650 mg PO Q6H PRN (Reason: TEMP >100/PAIN) melatonin 3 mg Tablet 3 mg PO HS Caltrate 600-D Plus Minerals 600 mg calcium- 800 unit-50 mg Tablet 1 tab PO BID Qty: 60 0RF cholecalciferol (vitamin D3) 25 mcg (1,000 unit) Capsule 1,000 unit PO QAM Qty: 30 0RF Referrals Referrals: PCP,NO [Primary Care Provider] -
[2023-01-02 15:45] LABS: Basophils # (auto) 0.05 K/uL (0-0.2); Basophils % (auto) 0.4 %; Eosinophils # (auto) 0.04 K/uL (0-0.50); Eosinophils % (auto) 0.3 %; Hematocrit (blood only) 37.9 % (37.0-47.0); Hemoglobin 12.3 g/dl (12.0-16.0); Immature Granulocytes # (auto) 0.07 K/uL (0.01-0.20); Immature Granulocytes % (auto) 0.6 %; Lymphocytes # (auto) 1.01 K/uL (1.2-3.4); Lymphocytes % (auto) 8.2 %; Mean Corpuscular Hemoglobin 31.2 pg (25.0-34.0); Mean Corpuscular Hgb Conc 32.5 g/dL (32.0-36.0); Mean Corpuscular Volume 96.2 fL (80.0-100.0); Monocytes # (auto) 1.11 K/uL (0.11-0.59); Monocytes % (auto) 9.1 %; Neutrophils # (auto) 9.97 K/uL (1.40-6.50); Neutrophils % (auto) 81.4 %; Platelet Count 182 K/uL (130-400); RDW Standard Deviation 56.8 fL (36.4-46.3); Red Blood Count 3.94 M/uL (4.20-5.40); White Blood Count 12.25 K/ul (4.8-10.8)
--- NOTE | 2023-01-02 15:56 | XRay Report ---
XR chest 1V portable HISTORY: 87 years-old Female Chest pain, nonspecific acute chest pain COMPARISON: 10/23/2021 TECHNIQUE: AP view the chest FINDINGS: Cardiac silhouette is enlarged. Pulmonary vascular congestion with interstitial coarsening. Mild left greater than right bibasilar densities. No pneumothorax. Degenerative changes of the shoulders and s pine. Impacted left proximal humeral fracture is new from prior. Numerous left-sided rib fractures ar e likely chronic. IMPRESSION: 1. Cardiomegaly with pulmonary vascular congestion and interstitial coarsening suggestive of pulmonar y edema. 2. Mild left basilar densities may represent atelectasis versus pneumonia. 3. Left proximal humeral and left rib fractures are new from 2020, favored to be subacute or chronic. ACT 112: Negative or not required by law. The above report was generated using voice recognition software. It may contain grammatical, syntax o r spelling errors. Electronically signed by: Raghu Myers M.D. 01/02/2023 3:55 PM
[2023-01-02 16:06] LABS: Alanine Aminotransferase 98 U/L (7-52); Albumin Globulin Ratio 0.9 (0.9-2); Alkaline Phosphatase 106 U/L (34-104); Anion Gap 5 (3-11); BUN Creatinine Ratio 30.8 (10-20); Bilirubin,Total 1.3 mg/dl (0.2-1.0); Blood Urea Nitrogen 36 mg/dl (6-23); C Reactive Protein 19.37 mg/dl (0-0.5); Carbon Dioxide 27 mmol/L (21-32); Chloride 106 mmol/L (98-107); Est GFR (African American) 48.2 ml/min; Est GFR (Non-African American) 41.6 ml/min; Globulin 3.4 gm/dl (2.5-4.0); Glucose 103 mg/dl (70-99(Fasting)); Lipase 15 U/L (11-82); Sodium 138 mmol/L (136-145); Total Protein 6.4 gm/dl (6.0-8.3)
[2023-01-02 16:40] LABS: Partial Thromboplastin Ratio 1.1; Partial Thromboplastin Time 29.7 Seconds (21.0-31.0); Prothrombin Time 10.9 Seconds (9.0-12.0)
[2023-01-02] MEDS ORDERED: cefTRIAXone SODIUM 2,000 MG/70 ML BAG IV STA (16:42)
[2023-01-02 16:50] LABS: Calcium 8.7 mg/dl (8.5-10.1); Troponin I High Sensitivity 17.8 pg/ml (0-14)
[2023-01-02 17:03] LABS: Potassium 4.1 mmol/L (3.5-5.1)
--- NOTE | 2023-01-02 17:32 | Electrocardiogram Report ---
Test Reason : Blood Pressure : / mmHG Vent. Rate : 063 BPM Atrial Rate : 063 BPM P-R Int : 148 ms QRS Dur : 090 ms QT Int : 458 ms P-R-T Axes : 092 106 060 degrees QTc Int : 468 ms Poor data quality, interpretation may be adversely affected Normal sinus rhythm Rightward axis Borderline ECG When compared with ECG of 23-OCT-2021 17:14, No significant change was found Confirmed by Mani Lerma ([id number]) on 01/02/2023 5:31:52 PM Referred By: Confirmed By:Mani Lerma
[2023-01-02] MEDS ORDERED: SODIUM CHLORIDE 0.9% 1000ML 1,000 ML IV SCH (17:45)
[2023-01-02 17:54] LABS: Appearance Urine Cloudy (Clear); Bacteria Urine Automated 4+ (Negative); Bilirubin Urine Negative (Negative); Blood Urine 1+ (Negative); Color Urine Dark Yellow; Epithelial Cell Urine Auto 0-5 /lpf (0-5); Glucose Urine UA Negative (Negative); Ketones Urine Negative (Negative); Leukocyte Esterase Urine 1+ (Negative); Nitrite Urine Negative (Negative); Protein Urine Trace (Negative); RBC Urine Automated 0-4 /hpf (0-4); Specific Gravity Urine 1.017 (1.000-1.030); Urobilinogen Urine Negative (Negative)
--- NOTE | 2023-01-02 18:23 | History & Physical Report ---
Date of Service January 02, 2023 Assessment & Plan (1) Failure to thrive: Plan: Stop atorvastatin Dietary consult Consult palliative care PT/OT (2) UTI (urinary tract infection): Plan: UA grossly positive for infection although nitrites negative Discussed possible reason for acute decline over the last 1 to 2 weeks but unlikely to explain decline beyond this Follow up blood and urine culture Ceftriaxone 2g IV (3) Pressure ulcer of sacral region, stage 3: Plan: Main reason she was brought to the ER No significant surrounding cellulitis CT A/P to assess for underlying osteomyelitis Do not suspect source of infection unless osteomyelitis present (4) Pneumonia: Plan: High risk of aspiration pneumonia Left basilar densities on CXR as possible source for WBC + procalcitonin as is UTI as above Cover with ceftriaxone and azithromycin (5) Dysphagia: Plan: CT head to assess for intracranial hemorrhage which would necessitate need to stop Eliquis however no acute surgical intervention would be warranted given her overall frailty Appears to be new since Oct 2021 visit - progressive over last few months Aspiration precautions Clear liquids today SLT assessment tomorrow (6) Elevated liver transaminase level: Plan: Will be assessed with CT A/P as above Trend with CMP in AM (7) Left humeral fracture: Plan: Suspect this is more subacute as she appears to be moving her left upper extremity Patient is not a surgical candidate therefore no need for orthopedic consult currently Careful maneuvering of left upper extremity Vitamin D level in AM (8) Aphasia: Plan: No continue secondary to stroke in 2019 (9) Paroxysmal atrial flutter: Plan: Currently in normal sinus rhythm Continue apixaban 2.5 mg p.o. twice daily as long as CT head is unremarkable Continue amiodarone 200 mg p.o. daily (10) Hypertension: Plan: Continue amlodipine 2.5 mg p.o. twice daily (11) Hypothyroidism: Plan: TSH with AM labs Continue levothyroxine 75 mcg p.o. daily (12) Hematoma of left lower leg: Plan: Reportedly also present in 2020. We will continue her usual Eliquis. (13) Dementia: Plan: On no medications for this. 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 Unable to get any history from the patient due to expressive dysphasia and dementia. History taken from son (Geremias) and daughter in-law (Zenobia) at bedside. She was last seen in hospital in October 2021 with a right femur fracture s/p intramedullary nail after falling at [facility]. The family wished her to undergo some rehabilitation at [place] at [facility] which she completed and she has been managed at home since completion. She was relatively stable until the last 3 to 4 months where she has deteriorated significantly losing a lot of weight. From the electronic health record she was weighing 60.5 kg on discharge in October 2021 and is currently 43 kg. She has had less of an appetite and is having increasing problems swallowing food that her family have moved to a more pured diet. Roughly a month ago she started getting sacral ulcers which were initially being successfully managed and reportedly everything had healed as of this last Thursday. However today she was noted to have significant sacral ulcers therefore they decided to bring her to the emergency room. There was some concern that the ulcers had previously gone down to bone by her other son. Initial work-up in the emergency room was concerning for infection with elevated white blood count 12.25 and a procalcitonin 2.22 with mildly elevated ALT (98) and AST (58). UA was grossly positive for infection with 4+ bacteria. Blood cultures were taken. She was started on ceftriaxone 2 g IV. She was referred to medicine for admission ongoing management for pressure ulcers. Allergies Allergy/AdvReac Type Severity Reaction Status Date / Time No Known Allergies Allergy Verified 12/05/21 13:04 Home Medications Medication Instructions Recorded Confirmed Type menthol 0.44 %-zinc oxide 20.6 % 1 applic topical BID PRN skin 12/31/20 01/02/23 Rx topical ointment (Calmoseptine) irritation #113 grams aspirin 81 mg tablet,delayed 81 mg PO QAM 10/07/21 01/02/23 History release acetaminophen 325 mg tablet 650 mg PO Q6H PRN TEMP >100/PAIN 10/23/21 01/02/23 History (Tylenol) melatonin 3 mg tablet 3 mg PO HS 10/23/21 01/02/23 History calcium 600 mg-D3 800 unit-mag11 1 tab PO BID #60 tabs 11/02/21 01/02/23 Rx 50 vm-vnyh-gqxjzs-ilana-s.borat tablet (Caltrate 600-D Plus Minerals) cholecalciferol (vitamin D3) 25 1,000 unit PO QAM #30 caps 11/02/21 01/02/23 Rx mcg (1,000 unit) capsule amiodarone 200 mg tablet 200 mg PO DAILY #90 tabs 10/03/22 01/02/23 Rx amlodipine 2.5 mg tablet 2.5 mg PO BID #180 tabs 10/06/22 01/02/23 Rx apixaban 2.5 mg tablet 2.5 mg PO BID #180 tabs 10/06/22 01/02/23 Rx atorvastatin 40 mg tablet 40 mg PO QAM 01/02/23 01/02/23 History levothyroxine 75 mcg tablet 75 mcg PO DAILYBB 01/02/23 01/02/23 History potassium chloride 10 mEq 10 meq PO DAILY 01/02/23 01/02/23 History tablet,extended release Past Med/Surg History Medical History Acute UTI (urinary tract infection) Anemia Atrial flutter with rapid ventricular response Closed intertrochanteric fracture of right hip Dementia Esophageal dysmotility Hyperlipidemia Hypertension Hypothyroidism Memory loss Stroke April 2020 Vitamin B12 deficiency Surgical History History of tonsillectomy and adenoidectomy Family History Other Coronary heart disease Hypertension Social History Smoking Status: Unknown if ever smoked Second Hand Exposure: No; Hx Alcohol Use: No Hx Substance Use: No Preferred Language: Spanish Communication Ability: Effective Rn Procedure Required: No Beliefs That Will Affect Care: None marital status: Current Living Situation: [place] Current Living Situation Comment: Home w/ current occupational status: retired Feels Safe at Home: Yes Assistive Devices: None Review of Systems Review of Systems: All systems reviewed & are unremarkable except as noted in HPI & below Respiratory: + cough Gastrointestinal: + blood in stools (1 episode reported but none in the last few days) Physical Exam Constitutional: + cachectic; no acute distress Eyes: PERRL, conjunctivae normal, anicteric sclerae ENMT: Mouth: + dry oral mucous membranes Respiratory: + abnormal respiratory effort (poor) and no respiratory distress Auscultation: + breath sounds absent (bibasal) and + diminished lung sounds (throughout); no crackles Cardiovascular: RRR, no murmur, no edema Gastrointestinal (Abdomen): normal bowel sounds, soft, nontender, no hepatosplenomegaly Musculoskeletal: no cyanosis or clubbing, extremities motor strength 5/5 Skin: multiple stage 3 ulcers on lumbar and sacrum without surrounding cellulitis changes Neurologic: awake and + confused; + does not move all extremities (b/l upper extremities only not to command) Psychiatric: Orientation: alert; + not oriented x 3 Results & Data Results & Data ([facility]) Vital Signs (Past 12 Hours) Vital Signs Temp Pulse Resp BP Pulse Ox O2 Del Method 01/02/23 14:34 66 20 93 Room Air 01/02/23 14:12 36.0 C L 63 20 136/80 93 Room Air Laboratory Results Abnormal lab results 01/02/23 01/02/23 01/02/23 Range/Units 15:24 15:24 15:24 WBC 12.25 H (4.8-10.8) K/ul RBC 3.94 L (4.20-5.40) M/uL RDW Std Deviation 56.8 H (36.4-46.3) fL RDW Coeff of Luis 16.0 H (11.5-14.5) % Neut # (Auto) 9.97 H (1.40-6.50) K/uL Lymph # (Auto) 1.01 L (1.2-3.4) K/uL [place] # (Auto) 1.11 H (0.11-0.59) K/uL ESR 39 H (0-30) mm/hr BUN 36 H (6-23) mg/dl BUN/Creatinine Ratio 30.8 H (10-20) Glucose 103 H (70-99(Fasting)) mg/dl Total Bilirubin 1.3 H (0.2-1.0) mg/dl AST (13-39) U/L ALT 98 H (7-52) U/L Alkaline Phosphatase 106 H (34-104) U/L Troponin I High Sens 17.8 H (0-14) pg/ml C-Reactive Protein 19.37 H (0-0.5) mg/dl Albumin 3.0 L (3.4-5.0) gm/dl Procalcitonin (0-0.5) ng/ml Urine Appearance (Clear) Urine Protein (Negative) Urine Blood (Negative) Ur Leukocyte Esterase (Negative) Urine WBC (Auto) (0-5) /hpf Urine Bacteria (Auto) (Negative) 01/02/23 01/02/23 01/02/23 Range/Units 15:24 15:56 17:30 WBC (4.8-10.8) K/ul RBC (4.20-5.40) M/uL RDW Std Deviation (36.4-46.3) fL RDW Coeff of Luis (11.5-14.5) % Neut # (Auto) (1.40-6.50) K/uL Lymph # (Auto) (1.2-3.4) K/uL [place] # (Auto) (0.11-0.59) K/uL ESR (0-30) mm/hr BUN (6-23) mg/dl BUN/Creatinine Ratio (10-20) Glucose (70-99(Fasting)) mg/dl Total Bilirubin (0.2-1.0) mg/dl AST 59 H (13-39) U/L ALT (7-52) U/L Alkaline Phosphatase (34-104) U/L Troponin I High Sens (0-14) pg/ml C-Reactive Protein (0-0.5) mg/dl Albumin (3.4-5.0) gm/dl Procalcitonin 2.22 H (0-0.5) ng/ml Urine Appearance Cloudy A (Clear) Urine Protein Trace H (Negative) Urine Blood 1+ H (Negative) Ur Leukocyte Esterase 1+ H (Negative) Urine WBC (Auto) 5-10 H (0-5) /hpf Urine Bacteria (Auto) 4+ H (Negative) Diagnostic Findings XR chest 1V portable HISTORY: 87 years-old Female Chest pain, nonspecific acute chest pain COMPARISON: 10/23/2021 TECHNIQUE: AP view the chest FINDINGS: Cardiac silhouette is enlarged. Pulmonary vascular congestion with interstitial coarsening. Mild left greater than right bibasilar densities. No pneumothorax. Degenerative changes of the shoulders and spine. Impacted left proximal humeral fracture is new from prior. Numerous left-sided rib fractures are likely chronic. IMPRESSION: 1. Cardiomegaly with pulmonary vascular congestion and interstitial coarsening suggestive of pulmonary edema. 2. Mild left basilar densities may represent atelectasis versus pneumonia. 3. Left proximal humeral and left rib fractures are new from 2020, favored to be subacute or chronic. Medications Administered ER medications given: Ceftriaxone 2 g IV ECG Indication: altered mental status Rate (beats per minute): 63 Rhythm: normal sinus Findings: + other (Rightward axis) Comparison ECG Date: from (October 23, 2021) Change: no significant change Code Status & VTE Plan Code Status DNR/DNI confirmed with her son at bedside VTE Prophylaxis Plan VTE Prophylaxis will be ordered: Yes PG Care Time/CCT Total # of Minutes Spent Total Time Spent with Patient: Total time spent is greater than 50% in coordination of care (as documented) at patient's floor/unit and/or counseling patient: Coding Level of Care Code 31511 INT INP/OBS CARE 375MIN Diagnoses Failure to thrive UTI (urinary tract infection) N39.0 Pressure ulcer of sacral region, stage 3 L89.153 Pneumonia J18.9 Dysphagia R13.10 Elevated liver transaminase level R74.01 Left humeral fracture S42.302A Aphasia R47.01 Paroxysmal atrial flutter I48.92 Hypertension I10 Hypothyroidism E03.9 Hematoma of left lower leg S80.12XA Dementia F03.90
[2023-01-02] MEDS ORDERED: OPTIRAY 350 100ml IV ONE (18:24)
--- NOTE | 2023-01-02 18:42 | CT Scan Report ---
CT OF THE ABDOMEN AND PELVIS WITH CONTRAST CLINICAL HISTORY: multiple sacral ulcers ?underlying osteomyelitis COMPARISON STUDY: Pelvis radiograph October 07, 2021 and October 23, 2021. TECHNIQUE: Following IV administration of 89 mL of Optiray, axial images of the abdomen and pelvis we re obtained from the lung bases to the proximal femurs. Images were reviewed in the axial, sagittal, and coronal planes. IV contrast was administered without complication. Automated exposure control wa s utilized for the study. A dose lowering technique was utilized adhering to the principles of ALARA . CT DOSE: 377.79 mGy.cm FINDINGS: Cardiomegaly is incidentally noted. There are multifocal groundglass opacities within the l ower lungs. No pneumatosis, free air or portal venous gas is present. Evaluation of the abdomen and p aleksandr is difficult given paucity intra-abdominal fat as well as body wall edema. Calcified granulomas within the spleen are present. A 1.4 cm capsular hypodense focus within the spleen is probably not a cute. There is no biliary or pancreatic ductal dilatation. A right renal cyst is noted. There is no h ydronephrosis. No peripancreatic or pericholecystic infiltration is present. There is no evidence for a bowel obstruction. The caliber and wall thickness of small and large bowel are normal. The appendi x is not identified. There is no lymphadenopathy. Decubitus ulcer overlying the lower sacrum and cocc yx is noted. There is no bony destruction to suggest acute osteomyelitis by CT. No fluid collection i s identified to suggest an abscess. There is a partially calcified 3.4 x 2.5 cm lesion within the [place] rine fundus. This projects over the endometrium. There is also a water attenuation 6.5 x 3.5 cm elong ated right adnexal lesion. Bladder wall thickening is noted. Gastric wall thickening is likely due to underdistention. Urothelial thickening of the left collecting system and proximal left ureter is not ed. There is mucosal hyperemia of the bladder. Right femoral internal fixation is partially imaged. T here are no acute fractures within the visualized skeletal structures. Moderate amount stool within t he colon and rectum. There is mild rectal wall thickening. IMPRESSION: 1. Decubitus ulcer overlying the lower sacrum and coccyx. No CT evidence for acute osteomyelitis. No abscess. 2. No bowel obstruction. Moderate amount of stool within the colon and rectum. Mild rectal wall thick ening 3. Bladder wall thickening and left-sided urothelial thickening which could be correlated with urinal ysis to exclude an infectious process. 4. Indeterminate water attenuation density within the right hemipelvis, measuring 6.5 x 3.5 cm. This likely arises from the right ovary. Nonemergent pelvic ultrasound could be performed to assess for co mplexity. 5. 3.4 x 2.5 cm partially calcified lesion within the uterine fundus. This is nonspecific but may ref lect a submucosal fibroid. This could be correlated with history of postmenopausal bleeding and asses sed on follow-up ultrasound. 6. Apparent gastric wall thickening. This is likely due to underdistention however gastritis could ap pear similar. 3. Ground glass opacities within the lower lungs which favor an infectious process. ACT 112: Negative or not required by law. Electronically signed by: Bob Rodriguez M.D. 01/02/2023 6:43 PM
[2023-01-02] MEDS ORDERED: FAMOTIDINE 20 MG in SYRINGE 3 ML IV STA (20:23)
[2023-01-02] MEDS ORDERED: FAMOTIDINE 20MG IV PUSH 20 MG/5 ML SYR IV STA (20:29)
[2023-01-02] MEDS ORDERED: ONDANSETRON INJ 2 MG/ML 2 ML VIAL IV PRN (21:37)
[2023-01-02] MEDS ORDERED: ACETAMINOPHEN 325 MG TAB PO PRN (21:37)
[2023-01-02] MEDS ORDERED: Patient's HEIGHT &/or WEIGHT Needed SCH (22:00)
--- NOTE | 2023-01-02 22:17 | Communication Note ---
Date of Service: January 02, 2023 Received message from nursing in regards to p.o. medication administration tonight. Nursing concerned that she is high risk for aspiration as she was g iven a spoonful of water and coughed several minutes afterward. She was due for Norvasc, Eliquis, melatonin, and vitamin D. Eliquis being the most important one in this case given her history of paroxysmal atrial fibrillation and high DVT risk. Recommended withholding Eliquis at this time as the risk of aspiration is higher than the risk of missing 1 dose of Eliquis for stroke prophylaxis. Instructed the nurse to make sure that SCDs were on the patient for DVT prophylaxis. Recommend crushing the tablet and administering it with water in a.m. if possible or after speech therapy recommendations. In the meantime, put in a one-time dose of 40 mg of Lovenox.
[2023-01-02] MEDS ORDERED: ENOXAPARIN INJ 40 MG/0.4 ML SYR SQ ONE (22:20)
[2023-01-02] MEDS: AZITHROMYCIN 500 MG in DEXTROSE 5% 250 ML IV SCH (22:25)
[2023-01-02] MEDS: amLODIPine BESYLATE 5 MG TAB PO SCH (22:58)
[2023-01-02] MEDS: MELATONIN 3 MG TAB PO SCH (22:59)
[2023-01-02] MEDS: APIXABAN 2.5 MG TAB PO SCH (22:59)
[2023-01-02] MEDS: CALCIUM 600MG + VIT D 400 IU TAB PO SCH (22:59)
[2023-01-03] MEDS: LEVOTHYROXINE SODIUM 75 MCG TABLET PO SCH ×2 (05:56→09:15)
--- NOTE | 2023-01-03 07:37 | CT Scan Report ---
HEAD CT NONCONTRAST CT DOSE: 1418.95 mGy.cm HISTORY: dysphagia TECHNIQUE: Multiaxial CT images of the head were performed without the use of intravenous contrast. A utomated exposure control was utilized for this study. A dose lowering technique was utilized adheri ng to the principles of ALARA. Comparison: Head CT 10/07/2021. Findings: The paranasal sinuses and mastoid air cells are clear. The calvarium and skull base are int act. There is no mass, hematoma, midline shift, acute infarct. White matter hypodensity is nonspecifi c but suggestive of microvascular ischemic change. The ventricles and sulci demonstrate mild age-rela robi involutional changes. Old left parietal infarct is noted. Impression: No significant change compared to the prior study. No acute intracranial abnormality. ACT 112: Negative or not required by law. Electronically signed by: Miko Isaac M.D. 01/03/2023 7:35 AM
--- NOTE | 2023-01-03 07:49 | Hospitalist Progress Note ---
Date of Service January 03, 2023 Assessment & Plan (1) Failure to thrive: Plan: Progressive FTT/weight loss and concerns for worsening sacral ulcers per family and brought to hospital for evaluation On admit, WBC 12.2k, Procal 2.22. CRP 19.3, ESR 39 No lactic checked. Hgb 12.3 when appears patient baseline Hgb in 8-9 range along w/ BUN/Cr 36/1.17 likely dehydration from baseline progressive dysphagia reported Multifactorial -->UTI, Pneumonia, R pelvic mass, hypothyroidism, constipation, progressive dysphagia/dehydration 2nd to decreased PO intake Head CT negative for acute CVA (old L parietal infarct noted, does not white matter hypodensity nonspecific but suggestive of microvascular ischemic change) CXR cardiomegaly w/ pulm congestion noted/interstitial coarsening suggestive of pulmonary edema, mild L basilar densities may represent atelectasis vs pn eumonia. L proximal humeral and L rib fractures -- subacute vs chronic CTAP w/ ground glass opacities w/i lower lung favor infectious process. Gastric wall thickening (underdistention vs gastritis), decubitus ulcer overlying lower sacrum w/o evidence for AOM, no abscess. Bladder wall thickening and L sided urothelial thickening possibly infectious (hx UTIs, ecoli/enterococcus), no bowel obstruction, moderate stool within colon/rectum w/ mild rectal wall thickening. Indeterminate water attenuation density within the right hemipelvis, measuring 6.5 x 3.5 cm. This likely arises from the right ovary. Nonemergent pelvic ultrasound could be performed to assess for complexity. 3.4 x 2.5 cm partially calcified lesion within the uterine fundus. This is nonspecific but may reflect a submucosal fibroid. This could be correlated with history of postmenopausal bleeding and assessed on follow-up ultrasound. UA w/ leuk esterase, WBC, no epi, 4+ bacteria. Urine cx pending -- prelim GNB 2 species Blood cultures pending Ceftriaxone/Azithromycin IV for coverage UTI/Pneumonia (?need for aspiration coverage given dysphagia) WBC elevated to 14k, but afebrile. Will check MRSA nasal given concerns for pneumonia to see if needing to add coverage if further worsens on repeat Got 1L IVF on admit, nothing further. Given decreased PO intake/dehydration on exam/limited urine output, order for IVF NSS placed TSH elevated to 18.9 --> increased synthroid to 88mcg daily -- give IV if needed/not able to tolerate PO Speech consulted -- ok w/ pureed diet. Pt did get dose of Lovenox for issues w/ eliquis last evening -- took ok w/ pudding this morning [employer] consulted PT/OT consulted, CM to follow Palliative care consulted -- likely no consult until thursday per admitting MD, family apparently wanting to have meeting to break news to other family and then will hopefully be able to all get together Monitor labs on repeat (2) UTI (urinary tract infection): Plan: UA appears infected Urine cx pending -- gram negative bacilli x 2 Hx enterococcus faecalis, ecoli in the past Monitor urine cx/blood cultures Needing st cath x 2 IVF ordered as above Remains on Ceftriaxone currently -- monitor for any need to change abx/resistance If needing to cath for third time since admission, RN to place duong Monitor urine cx/UOP (3) Pneumonia: Plan: High risk of aspiration pneumonia, precautions in place Left basilar densities on CXR as possible source for WBC + procalcitonin as is UTI as above Cover with ceftriaxone and azithromycin for now Patient not really able to participate in exam, doubtful benefit from incentive spirometer/flutter valve No wheezing, but can order nebs prn if needed Supplemental O2 to maintain sats Repeat CXR for f/u (4) Dysphagia: Plan: CT head to assess for intracranial hemorrhage which would necessitate need to stop Eliquis however no acute surgical intervention would be warranted given her overall frailty Appears to be new since Oct 2021 visit - progressive over last few months CT head NEGATIVE Placed on clear liquids (family was giving straws in ER per admitting doc) but did have some choking overnight Changed to pureed diet as using at home, seen by speech and agreed as she was tolerating Pepcid daily IVP daily ordered (5) Hypothyroidism: Plan: On Synthroid 75mcg daily TSH elevated to 18.997 Increase Synthroid to 88mcg daily for AM, repeat TFT outpt (6) Paroxysmal atrial flutter: Plan: in NSR on exam Added mag to AM labs, 1.7 -- ordered 2gm to keep closer to 2 to prevent flipping back into Afib K 3.6 and added 20meq to IVF as well (got 10meq PO this AM as part of her usual medications) Monitor on exam and keep mag ~2/K~4 Continues on eliquis 2.5mg BID, amiodarone 200mg daily Was given dose of lovenox last evening when unable to take her PO Eliquis apparently -- tolerating pills w/ carrier and continues on eliquis/amio (7) Pressure ulcer of sacral region, stage 3: Plan: Main reason she was brought to the ER by sons Imaging w/o evidence acute OM, general surgery rec local care Continue turn/reposition patient Wound RN consulted (8) Elevated liver transaminase level: Plan: TB 1.3, AST 59, ALT98, ALP 106 on admission CTAP w/ above findings Checked CK w/ AM labs, 95 TSH elevated to 18.997-- increase Synthroid to 88mcg for AM LFTs w/ normalization of TB, AST 40, ALT 73, ALP about the same 109 Monitor LFts on repeat w/ tx as above (9) Left humeral fracture: Plan: Suspect this is more subacute as she appears to be moving her left upper extremity Patient is not a surgical candidate therefore no need for orthopedic consult currently Careful maneuvering of left upper extremity Vitamin D level 24.2 -- home med lists calcium carbonate/vit D supplementation -- can increase PO supplementation at d/c (10) Aphasia: Plan: No continue secondary to stroke in 2019 Speech/pt/ot consulted for above (11) Hypertension: Plan: BP stable, 142/78 Remains on amlodipine 2.5mg BID Monitor (12) Hematoma of left lower leg: Plan: Reportedly also present in 2020. Remains on her typical eliquis 2.5mg BID (13) Dementia: Plan: On no medications for this. B12 wnl TSH elevated as above, adjustments to Synthroid for AM and rec repeat labs outpatient (also suspect if was given pills w/ carrier they are probably giving all meds together -- will need to confirm) Supportive care, tx infectious causes as above (14) Constipation: Plan: noted moderate stool within colon/rectum placed on docusate BID monitor for BM, may need to add suppository (15) Anemia: Plan: baseline hgb appears to be in 8-9 range, was 11 on admit likely dehydration outlined above repeat hgb 11.1 of note, H&P reports 1 episode of blood in stool but none in few days -- ?bright red vs darkened given reported constipation on pepcid daily, gastritis on imaging along w/ pelvic mass/ovarian (family meeting, would need pevlic US in f/u) check fecal occult w/ next bowel movement iron studies added to am labs. B12 w/o deficiency checked on admit. check folate w/ AM labs Monitor CBC on repeat/any additional bleeding (16) Elevated troponin: Plan: trop 17.8 on admission repeated w/ Am labs to trend -- 21.3, likely demand ischemia from infection/UTI/PNA as above and will trend not able to voice any concerns for chest pain/nonverbal at baseline EKG on admit NSR w/ rightward axis deviation but no ST segment elevation or ishcemic changes noted Plan continued inpatient stay Admission and Anticipated Discharge Date Admission Date: January 02, 2023 Supervising Physician Co-Signing Physician Notes PA Supervision Note: I did not personally see or examine the patient today, but I verified all price points of ISRRAEL Huff's assessment and plan with the following exceptions/additions: None Subjective Per nursing, some choking on pills w/ water. Limited to ASA/Eliquis and did well w/ pudding. Per HPI, family has had on pureed diet recently due to progressing issues w/ swallowing. Palliative on consult given imaging on admission/mass in pelvis. On abx for PNA as well as UTI. Cx pending On exam, patient resting in bed, NAD. Nonverbal at baseline but groans. No family present at bedside. Has been st cath x 2, not much urine output. Placed on IVF this morning. Very thin/cachectic, not withdrawing/grimacing in any pain during exam. Speech to see after lunch. Limiting other pills other than Eliquis/Aspirin. Diet changes to pureed in meantime given ability to tolerate better. Review of Systems Review of Systems: Unobtainable due to cognitive status Physical Exam Constitutional: + thin, + cachectic and comfortable; + not well nourished and no acute distress ENMT: Mouth: + dry oral mucous membranes Respiratory: + abnormal respiratory effort (poor) and no respiratory distress Auscultation: + breath sounds absent (bibasal) and + diminished lung sounds (throughout); no crackles coarse breath sounds bilaterally 94% on RA no tachypnea Cardiovascular: slightly bradycardic (rates 50s), regular, no significant m/r/g, no pitting edema/calf tenderness Gastrointestinal (Abdomen): thin, +BS, nontender/no rebound/guarding no palpable masses Musculoskeletal: not able to participate in examination due to cognitive status Skin: multiple stage 3 ulcers on lumbar and sacrum without surrounding cellulitis changes b/l LE w/ atrophic appearance, decreased skin turgor Neurologic: awake and + confused; + does not move all extremities (b/l upper extremities only not to command) Psychiatric: Orientation: alert (to name at times); + not oriented x 3 nonverbal, groans on occasion for nursing Genitourinary: no duong present Results & Data Results & Data ([place]) Vital Signs (Past 12 Hours) Vital Signs Temp Pulse Resp BP Pulse Ox O2 Del Method 01/03/23 02:00 59 L 159/83 H 99 Room Air 01/02/23 22:08 Room Air 01/02/23 21:49 36.3 C L 58 L 18 146/73 H 98 Room Air 01/02/23 20:18 57 L 16 145/77 H 95 Room Air Diagnostic Findings Chest X-Ray 01/02/23 14:34 XR chest 1V portable HISTORY: 87 years-old Female Chest pain, nonspecific acute chest pain COMPARISON: 10/23/2021 TECHNIQUE: AP view the chest FINDINGS: Cardiac silhouette is enlarged. Pulmonary vascular congestion with interstitial coarsening. Mild left greater than right bibasilar densities. No pneumothorax. Degenerative changes of the shoulders and spine. Impacted left proximal humeral fracture is new from prior. Numerous left-sided rib fractures are likely chronic. IMPRESSION: 1. Cardiomegaly with pulmonary vascular congestion and interstitial coarsening suggestive of pulmonary edema. 2. Mild left basilar densities may represent atelectasis versus pneumonia. 3. Left proximal humeral and left rib fractures are new from 2020, favored to be subacute or chronic. ACT 112: Negative or not required by law. The above report was generated using voice recognition software. It may contain grammatical, syntax or spelling errors. Electronically signed by: Raghu Myers M.D. 01/02/2023 3:55 PM Abdomen/Pelvis CT 01/02/23 17:39 CT OF THE ABDOMEN AND PELVIS WITH CONTRAST CLINICAL HISTORY: multiple sacral ulcers ?underlying osteomyelitis COMPARISON STUDY: Pelvis radiograph October 07, 2021 and October 23, 2021. TECHNIQUE: Following IV administration of 89 mL of Optiray, axial images of the abdomen and pelvis were obtained from the lung bases to the proximal femurs. Images were reviewed in the axial, sagittal, and coronal planes. IV contrast was administered without complication. Automated exposure control was utilized for the study. A dose lowering technique was utilized adhering to the principles of ALARA. CT DOSE: 377.79 mGy.cm FINDINGS: Cardiomegaly is incidentally noted. There are multifocal groundglass opacities within the lower lungs. No pneumatosis, free air or portal venous gas is present. Evaluation of the abdomen and pelvis is difficult given paucity intra-abdominal fat as well as body wall edema. Calcified granulomas within the spleen are present. A 1.4 cm capsular hypodense focus within the spleen is probably not acute. There is no biliary or pancreatic ductal dilatation. A right renal cyst is noted. There is no hydronephrosis. No peripancreatic or alexsander cholecystic infiltration is present. There is no evidence for a bowel obstruction. The caliber and wall thickness of small and large bowel are normal. The appendix is not identified. There is no lymphadenopathy. Decubitus ulcer overlying the lower sacrum and coccyx is noted. There is no bony destruction to suggest acute osteomyelitis by CT. No fluid collection is identified to suggest an abscess. There is a partially calcified 3.4 x 2.5 cm lesion within the uterine fundus. This projects over the endometrium. There is also a water attenuation 6.5 x 3.5 cm elongated right adnexal lesion. Bladder wall thickening is noted. Gastric wall thickening is likely due to underdistention. Urothelial thickening of the left collecting system and proximal left ureter is noted. There is mucosal hyperemia of the bladder. Right femoral internal fixation is partially imaged. There are no acute fractures within the visualized skeletal structures. Moderate amount stool within the colon and rectum. There is mild rectal wall thickening. IMPRESSION: 1. Decubitus ulcer overlying the lower sacrum and coccyx. No CT evidence for acute osteomyelitis. No abscess. 2. No bowel obstruction. Moderate amount of stool within the colon and rectum. Mild rectal wall thickening 3. Bladder wall thickening and left-sided urothelial thickening which could be correlated with urinalysis to exclude an infectious process. 4. Indeterminate water attenuation density within the right hemipelvis, measuring 6.5 x 3.5 cm. This likely arises from the right ovary. Nonemergent pelvic ultrasound could be performed to assess for complexity. 5. 3.4 x 2.5 cm partially calcified lesion within the uterine fundus. This is nonspecific but may reflect a submucosal fibroid. This could be correlated with history of postmenopausal bleeding and assessed on follow-up ultrasound. 6. Apparent gastric wall thickening. This is likely due to underdistention however gastritis could appear similar. 3. Ground glass opacities within the lower lungs which favor an infectious process. ACT 112: Negative or not required by law. Electronically signed by: Bob Rodriguez M.D. 01/02/2023 6:[address] 01/02/23 20:[address] DOSE: 1418.95 mGy.cm HISTORY: dysphagia TECHNIQUE: Multiaxial CT images of the head were performed without the use of intravenous contrast. Automated exposure control was utilized for this study. A dose lowering technique was utilized adhering to the principles of ALARA. Comparison: Head CT 10/07/2021. Findings: The paranasal sinuses and mastoid air cells are clear. The calvarium and skull base are intact. There is no mass, hematoma, midline shift, acute infarct. White matter hypodensity is nonspecific but suggestive of microvascular ischemic change. The ventricles and sulci demonstrate mild age-related involutional changes. Old left parietal infarct is noted. Impression: No significant change compared to the prior study. No acute intracranial abnormality. ACT 112: Negative or not required by law. Electronically signed by: Miko Isaac M.D. 01/03/2023 7:35 AM PG Care Time/CCT Total # of Minutes Spent Total Time Spent with Patient: Total time spent is greater than 50% in coordination of care (as documented) at patient's floor/unit and/or counseling patient: Coding Level of Care Code 51979 SUB INP/OBS CARE 3/50MIN Diagnoses Failure to thrive UTI (urinary tract infection) N39.0 Pneumonia J18.9 Dysphagia R13.10 Hypothyroidism E03.9 Paroxysmal atrial flutter I48.92 Pressure ulcer of sacral region, stage 3 L89.153 Elevated liver transaminase level R74.01 Left humeral fracture S42.302A Aphasia R47.01 Hypertension I10 Hematoma of left lower leg S80.12XA Dementia F03.90 Constipation K59.00 Anemia D64.9 Anemia type: unspecified type Elevated troponin R77.8 (1) Anemia Anemia type: unspecified type Qualified Code(s): D64.9 - Anemia, unspecified
[2023-01-03] MEDS ORDERED: SODIUM CHLORIDE 0.9% 1000ML 1,000 ML IV SCH (08:15)
[2023-01-03] MEDS ORDERED: CHOLECALCIFEROL 1,000 UNITS 25 MCG TAB PO SCH (09:00)
[2023-01-03] MEDS: ASPIRIN 81 MG ECTAB PO SCH (09:10)
[2023-01-03] MEDS: APIXABAN 2.5 MG TAB PO SCH ×2 (09:10→20:43)
[2023-01-03] MEDS: amLODIPine BESYLATE 5 MG TAB PO SCH ×2 (09:16→20:43)
[2023-01-03] MEDS: AMIODARONE 200 MG TAB PO SCH (09:17)
[2023-01-03 09:18] LABS: Basophils # (auto) 0.05 K/uL (0-0.2); Basophils % (auto) 0.3 %; Eosinophils # (auto) 0.03 K/uL (0-0.50); Eosinophils % (auto) 0.2 %; Hematocrit (blood only) 34.4 % (37.0-47.0); Hemoglobin 11.5 g/dl (12.0-16.0); Immature Granulocytes % (auto) 0.7 %; Lymphocytes # (auto) 0.69 K/uL (1.2-3.4); Lymphocytes % (auto) 4.8 %; Mean Corpuscular Hemoglobin 31.3 pg (25.0-34.0); Mean Corpuscular Hgb Conc 33.4 g/dL (32.0-36.0); Mean Corpuscular Volume 93.5 fL (80.0-100.0); Mean Platelet Volume 11.1 fL (9.4-12.4); Monocytes # (auto) 0.96 K/uL (0.11-0.59); Monocytes % (auto) 6.6 %; Neutrophils # (auto) 12.66 K/uL (1.40-6.50); Neutrophils % (auto) 87.4 %; Platelet Count 171 K/uL (130-400); RDW Coefficient of Variation 15.2 % (11.5-14.5); Red Blood Count 3.68 M/uL (4.20-5.40); White Blood Count 14.49 K/ul (4.8-10.8)
[2023-01-03 09:29] LABS: Magnesium 1.7 mg/dl (1.7-2.4)
[2023-01-03 09:35] LABS: Troponin I High Sensitivity 21.3 pg/ml (0-14)
[2023-01-03 09:42] LABS: Albumin Globulin Ratio 0.8 (0.9-2); Albumin Level 2.5 gm/dl (3.4-5.0); BUN Creatinine Ratio 28.4 (10-20); Bilirubin,Total 0.8 mg/dl (0.2-1.0); Calcium 8.2 mg/dl (8.5-10.1); Est GFR (Non-African American) 58.7 ml/min; Potassium 3.6 mmol/L (3.5-5.1); Thyroid Stimulating Hormone 18.997 uIu/ml (0.300-4.500); Total Protein 5.5 gm/dl (6.0-8.3)
[2023-01-03 09:49] LABS: Ferritin 814.8 ng/ml (8-388)
[2023-01-03 10:17] LABS: T4 Free Thyroxine 0.84 ng/dl (0.61-1.60)
[2023-01-03] MEDS: DOCUSATE SODIUM 100 MG CAP PO SCH ×2 (10:36→20:43)
[2023-01-03] MEDS: POTASSIUM CHLORIDE 10 MEQ TABCR PO SCH (10:36)
[2023-01-03] MEDS: CALCIUM 600MG + VIT D 400 IU TAB PO SCH (10:37)
[2023-01-03] MEDS: FAMOTIDINE 20 MG in SYRINGE 3 ML IV SCH (11:04)
[2023-01-03 11:43] LABS: Vitamin D, 25 Hydrox 24.2 ng/ml (30-100)
--- NOTE | 2023-01-03 12:48 | Surgery Consultation ---
Date of Consultation January 03, 2023 Assessment & Plan (1) Decubitus ulcer: pt is a 87 year-old female who presents with stage II decubitus ulcer, IMP: decubitus ulcer, most likely cellulitis, no surgery debridement indication now, IV antibiotic, consult wound care nurse, sign off today, please call with questions, Thanks, History of Present Illness Reason for Consultation: decubitus ulcer Requesting Physician: Pili Scanlon MD Attending Physician: Pili Scanlon MD History of Present Illness Chief Complaint: Failure to thrive Primary Care Provider: NO PCP Raquel Hunter is an 87 year old female with 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 Unable to get any history from the patient due to expressive dysphasia and dementia. History taken from son (Geremias) and daughter in-law (Zenobia) at bedside. She was last seen in hospital in October 2021 with a right femur fracture s/p intramedullary nail after falling at [facility]. The family wished her to undergo some rehabilitation at [facility] which she completed and she has been managed at home since completion. She was relatively stable until the last 3 to 4 months where she has deteriorated significantly losing a lot of weight. From the electronic health record she was weighing 60.5 kg on discharge in October 2021 and is currently 43 kg. She has had less of an appetite and is having increasing problems swallowing food that her family have moved to a more pured diet. Roughly a month ago she started getting sacral ulcers which were initially being successfully managed and reportedly everything had healed as of this last Thursday. However today she was noted to have significant sacral ulcers therefore they decided to bring her to the emergency room. There was some concern that the ulcers had previously gone down to bone by her other son. Initial work-up in the emergency room was concerning for infection with elevated white blood count 12.25 and a procalcitonin 2.22 with mildly elevated ALT (98) and AST (58). UA was grossly positive for infection with 4+ bacteria. Blood cultures were taken. She was started on ceftriaxone 2 g IV. She was referred to medicine for admission ongoing management for pressure ulcers. I ( Shayne Andrews MD ) got a call for consult decubitus ulcer, I reviewed pt's H/P, labs and CT scan with pt and nurse at bedside, Allergies Allergy/AdvReac Type Severity Reaction Status Date / Time No Known Allergies Allergy Verified 12/05/21 13:04 Home Medications Medication Instructions Recorded Confirmed Type menthol 0.44 %-zinc oxide 20.6 % 1 applic topical BID PRN skin 12/31/20 01/02/23 Rx topical ointment (Calmoseptine) irritation #113 grams aspirin 81 mg tablet,delayed 81 mg PO QAM 10/07/21 01/02/23 Hi story release acetaminophen 325 mg tablet 650 mg PO Q6H PRN TEMP >100/PAIN 10/23/21 01/02/23 History (Tylenol) melatonin 3 mg tablet 3 mg PO HSA 10/23/21 01/02/23 History calcium 600 mg-D3 800 unit-mag11 1 tab PO BID #60 tabs 11/02/2101/02 Rx 50 pg-kamg-kftyea-ilana-s.borat tablet (Caltrate 600-D Plus Minerals) cholecalciferol (vitamin D3) 25 1,000 unit PO QAM #30 caps 11/02/21 0 01/02/23 Rx mcg (1,000 unit) capsule amiodarone 200 mg tablet 200 mg PO DAILY #90 tabs 10/03/22 01/02/23 R x amlodipine 2.5 mg tablet 2.5 mg PO BID #180 tabs 10/06/22 01/02/23 Rx apixaban 2.5 mg tablet 2.5 mg PO BID #180 tabs 10/06/22 01/02/23 Rx atorvastatin 40 mg tablet 40 mg PO QAM 01/02/23 01/02/23 Histo ry levothyroxine 75 mcg tablet 75 mcg PO DAILYBB 01/02/23 01/02/23 His tory potassium chloride 10 mEq 10 meq PO DAILY 01/02/23 01/02/23 Histo ry tablet,extended release Past Med/Surg History Medical History Acute UTI (urinary tract infection) Anemia Atrial flutter with rapid ventricular response Closed intertrochanteric fracture of right hip Dementia Esophageal dysmotility Hyperlipidemia Hypertension Hypothyroidism Memory loss Stroke April 2020Vitamin B12 deficiency Surgical History History of tonsillectomy and adenoidectomy Family History Other Coronary heart disease Hypertension Social History Smoking Status: Unknown if ever smoked Second Hand Exposure: No; Hx Alcohol Use: No Hx Substance Use: No Preferred Language: Maldivian Communication Ability: Effective Crown Presser Required: No Beliefs That Will Affect Care: None marital status: Current Living Situation: [facility] Current Living Situation Comment: Home w/ current occupational status: retired Feels Safe at Home: Yes Assistive Devices: None Review of Systems Review of Systems: All systems reviewed & are unremarkable except as noted in HPI & below Respiratory: + cough Gastrointestinal: + blood in stools (1 episode reported bu t none in the last few days) Allergies Allergy/AdvReac Type Severity Reaction Status Date / Time No Known Allergies Allergy Verified 12/05/21 13:04 Home Medications Medication Instructions Recorded Confirmed Type menthol 0.44 %-zinc oxide 20.6 % 1 applic topical BID PRN skin 12/31/20 01/02/23 Rx topical ointment (Calmoseptine) irritation #113 grams aspirin 81 mg tablet,delayed 81 mg PO QAM 10/07/21 01/02/23 History release acetaminophen 325 mg tablet 650 mg PO Q6H PRN TEMP >100/PAIN 10/23/21 01/02/23 History (Tylenol) melatonin 3 mg tablet 3 mg PO HS 10/23/21 01/02/23 History calcium 600 mg-D3 800 unit-mag11 1 tab PO BID #60 tabs 11/02/21 01/02/23 Rx 50 jd-nwar-hcdzqc-ilana-s.borat tablet (Caltrate 600-D Plus Minerals) cholecalciferol (vitamin D3) 25 1,000 unit PO QAM #30 caps 11/02/21 01/02/23 Rx mcg (1,000 unit) capsule amiodarone 200 mg tablet 200 mg PO DAILY #90 tabs 10/03/22 01/02/23 Rx amlodipine 2.5 mg tablet 2.5 mg PO BID #180 tabs 10/06/22 01/02/23 Rx apixaban 2.5 mg tablet 2.5 mg PO BID #180 tabs 10/06/22 01/02/23 Rx atorvastatin 40 mg tablet 40 mg PO QAM 01/02/23 01/02/23 History levothyroxine 75 mcg tablet 75 mcg PO DAILYBB 01/02/23 01/02/23 History potassium chloride 10 mEq 10 meq PO DAILY 01/02/23 01/02/23 History tablet,extended release Patient History Medical History Acute UTI (urinary tract infection) Anemia Atrial flutter with rapid ventricular response Closed intertrochanteric fracture of right hip Dementia Esophageal dysmotility Hyperlipidemia Hypertension Hypothyroidism Memory loss Stroke April 2020 Vitamin B12 deficiency Surgical History History of tonsillectomy and adenoidectomy Family History Other Coronary heart disease Hypertension Social History Smoking Status: Unknown if ever smoked Second Hand Exposure: No; Hx Alcohol Use: No Hx Substance Use: No Preferred Language: Maldivian Communication Ability: Unable Crown Presser Required: No Beliefs That Will Affect Care: None marital status: Current Living Situation: Family Current Living Situation Comment: Home w/ current occupational status: retired Feels Safe at Home: Yes Assistive Devices: None Physical Exam Constitutional: WD/WN, vitals as above Eyes: PERRL, conjunctivae normal, anicteric sclerae Neck: trachea midline, no thyromegaly Respiratory: normal respiratory effort, lungs clear to auscultation Cardiovascular: RRR, no murmur, no edema Skin: 2 decubitus ulcer at lower back, size about 2x3 and 4x5cm, with redness, no drainage, loss skin, stage II Psychiatric: A+Ox3, euthymic affect Results & Data ([facility]) Vital Signs (Past 12 Hours) Vital Signs Pulse Resp BP Pulse Ox O2 Del Method 01/03/23 07:59 Room Air 01/03/23 07:58 53 L 18 142/78 H 94 Room Air 01/03/23 02:00 59 L 159/83 H 99 Room Air Laboratory Results Abnormal lab results 01/02/23 01/02/23 01/02/23 Range/Units 15:24 15:24 15:24 WBC 12.25 H (4.8-10.8) K/ul RBC 3.94 L (4.20-5.40) M/uL Hgb (12.0-16.0) g/dl Hct (37.0-47.0) % RDW Std Deviation 56.8 H (36.4-46.3) fL RDW Coeff of Luis 16.0 H (11.5-14.5) % Neut # (Auto) 9.97 H (1.40-6.50) K/uL Lymph # (Auto) 1.01 L (1.2-3.4) K/uL [place] # (Auto) 1.11 H (0.11-0.59) K/uL ESR 39 H (0-30) mm/hr BUN 36 H (6-23) mg/dl BUN/Creatinine Ratio 30.8 H (10-20) Glucose 103 H (70-99(Fasting)) mg/dl Calcium (8.5-10.1) mg/dl Iron (35-150) mcg/dl TIBC (250-450) mcg/dl Unsaturated IBC (155-355) mcg/dl Ferritin (8-388) ng/ml Total Bilirubin 1.3 H (0.2-1.0) mg/dl AST (13-39) U/L ALT 98 H (7-52) U/L Alkaline Phosphatase 106 H (34-104) U/L Troponin I High Sens 17.8 H (0-14) pg/ml C-Reactive Protein 19.37 H (0-0.5) mg/dl Total Protein (6.0-8.3) gm/dl Albumin 3.0 L (3.4-5.0) gm/dl Albumin/Globulin Ratio (0.9-2) 25-OH Vitamin D Total (30-100) ng/ml Procalcitonin (0-0.5) ng/ml TSH (0.300-4.500) uIu/ml Urine Appearance (Clear) Urine Protein (Negative) Urine Blood (Negative) Ur Leukocyte Esterase (Negative) Urine WBC (Auto) (0-5) /hpf Urine Bacteria (Auto) (Negative) 01/02/23 01/02/23 01/02/23 Range/Units 15:24 15:56 17:30 WBC (4.8-10.8) K/ul RBC (4.20-5.40) M/uL Hgb (12.0-16.0) g/dl Hct (37.0-47.0) % RDW Std Deviation (36.4-46.3) fL RDW Coeff of Luis (11.5-14.5) % Neut # (Auto) (1.40-6.50) K/uL Lymph # (Auto) (1.2-3.4) K/uL [place] # (Auto) (0.11-0.59) K/uL ESR (0-30) mm/hr BUN (6-23) mg/dl BUN/Creatinine Ratio (10-20) Glucose (70-99(Fasting)) mg/dl Calcium (8.5-10.1) mg/dl Iron (35-150) mcg/dl TIBC (250-450) mcg/dl Unsaturated IBC (155-355) mcg/dl Ferritin (8-388) ng/ml Total Bilirubin (0.2-1.0) mg/dl AST 59 H (13-39) U/L ALT (7-52) U/L Alkaline Phosphatase (34-104) U/L Troponin I High Sens (0-14) pg/ml C-Reactive Protein (0-0.5) mg/dl Total Protein (6.0-8.3) gm/dl Albumin (3.4-5.0) gm/dl Albumin/Globulin Ratio (0.9-2) 25-OH Vitamin D Total (30-100) ng/ml Procalcitonin 2.22 H (0-0.5) ng/ml TSH (0.300-4.500) uIu/ml Urine Appearance Cloudy A (Clear) Urine Protein Trace H (Negative) Urine Blood 1+ H (Negative) Ur Leukocyte Esterase 1+ H (Negative) Urine WBC (Auto) 5-10 H (0-5) /hpf Urine Bacteria (Auto) 4+ H (Negative) 01/03/23 01/03/23 01/03/23 Range/Units 08:22 08:22 08:22 WBC 14.49 H (4.8-10.8) K/ul RBC 3.68 L (4.20-5.40) M/uL Hgb 11.5 L (12.0-16.0) g/dl Hct 34.4 L (37.0-47.0) % RDW Std Deviation 53.0 H (36.4-46.3) fL RDW Coeff of Luis 15.2 H (11.5-14.5) % Neut # (Auto) 12.66 H (1.40-6.50) K/uL Lymph # (Auto) 0.69 L (1.2-3.4) K/uL [place] # (Auto) 0.96 H (0.11-0.59) K/uL ESR (0-30) mm/hr BUN 25 H (6-23) mg/dl BUN/Creatinine Ratio 28.4 H (10-20) Glucose 118 H (70-99(Fasting)) mg/dl Calcium 8.2 L (8.5-10.1) mg/dl Iron (35-150) mcg/dl TIBC (250-450) mcg/dl Unsaturated IBC (155-355) mcg/dl Ferritin (8-388) ng/ml Total Bilirubin (0.2-1.0) mg/dl AST 40 H (13-39) U/L ALT 73 H (7-52) U/L Alkaline Phosphatase 109 H (34-104) U/L Troponin I High Sens (0-14) pg/ml C-Reactive Protein (0-0.5) mg/dl Total Protein 5.5 L (6.0-8.3) gm/dl Albumin 2.5 L (3.4-5.0) gm/dl Albumin/Globulin Ratio 0.8 L (0.9-2) 25-OH Vitamin D Total 24.2 L (30-100) ng/ml Procalcitonin (0-0.5) ng/ml TSH (0.300-4.500) uIu/ml Urine Appearance (Clear) Urine Protein (Negative) Urine Blood (Negative) Ur Leukocyte Esterase (Negative) Urine WBC (Auto) (0-5) /hpf Urine Bacteria (Auto) (Negative) 01/03/23 01/03/23 Range/Units 08:22 08:42 WBC (4.8-10.8) K/ul RBC (4.20-5.40) M/uL Hgb (12.0-16.0) g/dl Hct (37.0-47.0) % RDW Std Deviation (36.4-46.3) fL RDW Coeff of Luis (11.5-14.5) % Neut # (Auto) (1.40-6.50) K/uL Lymph # (Auto) (1.2-3.4) K/uL [place] # (Auto) (0.11-0.59) K/uL ESR (0-30) mm/hr BUN (6-23) mg/dl BUN/Creatinine Ratio (10-20) Glucose (70-99(Fasting)) mg/dl Calcium (8.5-10.1) mg/dl Iron 25 L (35-150) mcg/dl TIBC 153 L (250-450) mcg/dl Unsaturated IBC 128 L (155-355) mcg/dl Ferritin 814.8 H (8-388) ng/ml Total Bilirubin (0.2-1.0) mg/dl AST (13-39) U/L ALT (7-52) U/L Alkaline Phosphatase (34-104) U/L Troponin I High Sens 21.3 H (0-14) pg/ml C-Reactive Protein (0-0.5) mg/dl Total Protein (6.0-8.3) gm/dl Albumin (3.4-5.0) gm/dl Albumin/Globulin Ratio (0.9-2) 25-OH Vitamin D Total (30-100) ng/ml Procalcitonin (0-0.5) ng/ml TSH 18.997 H (0.300-4.500) uIu/ml Urine Appearance (Clear) Urine Protein (Negative) Urine Blood (Negative) Ur Leukocyte Esterase (Negative) Urine WBC (Auto) (0-5) /hpf Urine Bacteria (Auto) (Negative) Diagnostic Findings CT OF THE ABDOMEN AND PELVIS WITH CONTRAST CLINICAL HISTORY: multiple sacral ulcers ?underlying osteomyelitis COMPARISON STUDY: Pelvis radiograph October 07, 2021 and October 23, 2021. TECHNIQUE: Following IV administration of 89 mL of Optiray, axial images of the abdomen and pelvis were obtained from the lung bases to the proximal femurs. Images were reviewed in the axial, sagittal, and coronal planes. IV contrast was administered without complication. Automated exposure control was utilized for the study. A dose lowering technique was utilized adhering to the principles of ALARA. CT DOSE: 377.79 mGy.cm FINDINGS: Cardiomegaly is incidentally noted. There are multifocal groundglass opacities within the lower lungs. No pneumatosis, free air or portal venous gas is present. Evaluation of the abdomen and pelvis is difficult given paucity intra-abdominal fat as well as body wall edema. Calcified granulomas within the spleen are present. A 1.4 cm capsular hypodense focus within the spleen is probably not acute. There is no biliary or pancreatic ductal dilatation. A right renal cyst is noted. There is no hydronephrosis. No peripancreatic or pericholecystic infiltration is present. There is no evidence for a bowel obstruction. The caliber and wall thickness of small and large bowel are normal. The appendix is not identified. There is no lymphadenopathy. Decubitus ulcer overlying the lower sacrum and coccyx is noted. There is no bony destruction to suggest acute osteomyelitis by CT. No fluid collection is identified to suggest an abscess. There is a partially calcified 3.4 x 2.5 cm lesion within the uterine fundus. This projects over the endometrium. There is also a water attenuation 6.5 x 3.5 cm elongated right adnexal lesion. Bladder wall thickening is noted. Gastric wall thickening is likely due to underdistention. Urothelial thickening of the left collecting system and proximal left ureter is noted. There is mucosal hyperemia of the bladder. Right femoral internal fixation is partially imaged. There are no acute fractures within the visualized skeletal structures. Moderate amount stool within the colon and rectum. There is mild rectal wall thickening. IMPRESSION: 1. Decubitus ulcer overlying the lower sacrum and coccyx. No CT evidence for acute osteomyelitis. No abscess. 2. No bowel obstruction. Moderate amount of stool within the colon and rectum. Mild rectal wall thickening 3. Bladder wall thickening and left-sided urothelial thickening which could be correlated with urinalysis to exclude an infectious process. 4. Indeterminate water attenuation density within the right hemipelvis, m easuring 6.5 x 3.5 cm. This likely arises from the right ovary. Nonemergent pelvic ultrasound could be performed to assess for complexity. 5. 3.4 x 2.5 cm partially calcified lesion within the uterine fundus. This is nonspecific but may reflect a submucosal fibroid. This could be correlated with history of postmenopausal bleeding and assessed on follow-up ultrasound. 6. Apparent gastric wall thickening. This is likely due to underdistention however gastritis could appear similar. 3. Ground glass opacities within the lower lungs which favor an infectious process. ACT 112: Negative or not required by law.
--- NOTE | 2023-01-03 14:50 | XRay Report ---
XR chest 1V portable HISTORY: f/u pneumonia vs congestion COMPARISON: Chest 01/02/2023. FINDINGS: Rotated study. No definite pneumothorax. No pleural effusions. There are old, healed bilate ral rib fractures again noted. The heart remains mildly enlarged. Interstitial/vascular thickening wi th perihilar hazy airspace opacities persist. This favors pulmonary edema. An atypical pneumonitis co uld also have a similar appearance. IMPRESSION: Interstitial/vascular thickening with perihilar hazy airspace opacities persist. This favors pulmonar y edema. An atypical pneumonitis could also have a similar appearance. This is similar to the prior s tudy. ACT 112: Negative or not required by law. Electronically signed by: Miko Isaac M.D. 01/03/2023 2:49 PM
[2023-01-03] MEDS: NSS + 20MEQ KCL 20 MEQ/1,000 ML BAG IV SCH (15:41)
[2023-01-03] MEDS: MAGNESIUM SULFATE / D5W 1 GM/100 ML BAG IV SCH ×2 (15:42→18:19)
[2023-01-03] MEDS: cefTRIAXone SODIUM 2,000 MG in DEXTROSE 5% 50 ML IV SCH (17:39)
[2023-01-03] MEDS: AZITHROMYCIN 500 MG in DEXTROSE 5% 250 ML IV SCH (20:43)
[2023-01-03] MEDS: MELATONIN 3 MG TAB PO SCH (20:43)
[2023-01-04] MEDS: LEVOTHYROXINE SODIUM 88 MCG TABLET PO SCH (06:33)
[2023-01-04] MEDS: APIXABAN 2.5 MG TAB PO SCH ×2 (07:51→20:20)
[2023-01-04] MEDS: DOCUSATE SODIUM 100 MG CAP PO SCH ×2 (07:51→20:21)
[2023-01-04] MEDS: POTASSIUM CHLORIDE 10 MEQ TABCR PO SCH ×2 (07:51→12:17)
[2023-01-04] MEDS: amLODIPine BESYLATE 5 MG TAB PO SCH ×2 (07:51→20:19)
[2023-01-04] MEDS: ASPIRIN 81 MG ECTAB PO SCH (07:51)
[2023-01-04] MEDS: AMIODARONE 200 MG TAB PO SCH (07:51)
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
[2023-01-04] MEDS: NSS + 20MEQ KCL 20 MEQ/1,000 ML BAG IV SCH (10:00)
[2023-01-04 10:04] LABS: Albumin Level 2.5 gm/dl (3.4-5.0); Bilirubin,Total 0.5 mg/dl (0.2-1.0); Calcium 8.1 mg/dl (8.5-10.1); Creatinine Clr Calc Pharmacy 28.4 ml/min; Est GFR (African American) 63.6 ml/min; Est GFR (Non-African American) 54.9 ml/min; Phosphorus 2.3 mg/dl (2.5-4.9); Potassium 3.7 mmol/L (3.5-5.1); Total Protein 5.4 gm/dl (6.0-8.3)
[2023-01-04 10:06] LABS: Basophils # (auto) 0.03 K/uL (0-0.2); Basophils % (auto) 0.2 %; Eosinophils # (auto) 0.09 K/uL (0-0.50); Eosinophils % (auto) 0.7 %; Hemoglobin 10.6 g/dl (12.0-16.0); Immature Granulocytes % (auto) 1.5 %; Lymphocytes % (auto) 6.1 %; Mean Corpuscular Hemoglobin 31.5 pg (25.0-34.0); Mean Corpuscular Hgb Conc 33.1 g/dL (32.0-36.0); Mean Platelet Volume 11.6 fL (9.4-12.4); Monocytes # (auto) 0.62 K/uL (0.11-0.59); Monocytes % (auto) 4.7 %; Neutrophils # (auto) 11.32 K/uL (1.40-6.50); Neutrophils % (auto) 86.8 %; Platelet Count 153 K/uL (130-400); RDW Coefficient of Variation 15.2 % (11.5-14.5); Red Blood Count 3.37 M/uL (4.20-5.40); White Blood Count 13.06 K/ul (4.8-10.8)
[2023-01-04] MEDS ORDERED: POTASSIUM CHLORIDE CRTAB 20 MEQ TABCR PO STA (11:25)
[2023-01-04] MEDS ORDERED: POTASSIUM PHOS 3 MMOL/1 ML INFUSION IV STA (11:27)
[2023-01-04] MEDS ORDERED: POTASSIUM PHOSPHATE 9 MMOL in SODIUM CHLORIDE 0.9% 250 ML IV ONE (12:00)
[2023-01-04] MEDS: FAMOTIDINE 20 MG in SYRINGE 3 ML IV SCH (12:16)
[2023-01-04 12:28] LABS: Bilirubin Direct 0.1 mg/dl (0-0.2)
[2023-01-04 12:58] LABS: Prealbumin 9.8 mg/dl (20-40)
[2023-01-04] MEDS ORDERED: bisacodyL 10 MG SUPP PR STA ×2 (13:51→16:42)
[2023-01-04] MEDS: FOLIC ACID 1 MG TAB PO SCH (14:18)
[2023-01-04] MEDS: cefTRIAXone SODIUM 2,000 MG in DEXTROSE 5% 50 ML IV SCH (18:47)
[2023-01-04] MEDS: MELATONIN 3 MG TAB PO SCH (20:20)
[2023-01-04] MEDS: AZITHROMYCIN 500 MG in DEXTROSE 5% 250 ML IV SCH (20:21)
[2023-01-05] MEDS: LEVOTHYROXINE SODIUM 88 MCG TABLET PO SCH (06:00)
[2023-01-05 07:21] LABS: Basophils # (auto) 0.04 K/uL (0-0.2); Basophils % (auto) 0.3 %; Eosinophils # (auto) 0.07 K/uL (0-0.50); Eosinophils % (auto) 0.6 %; Hematocrit (blood only) 32.2 % (37.0-47.0); Hemoglobin 10.5 g/dl (12.0-16.0); Immature Granulocytes # (auto) 0.18 K/uL (0.01-0.20); Immature Granulocytes % (auto) 1.4 %; Lymphocytes # (auto) 0.74 K/uL (1.2-3.4); Lymphocytes % (auto) 5.8 %; Mean Corpuscular Hgb Conc 32.6 g/dL (32.0-36.0); Mean Platelet Volume 10.9 fL (9.4-12.4); Monocytes # (auto) 0.85 K/uL (0.11-0.59); Monocytes % (auto) 6.7 %; Neutrophils # (auto) 10.79 K/uL (1.40-6.50); Neutrophils % (auto) 85.2 %; Platelet Count 157 K/uL (130-400); RDW Coefficient of Variation 15.5 % (11.5-14.5); RDW Standard Deviation 54.2 fL (36.4-46.3); Red Blood Count 3.39 M/uL (4.20-5.40); White Blood Count 12.67 K/ul (4.8-10.8)
[2023-01-05 07:37] LABS: Albumin Globulin Ratio 0.8 (0.9-2); Albumin Level 2.4 gm/dl (3.4-5.0); BUN Creatinine Ratio 32.9 (10-20); Bilirubin,Total 0.6 mg/dl (0.2-1.0); Calcium 8.1 mg/dl (8.5-10.1); Creatinine Clr Calc Pharmacy 33.4 ml/min; Est GFR (African American) 77.5 ml/min; Est GFR (Non-African American) 66.8 ml/min; Globulin 2.9 gm/dl (2.5-4.0); Magnesium 1.9 mg/dl (1.7-2.4); Phosphorus 2.2 mg/dl (2.5-4.9); Potassium 4.1 mmol/L (3.5-5.1); Total Protein 5.3 gm/dl (6.0-8.3)
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
--- NOTE | 2023-01-05 08:46 | Palliative Care Consultation ---
Date of Consultation January 05, 2023 Assessment & Plan (1) Palliative care encounter: Met with daughter/POA Rukhsana by phone and provided overview of Palliative Medicine, a subspecialty that provides specialized medical care for people living with a serious illness by offering a focus on quality of life. Palliative Medicine is often conflated with hospice: I advised patient/family that Palliative and hospice can be partners but we are not the same. It is important to understand the difference so that we may be informed, and not afraid. Palliative Medicine works to improve QOL through reduction of symptom burden/more control over their illness, for both the patient and family. Palliative medicine clinicians are board certified, specially-trained and another member of the patient's medical care team. We often provide an extra layer of support because our care is based on the needs of the patient, not the prognosis; as such, it's appropriate at any age/advancing stage of a serious illness and can be provided along with curative treatment. Palliative Medicine clinicians are also trained in advanced communication methodologies, to facilitate complex discussions about advanced illness planning, which are needed to help assure that the treatment choices match the patient's goals, aka delivering Goal Concordant care. Finally, we discussed that hospice is a visiting nurse service that focuses on care delivered at the very end of life for patients with terminal illness, with life expectancy less than 6 month. (2) Advanced care planning/counseling discussion: Telephone call with patient's daughter Rukhsana x 25min, she is also co-POA with pt Mosque She shared a lengthy history of the events leading to patient's current condition and admission. In the past 3 years patient has had a declining dementia as well as the complication of a stroke (which happened before her dementia decline) which unfortunately left her with an expressive aphasia. Patient's ability to communicate was limited to begin with poststroke but unfortunately this has worsened to now being relatively noncommunicative due to the progression of her underlying dementia. There is significant psychosocial issues and complex family dynamics. Patient's , Mosque, is 96 years old. Their son David, 66 years old, lives at home with them on the other side of their duplex. Mariana shares that her parents pay for everything and David has not worked in decades. He does not have any expenses such as rent or utilities. He is completely dependent upon her parents for support, housing etc. When patient had her last admission, she was transferred to [facility] for rehab and then returned home. She then had subsequent decline. Rukhsana and her brother Geremias, arranged a respite stay on a [id number]/self-pay basis to the residential, because they were going to be out of town for Geremias's wedding and/or holidays, in addition to which they felt patient's condition had worsened so much that there were not going to be adequate caregivers for her. As soon as she and Geremias left town, her brother David went to the residential and signed patient out insisting that they cannot provide the kind of care he felt his mother needed her deserved. Rukhsana notes that patient was discharged at 1 point from the residential as a max 2 person assist. However since that discharge from the residential she has neither been ambulated or supported in any ambulatory/mobility activities. She has been largely bedbound. Rukhsana also shares that patient's together with son David have been consistently and steadfastly refusing to allow any additional caregivers into the home to provide additional support and monitoring and/or oversight of patient's care. They have refused visiting nurses in the past. When I discussed the option of home with hospice, Rukhsana was very clear that neither her father nor her brother would likely allow this. She also expressed concern that the finding of the new pelvic mass would also be something that her brother would demand further inform ation about possibly even demanding that there be some more work-up about this although she and her brother Geremias are quite aware that there would not be any significant outcome or treatment after putting the patient through the difficult process of obtaining a biopsy. Given her overall decline, performance status 4, cachexia, contractures, progressive worsening sacral decubiti, worsening dementi a, anorexia, patient is likely transitioning from a process of living to a process of dying. I offered a family meeting with whomever Rukhsana felt that should be included. She shares that her brother Geremias is the only one of the 3 of them that still has to work as he is the youngest, 55 years old. He is a weinstein and typically travels out of the area for his job. She is not sure when he might be available. I offered to accommodate everyone with either an in person meeting, zoom based meeting, or hybrid where there could be some folks here in the hospital for in person and some folks present by Zoom. Rukhsana offered various explanations for why these options were not ideal and asked me if I would like to come to her house for family meeting which I had to unfortunately decline given that I am a hospital provider and required to be on staff and present in the hospital for my designated work today. Rukhsana states she will have to talk to her family and determine who wants to be present for the meeting and when it can be held. I asked her to notify the nursing station when she has a date and time that might work for them. I offered her a variety times for tomorrow (Thursday) as well as Thursday however she felt that this was not enough time to coordinate everyone schedule and felt it might be later in the week. Rukhsana expressed significant concerns about her brother feels emotio nal lability to except that patient is transitioning to an end-of-life process because he is more likely going to be focused on what the patient's means to his current lifestyle and how that may be maintained. She adds that David has at times been violent towards family members but as far as she knows he has never been violent towards patient. It is also important to recognize that patient's spouse, Mosque, is 96 years old and this is likely also playing a factor in the son, David's, behavior and decision making at this time. Rukhsana believes pt may be suffering and it is time tog et her to a residential where there is trained nursing and medical staff to attend to her needs but she adds that her father and David will likely not allow this. She is also very sure that father will not come for meeting nor will he be willing to participate by phone: "he doesnt do anything like that, he hates the phone" and when a zoom option was offered she replied "That's never going to happen." (3) Counseling regarding goals of care: I reviewed pt trajectory of decline, and agreed with Rukhsana that pt is transitioning to an end of life stage though we also agreed she si not imminently dying. We discussed the options for care which include residential placement for LTC/comfort vs home with hospice or home with no support/if family refuses assistance. Rukhsana is worried about the complexity and intensity of their family conflicts, David's labile/sometimes volatile emotions and his dependence on parents. (4) Dementia: FAST 7D - 7E patient cannot sit up on her own or participate in her care.She is non verbal and unable to communicate. she is no longer smiling. (5) Pelvic mass: Indeterminate water attenuation density within the right hemipelvis, measuring 6.5 x 3.5 cm. This likely arises from the right ovary. Nonemergent pelvic ultrasound could be performed to assess for complexity. 3.4 x 2.5 cm partially calcified lesion within the uterine fundus. This is nonspecific but may reflect a submucosal fibroid. This could be correlated with history of postmenopausal bleeding and assessed on follow-up ultrasound. (6) Failure to thrive: (7) Dysphagia: (8) Decubitus ulcer: (9) UTI (urinary tract infection): (10) Generalized weakness: (11) Chronic kidney disease, stage III (moderate): Plan Family meeting offered to Rukhsana during earlier conversation. She will speak with family and let nursing unit know of time/date that works best for them. I will try to find a conference room and if that is not possible we will have to meet in the waiting area. Due to the tremendous interpersonal family conflicts and prior history of rising tensions, degree of enmeshment/dysfunction and likely struggle with accepting mortality, I have invited Zoning Engineer Adonay to join this family meeting which is scheduled now for tomorrow, 01/06/23 at 3pm per Rukhsana's request. I have updated primary team CM, and nursing. Felicity Abad DNP Clinical Director, Palliative Medicine History of Present Illness Reason for Consultation: On 01/02/23 @ 22:08 Aaron Staley goals of care ?hospice Attending Physician: Pili Scanlon MD History of Present Illness Raquel Hunter is an 87yo female admitted from home with worsening ulcers. She has severe dementia, dysphasia from a stroke; she lives at home in [facility], with her 96yo , Mosque, and is cared for by her son, David, 66yo, who lives in attached duplex with the parents. She has two additional children Rukhsana and Geremias/55yo/still working full service vending driver. They have both reported significant family conflicts, see below. She was found to have UTI, PNA, sacral wounds and is not a surgical candidate. A pelvic mass was incidentally found but no workup desired given overall frailty Hx stroke, expressive dysphasia. Patient is unable to communicate. Imaging to date has found the following: Head CT: negative for acute CVA; old L parietal infarct noted, does not white matter hypodensity nonspecific but suggestive of microvascular ischemic change) CXR: +cardiomegaly w/ pulm congestion noted/interstitial coarsening suggestive of pulmonary edema, mild L basilar densities may represent atelectasis vs pneumonia. L proximal humeral and L rib fractures -- subacute vs chronic CTAP: + GGOs lower lung favor infectious process. Gastric wall thickening (underdistention vs gastritis), decubitus ulcer overlying lower sacrum w/o evidence for AOM, no abscess.Bladder wall thickening and L sided urothelial thickening possibly infectious(hx UTIs, ecoli/enterococcus), no bowel obstruction, moderate stool within colon/rectum w/ mild rectal wall thickening.Indeterminate water attenuation density within the right hemipelvis, measuring 6.5 x 3.5 cm. This likely arises from the right ovary. Nonemergent pelvic ultrasound could be performed to assess for complexity. 3.4 x 2.5 cm partially calcified lesion within the uterine fundus. This is nonspecific but may reflect a submucosal fibroid. This could be correlated with history of postmenopausal bleeding and assessed on follow-up ultrasound. in re CTAP, discussion between primary team and family noted a follows on chart review: "They endorse Raquel's sister had hysterectomy in her 80s for unknown reason but multiple family members w/ hysterectomy and denies patient ever having seen DRIVER'S EDUCATION INSTRUCTOR in past/follow up. They agree they would not want to aggressively pursue the pelvic mass, and currently in setting of infection would not entertain any kind of biopsy." Chart reviewed, and note of the following concern re family dynamics is noted: * 01/02/23: "Mass in the right hemipelvis discussed with her son (Geremias) and [id number] (Zenobia) -suspect this is why she is had significant failure to thrive and weight loss. She is clearly not a candidate for any aggressive treatments and her son at bedside believes the family will go a more palliative route. They did not want me to discuss with other family members at this time. Palliative care already consulted. Recommend family meeting to break this news to the rest of the family" * 01/04/23:"They state things may become difficult with her brother [David] as while he hasn't been violent with their mother, he has been violent with other family members in the past and that he is very dependent on his parents. * Patient's , 92, currently at home as well. * Discussed what Rukhsana's wishes would be as she is oldest child/decision maker (however her dad is able to make decisions) and she states that comfort is focus and she does have worries about transportation/discomfort for her mother. * Discussed have palliative on consult and hopefully will be able to monitor patient response to treatment and then come up with best plan for patient on Thursday." Patient seen bedside No family present She is curled up on her side, sleeping, did not respond to me or participate in this visit. Allergies Allergy/AdvReac Type Severity Reaction Status Date / Time No Known Allergies Allergy Verified 12/05/21 13:04 Home Medications Medication Instructions Recorded Confirmed Type menthol 0.44 %-zinc oxide 20.6 % 1 applic topical BID PRN skin 12/31/20 01/02/23 Rx topical ointment (Calmoseptine) irritation #113 grams aspirin 81 mg tablet,delayed 81 mg PO QAM 10/07/21 01/02/23 History release acetaminophen 325 mg tablet 650 mg PO Q6H PRN TEMP >100/PAIN 10/23/21 01/02/23 History (Tylenol) melatonin 3 mg tablet 3 mg PO HS 10/23/21 01/02/23 History calcium 600 mg-D3 800 unit-mag11 1 tab PO BID #60 tabs 11/02/21 01/02/23 Rx 50 fg-zhxq-hfqhbx-ilana-s.borat tablet (Caltrate 600-D Plus Minerals) cholecalciferol (vitamin D3) 25 1,000 unit PO QAM #30 caps 11/02/21 01/02/23 Rx mcg (1,000 unit) capsule amiodarone 200 mg tablet 200 mg PO DAILY #90 tabs 10/03/22 01/02/23 Rx amlodipine 2.5 mg tablet 2.5 mg PO BID #180 tabs 10/06/22 01/02/23 Rx apixaban 2.5 mg tablet 2.5 mg PO BID #180 tabs 10/06/22 01/02/23 Rx atorvastatin 40 mg tablet 40 mg PO QAM 01/02/23 01/02/23 History levothyroxine 75 mcg tablet 75 mcg PO DAILYBB 01/02/23 01/02/23 History potassium chloride 10 mEq 10 meq PO DAILY 01/02/23 01/02/23 History tablet,extended release Patient History Medical History (Updated 01/05/23 @ 14:17 by Felicity Abad DNP) Acute UTI (urinary tract infection) Advanced care planning/counseling discussion Anemia Atrial flutter with rapid ventricular response Closed intertrochanteric fracture of right hip Counseling regarding goals of care Dementia Esophageal dysmotility Hyperlipidemia Hypertension Hypothyroidism Memory loss Palliative care encounter Pelvic mass Stroke April 2020 Vitamin B12 deficiency Surgical History History of tonsillectomy and adenoidectomy Family History Other Coronary heart disease Hypertension Social History Smoking Status: Unknown if ever smoked Second Hand Exposure: No; Hx Alcohol Use: No Hx Substance Use: No Preferred Language: New Zealander Communication Ability: Unable Airport Ramp Supervisor Required: No Beliefs That Will Affect Care: None marital status: Current Living Situation: Family Current Living Situation Comment: Home w/ current occupational status: retired Feels Safe at Home: Yes Assistive Devices: None Review of Systems Review of Systems: Unobtainable due to cognitive status Physical Exam Physical Exam: lying curled on side, +contractures BUE, BLE bitemp wasting Constitutional: + cachectic, + behavioral limitations, + frail appearing, + lethargic, + malnourished and + underweight Eyes: reactive pupils ENMT: Ears: + hearing impairment Mouth: + oral mucosal abnormality and + poor dentition Neck: normal visual inspection Thyroid: normal thyroid Respiratory: normal respiratory effort and symmetric chest movement Auscultation: + diminished lung sounds and + crackles Cardiovascular: Rate/Rhythm: regular rate and + irregularly irregular Gastrointestinal (Abdomen): abd scaphoid Musculoskeletal: contractures, generalized weakness Skin: + turgor decreased, + ulcer, + wound, + skin atrophy, + dry skin and + pallor Neurologic: does not interact Results & Data ([facility]) Vital Signs (Past 12 Hours) Vital Signs Temp Pulse Resp BP Pulse Ox O2 Del Method 01/05/23 08:18 36.6 C 63 18 122/68 93 Room Air 01/04/23 22:03 36.7 C 73 16 119/66 93 Room Air Laboratory Results TSH 18.9on admission Diagnostic Findings Head CT negative for acute CVA, (old L parietal infarct noted, does not white matter hypodensity nonspecific but suggestive of microvascular ischemic change) CXR: cardiomegaly w/ pulm congestion noted/interstitial coarsening suggestive of pulmonary edema, mild L basilar densities may represent atelectasis vs pneumonia. L proximal humeral and L rib fractures -- subacute vs chronic CTAP: w/ground glass opacities w/i lower lung favor infectious process. Gastric wall thickening (underdistention vs gastritis), decubitus ulcer overlying lower sacrum w/o evidence for AOM, no abscess.Bladder wall thickening and L sided urothelial thickening possibly infectious(hx UTIs, ecoli/enterococcus), no bowel obstruction, moderate stool within colon/rectum w/ mild rectal wall thickening.Indeterminate water attenuation density within the right hemipelvis, measuring 6.5 x 3.5 cm. This likely arises from the right ovary. Nonemergent pelvic ultrasound could be performed to assess for complexity. 3.4 x 2.5 cm partially calcified lesion within the uterine fundus. This is nonspecific but may reflect a submucosal fibroid. This could be correlated with history of postmenopausal bleeding and assessed on follow-up ultrasound. PG Care Time/CCT Total # of Minutes Spent Total Time Spent: 75 Total Time Spent with Patient: Total time spent is greater than 50% in coordination of care (as documented) at patient's floor/unit and/or counseling patient: 15 min chart review 15min with pt in exam/consultation 25min telephonic with POA for ACP/GOC discussion 5 min reviewing plan of care 15 min updating primary team CM, nursing and Zoning Engineer. Prolonged Care Time Prolonged Care Time: Yes Advanced Care Planning 70388 Advanced Care Planning 30 Min Coding Level of Care Code New Pt INP/OBS CONSULT LVL 5, 80 MIN Patient Type New History Comprehensive Exam Comprehensive Medical Decision Making High Complexity Diagnoses Palliative care encounter Z51.5 Advanced care planning/counseling discussion Z71.89 Counseling regarding goals of care Z71.89 Dementia F03.90 Pelvic mass R19.00 Failure to thrive Dysphagia R13.10 Decubitus ulcer L89.90 UTI (urinary tract infection) N39.0 Generalized weakness R53.1 Chronic kidney disease, stage III (moderate) N18.30 Additional Codes Prolonged Care Time - Prolonged Care Time: Yes ([id number]) Advanced Care Planning - 83575 Advanced Care Planning 30 Min: 66624 Advanced Care Planning 30 Min ([id number])
[2023-01-05] MEDS ORDERED: MAGNESIUM SULFATE / D5W 1 GM/100 ML BAG IV ONE (08:48)
[2023-01-05] MEDS: FAMOTIDINE 20 MG in SYRINGE 3 ML IV SCH (09:41)
[2023-01-05] MEDS: AMIODARONE 200 MG TAB PO SCH ×2 (11:19→16:49)
[2023-01-05] MEDS: FOLIC ACID 1 MG TAB PO SCH ×2 (11:20→16:50)
[2023-01-05] MEDS: ASPIRIN 81 MG ECTAB PO SCH ×2 (11:20→16:50)
[2023-01-05] MEDS: APIXABAN 2.5 MG TAB PO SCH (11:20)
[2023-01-05] MEDS: DOCUSATE SODIUM 100 MG CAP PO SCH ×2 (11:20→21:37)
[2023-01-05] MEDS: amLODIPine BESYLATE 5 MG TAB PO SCH ×2 (11:20→21:37)
[2023-01-05 12:01] LABS: Base Excess ABG 1.1 mEq/L (-9-1.8); HCO3 ABG 25 mmol/L (19-24); Oxygen Saturation ABG 95.7 % (90-95); PCO2 ABG 36 mmHg (35-46); PO2 ABG 69 mmHg (80-95); pH ABG 7.45 (7.35-7.45)
[2023-01-05 13:34] LABS: Allen Test Pos (Pos)
[2023-01-05] MEDS: ENOXAPARIN INJ 40 MG/0.4 ML SYR SQ SCH (15:09)
[2023-01-05] MEDS: POTASSIUM CHLORIDE 10 MEQ TABCR PO SCH (16:50)
[2023-01-05] MEDS: cefTRIAXone SODIUM 2,000 MG in DEXTROSE 5% 50 ML IV SCH (17:06)
--- NOTE | 2023-01-05 19:15 | Surgery Progress Note ---
Date of Service January 05, 2023 Assessment & Plan (1) Decubitus ulcer: Plan: pt is a 87 year-old female who presents with stage II decubitus ulcer, IMP: decubitus ulcer, most likely cellulitis, no surgery debridement indication now, IV antibiotic, consult wound care nurse, sign off today, please call with questions, Thanks, 01/05/2023 7:10, F/U decubitus ulcers, pt's son at bedside, I recommend to do debridement on low back decubitus ulcers, D/W benefits, risks and alternatives of the procedure, the risks- infection,bleeding, may need more surgery, pt's son understood, he agreed with debridement on wound, he signed informed consent, I answered all questions, I did debridement the wound at bedside, pt tolerated the procedure well, nurse assisted me at bedside. Admission and Anticipated Discharge Date Admission Date: January 04, 2023 Supervising Physician Co-Signing Physician Notes ISRRAEL Supervision Note: I did not personally see or examine the patient today, but I verified all price points of ISRRAEL Huff's assessment and plan with the following exceptions/additions: Consider checking a CA-125 given pelvic mass Subjective eval this morning, resting comfortably in bed wound care to come up to eval later today duong draining less concentrated urine. SpO2 93% and in no respiratory distress, is snoring (can check overnight pulse ox to r/o any nocturnal hypoxia tonight), lungs sounds improved on exam but diminshed in the bases non tender on exam RN not yet attempted medications for this morning -- discussed patient does best w/ meds in pudding/carrier. She is headed there next. Discussed w/ palliative this morning and going to reach out to family -- no advance directive in the chart. Switched over to low airloss mattress this morning -- discussed w/ wound RN and ideally surgery to scrape/Santyl for sacral wounds -- did consult day prior as discussed but messaged provider again today given concerns for need for intervention. 01/05/2023 7:05 PM, Dr. Andrews, F/U decubitus ulcers, wound care nurse asked to do debridement on decubitus ulcers, no fever, Physical Exam Constitutional: WD/WN, vitals as above Eyes: PERRL, conjunctivae normal, anicteric sclerae Neck: trachea midline, no thyromegaly Respiratory: normal respiratory effort, lungs clear to auscultation Cardiovascular: RRR, no murmur, no edema Skin: 2 decubitus ulcer at low back, one size about 3x3cm, other size about 10 x 3 cm, with necrotic tissue cover 2 chronic wound, some redness around the wound, Psychiatric: A+Ox3, euthymic affect Results & Data ([facility]) Vital Signs (Past 12 Hours) Vital Signs Temp Pulse Resp BP Pulse Ox O2 Del Method 01/05/23 17:33 36.9 C 63 18 96/60 L 95 Room Air 01/05/23 12:11 Room Air 01/05/23 08:18 36.6 C 63 18 122/68 93 Room Air Laboratory Results Abnormal lab results 01/05/23 01/05/23 01/05/23 Range/Units 06:38 06:38 11:47 WBC 12.67 H (4.8-10.8) K/ul RBC 3.39 L (4.20-5.40) M/uL Hgb 10.5 L (12.0-16.0) g/dl Hct 32.2 L (37.0-47.0) % RDW Std Deviation 54.2 H (36.4-46.3) fL RDW Coeff of Luis 15.5 H (11.5-14.5) % Neut # (Auto) 10.79 H (1.40-6.50) K/uL Lymph # (Auto) 0.74 L (1.2-3.4) K/uL [place] # (Auto) 0.85 H (0.11-0.59) K/uL ABG pO2 69 L (80-95) mmHg ABG HCO3 25 H (19-24) mmol/L ABG O2 Saturation 95.7 H (90-95) % Chloride 110 H (98-107) mmol/L BUN 26 H (6-23) mg/dl BUN/Creatinine Ratio 32.9 H (10-20) Glucose 113 H (70-99(Fasting)) mg/dl Calcium 8.1 L (8.5-10.1) mg/dl Phosphorus 2.2 L (2.5-4.9) mg/dl Total Protein 5.3 L (6.0-8.3) gm/dl Albumin 2.4 L (3.4-5.0) gm/dl Albumin/Globulin Ratio 0.8 L (0.9-2)
--- NOTE | 2023-01-05 20:39 | Operative Report (OR) ---
DATE OF PROCEDURE: 01/05/2023. PREOPERATIVE DIAGNOSIS: Decubitus ulcer x2. POSTOPERATIVE DIAGNOSIS: Decubitus ulcer x2. OPERATION: Debridement of decubitus ulcer x2. Procedure done at the bedside. SURGEON: Shayne Andrews MD. ANESTHESIA: None. ESTIMATED BLOOD LOSS: About 1 mL. 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 INDICATIONS FOR THE PROCEDURE: The patient is an 87-year-old female who had a decubitus ulcer x2 at low back and wound care nurse asking to do debridement of chronic wound. I did talk to the patient a nd her son about debridement of the decubitus ulcer x2. I indicated on discussion with the patient's son about the benefit, risk, alternative procedure, risks may include, but not limited to, such as b leeding, infection, may need more procedure, the patient's son understands. He signed informed conse nt and I answered all questions. DETAILS OF PROCEDURE: We did debridement of the wound at the patient bedside with a nurse assisting me and the two chronic wound on the lower back, one of the wound size about 3 x 3 cm and another woun d size about 10 x 3 cm. All cover the necrosis tissue and these two wound was prepped and draped in routine sterile fashion and I used a sharp scissor to remove all of the necrosis tissue and the tissue deep to the muscle layer, stage IV. These two chronic ulcer was completely removed all the tissue. One wound size about 3 x 3 cm, I removed chronic tissue deep to muscle layer. Another wound, I removed the tissue about 10 cm x 3 cm chronic tissue deep to the muscle l fernando, stage IV. Once completed, tissue looked fresh and we put the dressing on and patient tolerated the procedure well. I will follow up the patient. Job ID: [id number]
[2023-01-05] MEDS ORDERED: ACETAMINOPHEN 1,000 MG/100 ML VIAL IV PRN (23:57)
[2023-01-06] MEDS: ENOXAPARIN INJ 40 MG/0.4 ML SYR SQ SCH ×2 (02:09→16:11)
--- NOTE | 2023-01-06 05:13 | XCELERA ---
[id number]
[2023-01-06] MEDS: LEVOTHYROXINE SODIUM 88 MCG TABLET PO SCH (05:36)
[2023-01-06 07:14] LABS: Basophils # (auto) 0.03 K/uL (0-0.2); Basophils % (auto) 0.2 %; Eosinophils # (auto) 0.11 K/uL (0-0.50); Eosinophils % (auto) 0.7 %; Hematocrit (blood only) 31.6 % (37.0-47.0); Hemoglobin 10.2 g/dl (12.0-16.0); Immature Granulocytes # (auto) 0.16 K/uL (0.01-0.20); Immature Granulocytes % (auto) 1.1 %; Lymphocytes # (auto) 0.78 K/uL (1.2-3.4); Lymphocytes % (auto) 5.2 %; Mean Corpuscular Hemoglobin 31.1 pg (25.0-34.0); Mean Corpuscular Hgb Conc 32.3 g/dL (32.0-36.0); Mean Corpuscular Volume 96.3 fL (80.0-100.0); Mean Platelet Volume 10.7 fL (9.4-12.4); Monocytes # (auto) 0.74 K/uL (0.11-0.59); Monocytes % (auto) 4.9 %; Neutrophils # (auto) 13.28 K/uL (1.40-6.50); Neutrophils % (auto) 87.9 %; Platelet Count 186 K/uL (130-400); RDW Coefficient of Variation 15.4 % (11.5-14.5); RDW Standard Deviation 54.6 fL (36.4-46.3); Red Blood Count 3.28 M/uL (4.20-5.40)
[2023-01-06 07:34] LABS: Albumin Globulin Ratio 0.9 (0.9-2); Albumin Level 2.4 gm/dl (3.4-5.0); BUN Creatinine Ratio 30.5 (10-20); Bilirubin,Total 0.5 mg/dl (0.2-1.0); Calcium 8.2 mg/dl (8.5-10.1); Creatinine Clr Calc Pharmacy 32.2 ml/min; Est GFR (Non-African American) 63.9 ml/min; Globulin 2.7 gm/dl (2.5-4.0); Magnesium 2.1 mg/dl (1.7-2.4); Potassium 4.3 mmol/L (3.5-5.1); Total Protein 5.1 gm/dl (6.0-8.3)
[2023-01-06] MEDS: amLODIPine BESYLATE 5 MG TAB PO SCH ×2 (08:51→22:09)
[2023-01-06] MEDS: DOCUSATE SODIUM 100 MG CAP PO SCH ×2 (08:51→22:11)
[2023-01-06] MEDS: ASPIRIN 81 MG ECTAB PO SCH (09:42)
[2023-01-06] MEDS: AMIODARONE 200 MG TAB PO SCH (09:43)
[2023-01-06] MEDS: FAMOTIDINE 20 MG in SYRINGE 3 ML IV SCH (09:44)
[2023-01-06] MEDS: POTASSIUM CHLORIDE 10 MEQ TABCR PO SCH (09:44)
[2023-01-06] MEDS: FOLIC ACID 1 MG TAB PO SCH (09:44)
--- NOTE | 2023-01-06 10:40 | Palliative Care Progress Note ---
Date of Service January 06, 2023 Assessment & Plan (1) Palliative care encounter: Plan: Met with pt/family. Provided overview of Palliative Medicine, a subspecialty that provides specialized medical care for people living with a serious illness by offering a focus on quality of life. Palliative Medicine is often conflated with hospice: I advised patient/family that Palliative and hospice can be partners but we are not the same. It is important to understand the difference so that we may be informed, and not afraid. Palliative Medicine works to improve QOL through reduction of symptom burden/more control over their illness, for both the patient and family. Palliative medicine clinicians are board certified, specially-trained and another member of the patient's medical care team. We often provide an extra layer of support because our care is based on the needs of the patient, not the prognosis; as such, it's appropriate at any age/advancing stage of a serious illness and can be provided along with curative treatment. Palliative Medicine clinicians are also trained in advanced communication methodologies, to facilitate complex discussions about advanced illness planning, which are needed to help assure that the treatment choices match the patient's goals, aka delivering Goal Concordant care. Finally, we discussed that hospice is a visiting nurse service that focuses on care delivered at the very end of life for patients with terminal illness, with life expectancy less than 6 month. (2) Advanced care planning/counseling discussion: Plan: family meeting today at 3pm, with: Giuseppe 96yo, son Giuseppe Clancy Jr ("David")/66yo, son Geremias/55yo and Zenobia, dtr Rukhsana and No Palomo mgt. TS face to face discussion 50 min Giuseppe Day is extremely TANACROSS. I sat next to him and nearly shouted to be at a volume he could comprehend with hearing aides. he expressed a good understanding of pt overall conditioning, continued decline, progressive dementia and new pelvic mass which he agrees ellison snot need further work up and he knows she would not tolerate surgical intervention for biopsy nor would she be able to tolerate aggressive treatment because she is bedbound, contracted, has a deep sacral decub wound requiring surgical bedside debridement, is cachectic, FTT, overall general downward trend. family in agreement. pt resides at private home in [place] with son Giuseppe ellsworth "David" and Giuseppe . we discussed her medical needs have become more complex. Giuseppe is her first POA and is firm he wants her home. he notes they have been nearly 70 years, and he wants his at home with him, where they made a promise to always remain by each other's side. we reviewed the options and condition for coming home with VNS through hospice bc she needs ongoing wound care as well as symptom mgt, she has terminal illness, wound will not heal and she needs to be monitored by nursing and aides for comfort. Giuseppe Sr in agreement for hospice nursing, tells me he understands this is what is needed to safely bring pt home to assure she has the care she needs but in the place they all want her to be. I have provided education about the hospice benefit. Hospice is an interdisciplinary program offered by nurses, nurses aides, social workers, chaplains and a medical insurance claims specialist for patients with a terminal condition and a life expectancy of less than 6 months. The goal would be to improve the quality of life of the patient in their home setting (home, group home, inpatient hospice setting) by providing symptoms management, psychosocial and spiritual support. However, they cannot offer 24 hours care and if the family is unable to provide that care, they will have to consider personal care with out of pocket cost vs. group home placement.Discussed changes pt may move through in the dying process including but not limited to sleeping more, disorientation when awake, restlessness, diminished senses/inability to respond to stimulus although ability to be aware of them remains intact longer, changes in body temperatures, skin changes/mottling/cyanosis, respiratory pattern changes, oral secretions. Family verbalized understanding. The goal is to assure a peaceful . at Rukhsana's request we reviewed the following Dementia facts Aggressive medical treatment for residents with advanced dementia is often inappropriate for medical reasons, has a low rate of success, and can have negative outcomes that hasten functional decline and . ([place] [employer] Ethics Committee and Clinical Practice and Models of Care Committee. J Am Geriatr Soc. 2014 Aug;62(8):1590-3 and Edilma SL, Raisa JM, Stone SC, Alberto V. A national study of the location of for older persons with dementia. J Am Geriatr Soc 2005; 53(2):299-305.) Tube feeding in residents with advanced dementia does not increase survival. It does not prevent aspiration pneumonia, malnutrition or pressure ulcers. It does not reduce the risk of infections or improve functional status or comfort of the patient. (from: Raad CAZARES, Dayana T Percutaneous endoscopic gastrostomy does not prolong survival in patients with dementia. Arch Inspector Plumbing Med 2003; 163(11):6892-0121 AND Jennifer Álvarez, Sivakumar Allen, Yudith S, Tommy HUFFMAN. High short-term mortality in hospitalized patients with advanced dementia - Lack of benefit of tube feeding. Arch Inspector Plumbing Med 2001; 161(4):594- 599.) Simple strategies involving hands-on care by well-trained staff such as massage, oral hygiene, changes in diet, and hand-feeding -- can prevent infection and manage feeding problems without resort to tube-feeding. Tube feeding does not prevent aspiration pneumonia and might actually increase its incidence, and does not prevent the consequences of malnutrition Hand feeding can be provided until the beginning of the dying process when all physiological processes shut down, note that cognitively intact cancer patients indicate that dying residents do not feel hunger and thirst. Voluntary refusal of food and liquids is often initiated by hospice patients and does not result in discomfort I recommend hospice at SNF: Hospice is a valuable service for persons with advanced dementia, particularly in management of pain, continuous involvement of the primary physician, and avoidance of hospitalization. Social support provided to caregivers is also important given their high levels of depressive symptoms and anxiety. The goal of care for residents with advanced dementia is primarily maintenance of function and patient should not be transferred to an acute care setting because hospitalization results in decline of functional abilities that do not recover after discharge. (3) Pelvic mass: Plan: no further work up or intervention desires given pt overall declining PS, prolonged wound care needs, failing nutrition/cachexia, end stage dementia. Dementia prognosis with MRI score: Dementia is an irreversible syndrome of acquired and persistent impairment in cognition and intellectual functioning, leading to progressive brain failure and . Romaine (Romaine Sun. Dementia and Neurodegenerative Disorders. In: Tommy HUFFMAN, Sakina CERDA, eds. Geriatric Palliative Care. [place], [place]: [employer]; 2003.) classifies dementia into four functionally defined categories: mild, moderate, severe, and terminal. Terminal dementia is defined as loss of communication, ambulation, swallowing, and continence. Many prognostic factors have been associated with shortened survival: male gender, age, diabetes mellitus, CHF, COPD, cancer, cardiac dysrhythmias, peripheral edema, aspiration, bowel incontinence, recent weight loss, dehydration, fever, pressure ulcers, seizures, shortness of breath, low oral intake, not being awake for most of the day, low BMI, and recent need for continuous oxygen. A 2012 systematic review found that malnutrition, feeding issues, and dysphagia were the strongest associated factors with 6 month mortality in elderly patients with advanced dementia. Simply being admitted to the hospital with acute illness and end-stage or terminal dementia is associated with a particularly poor prognosis: the six month mortality after hospitalization for pneumonia was 53% compared with 13% for cognitively intact patients. For patients with a new hip fracture, 55% of end-stage dementia patients within 6 months compared with 12% for cognitively intact patients (Tommy RS, Raina AL. Survival in end-stage dementia following acute illness. JOSÉ LUIS. 2000; 284:47-52.). The Mortality Risk Index (MRI) score of >=12, demonstrated that 70% within 6 months (mean survival time not reported). Compared to FAST Stage 7C, the MRI had greater predictive value of six month prognosis. The MRI as only been evaluated in newly admitted group home residents; it has yet to be validated in the community setting or for previously established long-term group home residents. (Edilma VILLALBA, Savita DK, Heather MB, et al. Estimating prognosis for group home residents with advanced dementia. JOSÉ LUIS. 2004; 291:5279-0359.) Access the MRI Score calculator at: [email or web address] Patient's MRI Score today is 26.2, which portends a 49-62% 6 month mortality risk. (4) Dementia: Plan: see #2 and 3 above Patient is FAST 7E, non verbal, incontinent, cannot hold her body positioning, requires max assist for all care. (5) Dysphagia: (6) Pressure ulcer of sacral region, stage 3: (7) Failure to thrive: (8) Generalized weakness: Plan Family meeting as noted above. MRI score portends very high risk for 6 month mortality Family choose [facility], CM will arrange; hospice diagnosis should be severe wound, cachexia, dementia with failure to thrive. please document her overall declining PS and non verbal condition. extensive discussion as noted above family was given additional written materials from CM re: changes which can be seen as patients near their dying time. Giuseppe Day was not ready for this material and politely handed it back stating it was too soon for him to have to read about end of life. Primary team updated Felicity Abad DNP Clinical Director, Palliative Medicine Admission and Anticipated Discharge Date Admission Date: January 04, 2023 Subjective no acute events resting in bed, no family present Family meeting today at 3pm in CR 8, family and primary team aware. Review of Systems Review of Systems: Unobtainable due to cognitive status Physical Exam Physical Exam: supine bitemp wasting Constitutional: + cachectic, + behavioral limitations, + frail appearing, + lethargic, + malnourished and + underweight Eyes: reactive pupils ENMT: Ears: + hearing impairment Mouth: + oral mucosal abnormality and + poor dentition Neck: normal visual inspection Thyroid: normal thyroid Respiratory: normal respiratory effort and symmetric chest movement Auscultation: + diminished lung sounds and + crackles Cardiovascular: Rate/Rhythm: regular rate and + irregularly irregular Gastrointestinal (Abdomen): abd scaphoid Musculoskeletal: contractures, generalized weakness Skin: + turgor decreased, + ulcer, + wound, + skin atrophy, + dry skin and + pallor Neurologic: does not interact Results & Data ([facility]) Vital Signs (Past 12 Hours) Vital Signs Temp Pulse Pulse Pulse Resp BP Pulse Ox 01/06/23 08:03 60 16 134/49 L 92 01/06/23 07:42 01/06/23 05:21 36.4 C L 62 20 131/68 98 01/06/23 03:30 65 01/06/23 00:10 64 71 Pulse Ox Pulse Ox O2 Del Method O2 Del Method O2 Del Method O2 Flow Rate O2 Flow Rate 01/06/23 08:03 Nasal Cannula 2 01/06/23 07:42 Nasal Cannula 2 01/06/23 05:21 Nasal Cannula 2 01/06/23 03:30 97 Nasal Cannula 2 01/06/23 00:10 94 79 L Nasal Cannula Room Air 2 Laboratory Results reviewed Diagnostic Findings reviewed PG Care Time/CCT Total # of Minutes Spent Total Time Spent: 88 Total Time Spent with Patient: Total time spent is greater than 50% in coordination of care (as documented) at patient's floor/unit and/or counseling patient: 38 min with pt/eval this morning then 50 min with family meeting face to face as noted above. Prolonged Care Time Prolonged Care Time: Yes C[place] [address] SUB INP/OBS CARE 3/50MIN Patient Type Established History Comprehensive Exam Comprehensive Medical Decision Making High Complexity Diagnoses Palliative care encounter Z51.5 Advanced care planning/counseling discussion Z71.89 Pelvic mass R19.00 Dementia F03.90 Dysphagia R13.10 Pressure ulcer of sacral region, stage 3 L89.153 Failure to thrive Generalized weakness R53.1 Additional Codes Prolonged Care Time - Prolonged Care Time: Yes ([id number])
[2023-01-06 12:38] LABS: Influenza A virus by PCR Negative (Neg); Influenza B virus by PCR Negative (Neg); RSV by PCR Negative (Neg); SARS CoV2 RNA(COVID-19) Ceph NEGATIVE (Negative)
--- NOTE | 2023-01-06 13:30 | Surgery Progress Note ---
Date of Service January 06, 2023 Assessment & Plan (1) Decubitus ulcer: Plan: pt is a 87 year-old female who presents with stage II decubitus ulcer, IMP: decubitus ulcer, most likely cellulitis, no surgery debridement indication now, IV antibiotic, consult wound care nurse, sign off today, please call with questions, Thanks, 01/05/2023 7:10, F/U decubitus ulcers, pt's son at bedside, I recommend to do debridement on low back decubitus ulcers, D/W benefits, risks and alternatives of the procedure, the risks- infection,bleeding, may need more surgery, pt's son understood, he agreed with debridement on wound, he signed informed consent, I answered all questions, I did debridement the wound at bedside, pt tolerated the procedure well, nurse assisted me at bedside. 01/06/2023 1;25 PM F/U debridement the wounds, stable, continue antibiotic treatment, wound care nurse will do dressing change, sign off today, please call with questions, Thanks, Admission and Anticipated Discharge Date Admission Date: January 04, 2023 Supervising Physician Co-Signing Physician Notes ISRRAEL Supervision Note: I did not personally see or examine the patient today, but I verified all price points of ISRRAEL Huff's assessment and plan with the following exceptions/additions: none Subjective no acute events resting in bed, no family present Family meeting today at 3pm in CR 8, family and primary team aware. 01/06/2023 1:[address] Andrews F/U debridement decubitus ulcers, POD 1 pt is stable, no fever, Physical Exam Constitutional: WD/WN, vitals as above Eyes: PERRL, conjunctivae normal, anicteric sclerae Neck: trachea midline, no thyromegaly Respiratory: normal respiratory effort, lungs clear to auscultation Cardiovascular: RRR, no murmur, no edema Skin: the wounds are dry, no significant drainage, mild redness around the wounds, Psychiatric: A+Ox3, euthymic affect Results & Data ([facility]) Vital Signs (Past 12 Hours) Vital Signs Temp Pulse Pulse Resp BP Pulse Ox Pulse Ox 01/06/23 11:30 36.6 C 63 16 132/71 96 01/06/23 08:03 60 16 134/49 L 92 01/06/23 07:42 01/06/23 05:21 36.4 C L 62 20 131/68 98 01/06/23 03:30 65 97 O2 Del Method O2 Del Method O2 Flow Rate O2 Flow Rate 01/06/23 11:30 Nasal Cannula 2 01/06/23 08:03 Nasal Cannula 2 01/06/23 07:42 Nasal Cannula 2 01/06/23 05:21 Nasal Cannula 2 01/06/23 03:30 Nasal Cannula 2 Laboratory Results Abnormal lab results 01/05/23 01/06/23 01/06/23 Range/Units 11:47 06:44 06:44 WBC 15.10 H (4.8-10.8) K/ul RBC 3.28 L (4.20-5.40) M/uL Hgb 10.2 L (12.0-16.0) g/dl Hct 31.6 L (37.0-47.0) % RDW Std Deviation 54.6 H (36.4-46.3) fL RDW Coeff of Luis 15.4 H (11.5-14.5) % Neut # (Auto) 13.28 H (1.40-6.50) K/uL Lymph # (Auto) 0.78 L (1.2-3.4) K/uL [place] # (Auto) 0.74 H (0.11-0.59) K/uL ABG pO2 69 L (80-95) mmHg ABG HCO3 25 H (19-24) mmol/L ABG O2 Saturation 95.7 H (90-95) % Chloride 111 H (98-107) mmol/L Anion Gap 0 L (3-11) BUN 25 H (6-23) mg/dl BUN/Creatinine Ratio 30.5 H (10-20) Glucose 101 H (70-99(Fasting)) mg/dl Calcium 8.2 L (8.5-10.1) mg/dl Total Protein 5.1 L (6.0-8.3) gm/dl Albumin 2.4 L (3.4-5.0) gm/dl
[2023-01-06] MEDS: cefTRIAXone SODIUM 2,000 MG in DEXTROSE 5% 50 ML IV SCH (17:19)
--- NOTE | 2023-01-06 19:33 | Hospitalist Progress Note ---
Date of Service January 06, 2023 Assessment & Plan (1) Failure to thrive: Plan: Multifactorial causes - UTI, Pneumonia, R pelvic mass, decompensated hypothyroidism, constipation, progressive dysphagia/dehydration, dementia (probably vascular in etiology), sacral ulcer, etc. Given groundglass pulm opacities and pneumonia rechecked COVID/flu/RSV -> negative. Remains on Ceftriaxone for UTI/pneumonia. WBC count still elevated despite such. Very poor prognosis. Palliative care met with family today - plan is home with hospice which is appropriate. Appreciate palliative care consultation. (2) Pressure ulcer of sacral region, stage 3: Plan: Main reason she was brought to the ER by sons Dr Andrews performed bedside debridement yesterday Cont IV abx if any superimposed infection (3) UTI (urinary tract infection): Plan: Cont rocephin (4) Pneumonia: Plan: Completed zithromax Cont rocephin (5) Dysphagia: Plan: Pureed diet appreciate speech eval (6) Hypothyroidism: Plan: TSH elevated compliance with oral synthroid as outpatient? 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 (13) Dementia: Plan: advanced (14) Constipation: Plan: resolved (15) Anemia: Plan: H/H stable today (16) Elevated troponin: Plan: likely myocardial demand ischemia from UTI/pneumonia EKG w/o ischemic changes Plan social work to assist with home hospice arrangements appreciate palliative care assistance Admission and Anticipated Discharge Date Admission Date: January 04, 2023 Subjective unable to elicit any history or ROS due to aphasia, ?confusion, lethargy barely woke up for me during the visit family met with palliative care - plan is home with hospice Review of Systems Review of Systems: Unobtainable due to cognitive status Physical Exam Physical Exam: gen - cachectic, altered/lethargic, looks chronically unwell mouth - MM dry neck - no JVD heart - RRR, s1 s2 lungs - course and wheezy b/l, no increased work of breathing abd - soft NT BS+ ext - no edema, pulses 2+ b/l psych - lethargic Results & Data Results & Data ([facility]) Vital Signs (Past 12 Hours) Vital Signs Temp Pulse Resp BP Pulse Ox O2 Del Method O2 Flow Rate 01/06/23 11:30 36.6 C 63 16 132/71 96 Nasal Cannula 2 01/06/23 08:03 60 16 134/49 L 92 Nasal Cannula 2 01/06/23 07:42 Nasal Cannula 2 Laboratory Results Laboratory Results - last 24 hr 01/04/23 01/06/23 01/06/23 14:28 06:44 06:44 WBC 15.10 H RBC 3.28 L Hgb 10.2 L Hct 31.6 L MCV 96.3 MCH 31.1 MCHC 32.3 RDW Std Deviation 54.6 H RDW Coeff of Luis 15.4 H Plt Count 186 MPV 10.7 Immature Gran % (Auto) 1.1 Neut % (Auto) 87.9 Lymph % (Auto) 5.2 Petroleum % (Auto) 4.9 Eos % (Auto) 0.7 Baso % (Auto) 0.2 Neut # (Auto) 13.28 H Lymph # (Auto) 0.78 L Petroleum # (Auto) 0.74 H Eos # (Auto) 0.11 Baso # (Auto) 0.03 Immature Gran # (Auto) 0.16 Sodium 140 Potassium 4.3 Chloride 111 H Carbon Dioxide 29 Anion Gap 0 L BUN 25 H Creatinine 0.82 Est Cr Clr Drug Dosing 32.2 Est GFR ( Amer) 74.0 Est GFR (Non-Af Amer) 63.9 BUN/Creatinine Ratio 30.5 H Glucose 101 H Calcium 8.2 L Magnesium 2.1 Total Bilirubin 0.5 AST 20 ALT 44 Alkaline Phosphatase 96 Ammonia Total Protein 5.1 L Albumin 2.4 L Globulin 2.7 Albumin/Globulin Ratio 0.9 CA 125 Antigen 17 SARS-CoV-2 (PCR) Influenza Type A (PCR) Influenza Type B (PCR) RSV (RT-PCR) 01/06/23 01/06/23 06:44 Unknown WBC RBC Hgb Hct MCV MCH MCHC RDW Std Deviation RDW Coeff of Luis Plt Count MPV Immature Gran % (Auto) Neut % (Auto) Lymph % (Auto) Petroleum % (Auto) Eos % (Auto) Baso % (Auto) Neut # (Auto) Lymph # (Auto) Petroleum # (Auto) Eos # (Auto) Baso # (Auto) Immature Gran # (Auto) Sodium Potassium Chloride Carbon Dioxide Anion Gap BUN Creatinine Est Cr Clr Drug Dosing Est GFR ( Amer) Est GFR (Non-Af Amer) BUN/Creatinine Ratio Glucose Calcium Magnesium Total Bilirubin AST ALT Alkaline Phosphatase Ammonia 27.0 Total Protein Albumin Globulin Albumin/Globulin Ratio CA 125 Antigen SARS-CoV-2 (PCR) NEGATIVE Influenza Type A (PCR) Negative Influenza Type B (PCR) Negative RSV (RT-PCR) Negative PG Care Time/CCT Total # of Minutes Spent Total Time Spent with Patient: Total time spent is greater than 50% in coordination of care (as documented) at patient's floor/unit and/or counseling patient: Coding Level of Care Code 60531 SUB INP/OBS CARE 2/35MIN Diagnoses Failure to thrive Pressure ulcer of sacral region, stage 3 L89.153 UTI (urinary tract infection) N39.0 Pneumonia J18.9 Dysphagia R13.10 Hypothyroidism E03.9 Paroxysmal atrial flutter I48.92 Elevated liver transaminase level R74.01 Left humeral fracture S42.302A Aphasia R47.01 Hypertension I10 Hematoma of left lower leg S80.12XA Dementia F03.90 Constipation K59.00 Anemia D64.9 Anemia type: unspecified type Elevated troponin R77.8 (15) Anemia Anemia type: unspecified type Qualified Code(s): D64.9 - Anemia, unspecified
[2023-01-07] MEDS: ENOXAPARIN INJ 40 MG/0.4 ML SYR SQ SCH ×2 (02:09→14:38)
[2023-01-07] MEDS: LEVOTHYROXINE SODIUM 88 MCG TABLET PO SCH (06:20)
[2023-01-07] MEDS: DOCUSATE SODIUM 100 MG CAP PO SCH (09:18)
[2023-01-07] MEDS: amLODIPine BESYLATE 5 MG TAB PO SCH (09:19)
[2023-01-07] MEDS: POTASSIUM CHLORIDE 10 MEQ TABCR PO SCH (09:19)
[2023-01-07] MEDS: ASPIRIN 81 MG ECTAB PO SCH (09:20)
[2023-01-07] MEDS: AMIODARONE 200 MG TAB PO SCH (09:20)
[2023-01-07] MEDS: FOLIC ACID 1 MG TAB PO SCH (09:20)
[2023-01-07] MEDS: FAMOTIDINE 20 MG in SYRINGE 3 ML IV SCH (09:21)
[2023-01-07] MEDS: cefTRIAXone SODIUM 2,000 MG in DEXTROSE 5% 50 ML IV SCH (17:43)
--- NOTE | 2023-01-07 19:37 | Hospitalist Progress Note ---
Date of Service January 07, 2023 Assessment & Plan (1) Failure to thrive: Plan: Multifactorial causes - UTI, Pneumonia, R pelvic mass, decompensated hypothyroidism, constipation, progressive dysphagia/dehydration, severe & progressive dementia (probably vascular in etiology), sacral ulcer, etc. Given groundglass pulm opacities and pneumonia rechecked COVID/flu/RSV -> negative. Remains on Ceftriaxone for UTI/pneumonia. Very poor prognosis. Palliative care met with family 01/06/23 - plan is home with hospice on 01/08/23. Appreciate palliative care consultation. Met with pt's son-in-law at bedside -- plan still is home with hospice tomorrow. Stop IV abx. Has received about 6-7 days of Rx. Stop anticoagulation/lovenox/etc. No labs in am. Cont NC O2, duong. (2) Pressure ulcer of sacral region, stage 3: Plan: Main reason she was brought to the ER by sons Dr Andrews performed bedside debridement earlier this week transitioning to hospice - stop abx (3) UTI (urinary tract infection): Plan: stop IV abx after today (4) Pneumonia: Plan: Completed zithromax Cont rocephin today and stop after today's dose (5) Dysphagia: Plan: Pureed diet appreciate speech eval suspect she is aspirating frequently given her wet/moist cough (6) Hypothyroidism: Plan: TSH elevated compliance with oral synthroid as outpatient? 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 (11) Hypertension: Plan: stable (12) Hematoma of left lower leg: Plan: appears resolved on exam (13) Dementia: Plan: advanced and progressive (14) Constipation: Plan: resolved (15) Anemia: Plan: H/H stable yesterday no further blood draws (16) Elevated troponin: Plan: likely myocardial demand ischemia from UTI/pneumonia EKG w/o ischemic changes Plan social work assisting with home hospice arrangements - d/c home with such on appreciate palliative care assistance Admission and Anticipated Discharge Date Admission Date: January 04, 2023 Subjective patient sleeping soundly during my visit - snoring in fact did not wake up to me calling her name unable to provide any history or ROS per staff is eating decently at meals continues with wet, moist cough I met with pt's son-in-law at bedside and the family continues to wish for d/c home with hospice tomorrow tele overnight wnl Review of Systems Review of Systems: Unobtainable due to cognitive status Physical Exam Physical Exam: gen - cachectic, altered/lethargic, looks chronically unwell, snoring, coughing mouth - MM dry neck - no JVD heart - RRR, s1 s2, no murmur lungs - b/l basilar rales, occasional wheeze, snoring abd - soft NT BS+ ext - 1+ edema b/l feet; pulses 2+ b/l; no hematoma noted on LLE psych - lethargic Results & Data Results & Data ([facility]) Vital Signs (Past 12 Hours) Vital Signs Temp Pulse Resp BP Pulse Ox O2 Del Method O2 Flow Rate 01/07/23 15:54 36.5 C 61 19 119/71 99 Nasal Cannula 1 01/07/23 08:07 Nasal Cannula 2 01/07/23 07:43 36.4 C L 63 20 135/63 97 Nasal Cannula 2 PG Care Time/CCT Total # of Minutes Spent Total Time Spent with Patient: Total time spent is greater than 50% in coordination of care (as documented) at patient's floor/unit and/or counseling patient: Coding Level of Care Code 26449 SUB INP/OBS CARE 2/35MIN Diagnoses Failure to thrive Pressure ulcer of sacral region, stage 3 L89.153 UTI (urinary tract infection) N39.0 Pneumonia J18.9 Dysphagia R13.10 Hypothyroidism E03.9 Paroxysmal atrial flutter I48.92 Elevated liver transaminase level R74.01 Left humeral fracture S42.302A Aphasia R47.01 Hypertension I10 Hematoma of left lower leg S80.12XA Dementia F03.90 Constipation K59.00 Anemia D64.9 Anemia type: unspecified type Elevated troponin R77.8 (15) Anemia Anemia type: unspecified type Qualified Code(s): D64.9 - Anemia, unspecified
[2023-01-08] MEDS: LEVOTHYROXINE SODIUM 88 MCG TABLET PO SCH (05:20)
[2023-01-08] MEDS: AMIODARONE 200 MG TAB PO SCH (09:01)
--- NOTE | 2023-01-08 11:12 | Discharge Summary ---
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 Unable to get any history from the patient due to expressive dysphasia and dementia. History taken from son (Geremias) and daughter in-law (Zenobia) at bedside. She was last seen in hospital in October 2021 with a right femur fracture s/p intramedullary nail after falling at [facility]. The family wished her to undergo some rehabilitation at [facility] which she completed and she has been managed at home since completion. She was relatively stable until the last 3 to 4 months where she has deteriorated significantly losing a lot of weight. From the electronic health record she was weighing 60.5 kg on discharge in October 2021 and is currently 43 kg. She has had less of an appetite and is having increasing problems swallowing food that her family have moved to a more pured diet. Roughly a month ago she started getting sacral ulcers which were initially being successfully managed and reportedly everything had healed as of this last Thursday. However today she was noted to have significant sacral ulcers therefore they decided to bring her to the emergency room. There was some concern that the ulcers had previously gone down to bone by her other son. Initial work-up in the emergency room was concerning for infection with elevated white blood count 12.25 and a procalcitonin 2.22 with mildly elevated ALT (98) and AST (58). UA was grossly positive for infection with 4+ bacteria. Blood cultures were taken. She was started on ceftriaxone 2 g IV. She was referred to medicine for admission ongoing management for pressure ulcers. Discharge Exam gen - cachectic, altered/lethargic, looks chronically unwell, snoring, coughing mouth - MM dry neck - no JVD heart - RRR, s1 s2, no murmur lungs - b/l basilar rales, occasional wheeze, snoring abd - soft NT BS+ ext - 1+ edema b/l feet; pulses 2+ b/l; no hematoma noted on LLE psych - lethargic Discharge Data Allergies Allergy/AdvReac Type Severity Reaction Status Date / Time No Known Allergies Allergy Verified 12/05/21 13:04 Consultations 01/02/23 17:03 ED Decision to Admit Stat 01/02/23 22:07 Consult Palliative Care Routine 01/03/23 11:26 Consult General Surgery Routine Ordered Studies 01/02/23 17:39 CT abd pelvis IV con only Stat 01/02/23 20:16 CT head/brain wo con Stat Hospital Course (1) Failure to thrive: Multifactorial causes - UTI, Pneumonia, R pelvic mass, decompensated hypothyroidism, constipation, progressive dysphagia/dehydration, severe & progressive dementia (probably vascular in etiology), sacral ulcer, etc. Given groundglass pulm opacities and pneumonia rechecked COVID/flu/RSV -> negative. Remains on Ceftriaxone for UTI/pneumonia. Very poor prognosis. Palliative care met with family 01/06/23 - plan is home with hospice on 01/08/23. Appreciate palliative care consultation. Met with pt's son-in-law at bedside -- plan still is home with hospice tomorrow. Stop IV abx. Has received about 6-7 days of Rx. Stop anticoagulation/lovenox/etc. No labs in am. Cont NC O2, duong. (2) Pressure ulcer of sacral region, stage 3: Main reason she was brought to the ER by sons Dr Andrews performed bedside debridement earlier this week transitioning to hospice - stop abx (3) UTI (urinary tract infection): stop IV abx after today (4) Pneumonia: Completed zithromax Cont rocephin today and stop after today's dose (5) Dysphagia: Pureed diet appreciate speech eval suspect she is aspirating frequently given her wet/moist cough (6) Hypothyroidism: TSH elevated compliance with oral synthroid as outpatient? 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 (11) Hypertension: stable (12) Hematoma of left lower leg: appears resolved on exam (13) Dementia: advanced and progressive (14) Constipation: resolved (15) Anemia: H/H stable yesterday no further blood draws (16) Elevated troponin: likely myocardial demand ischemia from UTI/pneumonia EKG w/o ischemic changes Plan social work assisting with home hospice arrangements - d/c home with such on 01/08/23 appreciate palliative care assistance Home Health Attestation I certify that this patient is under my care and that I, or a physicians mobile sales assistant working with me, had a face to-face encounter that meets the home health [id number] encounter requirements with this patient. The encounter with the patient was in whole, or in part, for the following medical condition, which is the primary reason for home health care (list medical condition): I certify that, based on my findings, the following services are medically necessary home health services: My clinical findings support the need for the above services because: Further, I certify that my clinical findings support that this patient is homebound (i.e. absences from home require considerable and taxing effort and are for medical reasons or tenriism services or infrequently or of short duration when for other reasons) because: Certification for Home Health Services: Based on the above findings, I certify that this patient is confined to the home and needs intermittent group home care, physical therapy and/or speech therapy or continues to need occupational therapy. The patient is under my care, and I have initiated the establishment of the plan of care. This patient will be followed by a physician who will periodically review the plan of care. Discharge Plan Discharge Items Patient Disposition: Hospice - Home Reason For Visit: SACRAL ULCERS, FAILURE TO THRIVE Discharge Diagnosis: 1. Pneumonia 2. Urinary Tract Infection 3. Large Sacral Decubitus Ulcer 4. Failure to thrive 5. Pelvic mass 6. Dysphagia (difficulty swallowing) 7. Previous history of atrial flutter 8. History of stroke 9. Dementia Activity: As commented below Activity Comment: bedrest Non-emergency contact: Primary Care Provider Call non-emergency contact if: you have any medication questions, your symptoms worsen, your pain is not controlled, your wound has increased redness, your wound has increased drainage and your wound pain has increased Follow-up/Referrals: PCP,NO [Primary Care Provider] - Diet: Regular Diet Texture: Pureed (blended smooth) Addtl Attending Provider Instructions: Mrs Hunter is transitioning to home with hospice services in place. She was treated for UTI, pneumonia, and a large sacral decubitus ulcer during the stay along with her other chronic medical problems. At this time we recommend the following - 1. For pain or difficulty breathing / "air hunger" - * roxanol (morphine liquid) -- 2.5mg every 6 hours as needed * may be prudent to offer this medication prior to her dressing changes of her sacral wound 2. For anxiety/agitation/sleep may take - * lorazepam 0.5mg every 6 hours as needed 3. For nausea or vomiting may take - * ondansetron 4mg every 6 hours as needed 4. Continue nasal cannula oxygen upon return home. 5. Continue duong catheter; change ever 28-30 days; hospice can do this for you. 6. Various medications including Eliquis, aspirin, vitamins, etc have been discontinued as these will not provide comfort or benefit at this time. 7. Sacral wound - if possible change daily. If not possible then every other day. Dressing changes - * cleanse wound with saline * cover with aquacel Ag * then cover with optifoam dressings For any problems, questions, concerns, uncontrolled pain, any uncontrolled symptom (nausea, vomiting, etc) - please call the [facility]. They will be able to address the majority of your concerns by phone or in person within your home. It was our pleasure to care for you, Mrs Hunter. Enjoy being home, Dr Pinto Pending Studies at Discharge: No Stand-Alone Forms: My [facility] Medications and DC Order Prescriptions: New ondansetron 4 mg tablet,disintegrating 4 mg PO Q6H PRN (Reason: nausea and vomiting) Qty: 10 0RF lorazepam [Ativan] 0.5 mg tablet 0.5 mg PO Q6H PRN (Reason: anxiety, agitation, or sleep) Qty: 20 0RF morphine concentrate 100 mg/5 mL (20 mg/mL) solution 2.5 mg PO Q6H PRN (Reason: pain or air hunger/shortness of breath) Qty: 30 0RF Rx Instructions: for hospice/palliative care purposes Continued amiodarone 200 mg tablet 200 mg PO DAILY Qty: 90 3RF levothyroxine 75 mcg tablet 75 mcg PO DAILYBB acetaminophen [Tylenol] 325 mg Tablet 650 mg PO Q6H PRN (Reason: TEMP >100/PAIN) melatonin 3 mg Tablet 3 mg PO HS Discontinued Calmoseptine 0.44-20.6 % ointment 1 applic topical BID PRN (Reason: skin irritation) Qty: 113 11RF apixaban 2.5 mg tablet 2.5 mg PO BID Qty: 180 3RF amlodipine 2.5 mg tablet 2.5 mg PO BID Qty: 180 3RF aspirin 81 mg Tablet,Delayed Release (Dr/Ec) 81 mg PO QAM atorvastatin 40 mg tablet 40 mg PO QAM potassium chloride 10 mEq tablet extended release 10 meq PO DAILY Caltrate 600-D Plus Minerals 600 mg calcium- 800 unit-50 mg Tablet 1 tab PO BID Qty: 60 0RF cholecalciferol (vitamin D3) 25 mcg (1,000 unit) Capsule 1,000 unit PO QAM Qty: 30 0RF Discharge Orders: Discharge Order (Routine); Ordered 01/08/23 Ordered By: Aaron Pinto Admission Data Admit Date/Time: 01/04/23 13:56 Attending Provider: Aaron Pinto Admit Provider: Aaron Staley Primary Care Provider: PCP,NO Other Providers: Aaron Staley ; Margaret Woodward ; Shayne Andrews ; [facility] Other Interventions: Discharge Summary Assessment (RN) Last Done: 01/08/23 09:32 Coding Diagnoses Failure to thrive Pressure ulcer of sacral region, stage 3 L89.153 UTI (urinary tract infection) N39.0 Pneumonia J18.9 Dysphagia R13.10 Hypothyroidism E03.9 Paroxysmal atrial flutter I48.92 Elevated liver transaminase level R74.01 Left humeral fracture S42.302A Aphasia R47.01 Hypertension I10 Hematoma of left lower leg S80.12XA Dementia F03.90 Constipation K59.00 Anemia D64.9 Anemia type: unspecified type Elevated troponin R77.8
== END 2023-01-08 11:15 | disposition hospice, home (50) | DRG 981 ==
LOC: 3N 14:02 → ED 14:02 → SUATTDRO 17:44 → 3N 20:59 → SUATTDRO 01-04 13:56